=== PATIENT | male | born 1945 | race Caucasian/White ===

== ENCOUNTER → 2018-01-09 13:45 | Outpatient (CLI) | payer MEDICARE, SELFPAY ==
[2018-01-09 16:18] LABS: Anion Gap 8 (5-15); BUN 13 mg/dL (7-18); Calcium,Total 8.8 mg/dL (8.5-10.1); Chloride 102 mmol/L (98-107); Cholesterol 121 mg/dL (200); Creatinine, Serum 0.76 mg/dL (0.70-1.30); EST Glomerular Filtration Rate 107 mL/min (>60); Est Glom Filt Rate - Afr Amer 129 mL/min (>60); Glucose 98 mg/dL (74-106); High Density Lipoprotein 45 mg/dL; Potassium 3.8 mmol/L (3.5-5.1); Sodium Level 137 mmol/L (136-145); Thyroid Stim Hormone (TSH) 1.84 uIU/mL (0.358-3.74); Triglycerides 86 mg/dL; Very Low Density Lipoprotein 17 mg/dL (5-40)
== END ==
PROVIDERS: Family Provider Family Medicine; PCP Family Medicine; Visit Provider Family Medicine
DX: E11.9 Type 2 diabetes mellitus without complications (principal)
CPT/HCPCS: 36415; 80048; 80061; 84403; 84443

== ENCOUNTER 2018-06-26 09:00 | Outpatient (RCR) | payer MEDICARE, OTHER, SELFPAY ==
--- NOTE | 2018-05-22 10:28 | HP.PTEVAL_ITS ---
Patient's Visit Information EVERT GOOD is a 73 year old M referred to Physical Therapy by Sammy Ledezma with a diagnosis of L RC impingement. Date of Evaluation: 05/22/18 Physical Therapist: Keerthi Soriano - Visit Plan Frequency: 2x /Week Duration: 4-6 Weeks Plan: 2X/ week for 4-6 weeks for L shoulder PROM, AAROM, Active ROM, postural exercises, L RC and scapular strengthening with HEP and modalities PRN (US). - Subjective Subjective: He is not sure how he injured it but it has been months ago. He went to for regular check up and could hardly lift his arm (3 weeks) ago and now it is much better. He can now raise his arm up if he goes slow. He gets a sharp pain when he raises his arm up or if he lets it come down. He normally does not sleep on his L shoulder. He is R handed. He does yard work etc....not a lot of lifting - Pain L shoulder pain Pain Intensity (Out of 10): 3 - Objective Pt is R handed. Pt's AROM: L shoulder flexion to 80 degrees without substitution, L shld abd to 60 degrees without substitiution, IR to about PSIS, ER to 40 degrees. R shoulder flexion, abd, ER and IR WFL. L shoulder PROM: abd to approx 80 degrees, flexion to approx 165 degrees, ER to 45 degrees (pt is very guarded during PROM and hard to move the pt passivly with him guarding) . Pt is able to do AA flexion with some pain at end range and then when he comes back to approx 90 flexion in supine. He is also able to do AA wand scaption with some discomfort. Pt seemed to do better with AAROM with him being incontrol as opposed to PROM of the L shoulder. Due to guarding and decreased overall AROM I did not assess special tests at this time. L shoulder MMT: flexion 3-/5, abd 3-/5, ER 3+/5, IR 4-/5. R shoulder MMT: flex, abd, ER and IR 4/5. R supervisor tank house strength 102# and L supervisor tank house strength 100# - Goals Goal 1:: I HEP Goal Time Frame: 2-4 Weeks Goal 2:: Be able to raise L arm actively to 160 degrees abduction and flexion without substitution or pain Goal Time Frame: 4-6 Weeks Goal 3:: Increase L shoulder strength to 4-/5 all planes (flex, abd, ER and IR) Goal Time Frame: 4-6 Weeks Goal 4:: Be able to lift over his head without pain Goal Time Frame: 4-6 Weeks - Rehabilitation Potential Rehabilitation Potential: Good - Anticipated Interventions Patient/Client Instruction: Educate patient on: Condition, Plan of Care For the Purpose of:: To decrease pain, To decrease swelling/inflammation, To increase ROM, To improve nutrient delivery to tissue, To improve muscle performance and motor function, To improve ability to perform ADL's, To increase tolerance to activity/condition/position, To improve ability of physical actions for home/community/work/leisure, To improve health of tissue, To decrease soft tissue restriction, To increase flexibility/ROM Therapeutic Exercise to Include: Strength training, Postural training, Flexibilty training, Passive ROM, Active ROM, Scapular Strength/Stabilization For the Purpose of:: To decrease pain, To increase ROM, To improve nutrient delivery to tissue, To improve muscle performance and motor function, To increase tolerance to activity/condition/position, To improve performance and independence with ADL's, To improve ability of physical actions for home/ community/work/leisure, To improve health of tissue, To decrease soft tissue restriction, To increase flexibility/ROM Manual Therapy Techniques to Include: Passive ROM For the Purpose of:: To decrease pain, To increase ROM, To improve health of tissue, To decrease soft tissue restriction, To increase flexibility/ROM Cryotherapy (ice pack, ice massage): Yes Ultrasound (thermal/non thermal): Yes For the Purpose of:: To decrease pain, To decrease swelling/inflammation, To increase ROM, To improve nutrient delivery to tissue, To improve muscle performance and motor function, To improve ability to perform ADL's, To increase tolerance to activity/condition/position, To improve health of tissue, To decrease soft tissue restriction, To increase flexibility/ROM Thank you for the opportunity to evaluate your patient. For Medicare and Medicare HMO plans, please review the plan of care and approve it. It will need to be FAXED BACK to us at [phone] for Medicare purposes. Please let me know if there are questions or concerns regarding this plan of care. Physician Signature: Date:
--- NOTE | 2018-06-26 09:33 | HP.PTDCSUM ---
HP - PT D/C Summary It has been my pleasure to treat EVERT GOOD under orders from Sammy Ledezma, for the diagnosis of L RC impingement for a total of 10 visit(s). Discharge Date: 06/26/18 Please see the following information for a summary of their discharge status. - Subjective Subjective: Pt thinks that his shoulder is getting better. He feels it is gonna take time to heal. Pt still has pain when he is reaching for something ( no consistent when reaching). - Pain L shoulder pain Pain Intensity (Out of 10): 0 - Overall Improvement % Improvement: 50 - Objective Objective/Function: Improved flexion AROM from 80 degrees to 160 degrees on the L. Improved AROM abd L from 60 degrees to 80 degrees and still painful arc....once he gets past 120 degrees he is able to complete the motion. - Goals Goal 1:: I HEP Goal Progress: Goal Met Goal 2:: Be able to raise L arm actively to 160 degrees abduction and flexion without substitution or pain Goal Progress: Progressing Goal 3:: Increase L shoulder strength to 4-/5 all planes (flex, abd, ER and IR) Goal Progress: Progressing Goal 4:: Be able to lift over his head without pain Goal Progress: Progressing - Plan Plan: DC PT to HEP. Pt would like to wait and see if his shoulder gets better on its own and will try and remember to do HEP. - D/C Information Discharge Comments: DC PT If there are questions or concerns regarding this patient's physical therapy, please feel free to call me at [phone]. Thank you for the referral of this patient. Sincerely, Keerthi Soriano
== END 2018-06-26 14:19 | disposition home or self-care (01) ==
LOC: PT 09:00
PROVIDERS: Family Provider Family Medicine; PCP Family Medicine; Visit Provider Family Medicine
DX: M75.42 Impingement syndrome of left shoulder (principal)
CPT/HCPCS: 97035; 97110; 97140; 97161; 97530

== ENCOUNTER 2018-12-15 12:29 | Inpatient (IN) | payer MEDICARE, OTHER, SELFPAY ==
[2018-12-15] VITALS (8 sets, daily range): BP systolic 115–147; BP diastolic 57–68; PULSE 72–86; RESP 16–23; TEMP 37.3–39.4; O2SAT 91–96; BMI 28.6; BMI 28.5
[2018-12-15 13:20] LABS: Absolute Lymphocyte Count 0.46 X10^3/ul (0.83-4.51); Absolute Neutrophil Count 8.7 X10^3/uL (2.0-7.7); Basophil# 0.01 X10^3/uL; Basophil% 0.1 % (0-1); Hematocrit 36.5 % (40-54); Hemoglobin 12.4 g/dl (13.0-16.5); Lymphocyte # 0.46 X10^3/ul (4.0); Lymphocyte % 4.7 % (19-41); Mean Corpuscular Hgb 29.7 pg (27.0-32.0); Mean Corpuscular Volume 87.3 fL (80-94); Mean Platelet Vol. 9.6 fl (6.2-12.0); Monocyte# 0.54 X10^3/uL; Monocyte% 5.5 % (0-10); Neutrophil # 8.72 X10^3/uL (2.7-7.7); Neutrophil % 89.6 % (47-70); Platelet Count 139 K/mm3 (150-450); RBC Distribution Width CV 13.2 % (11.6-14.6); RBC Distribution Width SD 42.2 fl (35.1-43.9); Red Blood Count 4.18 M/mm3 (4.6-6.2); White Blood Count 9.7 K/mm3 (4.4-11.0)
[2018-12-15 13:22] LABS: POSITIVE COUNT NO; POSITIVE DIFFERENTIAL YES; POSITIVE MORPHOLOGY NO
[2018-12-15 13:23] LABS: Differential Indicated SCAN CRITERIA MET
[2018-12-15] MEDS: 0.9% Normal Saline 1,000 ML 150 ML IV (13:32)
[2018-12-15] MEDS: Ceftriaxone 1 GM/50 ML BAG IV (13:32)
[2018-12-15 13:33] LABS: Anion Gap 10 (5-15); BUN 20 mg/dL (7-18); BUN/Creat Ratio 16.4 RATIO (10-20); Calcium,Total 8.9 mg/dL (8.5-10.1); Chloride 99 mmol/L (98-107); Creatinine, Serum 1.22 mg/dL (0.70-1.30); EST Glomerular Filtration Rate 62 mL/min (>60); Est Glom Filt Rate - Afr Amer 75 mL/min (>60); Estimated Creatinine Clearance 60.96 ml/min; Glucose 185 mg/dL (74-106); Potassium 3.3 mmol/L (3.5-5.1); Sodium Level 137 mmol/L (136-145)
[2018-12-15] MEDS: Acetaminophen 500 MG Tablet 1000 MG PO (13:35)
[2018-12-15 13:53] LABS: Lactic Acid 1.8 mmol/L (0.4-2.0)
[2018-12-15 14:21] LABS: Bacteria 0 SEEN /hpf (None Seen); Mucous, Urine 0 SEEN /hpf (<or=2+); Red Blood Cells-Urine 0 SEEN /hpf (0-5); Squamous Epithelial Cells - UA 0 SEEN /hpf (0-5)
[2018-12-15 14:24] LABS: Color, Urine Yellow (Yellow); Glucose, Dipstick 100 mg/dl (Normal); Ketone-Dipstick Negative (Negative); Leukocyte Esterase-Dipstick 500 /ul (Negative); Nitrite-Dipstick Negative (Negative); Occult Blood-Urine 25 /ul (Negative); Protein-Dipstick 30 mg/dl (Negative); Specific Gravity, Urine 1.025 (1.002-1.030); Urine Bilirubin Dipstick Negative (Negative); Urine Clarity Clear (Clear); Urine Urobilinogen Normal (Normal)
[2018-12-15 14:27] LABS: White Blood Cells 10-25 SEEN /hpf (0-5)
--- NOTE | 2018-12-15 14:42 | ED.DCSUM_ITS ---
- ER Visit Summary Date of Service: 12/15/18 Chief Complaint: [Fever] History of Present Illness: The patient is a 73 M [presents to the emergency department with complaint of a fever that started yesterday. Patient was seen in Dr. Joe's office yesterday for fever and dysuria and had a urinalysis checked and was apparently started on ciprofloxacin. Patient today just has no energy and continues with high fever at home. Patient generally feels weak. He denies any vomiting. He had not taken anything for his fever at home. Patient does have a history of diabetes, hypertension, and high cholesterol. Patient denies any significant cough. He denies any abdominal pain or back pain.] Per patient also little more confused than usual today. Physical Examination: [HEENT-PERRLA, EOMI. Cranial nerves II through XII grossly intact. TMs clear. Mucous membranes moist. No adenopathy. Cardiovascular-regular rate and rhythm without murmur or ectopy Lungs-clear to auscultation, chest wall stable without crepitus or subcu emphysema Abdomen-normoactive bowel sounds, soft, nontender, no rebound or rigidity, no peritoneal signs. Skin exam-no rashes noted. Extremities-intact ?4, normal range of motion, normal pulses, atraumatic] Test Results: [CBC with differential obtained showed a white count of 9.7, hemoglobin 12.4, hematocrit 36, platelets 139. Chemistries showed a sodium of 137, potassium 3.3, chloride 99, CO2 28, glucose 185, BUN 20, creatinine 1.22. Urinalysis was positive for 500 leukocyte esterase and 10-25 WBCs. Lactate was normal at 1.8.] Emergency Department Course and Treatment: [Patient was given Tylenol 1 g p.o. Patient was started on Rocephin 1 g IV. Blood cultures and urine culture were sent. Patient was treated with potassium chloride 40 mEq p.o. for his hypokalemia] Treatment Plan: [Patient will be admitted for IV antibiotics and fluids. As he continues with chills and sweats.] Disposition: [Admit] Impression: [UTI Generalized weakness] This note was generated with [employer] dictation software. It may contain incorrect words, spelling, and punctuation that were not noted in review of the chart prior to signing ED Disposition - Plan for ED Patient: Referrals: Osbaldo Ledezma MD [Primary Care Provider] -
--- NOTE | 2018-12-15 14:46 | PCM.HP.STD ---
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 use Diabetes mellitus complication status: with unspecified complications Qualified Code(s): E11.8 - Type 2 diabetes mellitus with unspecified complications (4) Atherosclerosis of coronary artery of [place] heart without angina pectoris Status: Chronic Qualifiers: Coronary Disease-Associated Artery/Lesion type: [place] artery Qualified Code(s): I25.10 - Atherosclerotic heart disease of [place] coronary artery without angina pectoris (5) Hyperlipidemia Status: Chronic Qualifiers: Hyperlipidemia type: pure hypercholesterolemia Qualified Code(s): E78.00 - Pure hypercholesterolemia, unspecified; E78.0 - Pure hypercholesterolemia (6) Non-sustained ventricular tachycardia Status: Chronic (7) Hypertension Status: Chronic Qualifiers: Hypertension type: essential hypertension Qualified Code(s): I10 - Essential (primary) hypertension History of Present Illness Date of Admission: 12/15/18 Chief Complaint: Dysuria, Fever The patient is a 73 y/o M w/ PMHx: HTN, HLD, History of NSVT, Diabetes mellitus type II, CAD, Chronic Anemia, Fatty Liver Disease, Former Tobacco use who presents to the [facility] ED on 12/15/18 with history of recently presenting to his PCP the day prior w/ noted fever, dysuria, initiated following UA on oral cipro; however, had T up to 103, fevers, chills and mild confusion prompting ED presentation. Family and patient notes that he also got an IM shot, unclear regimen in the office. He notes having taken a total of 2 doses of the cipro regimen prior to presenting to the ED. In the ED he complaints of ongoing fever and chills, upon evaluation he is throwing off his blankets stating he is very hot. While in the ED evaluating patient his saturation wave form decent and intermittent decrease 90-92% with increased RR although denies any recent cough, congestion or URI sxs. Work-up in the ED included T 103, heart rate 83, BP 132/68, respiratory rate 23, 91% on room air, CBC with W BC 9.7, hemoglobin 12.4, platelet 139 with left shift, BMP with potassium 3.3, BUN/Cr 201.22, Glucose 185, LA 1.8, UA w/ SG 1.025, protein 30, glucose 100, occult blood 25, leukocyte esterase 500, negative nitrite, urine WBC 10-25, 0 RBC, 0 bacteria, urine culture and blood culture x2 pending per ED. In ED patient administered potassium supplementation 40 mg p.o. x1, IV Rocephin, oral Tylenol, normal saline. Requested additionally CXR and respiratory viral panel in the ED prior to transition to [place]. Past Medical History Past Medical History (Chronic Problems): Chronic Problems (Last Reviewed 05/11/18 @ 10:45 by Rosemarie Matos) Diabetes mellitus, type II (Chronic) Asymptomatic PVCs (Chronic) Atherosclerosis of coronary artery of [place] heart without angina pectoris (Chronic) History of left heart catheterization (Chronic 10/28/08) Hyperlipidemia (Chronic) Non-sustained ventricular tachycardia (Chronic) Hypertension (Chronic) Medical History: Medical History (Last Reviewed 05/11/18 @ 10:45 by Rosemarie Matos) Atherosclerosis of coronary artery of [place] heart without angina pectoris (Chronic) I25.10 Hyperlipidemia (Chronic) E78.5 Non-sustained ventricular tachycardia (Chronic) I47.2 Hypertension (Chronic) I10 Anemia D64.9 Depression F32.9 Fatty liver K76.0 Hiatal hernia K44.9 Allergies No Known Allergies Allergy (Verified 12/15/18 12:31) Home Medications: Ambulatory Orders Medication Instructions Recorded aspirin 81 mg tablet,delayed 81 mg PO QDAY 05/11/18 release metformin ER 500 mg 500 mg PO QDAY 90 Days #90 tab 05/11/18 tablet,extended release 24 hr ramipril 2.5 mg capsule 2.5 mg PO QDAY 90 Days #90 cap 05/11/18 simvastatin 40 mg tablet 40 mg PO QDAY 90 Days #90 tab 05/11/18 atenolol 50 mg tablet 50 mg PO QDAY 90 Days #90 tab 10/06/18 Surgical History: Surgical History (Last Reviewed 05/11/18 @ 10:45 by Rosemarie Matos) History of left heart catheterization (Chronic) Onset Date: 10/28/08 Z98.890 H/O right inguinal hernia repair Z98.890, Z87.19 Psychiatric History: No pertinent psych hx Lives: Spouse/ Significant Other Smoking Status: Former smoker - Quit approximately 30 years prior but smoked from 18 years old up until then up to 2 pack/day. Tobacco Use: Non-smoker Alcohol: Occasional Drugs: None - *Family History Maternal Family History: Family History (Last Reviewed 05/11/18 @ 10:45 by Rosemarie Matos) Father Myocardial infarction Brother CAD (coronary artery disease) Cancer History Items: - - Patient notes a maternal family history of stroke and diabetes. Paternal Family History: Family History (Last Reviewed 05/11/18 @ 10:45 by Rosemarie Matos) Father Myocardial infarction Brother CAD (coronary artery disease) Cancer History Items: - - Patient notes a paternal family history of heart disease, [place]. Review of Systems Constitutional: Reports: Anorexia, Chills, Fever, Malaise, Weakness, Fatigue. Denies: Weight Change HEENT: Denies: Head Aches, Sinus Congestion, Sinus Drainage Cardiovascular: Denies: Chest Pain, Palpitations Respiratory: Denies: Cough, Shortness of breath at rest, Sputum production Gastrointestinal: Denies: Abdominal Pain, Nausea, Vomiting Genitourinary: Reports: Dysuria, Frequency, Hesitancy Musculoskeletal: Denies: Joint Pain, Joint Tenderness Skin: Denies: Rash, Wounds Neurological: Denies: Numbness, Tingling, Focal weakness Psychiatric: Denies: Anxiety, Depression, Homicidal Ideations, Suicidal Ideations Hematologic/ Lymphatic: Denies: Easy Bruising, Easy Bleeding VTE Information - Inpt Only VTE Present on Admission: No VTE Mechan Device Prophylaxis: SCD's VTE Pharm Prophylaxis ordered?: Yes Patient Problems: Active and Suspected Problems (Last Reviewed 05/11/18 @ 10:45 by Rosemarie Matos) Sepsis (Acute) UTI (urinary tract infection) (Acute) Subjective: Seated upright in ED bed, flushed, mildly diaphoretic appearance, ill-appearing. Objective: Physical Examination: General: awake, alert, oriented x 3, although family notes he has been less interactive and possibly slow to answer, remains cooperative, seated upright in the ED bed, flushed, mildly diaphoretic, chills evident, ill-appearing. Skin: Flushed color, turgor, no icterus, cyanosis. HEENT: AT/NC, EOMI, PERRLA, dry MM, no carotid bruits or JVD noted. Lungs: Diminished breath sounds bilateral bases, poor effort, increased respiratory rate, no rales, ronchi or wheezing. Heart: Regular rate and rhythm; no gallop, rub audible. Abdomen: soft, NTTP and no suprapubic TTP, ND, normal BS, no HSM. Extremities: no cyanosis, clubbing, or edema. Neurological: patient awake, alert, oriented as noted; cognitive function currently improved, seems baseline intact, family noted concerns prior; pupils equally reactive to light and accomodation; cranial nerves II-XII grossly normal, moving all 4 extremities, no focal deficits, strength moderately globally decreased secondary to acute presentation. Psychiatric: affect appears fatigued, no acute evidence of depressive or anxiety feelings. - Physical Exam Vital Signs Temp Pulse Resp BP Pulse Ox 103 F H 83 23 H 132/68 H 91 12/15/18 14:07 12/15/18 14:07 12/15/18 14:07 12/15/18 14:07 12/15/18 14:07 Oxygen Delivery Method Room Air Weight: 211 lb 3.245 oz Body Mass Index (BMI) 28.6 Laboratory Tests Past 24 Hrs 12/15/18 12/15/18 12/15/18 12:50 12:50 13:00 WBC 9.7 RBC 4.18 L Hgb 12.4 L Hct 36.5 L MCV 87.3 MCH 29.7 MCHC 34.0 RDW 13.2 RDW Differential 42.2 Plt Count 139 L MPV 9.6 Immature Gran % (Auto) 0.100 Neut % (Auto) 89.6 H Lymph % (Auto) 4.7 L [place] % (Auto) 5.5 Eos % (Auto) 0.0 Baso % (Auto) 0.1 Absolute Neuts (auto) 8.7 H Absolute Lymphs (auto) 0.46 L Total Counted Not Reportable Sodium 137 Potassium 3.3 L Chloride 99 Carbon Dioxide 28.0 Anion Gap 10 BUN 20 H Creatinine 1.22 Estim Creat Clear Calc 60.96 Est GFR (MDRD) Af Amer 75 Est GFR (MDRD) Non-Af 62 BUN/Creatinine Ratio 16.4 Glucose 185 H Lactic Acid 1.8 Calcium 8.9 Urine Color Urine Clarity Urine pH Ur Specific [place] Urine Protein Urine Glucose (UA) Urine Ketones Urine Occult Blood Urine Nitrite Urine Bilirubin Urine Urobilinogen Ur Leukocyte Esterase Urine RBC Urine WBC Ur Squamous Epith Cells Urine Bacteria Urine Mucus 12/15/18 14:15 WBC RBC Hgb Hct MCV MCH MCHC RDW RDW Differential Plt Count MPV Immature Gran % (Auto) Neut % (Auto) Lymph % (Auto) [place] % (Auto) Eos % (Auto) Baso % (Auto) Absolute Neuts (auto) Absolute Lymphs (auto) Total Counted Sodium Potassium Chloride Carbon Dioxide Anion Gap BUN Creatinine Estim Creat Clear Calc Est GFR (MDRD) Af Amer Est GFR (MDRD) Non-Af BUN/Creatinine Ratio Glucose Lactic Acid Calcium Urine Color Yellow Urine Clarity Clear Urine pH 5.0 Ur Specific [place] 1.025 Urine Protein 30 H Urine Glucose (UA) 100 H Urine Ketones Negative Urine Occult Blood 25 H Urine Nitrite Negative Urine Bilirubin Negative Urine Urobilinogen Normal Ur Leukocyte Esterase 500 H Urine RBC 0 SEEN Urine WBC 10-25 SEEN Ur Squamous Epith Cells 0 SEEN Urine Bacteria 0 SEEN Urine Mucus 0 SEEN Assessment/Plan All Active Problems (Last Reviewed 05/11/18 @ 10:45 by Rosemarie Matos) Sepsis (Acute) UTI (urinary tract infection) (Acute) The patient is a 73 y/o M w/ PMHx: HTN, HLD, History of NSVT, Diabetes mellitus type II, CAD, Chronic Anemia, Fatty Liver Disease, Former Tobacco use who presents to the [facility] ED on 12/15/18 with history of recently presenting to his PCP the day prior w/ noted fever, dysuria, initiated following UA on oral cipro; however, had T up to 103, fevers, chills and mild confusion prompting ED presentation. (1) Acute Sepsis secondary to ? Acute Urinary Tract Infection: Elevated RR, Febrile, L shift, Confusion. UA at PCP office concerning, placed on cipro at that time, repeat UA upon ED evaluation not marked appearing, pending UCx, noted also increased intermittent RR and decreased oxygenation, will additionally obtain respiratory viral panel and CXR to be cautious given notable pulmonary viral illnesses which could be concurrent, admission CBC w/ WBC 9.7 with L shift however has already been on abx x 1 day as noted, continue IVFs, monitor I/Os, continue IV Rocephin w/ transition as able pending sensitivities and speciation. Bld cx x 2 obtained in the ED. Will need to request UA, UCx information from [facility] once open on 12/17/18. (2) Hypokalemia: Admission K+ 3.3, supplementation given, repeat level in AM. (3) CAD: Will continue home regimen asa, statin, BB, ACEI. (4) Diabetes mellitus type II: Hold oral home regimen, ADA diet, accu checks w/ ISS. (5) Hypertension: Continue home regimen including atenolol, ramipril with hold parameters, PRN hydralazine. (6) Hyperlipidemia: Continue home statin regimen. (7) DVT prophylaxis: SCDs, lovenox. Code Visit Inpatient E&M: [id number] Init Hosp L3
--- NOTE | 2018-12-15 14:57 | HP.PCM_ITS ---
Problem List (1) Sepsis Status: Acute Qualifiers: Sepsis type: sepsis due to unspecified organism Qualified Code(s): A41.9 - Sepsis, unspecified organism (2) UTI (urinary tract infection) Status: Acute Qualifiers: Urinary tract infection type: site unspecified (3) Diabetes mellitus, type II Status: Chronic Qualifiers: Diabetes mellitus supervisor long goods insulin use: without assisted use Diabetes mellitus complication status: with unspecified complications Qualified Code(s): E11.8 - Type 2 diabetes mellitus with unspecified complications (4) Atherosclerosis of coronary artery of [place] heart without angina pectoris Status: Chronic Qualifiers: Coronary Disease-Associated Artery/Lesion type: [place] artery Qualified Code(s): I25.10 - Atherosclerotic heart disease of [place] coronary artery without angina pectoris (5) Hyperlipidemia Status: Chronic Qualifiers: Hyperlipidemia type: pure hypercholesterolemia Qualified Code(s): E78.00 - Pure hypercholesterolemia, unspecified; E78.0 - Pure hypercholesterolemia (6) Non-sustained ventricular tachycardia Status: Chronic (7) Hypertension Status: Chronic Qualifiers: Hypertension type: essential hypertension Qualified Code(s): I10 - Essential (primary) hypertension History of Present Illness Date of Admission: 12/15/18 Chief Complaint: Dysuria, Fever The patient is a 73 y/o M w/ PMHx: HTN, HLD, History of NSVT, Diabetes mellitus type II, CAD, Chronic Anemia, Fatty Liver Disease, Former Tobacco use who presents to the [facility] ED on 12/15/18 with history of recently presenting to his PCP the day prior w/ noted fever, dysuria, initiated following UA on oral cipro; however, had T up to 103, fevers, chills and mild confusion prompting ED presentation. Family and patient notes that he also got an IM shot, unclear regimen in the office. He notes having taken a total of 2 doses of the cipro regimen prior to presenting to the ED. In the ED he complaints of ongoing fever and chills, upon evaluation he is throwing off his blankets stating he is very hot. While in the ED evaluating patient his saturation wave form decent and intermittent decrease 90-92% with increased RR although denies any recent cough, congestion or URI sxs. Work-up in the ED included T 103, heart rate 83, BP 132/68, respiratory rate 23, 91% on room air, CBC with W BC 9.7, hemoglobin 12.4, platelet 139 with left shift, BMP with potassium 3.3, BUN/Cr 201.22, Glucose 185, LA 1.8, UA w/ SG 1.025, protein 30, glucose 100, occult blood 25, leukocyte esterase 500, negative nitrite, urine WBC 10-25, 0 RBC, 0 bacteria, urine culture and blood culture x2 pending per ED. In ED patient administered potassium supplementation 40 mg p.o. x1, IV Rocephin, oral Tylenol, normal saline. Requested additionally CXR and respiratory viral panel in the ED prior to transition to ND. Past Medical History Past Medical History (Chronic Problems): Chronic Problems (Last Reviewed 05/11/18 @ 10:45 by Rosemarie Matos) Diabetes mellitus, type II (Chronic) Asymptomatic PVCs (Chronic) Atherosclerosis of coronary artery of [place] heart without angina pectoris (Chronic) History of left heart catheterization (Chronic 10/28/08) Hyperlipidemia (Chronic) Non-sustained ventricular tachycardia (Chronic) Hypertension (Chronic) Medical History: Medical History (Last Reviewed 05/11/18 @ 10:45 by Rosemarie Matos) Atherosclerosis of coronary artery of [place] heart without angina pectoris (Chronic) I25.10 Hyperlipidemia (Chronic) E78.5 Non-sustained ventricular tachycardia (Chronic) I47.2 Hypertension (Chronic) I10 Anemia D64.9 Depression F32.9 Fatty liver K76.0 Hiatal hernia K44.9 Allergies No Known Allergies Allergy (Verified 12/15/18 12:31) Home Medications: Ambulatory Orders Medication Instructions Recorded aspirin 81 mg tablet,delayed 81 mg PO QDAY 05/11/18 release metformin ER 500 mg 500 mg PO QDAY 90 Days #90 tab 05/11/18 tablet,extended release 24 hr ramipril 2.5 mg capsule 2.5 mg PO QDAY 90 Days #90 cap 05/11/18 simvastatin 40 mg tablet 40 mg PO QDAY 90 Days #90 tab 05/11/18 atenolol 50 mg tablet 50 mg PO QDAY 90 Days #90 tab 10/06/18 Surgical History: Surgical History (Last Reviewed 05/11/18 @ 10:45 by Rosemarie Matos) History of left heart catheterization (Chronic) Onset Date: 10/28/08 Z98.890 H/O right inguinal hernia repair Z98.890, Z87.19 Psychiatric History: No pertinent psych hx Lives: Spouse/ Significant Other Smoking Status: Former smoker - Quit approximately 30 years prior but smoked from 18 years old up until then up to 2 pack/day. Tobacco Use: Non-smoker Alcohol: Occasional Drugs: None - *Family History Maternal Family History: Family History (Last Reviewed 05/11/18 @ 10:45 by Rosemarie Matos) Father Myocardial infarction Brother CAD (coronary artery disease) Cancer History Items: - - Patient notes a maternal family history of stroke and diabetes. Paternal Family History: Family History (Last Reviewed 05/11/18 @ 10:45 by Rosemarie Matos) Father Myocardial infarction Brother CAD (coronary artery disease) Cancer History Items: - - Patient notes a paternal family history of heart disease, [place]. Review of Systems Constitutional: Reports: Anorexia, Chills, Fever, Malaise, Weakness, Fatigue. Denies: Weight Change HEENT: Denies: Head Aches, Sinus Congestion, Sinus Drainage Cardiovascular: Denies: Chest Pain, Palpitations Respiratory: Denies: Cough, Shortness of breath at rest, Sputum production Gastrointestinal: Denies: Abdominal Pain, Nausea, Vomiting Genitourinary: Reports: Dysuria, Frequency, Hesitancy Musculoskeletal: Denies: Joint Pain, Joint Tenderness Skin: Denies: Rash, Wounds Neurological: Denies: Numbness, Tingling, Focal weakness Psychiatric: Denies: Anxiety, Depression, Homicidal Ideations, Suicidal Ideations Hematologic/ Lymphatic: Denies: Easy Bruising, Easy Bleeding VTE Information - Inpt Only VTE Present on Admission: No VTE Mechan Device Prophylaxis: SCD's VTE Pharm Prophylaxis ordered?: Yes Patient Problems: Active and Suspected Problems (Last Reviewed 05/11/18 @ 10:45 by Rosemarie Matos) Sepsis (Acute) UTI (urinary tract infection) (Acute) Subjective: Seated upright in ED bed, flushed, mildly diaphoretic appearance, ill-appearing. Objective: Physical Examination: General: awake, alert, oriented x 3, although family notes he has been less interactive and possibly slow to answer, remains cooperative, seated upright in the ED bed, flushed, mildly diaphoretic, chills evident, ill-appearing. Skin: Flushed color, turgor, no icterus, cyanosis. HEENT: AT/NC, EOMI, PERRLA, dry MM, no carotid bruits or JVD noted. Lungs: Diminished breath sounds bilateral bases, poor effort, increased respiratory rate, no rales, ronchi or wheezing. Heart: Regular rate and rhythm; no gallop, rub audible. Abdomen: soft, NTTP and no suprapubic TTP, ND, normal BS, no HSM. Extremities: no cyanosis, clubbing, or edema. Neurological: patient awake, alert, oriented as noted; cognitive function currently improved, seems baseline intact, family noted concerns prior; pupils e qually reactive to light and accomodation; cranial nerves II-XII grossly normal, moving all 4 extremities, no focal deficits, strength moderately globally decreased secondary to acute presentation. Psychiatric: affect appears fatigued, no acute evidence of depressive or anxiety feelings. - Physical Exam Vital Signs Temp Pulse Resp BP Pulse Ox 103 F H 83 23 H 132/68 H 91 12/15/18 14:07 12/15/18 14:07 12/15/18 14:07 12/15/18 14:07 12/15/18 14:07 Oxygen Delivery Method Room Air Weight: 211 lb 3.245 oz Body Mass Index (BMI) 28.6 Laboratory Tests Past 24 Hrs 12/15/18 12/15/18 12/15/18 12:50 12:50 13:00 WBC 9.7 RBC 4.18 L Hgb 12.4 L Hct 36.5 L MCV 87.3 MCH 29.7 MCHC 34.0 RDW 13.2 RDW Differential 42.2 Plt Count 139 L MPV 9.6 Immature Gran % (Auto) 0.100 Neut % (Auto) 89.6 H Lymph % (Auto) 4.7 L [place] % (Auto) 5.5 Eos % (Auto) 0.0 Baso % (Auto) 0.1 Absolute Neuts (auto) 8.7 H Absolute Lymphs (auto) 0.46 L Total Counted Not Reportable Sodium 137 Potassium 3.3 L Chloride 99 Carbon Dioxide 28.0 Anion Gap 10 BUN 20 H Creatinine 1.22 Estim Creat Clear Calc 60.96 Est GFR (MDRD) Af Amer 75 Est GFR (MDRD) Non-Af 62 BUN/Creatinine Ratio 16.4 Glucose 185 H Lactic Acid 1.8 Calcium 8.9 Urine Color Urine Clarity Urine pH Ur Specific [place] Urine Protein Urine Glucose (UA) Urine Ketones Urine Occult Blood Urine Nitrite Urine Bilirubin Urine Urobilinogen Ur Leukocyte Esterase Urine RBC Urine WBC Ur Squamous Epith Cells Urine Bacteria Urine Mucus 12/15/18 14:15 WBC RBC Hgb Hct MCV MCH MCHC RDW RDW Differential Plt Count MPV Immature Gran % (Auto) Neut % (Auto) Lymph % (Auto) [place] % (Auto) Eos % (Auto) Baso % (Auto) Absolute Neuts (auto) Absolute Lymphs (auto) Total Counted Sodium Potassium Chloride Carbon Dioxide Anion Gap BUN Creatinine Estim Creat Clear Calc Est GFR (MDRD) Af Amer Est GFR (MDRD) Non-Af BUN/Creatinine Ratio Glucose Lactic Acid Calcium Urine Color Yellow Urine Clarity Clear Urine pH 5.0 Ur Specific [place] 1.025 Urine Protein 30 H Urine Glucose (UA) 100 H Urine Ketones Negative Urine Occult Blood 25 H Urine Nitrite Negative Urine Bilirubin Negative Urine Urobilinogen Normal Ur Leukocyte Esterase 500 H Urine RBC 0 SEEN Urine WBC 10-25 SEEN Ur Squamous Epith Cells 0 SEEN Urine Bacteria 0 SEEN Urine Mucus 0 SEEN Assessment/Plan All Active Problems (Last Reviewed 05/11/18 @ 10:45 by Rosemarie Matos) Sepsis (Acute) UTI (urinary tract infection) (Acute) The patient is a 73 y/o M w/ PMHx: HTN, HLD, History of NSVT, Diabetes mellitus type II, CAD, Chronic Anemia, Fatty Liver Disease, Former Tobacco use who presents to the [facility] ED on 12/15/18 with history of recently presenting to his PCP the day prior w/ noted fever, dysuria, initiated following UA on oral cipro; however, had T up to 103, fevers, chills and mild confusion prompting ED presentation. (1) Acute Sepsis secondary to ? Acute Urinary Tract Infection: Elevated RR, Febrile, L shift, Confusion. UA at PCP office concerning, placed on cipro at that time, repeat UA upon ED evaluation not marked appearing, pending UCx, noted also increased intermittent RR and decreased oxygenation, will additionally obtain respiratory viral panel and CXR to be cautious given notable pulmonary viral illnesses which could be concurrent, admission CBC w/ WBC 9.7 with L shift however has already been on abx x 1 day as noted, continue IVFs, monitor I/Os, continue IV Rocephin w/ transition as able pending sensitivities and speciation. Bld cx x 2 obtained in the ED. Will need to request UA, UCx information from [facility] once open on 12/17/18. (2) Hypokalemia: Admission K+ 3.3, supplementation given, repeat level in AM. (3) CAD: Will continue home regimen asa, statin, BB, ACEI. (4) Diabetes mellitus type II: Hold oral home regimen, ADA diet, accu checks w/ ISS. (5) Hypertension: Continue home regimen including atenolol, ramipril with hold parameters, PRN hydralazine. (6) Hyperlipidemia: Continue home statin regimen. (7) DVT prophylaxis: SCDs, lovenox. Code Visit Inpatient E&M: 60352 Init Hosp L3
--- NOTE | 2018-12-15 15:08 | RAD_ITS ---
STUDY: X-RAY CHEST REASON FOR EXAM: Male, 73 years old. Fever. TECHNIQUE: PA and lateral chest. COMPARISON: None. FINDINGS: The lungs are clear and expanded. There is no demonstrated pleural abnormality. Normal size heart. Normal mediastinum and juanjo. Normal visualized pulmonary arteries. Normal visualized aortic arch and descending thoracic aorta. Normal visualized thoracic spine. Normal visualized ribs, clavicles, and shoulders. There is no demonstrated abnormality of the visualized soft tissue structures of the upper abdomen. RAD/Chest PA and Lateral IMPRESSION: Normal x-ray examination of the chest. Electronically Signed: Zhanna Gatica MD at 17:00 EST Tel , Service support ,
[2018-12-15 16:19] LABS: Magnesium 1.6 mg/dL (1.6-2.6)
[2018-12-15] MEDS: Acetaminophen 325 MG Tablet 650 MG PO (22:04)
[2018-12-15] MEDS: 0.9% Normal Saline 1,000 ML 100 ML IV (22:06)
[2018-12-15 22:16] LABS: Bedside Glucose 206 mg/dL (70-110)
[2018-12-15] MEDS: Insulin Lispro 100 UNIT/ML INSULN.PEN SC (22:18)
[2018-12-15] MEDS: Atorvastatin Calcium 20 MG Tablet PO (22:19)
[2018-12-16] VITALS (9 sets, daily range): BP systolic 118–140; BP diastolic 57–79; PULSE 77–123; RESP 16–18; TEMP 36.9–39; O2SAT 92–97
[2018-12-16 00:31] LABS: Bedside Glucose 145 mg/dL (70-110)
[2018-12-16] MEDS: Acetaminophen 325 MG Tablet 650 MG PO ×2 (04:22→14:17)
[2018-12-16] MEDS: Insulin Lispro 100 UNIT/ML INSULN.PEN SC ×4 (06:44→21:02)
[2018-12-16 06:51] LABS: Bedside Glucose 199 mg/dL (70-110)
[2018-12-16 07:02] LABS: Absolute Lymphocyte Count 0.55 X10^3/ul (0.83-4.51); Absolute Neutrophil Count 6.7 X10^3/uL (2.0-7.7); Basophil# 0.01 X10^3/uL; Basophil% 0.1 % (0-1); Hematocrit 34.9 % (40-54); Hemoglobin 11.9 g/dl (13.0-16.5); Lymphocyte # 0.55 X10^3/ul (4.0); Lymphocyte % 6.8 % (19-41); Mean Corp Hgb Conc 34.1 g/gl (32-36); Mean Corpuscular Volume 87.9 fL (80-94); Monocyte# 0.85 X10^3/uL; Monocyte% 10.4 % (0-10); Neutrophil # 6.71 X10^3/uL (2.7-7.7); Neutrophil % 82.5 % (47-70); Platelet Count 114 K/mm3 (150-450); RBC Distribution Width CV 13.1 % (11.6-14.6); RBC Distribution Width SD 42.5 fl (35.1-43.9); Red Blood Count 3.97 M/mm3 (4.6-6.2); White Blood Count 8.1 K/mm3 (4.4-11.0)
[2018-12-16 07:03] LABS: Differential Indicated SCAN CRITERIA MET; POSITIVE COUNT NO; POSITIVE DIFFERENTIAL YES; POSITIVE MORPHOLOGY NO
[2018-12-16 07:15] LABS: Anion Gap 10 (5-15); BUN 13 mg/dL (7-18); Calcium,Total 8.1 mg/dL (8.5-10.1); Chloride 106 mmol/L (98-107); EST Glomerular Filtration Rate 78 mL/min (>60); Est Glom Filt Rate - Afr Amer 95 mL/min (>60); Estimated Creatinine Clearance 74.37 ml/min; Glucose 195 mg/dL (74-106); Potassium 3.4 mmol/L (3.5-5.1); Sodium Level 140 mmol/L (136-145)
--- NOTE | 2018-12-16 07:57 | PCM.PN.HOSP ---
Patient Problems: Active and Suspected Problems (Last Reviewed 05/11/18 @ 10:45 by Rosemarie Matos) Sepsis (Acute) UTI (urinary tract infection) (Acute) Subjective: The patient is a 73 y/o M w/ PMHx: HTN, HLD, History of NSVT, Diabetes mellitus type II, CAD, Chronic Anemia, Fatty Liver Disease, Former Tobacco use who presents to the [facility] ED on 12/15/18 with history of recently presenting to his PCP the day prior w/ noted fever, dysuria, initiated following UA on oral cipro; however, had T up to 103, fevers, chills and mild confusion prompting ED presentation. Elevated RR, Febrile, L shift, Confusion. UA at PCP office concerning, placed on cipro at that time, repeat UA upon ED evaluation not marked appearing, pending UCx, noted also increased intermittent RR and decreased oxygenation, pending respiratory viral panel given vague complaints, CXR unremarkable, admission CBC w/ WBC 9.7 with L shift however had already been on abx x 1 day as noted. Admitted to MD, administered IVFs, monitor I/Os, continue IV Rocephin w/ transition as able pending sensitivities and speciation. PVR elevated following UOP, place yates and initiate BID flomax given retention, Bld cx x 2 obtained in the ED. Requested UA, UCx information from [facility] once open on 12/17/18. Patient overnight with no acute events per self and per nursing report aside noted urinary retention with PVRs following voiding, greater than 300, pending Yates initiation per discussion with nursing staff and initiation of BID Flomax. Patient remains afebrile and states that he only has some mild dysuria still but otherwise chills have resolved. Patient denies any URI or respiratory complaints. Chest x-ray in the ED reviewed with patient was noted to be unremarkable. Patient denies fevers, chills, nausea, emesis, abdominal pain, chest pain or dyspnea. Objective: Physical Examination: General: awake, alert, oriented x 3, seated upright in the ED bed, improved appearance. Skin: Flushed color, turgor, no icterus, cyanosis. HEENT: AT/NC, EOMI, PERRLA, improved MMM. Lungs: Diminished breath sounds bilateral bases, improved moderate effort, increased respiratory rate, no rales, ronchi or wheezing. Heart: Regular rate and rhythm; no gallop, rub audible. Abdomen: soft, NTTP and no suprapubic TTP, ND, normal BS. Extremities: no cyanosis, clubbing, or edema. Neurological: patient awake, alert, oriented as noted; cognitive function currently improved, seems baseline intact, family noted concerns prior; pupils equally reactive to light and accomodation; cranial nerves II-XII grossly normal, moving all 4 extremities, no focal deficits, strength moderately globally decreased secondary to acute presentation. Psychiatric: affect appears improved, less fatigued, no acute evidence of depressive or anxiety feelings. Vitals/I&O's: Vital Signs Temp Pulse Resp BP Pulse Ox 98.4 F 123 H 18 129/79 H 92 12/16/18 07:00 12/16/18 07:00 12/16/18 04:18 12/16/18 04:18 12/16/18 07:16 Oxygen Delivery Method Room Air Weight: 210 lb 8 oz Body Mass Index (BMI) 28.5 Intake and Output for Last 24 Hours 12/14/18 12/15/18 12/16/18 23:59 23:59 23:59 Intake Total 517 / 517 1840 / 1840 Output Total 1600 / 1600 Balance 517 / 517 240 / 240 Laboratory Results 12/15/18 12:50: WBC 9.7, RBC 4.18 L, Hgb 12.4 L, Hct 36.5 L, MCV 87.3, MCH 29.7, MCHC 34.0, RDW 13.2, RDW Differential 42.2, Plt Count 139 L, MPV 9.6, Immature Gran % (Auto) 0.100, Neut % (Auto) 89.6 H, Lymph % (Auto) 4.7 L, [place] % (Auto) 5.5, Eos % (Auto) 0.0, Baso % (Auto) 0.1, Absolute Neuts (auto) 8.7 H, Absolute Lymphs (auto) 0.46 L, Total Counted Not Reportable 12/15/18 12:50: Sodium 137, Potassium 3.3 L, Chloride 99, Carbon Dioxide 28.0, Anion Gap 10, BUN 20 H, Creatinine 1.22, Estim Creat Clear Calc 60.96, Est GFR (MDRD) Af Amer 75, Est GFR (MDRD) Non-Af 62, BUN/Creatinine Ratio 16.4, Glucose 185 H, Calcium 8.9 12/15/18 13:00: Lactic Acid 1.8 12/15/18 14:15: Urine Color Yellow, Urine Clarity Clear, Urine pH 5.0, Ur Specific [place] 1.025, Urine Protein 30 H, Urine Glucose (UA) 100 H, Urine Ketones Negative, Urine Occult Blood 25 H, Urine Nitrite Negative, Urine Bilirubin Negative, Urine Urobilinogen Normal, Ur Leukocyte Esterase 500 H, Urine RBC 0 SEEN, Urine WBC 10-25 SEEN, Ur Squamous Epith Cells 0 SEEN, Urine Bacteria 0 SEEN, Urine Mucus 0 SEEN 12/15/18 15:50: Magnesium 1.6 12/15/18 16:15: POC Glucose 145 H 12/15/18 22:08: POC Glucose 206 H 12/16/18 06:11: WBC 8.1, RBC 3.97 L, Hgb 11.9 L, Hct 34.9 L, MCV 87.9, MCH 30.0, MCHC 34.1, RDW 13.1, RDW Differential 42.5, Plt Count 114 L, MPV 10.0, Immature Gran % (Auto) 0.200, Neut % (Auto) 82.5 H, Lymph % (Auto) 6.8 L, [place] % (Auto) 10.4 H, Eos % (Auto) 0.0, Baso % (Auto) 0.1, Absolute Neuts (auto) 6.7, Absolute Lymphs (auto) 0.55 L, Total Counted Not Reportable, Differential Comment Pending 12/16/18 06:11: Sodium 140, Potassium 3.4 L, Chloride 106, Carbon Dioxide 24.0, Anion Gap 10, BUN 13, Creatinine 1.00, Estim Creat Clear Calc 74.37, Est GFR (MDRD) Af Amer 95, Est GFR (MDRD) Non-Af 78, BUN/Creatinine Ratio 13.0, Glucose 195 H, Calcium 8.1 L 12/16/18 06:42: POC Glucose 199 H Current Medications Acetaminophen (Tylenol) 650 mg PO Q6H PRN PRN PRN Reason: Mild Pain (scale 0-3)/T>100.7 Last Admin: 12/16/18 04:22 Dose: 650 mg Al Hydroxide/Mg Hydroxide (Mylanta Ii) 30 ml PO Q6H PRN PRN PRN Reason: Gastric burning Albuterol Sulfate (Ventolin Aerosols) 2.5 mg INHALATION Q2H PRN PRN PRN Reason: dyspnea, wheezing Aspirin (Ecotrin) 81 mg PO DAILY@0800 [facility] Atenolol (Tenormin (Beta Johnnie)) 50 mg PO DAILY [facility] Atorvastatin Calcium (Lipitor) 20 mg PO QHS [facility] Last Admin: 12/15/18 22:19 Dose: 20 mg Enoxaparin Sodium (Lovenox) 40 mg SC DAILY@1000 [facility] Sodium Chloride () 1,000 mls @ 100 mls/hr IV .Q10H [facility] Last Admin: 12/15/18 22:06 Dose: 100 mls/hr Ceftriaxone Sodium (Rocephin) 1 gm in 50 mls @ 100 mls/hr IV Q24H [facility] Insulin Human Lispro (Humalog Kwikpen (Bkc)) 0 unit SC ACHS [facility]; Protocol Last Admin: 12/16/18 06:44 Dose: 2 units Magnesium Hydroxide (Milk Of Magnesia) 30 ml PO DAILY PRN PRN PRN Reason: Constipation Ondansetron HCl (Zofran) 4 mg IV Q8H PRN PRN PRN Reason: NAUSEA Ramipril (Altace) 2.5 mg PO DAILY [facility] Sodium Chloride () 5 - 15 ml IV UD PRN PRN Reason: SALINE FLUSH Tamsulosin HCl (Flomax) 0.4 mg PO BID@0830,1730 [facility] Medical Necessity - Tobacco Use Smoking Status: Former smoker Tobacco Use: Non-smoker Assessment/Plan All Active Problems (Last Reviewed 05/11/18 @ 10:45 by Rosemarie Matos) Sepsis (Acute) UTI (urinary tract infection) (Acute) The patient is a 73 y/o M w/ PMHx: HTN, HLD, History of NSVT, Diabetes mellitus type II, CAD, Chronic Anemia, Fatty Liver Disease, Former Tobacco use who presents to the [facility] ED on 12/15/18 with history of recently presenting to his PCP the day prior w/ noted fever, dysuria, initiated following UA on oral cipro; however, had T up to 103, fevers, chills and mild confusion prompting ED presentation. (1) Acute Sepsis secondary to Acute Urinary Tract Infection w/ Urinary Retention: Elevated RR, Febrile, L shift, Confusion. UA at PCP office concerning, placed on cipro at that time, repeat UA upon ED evaluation not marked appearing, pending UCx, noted also increased intermittent RR and decreased oxygenation, pending respiratory viral panel given vague complaints, CXR unremarkable, admission CBC w/ WBC 9.7 with L shift however had already been on abx x 1 day as noted. Admitted to MD, administered IVFs, monitor I/Os, continue IV Rocephin w/ transition as able pending sensitivities and speciation. PVR elevated following UOP, place yates and initiate BID flomax given retention, Bld cx x 2 obtained in the ED. Will need to request UA, UCx information from [facility] once open on 12/17/18. (2) Hypokalemia: Admission K+ 3.3, supplementation given, repeat level 3.4, will given additional supplementation. Mag 1.6, supplementation administered also. (3) CAD: Will continue home regimen asa, statin, BB, ACEI. (4) Diabetes mellitus type II: Hold oral home regimen, ADA diet, accu checks w/ ISS. (5) Hypertension: Continue home regimen including atenolol, ramipril with hold parameters, PRN hydralazine. (6) Hyperlipidemia: Continue home statin regimen. (7) DVT prophylaxis: SCDs, lovenox. Code Visit Inpatient E&M: 07665 Subs Hosp L2
--- NOTE | 2018-12-16 08:02 | PN_ITS ---
Patient Problems: Active and Suspected Problems (Last Reviewed 05/11/18 @ 10:45 by Rosemarie Matos) Sepsis (Acute) UTI (urinary tract infection) (Acute) Subjective: The patient is a 73 y/o M w/ PMHx: HTN, HLD, History of NSVT, Diabetes mellitus type II, CAD, Chronic Anemia, Fatty Liver Disease, Former Tobacco use who presents to the [facility] ED on 12/15/18 with history of recently presenting to his PCP the day prior w/ noted fever, dysuria, initiated following UA on oral cipro; however, had T up to 103, fevers, chills and mild confusion prompting ED presentation. Elevated RR, Febrile, L shift, Confusion. UA at PCP office concerning, placed on cipro at that time, repeat UA upon ED evaluation not marked appearing, pending UCx, noted also increased intermittent RR and decreased oxygenation, pending respiratory viral panel given vague complaints, CXR unremarkable, admission CBC w/ WBC 9.7 with L shift however had already been on abx x 1 day as noted. Admitted to ME, administered IVFs, monitor I/Os, continue IV Rocephin w/ transition as able pending sensitivities and speciation. PVR elevated following UOP, place yates and initiate BID flomax given retention, Bld cx x 2 obtained in the ED. Requested UA, UCx information from [facility] once open on 12/17/18. Patient overnight with no acute events per self and per nursing report aside noted urinary retention with PVRs following voiding, greater than 300, pending Yates initiation per discussion with nursing staff and initiation of BID Flomax. Patient remains afebrile and states that he only has some mild dysuria still but otherwise chills have resolved. Patient denies any URI or respiratory complaints. Chest x-ray in the ED reviewed with patient was noted to be unremarkable. Patient denies fevers, chills, nausea, emesis, abdominal pain, chest pain or dyspnea. Objective: Physical Examination: General: awake, alert, oriented x 3, seated upright in the ED bed, improved appearance. Skin: Flushed color, turgor, no icterus, cyanosis. HEENT: AT/NC, EOMI, PERRLA, improved MMM. Lungs: Diminished breath sounds bilateral bases, improved moderate effort, increased respiratory rate, no rales, ronchi or wheezing. Heart: Regular rate and rhythm; no gallop, rub audible. Abdomen: soft, NTTP and no suprapubic TTP, ND, normal BS. Extremities: no cyanosis, clubbing, or edema. Neurological: patient awake, alert, oriented as noted; cognitive function currently improved, seems baseline intact, family noted concerns prior; pupils equally reactive to light and accomodation; cranial nerves II-XII grossly normal, moving all 4 extremities, no focal deficits, strength moderately globally decreased secondary to acute presentation. Psychiatric: affect appears improved, less fatigued, no acute evidence of depressive or anxiety feelings. Vitals/I&O's: Vital Signs Temp Pulse Resp BP Pulse Ox 98.4 F 123 H 18 129/79 H 92 12/16/18 07:00 12/16/18 07:00 12/16/18 04:18 12/16/18 04:18 12/16/18 07:16 Oxygen Delivery Method Room Air Weight: 210 lb 8 oz Body Mass Index (BMI) 28.5 Intake and Output for Last 24 Hours 12/14/18 12/15/18 12/16/18 23:59 23:59 23:59 Intake Total 517 / 517 1840 / 1840 Output Total 1600 / 1600 Balance 517 / 517 240 / 240 Laboratory Results 12/15/18 12:50: WBC 9.7, RBC 4.18 L, Hgb 12.4 L, Hct 36.5 L, MCV 87.3, MCH 29.7, MCHC 34.0, RDW 13.2, RDW Differential 42.2, Plt Count 139 L, MPV 9.6, Immature Gran % (Auto) 0.100, Neut % (Auto) 89.6 H, Lymph % (Auto) 4.7 L, [place] % (Auto) 5.5, Eos % (Auto) 0.0, Baso % (Auto) 0.1, Absolute Neuts (auto) 8.7 H, Absolute Lymphs (auto) 0.46 L, Total Counted Not Reportable 12/15/18 12:50: Sodium 137, Potassium 3.3 L, Chloride 99, Carbon Dioxide 28.0, Anion Gap 10, BUN 20 H, Creatinine 1.22, Estim Creat Clear Calc 60.96, Est GFR (MDRD) Af Amer 75, Est GFR (MDRD) Non-Af 62, BUN/Creatinine Ratio 16.4, Glucose 185 H, Calcium 8.9 12/15/18 13:00: Lactic Acid 1.8 12/15/18 14:15: Urine Color Yellow, Urine Clarity Clear, Urine pH 5.0, Ur Specific [place] 1.025, Urine Protein 30 H, Urine Glucose (UA) 100 H, Urine Ketones Negative, Urine Occult Blood 25 H, Urine Nitrite Negative, Urine Bilirubin Negative, Urine Urobilinogen Normal, Ur Leukocyte Esterase 500 H, Urine RBC 0 SEEN, Urine WBC 10-25 SEEN, Ur Squamous Epith Cells 0 SEEN, Urine Bacteria 0 SEEN, Urine Mucus 0 SEEN 12/15/18 15:50: Magnesium 1.6 12/15/18 16:15: POC Glucose 145 H 12/15/18 22:08: POC Glucose 206 H 12/16/18 06:11: WBC 8.1, RBC 3.97 L, Hgb 11.9 L, Hct 34.9 L, MCV 87.9, MCH 30.0, MCHC 34.1, RDW 13.1, RDW Differential 42.5, Plt Count 114 L, MPV 10.0, Immature Gran % (Auto) 0.200, Neut % (Auto) 82.5 H, Lymph % (Auto) 6.8 L, [place] % (Auto) 10.4 H, Eos % (Auto) 0.0, Baso % (Auto) 0.1, Absolute Neuts (auto) 6.7, Absolute Lymphs (auto) 0.55 L, Total Counted Not Reportable, Differential Comment Pending 12/16/18 06:11: Sodium 140, Potassium 3.4 L, Chloride 106, Carbon Dioxide 24.0, Anion Gap 10, BUN 13, Creatinine 1.00, Estim Creat Clear Calc 74.37, Est GFR (MDRD) Af Amer 95, Est GFR (MDRD) Non-Af 78, BUN/Creatinine Ratio 13.0, Glucose 195 H, Calcium 8.1 L 12/16/18 06:42: POC Glucose 199 H Current Medications Acetaminophen (Tylenol) 650 mg PO Q6H PRN PRN PRN Reason: Mild Pain (scale 0-3)/T>100.7 Last Admin: 12/16/18 04:22 Dose: 650 mg Al Hydroxide/Mg Hydroxide (Mylanta Ii) 30 ml PO Q6H PRN PRN PRN Reason: Gastric burning Albuterol Sulfate (Ventolin Aerosols) 2.5 mg INHALATION Q2H PRN PRN PRN Reason: dyspnea, wheezing Aspirin (Ecotrin) 81 mg PO DAILY@0800 [facility] Atenolol (Tenormin (Beta Johnnie)) 50 mg PO DAILY [facility] Atorvastatin Calcium (Lipitor) 20 mg PO QHS [facility] Last Admin: 12/15/18 22:19 Dose: 20 mg Enoxaparin Sodium (Lovenox) 40 mg SC DAILY@1000 [facility] Sodium Chloride () 1,000 mls @ 100 mls/hr IV .Q10H [facility] Last Admin: 12/15/18 22:06 Dose: 100 mls/hr Ceftriaxone Sodium (Rocephin) 1 gm in 50 mls @ 100 mls/hr IV Q24H [facility] Insulin Human Lispro (Humalog Kwikpen (Bkc)) 0 unit SC ACHS [facility]; Protocol Last Admin: 12/16/18 06:44 Dose: 2 units Magnesium Hydroxide (Milk Of Magnesia) 30 ml PO DAILY PRN PRN PRN Reason: Constipation Ondansetron HCl (Zofran) 4 mg IV Q8H PRN PRN PRN Reason: NAUSEA Ramipril (Altace) 2.5 mg PO DAILY [facility] Sodium Chloride () 5 - 15 ml IV UD PRN PRN Reason: SALINE FLUSH Tamsulosin HCl (Flomax) 0.4 mg PO BID@0830,1730 [facility] Medical Necessity - Tobacco Use Smoking Status: Former smoker Tobacco Use: Non-smoker Assessment/Plan All Active Problems (Last Reviewed 05/11/18 @ 10:45 by Rosemarie Matos) Sepsis (Acute) UTI (urinary tract infection) (Acute) The patient is a 73 y/o M w/ PMHx: HTN, HLD, History of NSVT, Diabetes mellitus type II, CAD, Chronic Anemia, Fatty Liver Disease, Former Tobacco use who presents to the [facility] ED on 12/15/18 with history of recently presenting to his PCP the day prior w/ noted fever, dysuria, initiated following UA on oral cipro; however, had T up to 103, fevers, chills and mild confusion prompting ED presentation. (1) Acute Sepsis secondary to Acute Urinary Tract Infection w/ Urinary Retention: Elevated RR, Febrile, L shift, Confusion. UA at PCP office conc patricia, placed on cipro at that time, repeat UA upon ED evaluation not marked appearing, pending UCx, noted also increased intermittent RR and decreased oxygenation, pending respiratory viral panel given vague complaints, CXR unremarkable, admission CBC w/ WBC 9.7 with L shift however had already been on abx x 1 day as noted. Admitted to ME, administered IVFs, monitor I/Os, continue IV Rocephin w/ transition as able pending sensitivities and speciation. PVR elevated following UOP, place yates and initiate BID flomax given retention, Bld cx x 2 obtained in the ED. Will need to request UA, UCx information from [facility] once open on 12/17/18. (2) Hypokalemia: Admission K+ 3.3, supplementation given, repeat level 3.4, will given additional supplementation. Mag 1.6, supplementation administered also. (3) CAD: Will continue home regimen asa, statin, BB, ACEI. (4) Diabetes mellitus type II: Hold oral home regimen, ADA diet, accu checks w/ ISS. (5) Hypertension: Continue home regimen including atenolol, ramipril with hold parameters, PRN hydralazine. (6) Hyperlipidemia: Continue home statin regimen. (7) DVT prophylaxis: SCDamy montanax. Code Visit Inpatient E&M: 44319 Subs Hosp L2
[2018-12-16] MEDS: 0.9% Normal Saline 1,000 ML 100 ML IV ×2 (08:29→20:49)
[2018-12-16] MEDS: Tamsulosin HCl 0.4 MG Capsule PO ×2 (08:30→16:38)
[2018-12-16] MEDS: Aspirin E.C. 81 MG Tablet PO (08:32)
[2018-12-16] MEDS: Ramipril 2.5 MG Capsule PO (08:33)
[2018-12-16] MEDS: Atenolol 50 MG Tablet PO (08:33)
[2018-12-16] MEDS: Ceftriaxone 1 GM/50 ML BAG IV (09:14)
[2018-12-16 11:11] LABS: Bedside Glucose 166 mg/dL (70-110)
[2018-12-16 16:46] LABS: Bedside Glucose 194 mg/dL (70-110)
[2018-12-16] MEDS: Atorvastatin Calcium 20 MG Tablet PO (21:04)
[2018-12-16 23:06] LABS: Bedside Glucose 197 mg/dL (70-110)
[2018-12-17] VITALS (10 sets, daily range): BP systolic 104–137; BP diastolic 54–73; PULSE 63–113; RESP 16–18; TEMP 36.6–37.8; O2SAT 94–98
[2018-12-17] MEDS: Acetaminophen 325 MG Tablet 650 MG PO ×2 (01:09→18:59)
[2018-12-17 05:54] LABS: Absolute Lymphocyte Count 0.96 X10^3/ul (0.83-4.51); Absolute Neutrophil Count 3.5 X10^3/uL (2.0-7.7); Basophil# 0.02 X10^3/uL; Basophil% 0.4 % (0-1); Eosinophil# 0.13 X10^3/uL; Eosinophils% 2.5 % (0-5); Hematocrit 32.7 % (40-54); Hemoglobin 11.4 g/dl (13.0-16.5); Lymphocyte # 0.96 X10^3/ul (4.0); Lymphocyte % 18.2 % (19-41); Mean Corp Hgb Conc 34.9 g/gl (32-36); Mean Corpuscular Hgb 30.6 pg (27.0-32.0); Mean Corpuscular Volume 87.9 fL (80-94); Mean Platelet Vol. 10.2 fl (6.2-12.0); Monocyte# 0.65 X10^3/uL; Monocyte% 12.3 % (0-10); Neutrophil # 3.49 X10^3/uL (2.7-7.7); Neutrophil % 66.2 % (47-70); Platelet Count 119 K/mm3 (150-450); RBC Distribution Width CV 12.8 % (11.6-14.6); RBC Distribution Width SD 39.8 fl (35.1-43.9); Red Blood Count 3.72 M/mm3 (4.6-6.2); White Blood Count 5.3 K/mm3 (4.4-11.0)
[2018-12-17 06:02] LABS: POSITIVE COUNT NO; POSITIVE DIFFERENTIAL NO; POSITIVE MORPHOLOGY NO
[2018-12-17 06:06] LABS: Anion Gap 8 (5-15); BUN 11 mg/dL (7-18); BUN/Creat Ratio 12.9 RATIO (10-20); Calcium,Total 7.7 mg/dL (8.5-10.1); Chloride 110 mmol/L (98-107); Creatinine, Serum 0.85 mg/dL (0.70-1.30); EST Glomerular Filtration Rate 94 mL/min (>60); Est Glom Filt Rate - Afr Amer 114 mL/min (>60); Estimated Creatinine Clearance 87.49 ml/min; Glucose 172 mg/dL (74-106); Potassium 3.9 mmol/L (3.5-5.1); Sodium Level 142 mmol/L (136-145)
[2018-12-17] MEDS: Insulin Lispro 100 UNIT/ML INSULN.PEN SC ×4 (06:33→21:19)
[2018-12-17] MEDS: 0.9% Normal Saline 1,000 ML 100 ML IV (06:34)
[2018-12-17 07:06] LABS: Bedside Glucose 173 mg/dL (70-110)
[2018-12-17] MEDS: Aspirin E.C. 81 MG Tablet PO (08:30)
[2018-12-17] MEDS: Tamsulosin HCl 0.4 MG Capsule PO ×2 (09:31→16:54)
[2018-12-17] MEDS: Ceftriaxone 1 GM/50 ML BAG IV (09:45)
[2018-12-17] MEDS: Ramipril 2.5 MG Capsule PO (09:46)
--- NOTE | 2018-12-17 09:50 | CASEMGMT ---
RN ЕЛЕНА Face to Face with patient for initial transition planning/care coordination assessment. RN CM introduced self and role at [facility]. Patient sitting in chair, alert and oriented. Patient willing to participate in assessment and is able to answer all questions appropriately. Care providers, pharmacy, and demographics verified. Patient wishes to discharge home, denies need for home health at this time. Patient states he has no further needs or concerns at this time. CM to follow for discharge planning needs that may arise. PCP: Brisa Specialists: Kobe gear technician Preferred Pharmacy: [facility] Insurance: Krystian CELAYA SR Supp Prescription Benefit: yes Living Will/HPOA: None LNOK: , daughters Living Arrangements: Patient states he lives with in 1 story home with 2 steps to enter home. Patient is independent Transportation: Self/ DME/HHC: Patient denies use of DME at home. No prior SNF/HHC Disposition Plan: Patient to discharge home with family support and follow-up plans in place. Judith RUGGIERO, RN, CM
--- NOTE | 2018-12-17 11:39 | EKG12_ITS ---
Test Reason : RHYTHM CHECK Blood Pressure : / mmHG Vent. Rate : 099 BPM Atrial Rate : 357 BPM P-R Int : 000 ms QRS Dur : 084 ms QT Int : 330 ms P-R-T Axes : 000 -18 -13 degrees QTc Int : 423 ms Atrial fibrillation Abnormal ECG When compared with ECG of 01-MAY-2012 20:35, Atrial fibrillation has replaced Sinus rhythm Nonspecific T wave abnormality now evident in Inferior leads Confirmed by SAMPSON GOLDBERG, RENEE ([id number]), editorial manager ANABEL PIERCE ([id number]) on 12/19/2018 2:24:51 PM Referred By: ALAYNA Confirmed By:RENEE BRADEN MD
[2018-12-17 12:11] LABS: Bedside Glucose 281 mg/dL (70-110)
--- NOTE | 2018-12-17 12:40 | ECHOD_ITS ---
Reason For Study: Afib/Flutter Procedure This was a 2D Doppler, Color Flow transthoracic echocardiogram. Exam performed portable in patient room. Left Ventricle Normal LV size. Moderate concentric left ventricular hypertrophy. Left ventricular systolic function is normal. The estimated ejection fraction is 60 %. Stage 3 diastolic dysfunction. No regional wall motion abnormalities noted. Atria The left atrium is moderately enlarged. Normal right atrium. Mitral Valve Normal mitral valve. Mild-Moderate (1-2+) eccentric mitral valve insufficiency. Tricuspid Valve Normal tricuspid valve. Mild (1+) tricuspid valve insufficiency. Pulmonary artery systolic pressure is 24 mmHg. Aortic Valve Trisinus/trileaflet aortic valve. Moderate focal aortic valve calcification. Pulmonic Valve Normal pulmonic valve. Great Vessels Normal aortic root. The pulmonary artery is normal size. Normal inferior vena cava. Pericardium/Pleural No pericardial effusion. MMode/2D Measurements & Calculations LVIDd: 5.1 cm IVSd: 1.5 cm Ao root diam: 3.9 cm LVIDs: 3.8 cm LVPWd: 1.3 cm LA dimension: 4.4 cm FS: 23.8 % LAV(MOD-bp): 76.6 ml LA A4 area: 27.1 cm2 RA A4 area: 19.2 cm2 LAV(MOD-bp) Indexed: 35.2 ml/m2 LAV(MOD-sp2): 52.7 ml LAV(MOD-sp4): 91.4 ml Time Measurements MV dec time: 0.20 sec Doppler Measurements & Calculations MV E max chico: 107.4 cm/sec MV V2 max: 120.7 cm/sec Ao V2 max: 128.0 cm/sec MV A max chico: 45.1 cm/sec MV max P.8 mmHg Ao max P.6 mmHg MV E/A: 2.4 MV V2 mean: 56.9 cm/sec MV mean P.6 mmHg MV V2 VTI: 28.7 cm LV V1 max: 94.3 cm/sec MR max chico: 403.8 cm/sec PA V2 max: 102.7 cm/sec LV V1 max P.6 mmHg MR max P.2 mmHg TR max chico: 225.8 cm/sec PI dec slope: 243.5 cm/sec2 TR max P.4 mmHg Interpretation Summary Normal LV size. Moderate concentric left ventricular hypertrophy. Left ventricular systolic function is normal. The estimated ejection fraction is 60 %. Stage 3 diastolic dysfunction. Mild (1+) tricuspid valve insufficiency. Mild-Moderate (1-2+) eccentric mitral valve insufficiency. Ordering Physician: Lb Brown Referring Physician: Sammy Ledezma MD Performed By: Mick Black RCS
[2018-12-17] MEDS: Atenolol 50 MG Tablet PO (12:49)
[2018-12-17 16:46] LABS: Bedside Glucose 239 mg/dL (70-110)
--- NOTE | 2018-12-17 19:57 | PN_ITS ---
Patient Problems: Active and Suspected Problems (Last Reviewed 05/11/18 @ 10:45 by Rosemarie Matos) Sepsis (Acute) UTI (urinary tract infection) (Acute) Subjective: Patient was seen and examined today, had extensive conversations with him and his who was in the room today, he had a Morales catheter placed yesterday because he was retaining urine, patient's urine culture is negative, his outpatient urine culture was also negative (I called his PCPs office to confirm this), blood cultures at 48 hours are negative, and patient's respiratory panel was unremarkable. Patient has been afebrile today, on examination today, patient's heart rate was irregular, I placed him on telemetry and it initially appeared that he was having quite a bit of PACs with an occasional PVC, however, EKG showed him to be in atrial fibrillation. Patient has had a history of palpitations in the past but he has had no history of atrial fibrillation. He sees Dr. Bullock for his palpitations, he states that in the past he has had a heart catheterization but there was no intervention needed. I talked briefly with Dr. Bullock by telephone and he recommended placing the patient on full anticoagulation and having him follow-up in his office in about 3 weeks. Patient's heart rate appears to be under good control-he takes atenolol. - Physical Exam General: Alert, Oriented x3, Cooperative, No apparent distress, Well developed, Well nourished HEENT: Atraumatic, PERRLA, EOMI, Normocephalic Oral: Moist Mucosa Neck: Supple, No JVD, Negative Carotid Bruits, Trachea Midline, Thyroid Normal Size and Texture Lungs: Clear to auscultation, Normal air movement, No rhonchi, No wheeze, No rales Cardiovascular: No murmurs, PMI Normal, Irregular Rate, No rub noted, No Gallop Abdomen: Bowel Sounds Present, Soft, Non Tender, Non-Distended, No hernias noted Extremities: No clubbing, No cyanosis, No edema, Capillary Refill Less than 3 S econds Skin: No rashes, No breakdown Musculoskeletal: No Tenderness to Palpation of Joints or Extremities Neurological: Cranial nerves II-XII grossly intact, Neuro grossly intact, Sensory exam intact to light touch and pain, Coordination normal Psych/Mental Status: Normal Affect, Appropriate, Alert and oriented to time, place, person, mood and affect Vital Signs Temp Pulse Resp BP Pulse Ox 100.1 F H 80 18 136/69 H 94 12/17/18 18:47 12/17/18 18:47 12/17/18 18:47 12/17/18 18:47 12/17/18 18:47 Oxygen Delivery Method Room Air Weight: 95.5 kg Body Mass Index (BMI) 28.5 Intake and Output for Last 24 Hours 12/15/18 12/16/18 12/17/18 23:59 23:59 23:59 Intake Total 517 / 517 4046 / 4046 3252 / 3252 Output Total 3400 / 3400 4450 / 4450 Balance 517 / 517 646 / 646 -1198 / -1198 Microbiology Past 72 Hours 12/15/18 13:00 Blood Culture - Preliminary Blood Culture (Wb) - Left Hand No growth in 48 hours. 12/15/18 12:50 Blood Culture - Preliminary Blood Culture (Wb) - Anticubital Left No growth in 48 hours. 12/15/18 14:15 Urine Culture - Final Urine, Clean Catch Culture exhibits no growth. 12/15/18 15:22 Respiratory Panel (PCR) - Final Mucosa - Nose Laboratory Tests Past 24 Hrs 12/16/18 12/17/18 12/17/18 06:11 05:12 05:12 WBC 5.3 RBC 3.72 L Hgb 11.4 L Hct 32.7 L MCV 87.9 MCH 30.6 MCHC 34.9 RDW 12.8 RDW Differential 39.8 Plt Count 119 L MPV 10.2 Immature Gran % (Auto) 0.400 Neut % (Auto) 66.2 Lymph % (Auto) 18.2 L [place] % (Auto) 12.3 H Eos % (Auto) 2.5 Baso % (Auto) 0.4 Absolute Neuts (auto) 3.5 Absolute Lymphs (auto) 0.96 Total Counted Not Reportable Differential Comment Not Reportable Sodium 142 Potassium 3.9 Chloride 110 H Carbon Dioxide 24.0 Anion Gap 8 BUN 11 Creatinine 0.85 Estim Creat Clear Calc 87.49 Est GFR (MDRD) Af Amer 114 Est GFR (MDRD) Non-Af 94 BUN/Creatinine Ratio 12.9 Glucose 172 H Calcium 7.7 L POC Glucose 12/17/18 12/17/18 12/17/18 16:31 11:46 06:31 POC Glucose 239 H 281 H 173 H 12/16/18 21:00 POC Glucose 197 H Medical Necessity - Tobacco Use Smoking Status: Former smoker Tobacco Use: Non-smoker Assessment/Plan All Active Problems (Last Reviewed 05/11/18 @ 10:45 by Rosemarie Matos) Sepsis (Acute) UTI (urinary tract infection) (Acute) #1 acute sepsis-presumed secondary to acute cystitis-however, patient's urine cultures have remained negative. I think it is valid to have the patient finish out a total of 7 days of antibiotics, I have decided to take him off Rocephin and place him on p.o. Keflex starting tomorrow morning. #2 new onset atrial fibrillation-with a well-controlled ventricular response, patient will stay on telemetry and remain on Tenormin at this time, I have placed him on Xarelto-both Xarelto and Eliquis will be prohibitively expensive with his prescription plan-I called his pharmacy today and both Xarelto and Eliquis were approximately $450 a month. Patient and the patient's however would like to try Xarelto for a month and I have given her a coupon for 30 days of Xarelto, he will need a prescription for Xarelto if he is discharged tomorrow. He will need to follow-up with Dr. Bullock in 3 weeks, patient had an echocardiogram performed today which was unremarkable. #3 acute urinary retention-patient is currently on maximal dose of Flomax, I told the patient that it may be possible to pull his catheter tomorrow to see if he can void, if he is unable to, he may have to go home with a leg bag. #4 hypertension #5 type 2 diabetes #6 hypokalemia-resolved Code Visit Inpatient E&M: 38509 Subs Hosp L2
[2018-12-17] MEDS: Rivaroxaban 20 MG Tablet PO (21:14)
[2018-12-17] MEDS: Atorvastatin Calcium 20 MG Tablet PO (21:15)
[2018-12-17 23:16] LABS: Bedside Glucose 185 mg/dL (70-110)
[2018-12-18] VITALS (14 sets, daily range): BP systolic 108–145; BP diastolic 54–87; PULSE 62–113; RESP 16–18; TEMP 36.5–37.4; O2SAT 94–98
[2018-12-18] MEDS: NYSTATIN 500,000 UNIT/5 ML UDC 500000 UNIT PO ×4 (04:03→22:52)
[2018-12-18] MEDS: Insulin Lispro 100 UNIT/ML INSULN.PEN SC ×4 (06:50→22:51)
[2018-12-18 06:57] LABS: Bedside Glucose 162 mg/dL (70-110)
[2018-12-18] MEDS: Aspirin E.C. 81 MG Tablet PO (09:06)
[2018-12-18] MEDS: Tamsulosin HCl 0.4 MG Capsule PO ×2 (09:10→17:56)
[2018-12-18] MEDS: Atenolol 50 MG Tablet PO (09:28)
--- NOTE | 2018-12-18 09:28 | EKG12_ITS ---
Test Reason : DYSRHYTIMIA Blood Pressure : / mmHG Vent. Rate : 152 BPM Atrial Rate : 304 BPM P-R Int : 000 ms QRS Dur : 078 ms QT Int : 314 ms P-R-T Axes : 000 006 057 degrees QTc Int : 499 ms Atrial flutter Abnormal ECG Confirmed by SAMPSON GOLDBERG, RENEE ([id number]), film editor ANABEL PIERCE ([id number]) on 12/24/2018 11:13:37 AM Referred By: TL Confirmed By:RENEE BRADEN MD
[2018-12-18] MEDS: Ramipril 2.5 MG Capsule PO (09:30)
--- NOTE | 2018-12-18 09:37 | PCM.PROGNOTE ---
Patient Problems: Active and Suspected Problems (Last Reviewed 05/11/18 @ 10:45 by Rosemarie Matos) Sepsis (Acute) UTI (urinary tract infection) (Acute) Subjective: Chief complaint: Follow-up after admission for sepsis secondary to acute cystitis, found to have urinary retention as well as new onset atrial fibrillation. Patient seen and examined. No acute events overnight. This morning, he denied any significant complaints. Denied chest pain or shortness of breath. Denied palpitation, dizziness or lightheadedness. According to nursing staff, heart rate has been in the lower 40s and he is in A. fib. EKG is being done at this time. - Physical Exam General: Alert, Oriented x3, Cooperative, No apparent distress HEENT: Atraumatic, PERRLA, EOMI, Normocephalic Oral: Moist Mucosa, No Gingival or Mucosal Lesions/ Ulcerations Neck: Supple, No JVD, Negative Carotid Bruits, Trachea Midline, Thyroid Normal Size and Texture Lungs: Clear to auscultation, No rhonchi, No wheeze, No rales, Diminished Cardiovascular: Normal S1, Normal S2, No murmurs, PMI Normal, Irregular Rate, Tachycardic Abdomen: Soft, Non Tender, Non-Distended, No Hepato-splenomegaly Extremities: No clubbing, No cyanosis, No edema Skin: No rashes, No breakdown Lymphatic: No Cervical, Supraclavicular, or Inguinal Adenopathy Neurological: Cranial nerves II-XII grossly intact, Motor Exam 5/5 strength throughout Psych/Mental Status: Normal Affect, Appropriate, Alert and oriented to time, place, person, mood and affect Vital Signs Temp Pulse Resp BP Pulse Ox 97.9 F 113 H 18 136/87 H 98 12/18/18 09:34 12/18/18 09:34 12/18/18 09:34 12/18/18 09:34 12/18/18 09:34 Oxygen Delivery Method Room Air Weight: 210 lb 8.663 oz Body Mass Index (BMI) 28.5 Intake and Output for Last 24 Hours 12/16/18 12/17/18 12/18/18 23:59 23:59 23:59 Intake Total 4046 / 4046 3252 / 3252 350 / 350 Output Total 3400 / 3400 4450 / 4450 1999 Balance 646 / 646 -1198 / -1198 -1650 / -1650 Microbiology Past 72 Hours 12/15/18 13:00 Blood Culture - Preliminary Blood Culture (Wb) - Left Hand No growth in 48 hours. 12/15/18 12:50 Blood Culture - Preliminary Blood Culture (Wb) - Anticubital Left No growth in 48 hours. 12/15/18 14:15 Urine Culture - Final Urine, Clean Catch Culture exhibits no growth. 12/15/18 15:22 Respiratory Panel (PCR) - Final Mucosa - Nose POC Glucose 12/18/18 12/17/18 12/17/18 06:48 21:17 16:31 POC Glucose 162 H 185 H 239 H 12/17/18 11:46 POC Glucose 281 H Medical Necessity - Tobacco Use Smoking Status: Former smoker Tobacco Use: Non-smoker Assessment/Plan All Active Problems (Last Reviewed 05/11/18 @ 10:45 by Rosemarie Matos) Sepsis (Acute) UTI (urinary tract infection) (Acute) This is a 73 years old male patient admitted because of fever, found to have sepsis secondary to acute cystitis and also found to hypokalemia and hospital course medicated by new onset A. fib/flutter with RVR. #1 acute cystitis/sepsis: He is on IV Rocephin. His vital signs are stable, afebrile, no leukocytosis. Blood culture showed no growth in 48 hours. Urine culture showed no growth as well. Respiratory panel for viruses were negative. Plan to DC IV Rocephin, complete 7 days of treatment with oral Keflex. #2 hypokalemia: Is likely because of HCTZ, replaced and corrected. #3 new onset A. fib/flutter with RVR: Yesterday, patient was in A. fib and heart rate has been around 80s. This morning, his heart rate went up to 160s. He was a symptomatic. EKG performed and revealed atrial flutter with RVR. Patient was transferred down to PCU, he was given 1 dose of IV Cardizem bolus,, heart rate down to around 100. 2D echocardiogram revealed normal LV size and function, ejection fraction was 60%, stage III diastolic dysfunction, LVH and mild to moderate mitral valve insufficiency.. Plan to continue atenolol and Xarelto, cardiology consult. #4 type 2 diabetes mellitus: Blood sugar has been fluctuating. He is only on sliding scale. At home, he has been on metformin which has been held. #5 CAD: EKG reviewed as above, no acute ischemic changes. Troponin is negative. Plan to continue aspirin, atenolol and ramipril as well as statins. #6 hypertension: Blood pressure stable, continue atenolol and Altace. #7 hyperlipidemia: Continue statins. #8 DVT prophylaxis: Continue Xarelto. This note was generated with [employer] dictation software. It may contain incorrect words, spelling, and punctuation that were not noted in checking the note before signing. Code Visit Inpatient E&M: 74091 Subs Hosp L2
[2018-12-18] MEDS: Ceftriaxone 1 GM/50 ML BAG IV (10:51)
[2018-12-18] MEDS: 0.9% NaCl Peripheral Flush Adult/Peds IV ×2 (11:05→11:18)
[2018-12-18] MEDS: dilTIAZem 25 MG/5 ML Vial 20 MG IV BOLUS (11:14)
[2018-12-18 11:26] LABS: Bedside Glucose 189 mg/dL (70-110)
--- NOTE | 2018-12-18 16:25 | PCM.CONS.C ---
Reason for Consult Date of Consultation: 12/18/18 Reason for Consultation: Evaluation of irregular heartbeat History of Present Illness: The patient is a 73 year old M with a history of previous tobacco use, nonobstructive coronary artery disease and hypertension. He had been doing well until he presented to the hospital for what appears to be a urinary tract infection. He was being treated for the above. Yesterday he was noted to go into atrial fibrillation with a controlled ventricular response rate. He was advised that he be started on anticoagulation and monitored and seen as an outpatient. This morning he apparently had a rapid ventricular response rate and was transferred to the progressive care unit and cardiology was called formally for evaluation and management. An echocardiogram which was performed demonstrated preserved ejection fraction. He had previously undergone a stress echocardiogram in August 2017 which was negative for inducible ischemia. He has had no chest pain or shortness of breath or paroxysmal nocturnal dyspnea or pedal edema. His electrocardiogram at that time demonstrated atrial fibrillation flutter with a rate of 135 bpm. [] Past Medical History Allergies/Adverse Reactions: Allergies No Known Allergies Allergy (Verified 12/15/18 12:31) Home Medications: Ambulatory Orders Medication Instructions Recorded aspirin 81 mg tablet,delayed 81 mg PO QDAY 05/11/18 release metformin ER 500 mg 500 mg PO QDAY 90 Days #90 tab 05/11/18 tablet,extended release 24 hr ramipril 2.5 mg capsule 2.5 mg PO QDAY 90 Days #90 cap 05/11/18 simvastatin 40 mg tablet 40 mg PO QDAY 90 Days #90 tab 05/11/18 atenolol 50 mg tablet 50 mg PO QDAY 90 Days #90 tab 10/06/18 hydroCHLOROthiazide 6.25 mg PO DAILY 12/15/18 [Hydrochlorothiazide] Past Medical History (Chronic Problems): Chronic Problems (Last Reviewed 05/11/18 @ 10:45 by Rosemarie Matos) Diabetes mellitus, type II (Chronic) Asymptomatic PVCs (Chronic) Atherosclerosis of coronary artery of [place] heart without angina pectoris (Chronic) History of left heart catheterization (Chronic 10/28/08) Hyperlipidemia (Chronic) Non-sustained ventricular tachycardia (Chronic) Hypertension (Chronic) Psychiatric History: No pertinent psych hx - *Family History Maternal Family History: Family History (Last Reviewed 05/11/18 @ 10:45 by Rosemarie Matos) Father Myocardial infarction Brother CAD (coronary artery disease) Cancer History Items: - - Patient notes a maternal family history of stroke and diabetes. Paternal Family History: Family History (Last Reviewed 05/11/18 @ 10:45 by Rosemarie Matos) Father Myocardial infarction Brother CAD (coronary artery disease) Cancer History Items: - - Patient notes a paternal family history of heart disease, [place]. Lives: Spouse/ Significant Other Smoking Status: Former smoker Tobacco Use: Non-smoker Alcohol: Occasional Drugs: None Review of Systems - Review of Systems General: Denies: Fever, Night Sweats, Fatigue HEENT: Denies: Vision Change Cardiovascular: Reports: Palpitations. Denies: Chest Discomfort, Shortness of Breath, Orthopnea, PND, Peripheral Edema, Lightheadedness, Dizziness, Near Syncope, Syncope Respiratory: Denies: Cough, Sputum Production, Hemoptysis Gastrointestinal: Denies: Indigestion, Hematemesis, Hematochezia, Melena Genitourinary: Denies: Dysuria, Hematuria Muscoloskeletal: Denies: Myalgias Skin: Denies: Rash Neurological: Denies: Dizziness Psychiatric: Denies: Anxiety Endocrine: Denies: Heat Intolerance Hematologic/ Lymphatic: Reports: Anemia Subjectve: Patient seen and evaluated Objective: Vital Signs Temp Pulse Resp BP Pulse Ox 98.2 F 92 18 108/61 97 12/18/18 15:05 12/18/18 15:05 12/18/18 15:05 12/18/18 15:05 12/18/18 15:05 Oxygen Delivery Method Room Air Weight: 210 lb 8.663 oz Body Mass Index (BMI) 28.5 Intake and Output for Last 24 Hours 12/16/18 12/17/18 12/18/18 23:59 23:59 23:59 Intake Total 4046 / 4046 3252 / 3252 350 / 350 Output Total 3400 / 3400 4450 / 4450 2300 / 2300 Balance 646 / 646 -1198 / -1198 -1950 / -1950 General: Awake, Alert, Oriented x 3 HEENT: PERRL, EOMI, Sclera Non Icteric Neck: Supple, Good ROM, No Lymph Node Enlargement Lungs: Clear to auscultation Cardiovascular: Regular Rhythm, Normal S1, Normal S2, No Murmurs, No Rubs, No Gallops Vascular: No Carotid Bruits, Normal Femoral Pulses, Normal Radial Pulses, Normal Dorsalis Pedal Pulse, Normal Posterior Tibial Pulses Abdomen: Bowel Sounds Present, Soft, Non Tender, No HSM, No Organomegaly Extremities: No Cyanosis, No Clubbing, No edema Musculoskeletal: No Erythema Skin: No Rashes Lymphatic: No Lymph Node Enlargement Neurological: No Focal Motor or Sensory Deficit Psych/Mental Status: Appropriate Rhythm: EKG: Atrial flutter with a controlled ventricular response rate of 85 bpm with 4 :1 conduction. ECHO: Normal left ventricular ejection fraction Assessment/Plan 1. Atrial flutter with variable conduction Patient appears to be fairly stable at this time with a controlled ventricular response rate. I would recommend continuing anticoagulation as well as beta-chad for rate control. His echocardiogram demonstrates preserved ejection fraction and at this time no other changes will be made. 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 2. Mild CAD The above appears not to be causing any problems at this particular time We will continue to follow. 3. Hypertension Blood pressure appears to be under good control. Thank you for allowing me to participate in the care of your patient. Please don't hesitate to call if any issues arise
--- NOTE | 2018-12-18 16:29 | CON.PCM_ITS ---
Reason for Consult Date of Consultation: 12/18/18 Reason for Consultation: Evaluation of irregular heartbeat History of Present Illness: The patient is a 73 year old M with a history of previous tobacco use, nonobstructive coronary artery disease and hypertension. He had been doing well until he presented to the hospital for what appears to be a urinary tract infection. He was being treated for the above. Yesterday he was noted to go into atrial fibrillation with a controlled ventricular response rate. He was advised that he be started on anticoagulation and monitored and seen as an outpatient. This morning he apparently had a rapid ventricular response rate and was transferred to the progressive care unit and cardiology was called formally for evaluation and management. An echocardiogram which was performed demonstrated preserved ejection fraction. He had previously undergone a stress echocardiogram in August 2017 which was negative for inducible ischemia. He has had no chest pain or shortness of breath or paroxysmal nocturnal dyspnea or pedal edema. His electrocardiogram at that time demonstrated atrial fibrillation flutter with a rate of 135 bpm. [] Past Medical History Allergies/Adverse Reactions: Allergies No Known Allergies Allergy (Verified 12/15/18 12:31) Home Medications: Ambulatory Orders Medication Instructions Recorded aspirin 81 mg tablet,delayed 81 mg PO QDAY 05/11/18 release metformin ER 500 mg 500 mg PO QDAY 90 Days #90 tab 05/11/18 tablet,extended release 24 hr ramipril 2.5 mg capsule 2.5 mg PO QDAY 90 Days #90 cap 05/11/18 simvastatin 40 mg tablet 40 mg PO QDAY 90 Days #90 tab 05/11/18 atenolol 50 mg tablet 50 mg PO QDAY 90 Days #90 tab 10/06/18 hydroCHLOROthiazide 6.25 mg PO DAILY 12/15/18 [Hydrochlorothiazide] Past Medical History (Chronic Problems): Chronic Problems (Last Reviewed 05/11/18 @ 10:45 by Rosemarie Matos) Diabetes mellitus, type II (Chronic) Asymptomatic PVCs (Chronic) Atherosclerosis of coronary artery of [place] heart without angina pectoris (Chronic) History of left heart catheterization (Chronic 10/28/08) Hyperlipidemia (Chronic) Non-sustained ventricular tachycardia (Chronic) Hypertension (Chronic) Psychiatric History: No pertinent psych hx - *Family History Maternal Family History: Family History (Last Reviewed 05/11/18 @ 10:45 by Rosemarie Matos) Father Myocardial infarction Brother CAD (coronary artery disease) Cancer History Items: - - Patient notes a maternal family history of stroke and diabetes. Paternal Family History: Family History (Last Reviewed 05/11/18 @ 10:45 by Rosemarie Matos) Father Myocardial infarction Brother CAD (coronary artery disease) Cancer History Items: - - Patient notes a paternal family history of heart disease, [place]. Lives: Spouse/ Significant Other Smoking Status: Former smoker Tobacco Use: Non-smoker Alcohol: Occasional Drugs: None Review of Systems - Review of Systems General: Denies: Fever, Night Sweats, Fatigue HEENT: Denies: Vision Change Cardiovascular: Reports: Palpitations. Denies: Chest Discomfort, Shortness of Breath, Orthopnea, PND, Peripheral Edema, Lightheadedness, Dizziness, Near Syncope, Syncope Respiratory: Denies: Cough, Sputum Production, Hemoptysis Gastrointestinal: Denies: Indigestion, Hematemesis, Hematochezia, Melena Genitourinary: Denies: Dysuria, Hematuria Muscoloskeletal: Denies: Myalgias Skin: Denies: Rash Neurological: Denies: Dizziness Psychiatric: Denies: Anxiety Endocrine: Denies: Heat Intolerance Hematologic/ Lymphatic: Reports: Anemia Subjectve: Patient seen and evaluated Objective: Vital Signs Temp Pulse Resp BP Pulse Ox 98.2 F 92 18 108/61 97 12/18/18 15:05 12/18/18 15:05 12/18/18 15:05 12/18/18 15:05 12/18/18 15:05 Oxygen Delivery Method Room Air Weight: 210 lb 8.663 oz Body Mass Index (BMI) 28.5 Intake and Output for Last 24 Hours 12/16/18 12/17/18 12/18/18 23:59 23:59 23:59 Intake Total 4046 / 4046 3252 / 3252 350 / 350 Output Total 3400 / 3400 4450 / 4450 2300 / 2300 Balance 646 / 646 -1198 / -1198 -1950 / -1950 General: Awake, Alert, Oriented x 3 HEENT: PERRL, EOMI, Sclera Non Icteric Neck: Supple, Good ROM, No Lymph Node Enlargement Lungs: Clear to auscultation Cardiovascular: Regular Rhythm, Normal S1, Normal S2, No Murmurs, No Rubs, No Gallops Vascular: No Carotid Bruits, Normal Femoral Pulses, Normal Radial Pulses, Normal Dorsalis Pedal Pulse, Normal Posterior Tibial Pulses Abdomen: Bowel Sounds Present, Soft, Non Tender, No HSM, No Organomegaly Extremities: No Cyanosis, No Clubbing, No edema Musculoskeletal: No Erythema Skin: No Rashes Lymphatic: No Lymph Node Enlargement Neurological: No Focal Motor or Sensory Deficit Psych/Mental Status: Appropriate Rhythm: EKG: Atrial flutter with a controlled ventricular response rate of 85 bpm with 4 :1 conduction. ECHO: Normal left ventricular ejection fraction Assessment/Plan 1. Atrial flutter with variable conduction * Patient appears to be fairly stable at this time with a controlled ventricular response rate. * I would recommend continuing anticoagulation as well as beta-chad for rate control. * His echocardiogram demonstrates preserved ejection fraction and at this time no other changes will be made. * He can be followed up as an outpatient with his primary senior infrastructure architect. * 2. Mild CAD * The above appears not to be causing any problems at this particular time * We will continue to follow. * 3. Hypertension * Blood pressure appears to be under good control. * * Thank you for allowing me to participate in the care of your patient. Please don't hesitate to call if any issues arise
[2018-12-18 17:16] LABS: Bedside Glucose 187 mg/dL (70-110)
[2018-12-18] MEDS: Rivaroxaban 20 MG Tablet PO (17:56)
[2018-12-18] MEDS: Acetaminophen 325 MG Tablet 650 MG PO (22:52)
[2018-12-18] MEDS: Atorvastatin Calcium 20 MG Tablet PO (22:52)
[2018-12-18] MEDS: Cephalexin 500 MG Capsule PO (22:52)
[2018-12-18 23:06] LABS: Bedside Glucose 203 mg/dL (70-110)
[2018-12-19 03:00] VITALS: PULSE 60
[2018-12-19 04:29] VITALS: BP 140/82; PULSE 65; RESP 18; TEMP 36.6; O2SAT 96
[2018-12-19 06:22] LABS: Absolute Neutrophil Count 3.5 X10^3/uL (2.0-7.7); Basophil# 0.05 X10^3/uL; Basophil% 0.9 % (0-1); Eosinophil# 0.22 X10^3/uL; Eosinophils% 3.9 % (0-5); Hematocrit 33.3 % (40-54); Hemoglobin 11.2 g/dl (13.0-16.5); Mean Corp Hgb Conc 33.6 g/gl (32-36); Mean Corpuscular Hgb 29.4 pg (27.0-32.0); Mean Corpuscular Volume 87.4 fL (80-94); Mean Platelet Vol. 9.7 fl (6.2-12.0); Monocyte# 0.55 X10^3/uL; Monocyte% 9.7 % (0-10); Neutrophil # 3.52 X10^3/uL (2.7-7.7); Neutrophil % 62.1 % (47-70); Platelet Count 145 K/mm3 (150-450); RBC Distribution Width CV 12.9 % (11.6-14.6); RBC Distribution Width SD 39.8 fl (35.1-43.9); Red Blood Count 3.81 M/mm3 (4.6-6.2); White Blood Count 5.7 K/mm3 (4.4-11.0)
[2018-12-19 06:24] LABS: POSITIVE COUNT NO; POSITIVE DIFFERENTIAL NO; POSITIVE MORPHOLOGY NO
[2018-12-19 06:44] LABS: Anion Gap 8 (5-15); BUN 9 mg/dL (7-18); Calcium,Total 8.1 mg/dL (8.5-10.1); Chloride 109 mmol/L (98-107); Creatinine, Serum 0.69 mg/dL (0.70-1.30); EST Glomerular Filtration Rate 120 mL/min (>60); Est Glom Filt Rate - Afr Amer 145 mL/min (>60); Estimated Creatinine Clearance 74.37 ml/min; Glucose 130 mg/dL (74-106); Potassium 3.7 mmol/L (3.5-5.1); Sodium Level 143 mmol/L (136-145)
[2018-12-19 07:12] VITALS: O2SAT 95
[2018-12-19 07:16] LABS: Bedside Glucose 133 mg/dL (70-110)
[2018-12-19 07:30] VITALS: PULSE 67
[2018-12-19 08:00] VITALS: BP 138/77; PULSE 64; RESP 16; TEMP 36.5; O2SAT 96
[2018-12-19] MEDS: NYSTATIN 500,000 UNIT/5 ML UDC 500000 UNIT PO (08:15)
[2018-12-19] MEDS: Aspirin E.C. 81 MG Tablet PO (08:16)
[2018-12-19] MEDS: Tamsulosin HCl 0.4 MG Capsule PO (08:16)
[2018-12-19] MEDS: Atenolol 50 MG Tablet PO (08:16)
[2018-12-19] MEDS: Ramipril 2.5 MG Capsule PO (08:16)
[2018-12-19] MEDS: Cephalexin 500 MG Capsule PO (08:16)
[2018-12-19] MEDS: Acetaminophen 325 MG Tablet 650 MG PO (08:18)
--- NOTE | 2018-12-19 09:31 | DCINST_ITS ---
- Discharge Diagnoses Current Active Problems: Current Active and Chronic Problems (Last Reviewed 05/11/18 @ 10:45 by Rosemarie Matos) Diabetes mellitus, type II (Chronic) Sepsis (Acute) UTI (urinary tract infection) (Acute) You will use the following diet at home:: Cardiac Your food should be the consistency of: Regular Discharge Activity: Return to Normal Activity Weight Bearing Status: Weight bearing as tolerated Call your doctor if you observe: Fever of 101 or Higher, Shortness of breath, Dizziness, Fainting spells, Chest pain, Increased palpitations (irregular heartbeat), Uncontrolled pain Instructions: Rivaroxaban Oral tablet, What Is Atrial Flutter/Atrial Fibrillation?, Discharge Instructions for Atrial Fibrillation Allergies/Adverse Reactions: Allergies No Known Allergies Allergy (Verified 12/15/18 12:31) Medications to take at Discharge aspirin 81 mg tablet,delayed release 81 mg PO QDAY 05/11/18 metformin ER 500 mg tablet,extended release 24 hr 500 mg PO QDAY 90 Days #90 tab 05/11/18 ramipril 2.5 mg capsule 2.5 mg PO QDAY 90 Days #90 cap 05/11/18 simvastatin 40 mg tablet 40 mg PO QDAY 90 Days #90 tab 05/11/18 atenolol 50 mg tablet 50 mg PO QDAY 90 Days #90 tab 10/06/18 hydroCHLOROthiazide [Hydrochlorothiazide] 6.25 mg PO DAILY 12/15/18 Cephalexin [Keflex] 500 mg PO Q12 #8 capsule 12/19/18 Rivaroxaban [Xarelto] 20 mg PO DAILY@1700 #30 tablet 12/19/18 The following prescriptions were given: Cephalexin [Keflex] 500 mg PO Q12 #8 capsule Rivaroxaban [Xarelto] 20 mg PO DAILY@1700 #30 tablet Primary Care Physician: Osbaldo Ledezma MD [Primary Care Provider] - Please follow up with your Primary Care Physician in: 1 week. Test Results: Test results from this visit will be discussed in further detail at your follow- up appointment, if applicable. Please Follow Up With: Garfield Bullock MD When: 2-3 weeks.
--- NOTE | 2018-12-19 11:09 | CASEMGMT ---
Call to [facility] and per pharmacist, pt's initial redding is $457.00 but the pharmacist states that this is part of a deductible that the pt must meet and then the co-pay will be $47.00. Pt provided with 30 day free card and updated at this time via phone as he was already discharged, pt voices understanding. Pt voices no further questions/concerns/needs at this time. SStmelanie DAMICO CM
--- NOTE | 2018-12-19 12:45 | PCM.DC.SUM ---
Discharge Date and Diagnosis Date of Admission: 12/15/18 Date of Discharge: 12/19/18 - Primary Discharge Diagnosis #1 acute cystitis/sepsis with negative urine culture, patient started on antibiotic p.o. 1 day before admission. #2 new onset paroxysmal A. fib/flutter with RVR. #3 hypokalemia. - Secondary Discharge Diagnosis Chronic Problems (Last Reviewed 05/11/18 @ 10:45 by Rosemarie Matos) Diabetes mellitus, type II (Chronic) Asymptomatic PVCs (Chronic) Atherosclerosis of coronary artery of [place] heart without angina pectoris (Chronic) History of left heart catheterization (Chronic 10/28/08) Hyperlipidemia (Chronic) Non-sustained ventricular tachycardia (Chronic) Hypertension (Chronic) Hospital Course and Treatment Imaging Results: Clinical Impression(s) from Imaging Studies Chest X-Ray 12/15/18 15:08 IMPRESSION: Normal x-ray examination of the chest. Electronically Signed: Zhanna Gatica MD at 17:00 EST Tel , Service support , Dr. Hdz, cardiology. Operations: None Procedures: 2-D Echocardiogram, EKG Summary of Care Provided: Patient seen and examined on the day of discharge and appeared to be stable to be discharged home. He denied any more symptoms and he is feeling good. His vital signs are stable, remained in sinus rhythm and heart rate has been stable. The patient is a 73 year old M admitted because of fever and he was found to have sepsis secondary to acute cystitis and also found to have hypokalemia and his hospital course complicated by new onset paroxysmal A. fib/flutter with RVR. Patient was admitted for fever, found to have sepsis. On admission, urine analysis revealed clear urine, positive for leukocyte esterase, there was 20-25 WBCs and no bacteria seen. Of note, patient was started on oral antibiotic 1 day before admission to the hospital by his PCP. He did have a fever for 2 days in the hospital although he had no leukocytosis. His lactic acid was normal. His chest x-ray showed no acute findings. No other source of infection identified. He was treated with IV Rocephin and he remained afebrile for more than 48 hours. His urine culture showed no growth. Blood culture showed no growth in 48 hours. Respiratory panel for viruses were negative. I think the urine culture was negative because patient started on oral antibiotic 1 day before admission. While in the hospital, he developed new onset paroxysmal A. fib/flutter with RVR. He was transferred down to progressive care unit, given 1 dose of IV Cardizem bolus and his heart rate stabilized. He was continued on atenolol for rate control and started on Xarelto for anticoagulation. 2D echocardiogram revealed normal LV size, moderate LVH, ejection fraction of 60%, stage III diastolic dysfunction and mild tricuspid insufficiency. Patient discharged home in a stable medical condition, discharged on Keflex to complete 7 days of treatment, continue with on atenolol for rate control, started on Xarelto for anticoagulation, recommended follow-up with PCP in 1 week and follow-up with cardiology in 2-3 weeks. - Physical Exam General: Alert, Oriented x3, Cooperative, No apparent distress HEENT: Atraumatic, PERRLA, EOMI, Normocephalic Oral: Moist Mucosa, No Gingival or Mucosal Lesions/ Ulcerations Neck: Supple, No JVD, Negative Carotid Bruits, Trachea Midline, Thyroid Normal Size and Texture Lungs: Clear to auscultation, No rhonchi, No wheeze, No rales, Diminished Cardiovascular: Regular rate, Regular Rhythm, Normal S1, Normal S2, PMI Normal Abdomen: Bowel Sounds Present, Soft, Non Tender, Non-Distended, No Hepato-splenomegaly Extremities: No clubbing, No cyanosis, No edema Skin: No rashes, No breakdown Lymphatic: No Cervical, Supraclavicular, or Inguinal Adenopathy Neurological: Cranial nerves II-XII grossly intact, Neuro grossly intact Psych/Mental Status: Normal Affect, Appropriate Vital Signs Temp Pulse Resp BP Pulse Ox 97.7 F L 64 16 138/77 H 96 12/19/18 08:00 12/19/18 08:00 12/19/18 08:00 12/19/18 08:00 12/19/18 08:00 Oxygen Delivery Method Room Air Weight: 210 lb 8.663 oz Body Mass Index (BMI) 28.5 Intake and Output for Last 24 Hours 12/17/18 12/18/18 12/19/18 23:59 23:59 23:59 Intake Total 3252 / 3252 1400 / 1400 500 / 500 Output Total 4450 / 4450 2600 / 2600 525 / 525 Balance -1198 / -1198 -1200 / -1200 -25 / -25 Microbiology Past 72 Hours 12/15/18 13:00 Blood Culture - Preliminary Blood Culture (Wb) - Left Hand No growth in 48 hours. 12/15/18 12:50 Blood Culture - Preliminary Blood Culture (Wb) - Anticubital Left No growth in 48 hours. 12/15/18 14:15 Urine Culture - Final Urine, Clean Catch Culture exhibits no growth. 12/15/18 15:22 Respiratory Panel (PCR) - Final Mucosa - Nose Laboratory Tests Past 24 Hrs 12/19/18 12/19/18 05:50 05:50 WBC 5.7 RBC 3.81 L Hgb 11.2 L Hct 33.3 L MCV 87.4 MCH 29.4 MCHC 33.6 RDW 12.9 RDW Differential 39.8 Plt Count 145 L MPV 9.7 Immature Gran % (Auto) 0.400 Neut % (Auto) 62.1 Lymph % (Auto) 23.0 [place] % (Auto) 9.7 Eos % (Auto) 3.9 Baso % (Auto) 0.9 Absolute Neuts (auto) 3.5 Absolute Lymphs (auto) 1.30 Total Counted Not Reportable Sodium 143 Potassium 3.7 Chloride 109 H Carbon Dioxide 26.0 Anion Gap 8 BUN 9 Creatinine 0.69 L Estim Creat Clear Calc 74.37 Est GFR (MDRD) Af Amer 145 Est GFR (MDRD) Non-Af 120 BUN/Creatinine Ratio 13.0 Glucose 130 H Calcium 8.1 L POC Glucose 12/19/18 12/18/18 12/18/18 07:02 22:49 17:04 POC Glucose 133 H 203 H 187 H Discharge Activity: Return to Normal Activity Weight Bearing Status: Weight bearing as tolerated Call your doctor if you observe: Fever of 101 or Higher, Shortness of breath, Dizziness, Fainting spells, Chest pain, Increased palpitations (irregular heartbeat), Uncontrolled pain Home Medications: Medications to take at Discharge aspirin 81 mg tablet,delayed release 81 mg PO QDAY 05/11/18 metformin ER 500 mg tablet,extended release 24 hr 500 mg PO QDAY 90 Days #90 tab 05/11/18 ramipril 2.5 mg capsule 2.5 mg PO QDAY 90 Days #90 cap 05/11/18 simvastatin 40 mg tablet 40 mg PO QDAY 90 Days #90 tab 05/11/18 atenolol 50 mg tablet 50 mg PO QDAY 90 Days #90 tab 10/06/18 hydroCHLOROthiazide [Hydrochlorothiazide] 6.25 mg PO DAILY 12/15/18 Cephalexin [Keflex] 500 mg PO Q12 #8 capsule 12/19/18 Rivaroxaban [Xarelto] 20 mg PO DAILY@1700 #30 tablet 12/19/18 Following Prescrptions Were Given to Patient: Cephalexin [Keflex] 500 mg PO Q12 #8 capsule Rivaroxaban [Xarelto] 20 mg PO DAILY@1700 #30 tablet Primary Care Physician: Osbaldo Ledezma MD [Primary Care Provider] - Please follow up with your Primary Care Physician in: 1 week. Please Follow Up With: Garfield Bullock MD When: 2-3 weeks. Patient Instructions: Rivaroxaban Oral tablet, What Is Atrial Flutter/Atrial Fibrillation?, Discharge Instructions for Atrial Fibrillation Disposition: Home Minutes spent on discharge:: 32 Patient Condition:: Stable Medical Necessity - Tobacco Use Smoking Status: Former smoker Tobacco Use: Non-smoker Meaningful Use Info Meaningful Use Diagnoses (Choose all that apply): None applicable Code Visit Inpatient E&M: 33307 Disch Hosp
== END 2018-12-19 10:24 | disposition home or self-care (01) | DRG 872 ==
LOC: ED 13:12 → MS3 15:10 → PCU 12-18 10:28
PROVIDERS: Internal Medicine; Admitting Provider Family Medicine; Emergency Provider Emergency Medicine; Family Provider Family Medicine; PCP Family Medicine; Visit Provider Hospitalist
DX: A41.9 Sepsis, unspecified organism (principal); N30.00 Acute cystitis without hematuria; I48.92 Unspecified atrial flutter; E11.9 Type 2 diabetes mellitus without complications; I25.10 Atherosclerotic heart disease of native coronary artery without angina pectoris; I10 Essential (primary) hypertension; K76.0 Fatty (change of) liver, not elsewhere classified; E78.00 Pure hypercholesterolemia, unspecified; E87.6 Hypokalemia; R33.9 Retention of urine, unspecified; I48.0 Paroxysmal atrial fibrillation; Z79.01 Long term (current) use of anticoagulants; Z79.84 Long term (current) use of oral hypoglycemic drugs; Z79.82 Long term (current) use of aspirin; Z79.899 Other long term (current) drug therapy; Z87.891 Personal history of nicotine dependence
CPT/HCPCS: 36415; 71046; 80048; 81001; 82962; 83605; 83735; 85025; 87040; 87086; 87633; 93005; 93306; 99282; J7030; J7040; A4216

== ENCOUNTER 2018-12-20 17:25 | Emergency (ER) | payer MEDICARE, OTHER, SELFPAY ==
[2018-12-15 15:52] VITALS: BMI 28.5
[2018-12-20 17:26] VITALS: BP 137/99; PULSE 116; RESP 16; TEMP 36.5; O2SAT 98; BMI 28.7
--- NOTE | 2018-12-20 17:57 | ED.VISSUMM ---
- ER Visit Summary Date of Service: 12/20/18 Chief Complaint: Atrial fibrillation History of Present Illness: The patient is a 73 M sent in by PCPs office Dr. Stewart in atrial fibrillation. Discharged yesterday after to the ED stay for UTI with new onset atrial fibrillation. Started on Xarelto, last dose was at 8 PM 22 hours ago. He is on atenolol 50 mg he was given another beta-chad in the hospital, spouse states was told to hold it till this evening. He has not received beta-chad for approximately 36 hours. Denies palpitations or chest pains. No lightheaded symptoms. Urine symptoms are improving on Keflex. Physical Examination: General: Alert and oriented ?3, no acute distress HEENT: Normocephalic, atraumatic. Moist mucosa membranes Neck: supple, nontender. Cardiovascular: Irregular tachycardic rhythm, no murmurs Respiratory: Normal breath sounds, symmetric, no distress Abdomen: Soft, nontender, nondistended Extremities: Nontender, no edema, pulses intact ?4 Neuro: no focal neurological deficits. Test Results: EKG: A flutter rate of 152, no ST or T wave changes. Emergency Department Course and Treatment: Patient with a flutter on EKG A. fib flutter on monitor rate in the 150s. He is anticoagulated, discussed with patient same other for potential direct-current cardioversion however they declined this. States they would like the medicine with the drip that was started when they were admitted which he spontaneously converted. Labs and Cardizem ordered. Labs stable. Initially after initial bolus I checked on the patient was then his heart rate is 150s, order for drip, however prior to that getting started, heart rate was in the 80s. He is given his nighttime atenolol 50 mg he is given his 8 PM dose of Xarelto. Monitor heart rate stable is ambulate heart rate stayed in the 90s down the 80s with rest. He remained asymptomatic. He is a flutter on the heart monitor rate controlled. Discussed with family signs and symptoms to return otherwise follow with his customer support executive. Treatment Plan: [] Disposition: Discharge Impression: 1. Atrial fibrillation with RVR now rate controlled This note was generated with [employer] dictation software. It may contain incorrect words, spelling, and punctuation that were not noted in review of the chart prior to signing ED Disposition - Plan for ED Patient: Disposition: Home or Assisted Living Diagnosis: Atrial fibrillation and flutter Instructions: ED Afib Referrals: Osbaldo Ledezma MD [Primary Care Provider] - Garfield Bullock MD [STAFF PHYSICIAN] - 5-7 Days
[2018-12-20] MEDS: 0.9% Normal Saline 1,000 ML 100 ML IV (18:04)
[2018-12-20] MEDS: dilTIAZem 25 MG/5 ML Vial 10 MG IV BOLUS (18:04)
[2018-12-20 18:05] VITALS: BP 138/96; PULSE 114; RESP 12; O2SAT 97
[2018-12-20 18:21] LABS: Anion Gap 7 (5-15); BUN 9 mg/dL (7-18); BUN/Creat Ratio 8.8 RATIO (10-20); Calcium,Total 8.4 mg/dL (8.5-10.1); Chloride 105 mmol/L (98-107); Creatinine, Serum 1.02 mg/dL (0.70-1.30); EST Glomerular Filtration Rate 76 mL/min (>60); Est Glom Filt Rate - Afr Amer 92 mL/min (>60); Estimated Creatinine Clearance 72.91 ml/min; Glucose 219 mg/dL (74-106); Potassium 3.6 mmol/L (3.5-5.1); Sodium Level 140 mmol/L (136-145)
[2018-12-20] MEDS: Rivaroxaban 20 MG Tablet PO (18:49)
[2018-12-20 18:56] LABS: Prothrombin Time (Protime)PT. 13.4 SECONDS (11.7-14.9)
[2018-12-20 18:57] LABS: Partial Thromboplast Time 35.8 Seconds (24.1-36.2)
[2018-12-20 19:00] LABS: Absolute Lymphocyte Count 2.05 X10^3/ul (0.83-4.51); Basophil# 0.04 X10^3/uL; Basophil% 0.7 % (0-1); Eosinophil# 0.18 X10^3/uL; Hematocrit 36.9 % (40-54); Hemoglobin 12.4 g/dl (13.0-16.5); Lymphocyte # 2.05 X10^3/ul (4.0); Lymphocyte % 34.1 % (19-41); Mean Corp Hgb Conc 33.6 g/gl (32-36); Mean Corpuscular Hgb 29.2 pg (27.0-32.0); Mean Corpuscular Volume 86.8 fL (80-94); Mean Platelet Vol. 9.7 fl (6.2-12.0); Monocyte# 0.63 X10^3/uL; Monocyte% 10.5 % (0-10); Neutrophil # 3.03 X10^3/uL (2.7-7.7); Neutrophil % 50.4 % (47-70); Platelet Count 198 K/mm3 (150-450); RBC Distribution Width CV 12.9 % (11.6-14.6); RBC Distribution Width SD 41.4 fl (35.1-43.9); Red Blood Count 4.25 M/mm3 (4.6-6.2)
[2018-12-20 19:01] LABS: Differential Indicated SCAN CRITERIA MET; POSITIVE COUNT NO; POSITIVE DIFFERENTIAL NO; POSITIVE MORPHOLOGY YES
[2018-12-20 19:09] VITALS: BP 129/95; PULSE 84; RESP 18; O2SAT 98
[2018-12-20] MEDS: Atenolol 50 MG Tablet PO (19:12)
[2018-12-20 19:51] LABS: Atypical Lymphocyte 1+ %; Platelet Estimate ADEQUATE (ADEQ); Red Cell Morphology NORM C+C NORMAL (NORM C&C)
[2018-12-20 20:09] VITALS: O2SAT 96
--- NOTE | 2018-12-20 20:14 | ED.RN ---
HEART RATE STAYED BETWEEN 91 BPM AND 98 BPM. PT STATES HE FELT FINE DURING THE AMBULATION
[2018-12-20 20:34] VITALS: BP 126/83; PULSE 82; RESP 17; O2SAT 96
== END 2018-12-20 20:43 | disposition home or self-care (01) ==
PROVIDERS: Emergency Provider Emergency Medicine; Family Provider Family Medicine; PCP Family Medicine
DX: I48.91 Unspecified atrial fibrillation (principal); I10 Essential (primary) hypertension; E11.9 Type 2 diabetes mellitus without complications; Z79.01 Long term (current) use of anticoagulants; Z79.82 Long term (current) use of aspirin; Z79.84 Long term (current) use of oral hypoglycemic drugs; Z79.899 Other long term (current) drug therapy; Z87.891 Personal history of nicotine dependence
CPT/HCPCS: 80048; 85025; 85610; 85730; 96361; 96374; 99283; J7030; A4216

== ENCOUNTER → 2018-12-24 08:33 | Outpatient (CLI) | payer MEDICARE, OTHER, SELFPAY ==
[2018-12-21 14:05] VITALS: BMI 28.8
[2018-12-24 10:51] LABS: T4 Free Direct 1.02 ng/dL (0.76-1.46); Thyroid Stim Hormone (TSH) 1.35 uIU/mL (0.358-3.74)
[2018-12-24 11:00] LABS: ALB/GLOB Ratio 0.9 RATIO (0.9-2.4); AST(SGOT) 13 U/L (15-37); Alanine Aminotransfer ALT/SGPT 39 U/L (16-61); Albumin, Serum 3.4 g/dL (3.2-5.0); Alkaline Phosphatase 78 U/L (45-117); Anion Gap 8 (5-15); BUN 11 mg/dL (7-18); BUN/Creat Ratio 12.4 RATIO (10-20); Bilirubin, Direct 0.11 mg/dL (0.00-0.30); Chloride 104 mmol/L (98-107); Cholesterol 127 mg/dL (200); Creatinine, Serum 0.88 mg/dL (0.70-1.30); EST Glomerular Filtration Rate 90 mL/min (>60); Est Glom Filt Rate - Afr Amer 109 mL/min (>60); Globulin 3.8 g/dL (2.2-4.2); Glucose 127 mg/dL (74-106); High Density Lipoprotein 34 mg/dL; PSA,Total - Annual Screen 9.89 ng/mL (0.00-4.00); Potassium 4.5 mmol/L (3.5-5.1); Protein, Total 7.2 g/dL (6.4-8.2); Sodium Level 142 mmol/L (136-145); Triglycerides 112 mg/dL; Very Low Density Lipoprotein 22 mg/dL (5-40)
== END ==
PROVIDERS: Nurse Practitioner Family; Family Provider Family Medicine; PCP Family Medicine; Referring Provider Family Medicine; Visit Provider Family Medicine
DX: E11.9 Type 2 diabetes mellitus without complications (principal); E78.5 Hyperlipidemia, unspecified; N40.0 Benign prostatic hyperplasia without lower urinary tract symptoms; I25.10 Atherosclerotic heart disease of native coronary artery without angina pectoris; I48.0 Paroxysmal atrial fibrillation; Z12.5 Encounter for screening for malignant neoplasm of prostate
CPT/HCPCS: 36415; 80053; 80061; 82248; 84153; 84439; 84443; G0103

== ENCOUNTER → 2019-01-18 09:20 | Outpatient (CLI) | payer MEDICARE, OTHER, SELFPAY ==
[2018-12-21 14:05] VITALS: BMI 28.8
[2019-01-07 15:34] VITALS: BMI 29.1
--- NOTE | 2019-01-18 09:24 | STEWCON_ITS ---
Reason For Study: ATRIAL FIBRILLATION/AFLUTTER Stress Results Protocol: Kai Protocol Maximum Predicted HR: 149 bpm Target HR: 127 bpm % Maximum Predicted HR: 110 % DurationHeart Rate Stage (mm:ss) (bpm) BP Comment BASELIINE 67 120/740.2 ML DEFINITY STAGE 1 3:00 112 122/62 STAGE 2 3:00 116 152/64 STAGE 3 3:00 137 164/68 STAGE 4 0:30 164 / 0.2 ML DEFINITY RECOVERY 101 130/7 Stress Duration: 9:30 mm:ss Maximum Stress HR: 164 bpm Baseline Echocardiogram Findings The estimated ejection fraction is 65 %. Stress Echo Wall motion Data Resting WM Intermediate WM Stress WM Wall Motion Stress No regional wall motion abnormalities noted. EKG Data Normal intervals are noted. The patient exercised according to the regular Kai protocol for a total duration of 9:30. The maximum heart rate attained was 164 beats per minute. This was 110% of maximum predicted heart rate. The patient exercised into stage 4 of the Kai protocol. At peak exercise, upsloping ST changes only were noted, which did not meet the criteria for ischemia. No clinical angina was noted. Interpretation Summary The estimated ejection fraction is 65 %. Normal, adequate, treadmill echocardiogram. Negative for ischemia by EKG and echocardiographic criteria. No anginal symptoms noted. Rare PACs and PVCs noted. Appropriate blood pressure response to exercise. Average exercise capacity for age. Final LVEF is 75%. Decreased sensitivity due to poor echo windows requiring Definity enhancing agent. Test terminated due to the attainment of target heart rate. Patient tolerated procedure well. No complications. The study was technically difficult. Contrast injection was performed. Ordering Physician: Jeovany Liz Referring Physician: Jeovany Liz Performed By: Ally Liz, ALBER, RVT
== END ==
PROVIDERS: Family Provider Family Medicine; PCP Family Medicine; Referring Provider Nurse Practitioner Family; Visit Provider Nurse Practitioner Family
DX: I25.10 Atherosclerotic heart disease of native coronary artery without angina pectoris (principal); I48.0 Paroxysmal atrial fibrillation
CPT/HCPCS: 93017; 93350; Q9957; A4216; C8928

== ENCOUNTER → 2019-04-05 11:00 | Outpatient (CLI) | payer MEDICARE, OTHER, SELFPAY ==
[2019-01-07 15:34] VITALS: BMI 29.1
[2019-04-06 12:32] LABS: PSA, Free % 6.7 % (.)
== END ==
PROVIDERS: Family Provider Family Medicine; PCP Family Medicine; Referring Provider Family Medicine; Visit Provider Family Medicine
DX: R97.20 Elevated prostate specific antigen [PSA] (principal)
CPT/HCPCS: 36415; 84153; 84154

== ENCOUNTER → 2019-07-04 09:55 | Outpatient (CLI) | payer MEDICARE, OTHER, SELFPAY ==
[2019-01-07 15:34] VITALS: BMI 29.1
--- NOTE | 2019-07-04 10:00 | RAD_ITS ---
STUDY: X-RAY - CERVICAL SPINE REASON FOR EXAM: Male, 74 years old. Neck pain TECHNIQUE: 6 view(s) of the cervical spine were obtained. COMPARISON: None. FINDINGS: Slight reversal of expected cervical lordosis. Osteopenia. Normal vertebral body height and alignment. Moderate multilevel facet arthropathy, more prominent at C2-C3 on the left at C3-C4 right. This finding the oblique views there is evidence of bony foraminal narrowing secondary to uncovertebral joint hypertrophy or facet hypertrophy at multiple levels. Odontoid, lateral masses intact and aligned. C5-C6 moderate disc narrowing, anterior osteophyte, mild hypertrophy. C6-C7 moderate disc narrowing, moderately prominent anterior osteophyte, endplate degenerative changes and uncovertebral joint hypertrophy. C7-T1 mild disc narrowing, mild endplate degenerative changes. Prevertebral soft tissues and airways normal. Apical lungs clear, apical thoracic cage intact. RAD/Cerv Spine 4 or 5 Views IMPRESSION: Multilevel cervical spondylosis with multilevel facet arthropathy/hypertrophy, and degenerative disc disease notable at C5-C6, C6-C7 and C7-T1, most severe at C6-C7. Electronically Signed: Saravanan Pennington MD at 12:18 EDT Tel , Service support ,
== END ==
PROVIDERS: Family Provider Family Medicine; PCP Family Medicine; Referring Provider Family Medicine; Visit Provider Family Medicine
DX: S46.819A Strain of other muscles, fascia and tendons at shoulder and upper arm level, unspecified arm, initial encounter (principal); X58.XXXA Exposure to other specified factors, initial encounter; M47.812 Spondylosis without myelopathy or radiculopathy, cervical region; M50.322 Other cervical disc degeneration at C5-C6 level
CPT/HCPCS: 72050

== ENCOUNTER → 2019-07-05 17:14 | Outpatient (CLI) | payer MEDICARE, OTHER, SELFPAY | PROVIDERS: Family Provider Family Medicine; PCP Family Medicine; Referring Provider Family Medicine; Visit Provider Family Medicine | DX: R31.9 Hematuria, unspecified (principal) | CPT/HCPCS: 87086 ==

== ENCOUNTER 2019-07-09 08:11 | Emergency (ER) | payer MEDICARE, OTHER, SELFPAY ==
[2019-01-07 15:34] VITALS: BMI 29.1
[2019-07-09 08:12] VITALS: BP 152/69; PULSE 65; RESP 16; TEMP 36.2; O2SAT 95; BMI 29.8
--- NOTE | 2019-07-09 08:23 | CT_ITS ---
STUDY: CT ABDOMEN AND PELVIS WITH CONTRAST REASON FOR EXAM: Male, 74 years old. Left flank pain and left lower quadrant pain. RADIATION DOSAGE (If Supplied By Facility): CTDIvol = ( 14.70 ) mGy, DLP = ( 1254.32 ) mGycm TECHNIQUE: Transaxial images were obtained from the dome of the diaphragm to the symphysis pubis without oral contrast. 100 IV Isovue 300 was administered. Sagittal and coronal images were reconstructed. Individualized dose optimization techniques were used for this CT. COMPARISON: None. FINDINGS: Increased linear markings at the lung bases with areas of confluence suggestive of atelectasis and/or scarring. Coronary artery calcification. There is decreased attenuation of the liver consistent with steatosis. Normal gallbladder and extrahepatic biliary system. Normal spleen. Normal pancreas. Normal bilateral adrenal glands. Normal right kidney. Left perinephric stranding. Mild degree of left hydronephrosis and proximal left hydroureter due to a 4.1 mm calculus in the midportion of the left ureter. There is a small hiatal hernia. Normal small intestine. There are multiple colonic diverticula consistent with diverticulosis. The appendix is visualized and appears normal. There is diffuse atherosclerotic calcification of the abdominal aorta and its major visceral branches, without a demonstrated aneurysm. Normal inferior vena cava. There is borderline retroperitoneal lymphadenopathy with enlarged nodes no greater than 10mm in the short axis diameter. Normal urinary bladder. There are prostatic calcifications. Small bilateral inguinal hernias containing fat. There are diffuse degenerative changes of the visualized lumbar spine. CT/Abdomen/Pelvis W IV Cont ONLY IMPRESSION: Increased markings at the lung bases suggestive of atelectasis and/or scarring. 4.1 mm calculus in the midportion of the left ureter causing mild degree of left hydronephrosis and proximal left hydroureter with left perinephric stranding. Diffuse fatty infiltration of the liver. Electronically Signed: Zana Jorge, at 10:11 EDT , Service support ,
--- NOTE | 2019-07-09 08:25 | ED.VISSUMM ---
- ER Visit Summary Date of Service: 07/09/19 Chief Complaint: Abdominal pain History of Present Illness: The patient is a 74 M of known diabetes, A. fib on Xarelto, hypertension high cholesterol. Only prior abdominal surgery was for a hernia. Since last night he had gradual onset of periumbilical abdominal pain that is now more left lower quadrant and flank. Recently seen and treated for a possible UTI but the culture turned out negative and may stop antibiotics. He had blood in his urine which she states is since resolved. Denies any fever or chills. No abdominal trauma. He states that had pain like this before. He has never had obstruction. He is able to urinate. And has had bowel movements in the last 24 hours. Physical Examination: Older male complains of discomfort. Vital signs stable afebrile. HEENT exam unremarkable. Neck nontender no lymphadenopathy. Lungs clear to auscultation. Heart regular rhythm. Abdomen is soft. Mildly distended. No peritoneal signs. Periumbilical and left lower quadrant tenderness. No organomegaly or masses appreciated. No right upper right lower quadrant tenderness. No pulsatile mass. No signs of trauma. Patient is moving all 4 extremities. Back is nontender. Skin is unremarkable except for he is very tanned. No rashes. Neurologically he is awake and alert. Test Results: CBC White count 7. Hemoglobin 13. Chemistries unremarkable gap is 7 creatinine is elevated at 1.5. I discussed this with the patient and and they know to have a recheck. Liver enzymes normal. Lipase normal. UA 5-10 red cells otherwise unremarkable no signs of infection. CT flank study with IV contrast showed a 4 mm left ureteral calculi with hydronephrosis consistent with a kidney stone. Emergency Department Course and Treatment: Older male with abdominal pain. Labs and a CAT scan of the obtained. Treated with IV fluids, morphine and Zofran. Repeat exam patient is doing well at 10:52 AM. Discussed all test results of both he and his . He understands diagnosis is a left mid ureter ureteral calculi of 4 mm. This should pass. We also discussed his creatinine 1.5 mg at recheck. Currently is pain-free. Treatment Plan: [place] for pain. 20 no refill. Strain his urine. Plenty of fluids. Full softener. Follow-up if not improving with local urologist and follow-up to have his creatinine rechecked. Disposition: Discharge Impression: Acute abdominal pain left 4 mm ureteral calculi Mild renal insufficiency with a creatinine of 1.5 This note was generated with [employer] dictation software. It may contain incorrect words, spelling, and punctuation that were not noted in review of the chart prior to signing ED Disposition - Plan for ED Patient: Referrals: Osbaldo Ledezma MD [Primary Care Provider] -
[2019-07-09] MEDS: Morphine 4 MG/ML Syringe IV (08:50)
[2019-07-09] MEDS: Ondansetron 4 MG/2 ML Vial IV (08:50)
[2019-07-09] MEDS: 0.9% Normal Saline 1,000 ML 1000 ML IV (08:50)
[2019-07-09 08:56] LABS: Absolute Lymphocyte Count 1.16 X10^3/uL (0.83-4.51); Absolute Neutrophil Count 5.9 X10^3/uL (2.0-7.7); Basophil# 0.03 X10^3/uL; Basophil% 0.4 % (0-1); Eosinophil# 0.07 X10^3/uL; Eosinophils% 0.9 % (0-5); Hematocrit 38.6 % (40-54); Hemoglobin 13.1 g/dL (13.0-16.5); Lymphocyte # 1.16 X10^3/ul (4.0); Lymphocyte % 14.7 % (19-41); Mean Corp Hgb Conc 33.9 g/dL (32-36); Mean Corpuscular Hgb 30.4 pg (27.0-32.0); Mean Corpuscular Volume 89.6 fL (80-94); Mean Platelet Vol. 9.4 fl (6.2-12.0); Monocyte# 0.67 X10^3/uL; Monocyte% 8.5 % (0-10); NRBC Flagged by Analyzer 0 % (0-5); Neutrophil # 5.93 X10^3/uL (2.7-7.7); Neutrophil % 75.4 % (47-70); Platelet Count 177 K/mm3 (150-450); RBC Distribution Width SD 42.6 fl (35.1-43.9); Red Blood Count 4.31 M/mm3 (4.6-6.2); White Blood Count 7.9 K/mm3 (4.4-11.0)
[2019-07-09 09:12] LABS: AST(SGOT) 27 U/L (15-37); Alanine Aminotransfer ALT/SGPT 54 U/L (16-61); Albumin, Serum 3.8 g/dL (3.2-5.0); Alkaline Phosphatase 70 U/L (45-117); Anion Gap 7 (5-15); BUN 25 mg/dL (7-18); BUN/Creat Ratio 16.2 RATIO (10-20); Bilirubin, Direct 0.09 mg/dL (0.00-0.30); Calcium,Total 9.3 mg/dL (8.5-10.1); Chloride 105 mmol/L (98-107); Creatinine, Serum 1.54 mg/dL (0.70-1.30); EST Glomerular Filtration Rate 47 mL/min (>60); Est Glom Filt Rate - Afr Amer 57 mL/min (>60); Estimated Creatinine Clearance 47.59 ml/min; Globulin 3.5 g/dL (2.2-4.2); Glucose 206 mg/dL (74-106); Lipase 82 U/L (73-393); Potassium 3.9 mmol/L (3.5-5.1); Protein, Total 7.3 g/dL (6.4-8.2); Sodium Level 142 mmol/L (136-145)
[2019-07-09 10:14] VITALS: BP 138/74; PULSE 71; RESP 16; O2SAT 98
[2019-07-09 10:15] LABS: Bacteria 0 SEEN /hpf (None Seen); Mucous, Urine 0 SEEN /hpf (<or=2+); Squamous Epithelial Cells - UA 0 SEEN /hpf (0-5)
[2019-07-09 10:19] LABS: Color, Urine Yellow (Yellow); Glucose, Dipstick Normal (Normal); Ketone-Dipstick Negative (Negative); Leukocyte Esterase-Dipstick 25 /ul (Negative); Nitrite-Dipstick Negative (Negative); Occult Blood-Urine 250 /ul (Negative); Protein-Dipstick 15 mg/dl (Negative); Urine Bilirubin Dipstick Negative (Negative); Urine Clarity Clear (Clear); Urine Urobilinogen Normal (Normal); Urine pH 6.5 (5.0 - 8.0)
[2019-07-09 10:24] LABS: Red Blood Cells-Urine 5-10 SEEN /hpf (0-5); White Blood Cells 0-5 SEEN /hpf (0-5)
--- NOTE | 2019-07-09 10:56 | DCINST.ED_ITS ---
ED Disposition - Plan for ED Patient: Disposition: Home or Assisted Living Instructions: KIDNEY STONE w/ Colic Prescriptions: Hydrocodone Bitart/Apap 5-325 [[place] 5MG-325MG] 1 - 2 tab PO Q4H PRN PRN 5 Days #20 tab PRN Reason: Pain Prescription Printed Ondansetron [Zofran Odt] 4 mg PO Q8H PRN PRN #10 tab PRN Reason: Nausea Prescription Printed Referrals: Osbaldo Ledezma MD [Primary Care Provider] - As Needed Hamzah Gutierres MD [STAFF PHYSICIAN] - 3-5 Days if not improving Additional Instructions: Fluids and rest. Full softener, fruits, vegetables and fiber to prevent constipation. [place] which is generic Vicodin for pain. Follow-up if not improving with a local urologist Dr. Valeriy Gutierres Follow-up with primary care physician next several weeks to have your kidney function rechecked. Your creatinine was slightly elevated today at 1.5.
[2019-07-09 11:04] VITALS: BP 124/71; PULSE 68; RESP 17; O2SAT 98
== END 2019-07-09 11:06 | disposition home or self-care (01) ==
PROVIDERS: Emergency Provider Emergency Medicine; Family Provider Family Medicine; PCP Family Medicine
DX: N13.2 Hydronephrosis with renal and ureteral calculous obstruction (principal); N28.9 Disorder of kidney and ureter, unspecified; E11.9 Type 2 diabetes mellitus without complications; E78.00 Pure hypercholesterolemia, unspecified; I48.91 Unspecified atrial fibrillation; I10 Essential (primary) hypertension; Z79.01 Long term (current) use of anticoagulants; Z79.84 Long term (current) use of oral hypoglycemic drugs; Z79.899 Other long term (current) drug therapy
CPT/HCPCS: 74177; 80048; 80076; 81001; 83690; 85025; 96361; 96374; 96375; 99283; J7030; Q9967; J2405

== ENCOUNTER → 2019-08-15 15:18 | Outpatient (CLI) | payer MEDICARE, OTHER, SELFPAY ==
[2019-08-15 14:47] VITALS: BMI 29.4
[2019-08-15 16:32] LABS: Anion Gap 3 (5-15); BUN 16 mg/dL (7-18); BUN/Creat Ratio 14.8 RATIO (10-20); Calcium,Total 8.7 mg/dL (8.5-10.1); Chloride 107 mmol/L (98-107); Creatinine, Serum 1.08 mg/dL (0.70-1.30); EST Glomerular Filtration Rate 71 mL/min (>60); Est Glom Filt Rate - Afr Amer 86 mL/min (>60); Glucose 113 mg/dL (74-106); Potassium 3.9 mmol/L (3.5-5.1); Sodium Level 138 mmol/L (136-145)
== END ==
PROVIDERS: Family Provider Family Medicine; PCP Family Medicine; Referring Provider Internal Medicine Cardiovascular Disease; Visit Provider Internal Medicine Cardiovascular Disease
DX: I47.2 Ventricular tachycardia (principal); I48.92 Unspecified atrial flutter; I49.3 Ventricular premature depolarization; I10 Essential (primary) hypertension
CPT/HCPCS: 36415; 80048

== ENCOUNTER → 2020-03-05 11:51 | Outpatient (CLI) | payer MEDICARE, OTHER, SELFPAY ==
[2020-03-04 09:44] VITALS: BMI 29.1
[2020-03-05 12:56] LABS: AST(SGOT) 32 U/L (15-37); Alanine Aminotransfer ALT/SGPT 61 U/L (16-61); Albumin, Serum 3.9 g/dL (3.2-5.0); Alkaline Phosphatase 74 U/L (45-117); Bilirubin, Direct 0.15 mg/dL (0.00-0.30); Cholesterol 143 mg/dL (200); Globulin 3.3 g/dL (2.2-4.2); High Density Lipoprotein 43 mg/dL; Protein, Total 7.2 g/dL (6.4-8.2); Thyroid Stim Hormone (TSH) 1.43 uIU/mL (0.358-3.74); Triglycerides 153 mg/dL; Very Low Density Lipoprotein 31 mg/dL (5-40)
== END ==
PROVIDERS: PCP Family Medicine; Referring Provider Internal Medicine Cardiovascular Disease; Visit Provider Internal Medicine Cardiovascular Disease
DX: E78.5 Hyperlipidemia, unspecified (principal); I25.10 Atherosclerotic heart disease of native coronary artery without angina pectoris; I47.2 Ventricular tachycardia; I48.92 Unspecified atrial flutter; I49.3 Ventricular premature depolarization
CPT/HCPCS: 36415; 80061; 80076; 84443

== ENCOUNTER → 2020-06-02 12:45 | Outpatient (CLI) | payer MEDICARE, OTHER, SELFPAY ==
[2020-03-04 09:44] VITALS: BMI 29.1
--- NOTE | 2020-06-02 12:48 | CT_ITS ---
STUDY: CT ABDOMEN AND PELVIS WITHOUT CONTRAST REASON FOR EXAM: Male, 75 years old. HEMATURIA STARTING LAST NIGHT, NO PAIN, HX [place] RADIATION DOSAGE (If Supplied By Facility): CTDIvol = ( 12.47 ) mGy, DLP = ( 732.06 ) mGycm TECHNIQUE: Transaxial images were obtained from the dome of the diaphragm to the symphysis pubis without oral contrast, and without intravenous contrast. Sagittal and coronal images were reconstructed. Individualized dose optimization techniques were used for this CT. COMPARISON: 07/09/2019 FINDINGS: There are chronic interstitial fibrotic changes of the lung bases. The visualized portions of the heart are within normal limits. There is decreased attenuation of the liver consistent with steatosis. Normal gallbladder and extrahepatic biliary system. Normal spleen. Normal pancreas. Normal bilateral adrenal glands. Normal right kidney. Normal left kidney. There is a small hiatal hernia. Normal small intestine. Retained stool noted throughout the colon, scattered colonic diverticulosis without CT evidence of acute diverticulitis. The appendix is visualized and appears normal. Appendix best seen on coronal recon image 57 Normal abdominal aorta. Normal inferior vena cava. Normal retroperitoneum. Normal urinary bladder. There are prostatic calcifications. Normal abdominal wall. There are diffuse degenerative changes of the visualized lumbar spine, and pelvis. CT/Abdomen/Pelvis without Cont IMPRESSION: No obstructive uropathy, suspicious solid renal lesion. Unremarkable bladder Diffuse fatty infiltration of the liver, no discrete lesion Retained stool throughout the colon with scattered colonic diverticulosis, no CT evidence of acute diverticulitis. Normal appendix visualized Degenerative bony changes Electronically Signed: Philip Kwan MD at 13:30 EDT , Service support ,
== END ==
PROVIDERS: PCP Family Medicine; Referring Provider Family Medicine; Visit Provider Family Medicine
DX: R31.9 Hematuria, unspecified (principal)
CPT/HCPCS: 74176

== ENCOUNTER → 2020-06-08 09:47 | Outpatient (CLI) | payer MEDICARE, OTHER, SELFPAY ==
[2020-03-04 09:44] VITALS: BMI 29.1
[2020-06-08 10:39] LABS: PSA,Total - Annual Screen 0.81 ng/mL (0.00-4.00)
== END ==
PROVIDERS: PCP Family Medicine; Referring Provider Nurse Practitioner Adult Health; Visit Provider Nurse Practitioner Adult Health
DX: Z12.5 Encounter for screening for malignant neoplasm of prostate (principal); R97.20 Elevated prostate specific antigen [PSA]
CPT/HCPCS: 36415; 84153; G0103

== ENCOUNTER 2020-06-11 20:53 | Emergency (ER) | payer MEDICARE, OTHER, SELFPAY ==
[2020-03-04 09:44] VITALS: BMI 29.1
[2020-06-11 20:54] VITALS: BP 155/76; PULSE 65; RESP 18; TEMP 36.7; O2SAT 97; BMI 29.5
--- NOTE | 2020-06-11 21:36 | ED.VISSUMM ---
- ER Visit Summary Date of Service: 06/11/20 Chief Complaint: Difficulty urinating History of Present Illness: The patient is a 75 M presenting with difficulty urinating. He states this started yesterday. He states he started having dribbling of his urine and feeling like he was not completely emptying his bladder. This has been intermittent throughout the day today as well. He was recently seen by his primary care physician and had a CT scan which was negative for kidney stones. He followed up with urologist's office and was scheduled for a cystoscopy due to microscopic blood in his urine. He is on Xarelto. Denies other complaints. Physical Examination: Vitals are stable. Patient is afebrile. Alert no acute distress. HEENT exam is unremarkable. Neck is supple. Lungs are clear and equal bilaterally. Heart is regular rate and rhythm. Abdomen is soft nontender nondistended. No guarding or rebound Extremities are unremarkable. Skin is warm and dry. No focal neurologic deficit. Remainder of exam is unremarkable. Emergency Department Course and Treatment: Patient was able to urinate in the emergency department without difficulty and feels improved. Urinalysis shows 0-5 white blood cells, 25-50 red blood cells. Urine culture was sent. Patient remains asymptomatic in the ED. Advised to follow-up with Dr. Gutierres. Advised return to ED for worsening complaints. Disposition: Discharge home Impression: Urinary retention, resolved; hematuria This note was generated with [employer] dictation software. It may contain incorrect words, spelling, and punctuation that were not noted in review of the chart prior to signing ED Disposition - Plan for ED Patient: Instructions: ED Urinary Retention Male Referrals: Osbaldo Ledezma MD [Primary Care Provider] - Hamzah Gutierres MD [STAFF PHYSICIAN] -
[2020-06-11 21:57] LABS: Bacteria 0 SEEN /hpf (None Seen); Mucous, Urine 0 SEEN /hpf (<or=2+)
[2020-06-11 21:59] LABS: Color, Urine Yellow (Yellow); Glucose, Dipstick 250 mg/dl (Normal); Ketone-Dipstick 5 mg/dl (Negative); Leukocyte Esterase-Dipstick 25 /ul (Negative); Nitrite-Dipstick Negative (Negative); Occult Blood-Urine 250 /ul (Negative); Protein-Dipstick 30 mg/dl (Negative); Urine Bilirubin Dipstick Negative (Negative); Urine Clarity Sl. Cloudy (Clear); Urine Urobilinogen Normal (Normal)
[2020-06-11 22:06] LABS: Red Blood Cells-Urine 25-50 SEEN /hpf (0-5); Squamous Epithelial Cells - UA 0-5 SEEN /hpf (0-5); White Blood Cells 0-5 SEEN /hpf (0-5)
[2020-06-11 22:07] LABS: Amorphous Sediment 1+ URATE; Hyaline Cast 0-5 SEEN /lpf (0-5)
--- NOTE | 2020-06-11 22:14 | ED.DEP ---
ED Disposition - Plan for ED Patient: Instructions: ED Urinary Retention Male Referrals: Osbaldo Ledezma MD [Primary Care Provider] - Hamzah Gutierres MD [STAFF PHYSICIAN] -
== END 2020-06-11 22:38 | disposition home or self-care (01) ==
LOC: ED 21:47
PROVIDERS: Emergency Provider Emergency Medicine; PCP Family Medicine
DX: R31.9 Hematuria, unspecified (principal); Z79.01 Long term (current) use of anticoagulants
CPT/HCPCS: 81001; 87086; 99282

== ENCOUNTER → 2020-06-30 11:56 | Outpatient (CLI) | payer MEDICARE, OTHER, SELFPAY ==
[2020-06-11 20:54] VITALS: BMI 29.5
--- NOTE | 2020-06-30 12:10 | RAD_ITS ---
STUDY: X-RAY - ABDOMEN/PELVIS REASON FOR EXAM: Male, 75 years old. CHECKING FOR CALCULUS OF THE KIDNEY. KIDNEY WAS SEEN ON CT SCAN X 3 WEEKS AGO. TECHNIQUE: AP supine and upright views of the abdomen and pelvis. COMPARISON: None. FINDINGS: Normal visualized lung bases. There is an unremarkable bowel gas pattern. There is no demonstrated free abdominal air. The visualized liver, spleen and kidneys are grossly normal in size and morphology. There are calcified phleboliths in the pelvis. There are diffuse degenerative changes of the visualized lumbar spine. RAD/Abdomen Single View IMPRESSION: No acute abdominal or pelvic process, no demonstrated stone over either kidney or along the expected course of either ureter. However, one could be obscured by the overlying bowel gas and stool Electronically Signed: Philip Kwan MD at 13:07 EDT , Service support ,
== END ==
PROVIDERS: PCP Family Medicine; Referring Provider Urology; Visit Provider Urology
DX: N20.0 Calculus of kidney (principal)
CPT/HCPCS: 74018

== ENCOUNTER → 2020-07-02 15:08 | Outpatient (CLI) | payer MEDICARE, OTHER, SELFPAY ==
[2020-06-11 20:54] VITALS: BMI 29.5
--- NOTE | 2020-07-02 11:00 | LES_PTH ---
PATIENT: SAIDA GOOD LOC: [facility] U#:[id number] AGE/SX: 80/M ROOM: RE07/02/[address]: Dr. Sammy Ledezma MD : 1945 BED: DIS: SPEC #: [id number] RECD: 07/02/20 15:03 STATUS: DONNA KELSEY #: [id number] ZAINAB: 07/02/20 11:[address]: Sammy Ledezma DEPT: SURGICAL PATHOLOGY RECD BY: Tylor Escobedo Tissues: Skin of forehead Procedures: Surgery Specimen Level IV HEADER OPERATION: Right forehead skin lesion shave biopsy PRE-OP DIAGNOSIS: Right forehead skin lesion, rule out BCC TISSUE SUBMITTED: Right forehead skin lesion MICROSCOPIC DIAGNOSIS Right forehead skin lesion, shave biopsy: Basal cell carcinoma with focal ulceration and associated inflammation. Solar elastosis. SJ:mary 07/06/20 MICROSCOPIC DESCRIPTION Slides are reviewed. GROSS DESCRIPTION Received in fixative is one container labeled with the patient's name and designated right forehead. The specimen consists of a piece of dumont-white skin measuring 0.6 x 0.5 x 0.1 cm. There is a dumont-brown lesion on the surface measuring 0.3 x 0.3 cm. The specimen is inked and submitted entirely in one cassette. It will be sectioned at the time of embedding. / SJ:rg 07/03/20 TC:0 CPT: 81952
== END ==
PROVIDERS: PCP Family Medicine; Referring Provider Family Medicine; Visit Provider Family Medicine
DX: L98.9 Disorder of the skin and subcutaneous tissue, unspecified (principal)
CPT/HCPCS: 88305

== ENCOUNTER → 2020-10-01 15:45 | Outpatient (CLI) | payer MEDICARE, OTHER, SELFPAY ==
[2020-09-07 14:14] VITALS: BMI 30.1
== END ==
PROVIDERS: PCP Family Medicine; Visit Provider Family Medicine
DX: Z20.828 Contact with and (suspected) exposure to other viral communicable diseases (principal)
CPT/HCPCS: 87635; U0003

== ENCOUNTER → 2021-01-21 11:09 | Outpatient (CLI) | payer MEDICARE, SELFPAY ==
[2020-09-07 14:14] VITALS: BMI 30.1
[2021-01-21 16:05] LABS: ALB/GLOB Ratio 1.3 RATIO (0.9-2.4); AST(SGOT) 28 U/L (15-37); Alanine Aminotransfer ALT/SGPT 51 U/L (16-61); Albumin, Serum 3.8 g/dL (3.2-5.0); Alkaline Phosphatase 67 U/L (45-117); Anion Gap 8 (5-15); BUN 13 mg/dL (7-18); Calcium,Total 8.9 mg/dL (8.5-10.1); Chloride 105 mmol/L (98-107); Cholesterol 126 mg/dL (200); EST Glomerular Filtration Rate 78 mL/min (>60); Est Glom Filt Rate - Afr Amer 94 mL/min (>60); Glucose 124 mg/dL (74-106); High Density Lipoprotein 46 mg/dL; Potassium 4.1 mmol/L (3.5-5.1); Protein, Total 6.8 g/dL (6.4-8.2); Sodium Level 140 mmol/L (136-145); Thyroid Stim Hormone (TSH) 0.96 uIU/mL (0.358-3.74); Triglycerides 89 mg/dL; Very Low Density Lipoprotein 18 mg/dL (5-40)
== END ==
PROVIDERS: PCP Family Medicine; Referring Provider Family Medicine; Visit Provider Family Medicine
DX: E11.9 Type 2 diabetes mellitus without complications (principal)
CPT/HCPCS: 80053; 80061; 84443

== ENCOUNTER 2021-03-23 07:23 | Day surgery (SDC) | payer MEDICARE, SELFPAY ==
[2021-03-03 08:19] VITALS: BMI 28.7
--- NOTE | 2021-03-23 07:00 | HP_ITS ---
Intake Vital Signs 03/03/21 Height 6 ft 03/03/21 Weight: 212 lb 03/03/21 BMI 28.7 03/03/21 BP 102/65 03/03/21 Blood Pressure Location Rt brachial 03/03/21 Position Sitting 03/03/21 Respiration 18 Intake Visit Reasons: CSCOPE, DIARRHEA Chief Complaint: diarrhea Telephoner Required: No Is patient in pain?: No Allergies No Known Allergies Allergy (Verified 03/03/21 08:20) Medications Simvastatin 40 mg PO DAILY 12/20/18 [History Confirmed 03/03/21] hydroCHLOROthiazide [Hydrochlorothiazide] 12.5 mg PO DAILY 12/20/18 [History Confirmed 03/03/21] tamsulosin 0.4 mg capsule 0.4 mg PO QHS 03/04/20 [History Confirmed 03/03/21] diltiazem HCl 120 mg capsule,extended release 24 hr 120 mg PO DAILY #90 cap 07/17/20 [Rx Confirmed 03/03/21] glimepiride 2 mg tablet ea PO 09/07/20 [History Confirmed 03/03/21] metformin 500 mg tablet,extended release 24 hr 500 mg PO DAILY 90 Days #90 tab 09/07/20 [History Confirmed 03/03/21] ramipril 2.5 mg capsule 2.5 mg PO DAILY cap 09/07/20 [History Confirmed 03/03/21] atenolol 50 mg tablet See Rx Instructions .ROUTE .COMPLEX #90 tab 11/16/20 [Rx Confirmed 03/03/21] rivaroxaban 20 mg tablet See Rx Instructions .ROUTE .COMPLEX #90 tab 12/21/20 [Rx Confirmed 03/03/21] potassium chloride 20 mEq tablet,extended release 20 meq PO DAILY #90 tab 01/13/21 [Rx Confirmed 03/03/21] omeprazole 40 mg capsule,delayed release 40 mg PO DAILY #60 cap 03/03/21 [Rx Confirmed 03/03/21] [facility] Medical History Atherosclerosis of coronary artery of [place] heart without angina pectoris (Chronic) Hyperlipidemia (Chronic) Non-sustained ventricular tachycardia (Chronic) Hypertension (Chronic) Anemia (Chronic) Depression (Chronic) Fatty liver (Chronic) Hiatal hernia (Chronic) Surgical History History of left heart catheterization (Chronic 10/28/08) H/O right inguinal hernia repair (Chronic) Family History Father Myocardial infarction age 63 Brother CAD (coronary artery disease) Cancer testicular Social History (Updated 03/03/21 @ 08:[address] Damon Lowe MD) Smoking Status: Former smoker how long ago did patient quit smokin years ago alcohol intake: current alcohol intake frequency: a few times a month substance use type: does not use caffeine: Yes Type: coffee Number of servings: 4 HPI HPI HPI: SAIDA GOOD, is a 75 M who presents to the office today for HPI HPI Surgical H&P: Yes HPI: SAIDA GOOD, is a 75 M who presents to the office today for diarrhea and GERD. The patient reports that he has been having diarrhea for a year. His diarrhea happens 3-4 times a week. It is intermittent with constipation. The patient does not have any abdominal pain. He does have chronic acid reflux and he is not on any medications. The patient does report bloating as well. ROS General General: No weight change or fatigue Cardio Cardiovascular: Yes heart disease, atrial fibrillation and high blood pressure; no murmur, pacemaker, heart attack, heart stent, palpitations, shortness of breat with exertion or chest pain Psych Psychiatric: No depression or anxiety Resp Respiratory: No shortness of breath, No sleep apnea, No cough, No COPD, No asthma, No emphysema, No wheezing Gastro Gastrointestinal: No abdominal pain, Yes nausea or vomiting, Yes diarrhea, Yes constipation, No blood in stool, Yes acid reflux, No hemorrhoids, No ulcers, No gallbladder problem, No black,tarry stools Osiel Hematologic: Yes blood thinners Exam Const General: cooperative Orientation: alert, oriented x3 Resp Effort & Inspection: normal respiratory effort Auscultation: clear to auscultation bilaterally Cardio Rate: regular rate Rhythm: regular rhythm Heart Sounds: no murmurs GI Inspection: non-distended Palpation: soft, nontender Assessment & Plan Problems 1. Diarrhea, unspecified type R19.7 2. Gastroesophageal reflux disease, unspecified whether esophagitis present K21.9 Plan The patient has chronic diarrhea as well as acid reflux. I am unsure if that he diarrhea and bloating are due to gastritis so I would like to perform an EGD and start him on a PPI. I will also perform a colonoscopy with random biopsies to see if this elucidates is the cause of diarrhea. His last colonoscopy was 3 years ago and there was a poor prep. I explained endoscopy in detail to the patient. I explained the risks including but not limited to stroke or heart attack with anesthesia, perforation of the GI tract, bleeding, infection. I explained that any of these could necessitate further emergency surgery. The patient understands and all questions were answered sufficiently. The patient wishes to proceed with procedure. Damon Lowe MD Pager: [facility] [address] [place] [address], [address] [place] [address] Office: Orders Orders: Colonoscopy Today R19.7 EGD Today K21.9 Medications New: omeprazole 40 mg PO DAILY 60 caps 0RF Coding Level of Care Code Off vis,new,level 3 Diagnoses Diarrhea, unspecified type R19.7 ??Diarrhea type: unspecified type Gastroesophageal reflux disease, unspecified whether esophagitis present K21.9 ??Esophagitis presence: esophagitis presence not specified
[2021-03-23 07:54] VITALS: BP 132/67; PULSE 57; RESP 18; TEMP 36.3; O2SAT 98; BMI 29.5
[2021-03-23] MEDS: Lactated Ringers 1,000 ML 100 ML IV (08:05)
--- NOTE | 2021-03-23 08:25 | HP.PCM_ITS ---
History and Physical Date of Admission: 03/23/21 Intake Vital Signs 03/03/21 Height 6 ft 03/03/21 Weight: 212 lb 03/03/21 BMI 28.7 03/03/21 BP 102/65 03/03/21 Blood Pressure Location Rt brachial 03/03/21 Position Sitting 03/03/21 Respiration 18 Intake Visit Reasons: CSCOPE, DIARRHEA Chief Complaint: diarrhea Loan Consultant Required: No Is patient in pain?: No Allergies No Known Allergies Allergy (Verified 03/03/21 08:20) Medications Simvastatin 40 mg PO DAILY 12/20/18 [History Confirmed 03/03/21] hydroCHLOROthiazide [Hydrochlorothiazide] 12.5 mg PO DAILY 12/20/18 [History Confirmed 03/03/21] tamsulosin 0.4 mg capsule 0.4 mg PO QHS 03/04/20 [History Confirmed 03/03/21] diltiazem HCl 120 mg capsule,extended release 24 hr 120 mg PO DAILY #90 cap 07/17/20 [Rx Confirmed 03/03/21] glimepiride 2 mg tablet ea PO 09/07/20 [History Confirmed 03/03/21] metformin 500 mg tablet,extended release 24 hr 500 mg PO DAILY 90 Days #90 tab 09/07/20 [History Confirmed 03/03/21] ramipril 2.5 mg capsule 2.5 mg PO DAILY cap 09/07/20 [History Confirmed 03/03/21] atenolol 50 mg tablet See Rx Instructions .ROUTE .COMPLEX #90 tab 11/16/20 [Rx Confirmed 03/03/21] rivaroxaban 20 mg tablet See Rx Instructions .ROUTE .COMPLEX #90 tab 12/21/20 [Rx Confirmed 03/03/21] potassium chloride 20 mEq tablet,extended release 20 meq PO DAILY #90 tab 01/13/21 [Rx Confirmed 03/03/21] omeprazole 40 mg capsule,delayed release 40 mg PO DAILY #60 cap 03/03/21 [Rx Confirmed 03/03/21] [facility] Medical History Atherosclerosis of coronary artery of [place] heart without angina pectoris (Chronic) Hyperlipidemia (Chronic) Non-sustained ventricular tachycardia (Chronic) Hypertension (Chronic) Anemia (Chronic) Depression (Chronic) Fatty liver (Chronic) Hiatal hernia (Chronic) Surgical History History of left heart catheterization (Chronic 10/28/08) H/O right inguinal hernia repair (Chronic) Family History Father Myocardial infarction age 63 Brother CAD (coronary artery disease) Cancer testicular Social History (Updated 03/03/21 @ 08:[address] Damon Lowe MD) Smoking Status: Former smoker how long ago did patient quit smokin years ago alcohol intake: current alcohol intake frequency: a few times a month substance use type: does not use caffeine: Yes Type: coffee Number of servings: 4 HPI HPI Surgical H&P: Yes HPI: SAIDA GOOD, is a 75 M who presents to the office today for diarrhea and GERD. The patient reports that he has been having diarrhea for a year. His diarrhea happens 3-4 times a week. It is intermittent with constipation. The patient does not have any abdominal pain. He does have chronic acid reflux and he is not on any medications. The patient does report bloating as well. ROS General General: No weight change or fatigue Cardio Cardiovascular: Yes heart disease, atrial fibrillation and high blood pressure; no murmur, pacemaker, heart attack, heart stent, palpitations, shortness of breat with exertion or chest pain Psych Psychiatric: No depression or anxiety Resp Respiratory: No shortness of breath, No sleep apnea, No cough, No COPD, No asthma, No emphysema, No wheezing Gastro Gastrointestinal: No abdominal pain, Yes nausea or vomiting, Yes diarrhea, Yes constipation, No blood in stool, Yes acid reflux, No hemorrhoids, No ulcers, No gallbladder problem, No black,tarry stools Osiel Hematologic: Yes blood thinners Exam Const General: cooperative Orientation: alert, oriented x3 Resp Effort & Inspection: normal respiratory effort Auscultation: clear to auscultation bilaterally Cardio Rate: regular rate Rhythm: regular rhythm Heart Sounds: no murmurs GI Inspection: non-distended Palpation: soft, nontender Assessment & Plan Problems 1. Diarrhea, unspecified type R19.7 2. Gastroesophageal reflux disease, unspecified whether esophagitis present K21.9 Plan The patient has chronic diarrhea as well as acid reflux. I am unsure if that he diarrhea and bloating are due to gastritis so I would like to perform an EGD and start him on a PPI. I will also perform a colonoscopy with random biopsies to see if this elucidates is the cause of diarrhea. His last colonoscopy was 3 years ago and there was a poor prep. I explained endoscopy in detail to the patient. I explained the risks including but not limited to stroke or heart attack with anesthesia, perforation of the GI tract, bleeding, infection. I explained that any of these could necessitate further emergency surgery. The patient understands and all questions were answered sufficiently. The patient wishes to proceed with procedure. Damon Lowe MD Pager: [facility] [address] [place] [address], [address] [place] [address] Office: I have re-examined the patient. There are no clinical changes since date of exam.
--- NOTE | 2021-03-23 08:30 | EGD_PTH ---
PATIENT: SAIDA OGOD LOC: EN U#:[id number] AGE/SX: 75/M ROOM: RE03/23/[address]: Dr. Damon Lowe MD : 1945 BED: DIS: 03/23/2021 SPEC #: [id number] RECD: 03/23/21 11:15 STATUS: DONNA COLE #: [id number] ZAINAB: 03/23/21 08:[address]: Damon Lowe DEPT: SURGICAL PATHOLOGY RECD BY: Carey Newton ENTERED: 03/23/21 12:35 SP TYPE: EGD BIOPSY OT DR: Dr. Sammy Ledezma MD Tissues: A - Gastric mucous membrane B - COLON BIOPSY Procedures: Surgery Specimen Level IV HEADER OPERATION: Colonoscopy, EGD ([facility] [place]) PRE-OP DIAGNOSIS: Diarrhea, GERD TISSUE SUBMITTED: A ? Antrum biopsy for H. pylori and path, B ? Random colonic biopsies MICROSCOPIC DIAGNOSIS A. Antrum biopsy: Mild gastritis. See microscopic description and comment. B. Colon, random biopsy: Fragments of colonic mucosa, no pathologic diagnosis. SIVA:mary 03/24/2021 COMMENT A. The results of immunohistochemistry for Helicobacter pylori will be reported separately ([id number]). MICROSCOPIC DESCRIPTION Slides are reviewed. A. The specimen shows fragments of gastric mucosa with chronic inflammatory cell infiltrates in the lamina propria consisting of lymphocytes and plasma cells, consistent with mild chronic gastritis. GROSS DESCRIPTION A - Received in fixative is one container labeled with the patient's name and designated antrum biopsy. The specimen consists of two irregular fragments of light dumont soft tissue that in aggregate measure 0.6 x 0.3 x 0.1 cm. The specimen is totally submitted in one cassette. B - Received in fixative is one container labeled with the patient's name and designated random colonic biopsy. The specimen consists of multiple irregular fragments of light dumont soft tissue that in aggregate measure 1.5 x 0.5 x 0.1 cm. The specimen is totally submitted in one cassette. / SJ:mary 03/23/21 TC:3 CPT: 05302 x2
--- NOTE | 2021-03-23 08:30 | IMM_PTH ---
PATIENT: SAIDA GOOD LOC: EN U#:[id number] AGE/SX: 75/M ROOM: RE03/23/[address]: Dr. Damon Lowe MD : 1945 BED: DIS: 03/23/2021 SPEC #: [id number] RECD: 03/23/21 12:43 STATUS: DONNA REQ #: [id number] ZAINAB: 03/23/21 08:[address]: Damon Lowe DEPT: IMMUNOHISTOCHEMISTRY RECD BY: Berta Montez ENTERED: 03/23/21 12:44 SP TYPE: IMMUNO OTHR DR: Dr. Sammy Ledezma MD Tissues: A - Stomach, NOS Procedures: H Pylori (initial) PHYSICIAN & INSTITUTION [address] [address] SPECIMEN INFORMATION: Tissue Source: A ? Antrum biopsy Clinical Info: Diarrhea, GERD Specimen Number: [id number] CPT code: 80466 METHODOLOGY: Deparaffinized sections of prefer/formalin-fixed tissue or PAP/DQ stained slides are incubated with monoclonal/polyclonal antibodies/oligonucleotide probes. Localization is made via biotin free immunoperoxidase method. Appropriate controls are performed and reacted as expected. Results on target cell population are indicated in the following table: RESULTS: ANTIBODY / CLONE RESULT Block A H Pylori (polyclonal) negative These tests were developed and their performance characteristics determined by [facility]. They may not have been cleared or approved by the U.S. Food and Drug Administration. The FDA has determined that such clearance or approval is not necessary. INTERPRETATION: A. Antrum biopsy: Negative for Helicobacter pylori organisms. SJ:mary 03/24/2021
[2021-03-23 09:05] VITALS: BP 116/73; BP 132/67; PULSE 62; RESP 18; TEMP 36.6; O2SAT 97
--- NOTE | 2021-03-23 09:07 | OP.EGD_ITS ---
Patient Name: Diego Mccarty Procedure Date: 03/23/2021 8:32 AM Date of : 1945 Age: 75 Procedure: Upper GI endoscopy Indications: Gastro-esophageal reflux disease Providers: Damon Lowe MD Referring MD: Osbaldo Ledezma Medicines: Monitored Anesthesia Care Patient Profile: This is a 75 year old male. Refer to note in patient chart for documentation of history and physical. Complications: No immediate complications. Estimated blood loss: Minimal. Procedure: Pre-Anesthesia Assessment: - Prior to the procedure, a History and Physical was performed, and patient medications and allergies were reviewed. The patient's tolerance of previous anesthesia was also reviewed. The risks and benefits of the procedure and the sedation options and risks were discussed with the patient. All questions were answered, and informed consent was obtained. Prior Anticoagulants: The patient has taken no previous anticoagulant or antiplatelet agents. After reviewing the risks and benefits, the patient was deemed in satisfactory condition to undergo the procedure. After obtaining informed consent, the endoscope was passed under direct vision. Throughout the procedure, the patient's blood pressure, pulse, and oxygen saturations were monitored continuously. The gastroscope was introduced through the mouth, and advanced to the second part of duodenum. The upper GI endoscopy was accomplished without difficulty. The patient tolerated the procedure well. Scope In: 8:39:15 AM Scope Out: 8:41:28 AM Total Procedure Duration Time 0 hours 2 minutes 13 seconds Findings: The esophagus was normal. The stomach was normal. The examined duodenum was normal. Biopsies were taken with a cold forceps in the gastric antrum for Helicobacter pylori testing. Impression: - Normal esophagus. - Normal stomach. - Normal examined duodenum. - Biopsies were taken with a cold forceps for Helicobacter pylori testing. Recommendation: - Discharge patient to home. - Resume previous diet. - Continue present medications. - Return to my office in 1 month. Procedure Code(s): --- Professional --- 20950, Esophagogastroduodenoscopy, flexible, transoral; with biopsy, single or multiple Diagnosis Code(s): --- Professional --- K21.9, Gastro-esophageal reflux disease without esophagitis CPT copyright 2017 [employer]. All rights reserved. The codes documented in this report are preliminary and upon animal caregiver review may be revised to meet current compliance requirements. Damon Lowe MD 03/23/2021 9:07:17 AM This report has been signed electronically. Number of Addenda: 0 Note Initiated On: 03/23/2021 8:32 AM
--- NOTE | 2021-03-23 09:07 | OP.CCLET_ITS ---
03/23/2021 Osbaldo Ledezma [address] [place] [address] Re : Upper GI endoscopy procedure for Diego Mccarty Dear Dr. Ledezma This procedure was performed on Tuesday, March 23, 2021. My impressions and recommendations are as follows: Impressions : - Normal esophagus. - Normal stomach. - Normal examined duodenum. - Biopsies were taken with a cold forceps for Helicobacter pylori testing. Recommendations : - Discharge patient to home. - Resume previous diet. - Continue present medications. - Return to my office in 1 month. My findings are described in the full procedure note, which is enclosed. If I can be of further assistance, please feel free to contact me at Doctor phone number(s): , Work: . Sincerely, Damon Lowe MD 03/23/2021 9:07:17 AM This report has been signed electronically.
--- NOTE | 2021-03-23 09:09 | OP.COLON_ITS ---
Patient Name: Diego Mccarty Procedure Date: 03/23/2021 8:42 AM Date of : 1945 Age: 75 Procedure: Colonoscopy Indications: Chronic diarrhea Providers: Damon Lowe MD Referring MD: Osbaldo Ledezma Medicines: Monitored Anesthesia Care Patient Profile: This is a 75 year old male. Refer to note in patient chart for documentation of history and physical. Last Colonoscopy: 3 years ago. Complications: No immediate complications. Estimated blood loss: Minimal. Procedure: Pre-Anesthesia Assessment: - Prior to the procedure, a History and Physical was performed, and patient medications and allergies were reviewed. The patient's tolerance of previous anesthesia was also reviewed. The risks and benefits of the procedure and the sedation options and risks were discussed with the patient. All questions were answered, and informed consent was obtained. Prior Anticoagulants: The patient has taken no previous anticoagulant or antiplatelet agents. After reviewing the risks and benefits, the patient was deemed in satisfactory condition to undergo the procedure. After I obtained informed consent, the scope was passed under direct vision. Throughout the procedure, the patient's blood pressure, pulse, and oxygen saturations were monitored continuously. The pediatric colonoscope was introduced through the anus and advanced to the cecum, identified by appendiceal orifice and ileocecal valve. The colonoscopy was performed without difficulty. The patient tolerated the procedure well. The quality of the bowel preparation was good. Scope In: 8:43:58 AM Scope Withdrawal Time 0 hours 6 minutes 3 seconds Scope Out: 9:01:10 AM Total Procedure Duration Time 0 hours 17 minutes 12 seconds Findings: The entire examined colon appeared normal on direct and retroflexion views. Biopsies for histology were taken with a cold forceps from the entire colon for evaluation of microscopic colitis. Impression: - The entire examined colon is normal on direct and retroflexion views. - Biopsies were taken with a cold forceps from the entire colon for evaluation of microscopic colitis. Recommendation: - Discharge patient to home. - Resume previous diet. - Continue present medications. - Repeat colonoscopy in 10 years for screening purposes. Procedure Code(s): --- Professional --- 26984, Colonoscopy, flexible; with biopsy, single or multiple Diagnosis Code(s): --- Professional --- K52.9, Noninfective gastroenteritis and colitis, unspecified CPT copyright 2017 [employer]. All rights reserved. The codes documented in this report are preliminary and upon sash repairer review may be revised to meet current compliance requirements. Damon Lowe MD 03/23/2021 9:08:45 AM This report has been signed electronically. Number of Addenda: 0 Note Initiated On: 03/23/2021 8:42 AM
--- NOTE | 2021-03-23 09:09 | OP.CCLET_ITS ---
03/23/2021 Osbaldo Ledezma [address] [place] [address] Re : Colonoscopy procedure for Diego Mccarty Dear Dr. Ledezma This procedure was performed on Tuesday, March 23, 2021. My impressions and recommendations are as follows: Impressions : - The entire examined colon is normal on direct and retroflexion views. - Biopsies were taken with a cold forceps from the entire colon for evaluation of microscopic colitis. Recommendations : - Discharge patient to home. - Resume previous diet. - Continue present medications. - Repeat colonoscopy in 10 years for screening purposes. My findings are described in the full procedure note, which is enclosed. If I can be of further assistance, please feel free to contact me at Doctor phone number(s): , Work: . Sincerely, Damon Lowe MD 03/23/2021 9:08:45 AM This report has been signed electronically.
[2021-03-23 09:12] VITALS: BP 117/74; BP 132/67; PULSE 60; RESP 18; O2SAT 98
[2021-03-23 09:15] VITALS: BP 123/77; BP 132/67; PULSE 62; RESP 18; O2SAT 98
[2021-03-23 09:20] VITALS: BP 132/67; BP 132/81; PULSE 57; RESP 18; TEMP 36.5; O2SAT 97
[2021-03-23 09:46] VITALS: BP 132/67
[2021-03-23 09:51] LABS: Bedside Glucose 134 mg/dL (70-110)
== END 2021-03-23 09:48 ==
LOC: EN 07:23 → AC 07:23
PROVIDERS: PCP Family Medicine; Referring Provider Family Medicine; Visit Provider Surgery
PROC: 0DJD8ZZ Inspection of Lower Intestinal Tract, Via Natural or Artificial Opening Endoscopic (ICD-10-PCS; CPT 45378; principal; 2021-03-23 08:25)
DX: K29.70 Gastritis, unspecified, without bleeding (principal); K21.00 Gastro-esophageal reflux disease with esophagitis, without bleeding; I25.10 Atherosclerotic heart disease of native coronary artery without angina pectoris; I10 Essential (primary) hypertension; E11.9 Type 2 diabetes mellitus without complications; E78.5 Hyperlipidemia, unspecified; I48.92 Unspecified atrial flutter; I48.91 Unspecified atrial fibrillation; K76.0 Fatty (change of) liver, not elsewhere classified; Z79.01 Long term (current) use of anticoagulants; Z87.891 Personal history of nicotine dependence; Z79.84 Long term (current) use of oral hypoglycemic drugs; Z79.02 Long term (current) use of antithrombotics/antiplatelets; Z79.899 Other long term (current) drug therapy; Z87.19 Personal history of other diseases of the digestive system
CPT/HCPCS: 43239; 45380; 82962; 87426; 88305; 88342; C9803; J7120; J2405

== ENCOUNTER → 2021-08-18 08:51 | Outpatient (CLI) | payer MEDICARE, SELFPAY ==
--- NOTE | 2021-08-18 08:53 | ECHOD_ITS ---
Reason For Study: MR Procedure This was a 2D Doppler, Color Flow transthoracic echocardiogram. Exam performed in department. Left Ventricle Normal LV size. The estimated ejection fraction is 60 %. No evidence for diastolic dysfunction. No regional wall motion abnormalities noted. Right Ventricle Normal RV size. Normal systolic function. Atria Normal left atrium. Normal right atrium. No doppler evidence for ASD. Mitral Valve There is no mitral valve stenosis. Trivial mitral valve insufficiency. Tricuspid Valve There is no tricuspid stenosis. Trivial tricuspid valve insufficiency. Pulmonary artery systolic pressure is 30 mmHg. Aortic Valve Trisinus/trileaflet aortic valve. Aortic sclerosis, no stenosis. There is no aortic stenosis. No aortic valve insufficiency. Pulmonic Valve There is no pulmonic valvular stenosis. Trivial pulmonic valve insufficiency. Great Vessels Normal aortic root. Pericardium/Pleural No pericardial effusion. MMode/2D Measurements & Calculations LVIDd: 5.3 cm IVSd: 1.4 cm LVOT diam: 2.1 cm LVIDs: 3.4 cm LVPWd: 1.1 cm LVOT area: 3.5 cm2 FS: 36.7 % Ao root diam: 4.1 cm LAV(MOD-sp4): 66.2 ml LA A4 area: 22.2 cm2 LA dimension: 4.1 cm RA A4 area: 22.0 cm2 Time Measurements MV dec time: 0.24 sec Doppler Measurements & Calculations MV E max yunier: 84.6 cm/sec Lat Peak E' Yunier: 7.6 cm/sec Med Peak E' Yuiner: 6.2 cm/sec MV A max yunier: 58.1 cm/sec E/E' lat: 11.2 E/E' med: 13.6 MV E/A: 1.5 MV V2 max: 78.9 cm/sec MV P1/2t max yunier: 79.4 cm/sec Ao V2 max: 160.8 cm/sec MV max P.5 mmHg MV P1/2t: 101.2 msec Ao max P.3 mmHg MV V2 mean: 41.4 cm/sec Ao V2 mean: 104.4 cm/sec MV mean P.81 mmHg MV dec slope: 229.7 cm/sec2 Ao mean P.2 mmHg MV V2 VTI: 30.4 cm MVA(P1/2t): 2.2 cm2 Ao V2 VTI: 34.8 cm MVA(VTI): 2.7 cm2 AMERICO(I,D): 2.3 cm2 AMERICO(V,D): 1.8 cm2 LV V1 max: 84.9 cm/sec MR max yunier: 423.5 cm/sec SV(LVOT): 81.6 ml LV V1 max P.9 mmHg MR max P.7 mmHg LV V1 mean P.8 mmHg LV V1 mean: 64.0 cm/sec LV V1 VTI: 23.3 cm PA V2 max: 116.5 cm/sec PI dec slope: 121.8 cm/sec2 TR max yunier: 245.2 cm/sec TR max P.1 mmHg ECHO/Echo Complete Interpretation Summary The estimated ejection fraction is 60 %. No evidence for diastolic dysfunction. Trivial mitral valve insufficiency. Ordering Physician: Marylin Tristan Referring Physician: Sammy Ledezma Performed By: Mick Black RCS
== END ==
PROVIDERS: PCP Family Medicine; Visit Provider Specialist
DX: I34.0 Nonrheumatic mitral (valve) insufficiency (principal)
CPT/HCPCS: 93306

== ENCOUNTER → 2021-09-01 14:08 | Outpatient (CLI) | payer MEDICARE, SELFPAY ==
[2021-09-01 14:12] LABS: Bacteria 0 SEEN /hpf (None Seen); Mucous, Urine 0 SEEN /hpf (<or=2+); Red Blood Cells-Urine 0 SEEN /hpf (0-5); Squamous Epithelial Cells - UA 0 SEEN /hpf (0-5); White Blood Cells 0 SEEN /hpf (0-5)
[2021-09-01 15:18] LABS: Glucose, Dipstick Normal (Normal); Ketone-Dipstick Negative (Negative); Leukocyte Esterase-Dipstick 25 /ul (Negative); Nitrite-Dipstick Negative (Negative); Occult Blood-Urine Negative /ul (Negative); Protein-Dipstick Negative (Negative); Urine Bilirubin Dipstick Negative (Negative); Urine Urobilinogen Normal (Normal)
[2021-09-01 15:26] LABS: Color, Urine Yellow (Yellow); Urine Clarity Clear (Clear)
== END ==
PROVIDERS: PCP Family Medicine; Referring Provider Family Medicine; Visit Provider Family Medicine
DX: N40.0 Benign prostatic hyperplasia without lower urinary tract symptoms (principal)
CPT/HCPCS: 81001; 87086

== ENCOUNTER → 2021-09-29 10:55 | Outpatient (CLI) | payer MEDICARE, SELFPAY ==
[2021-09-29 13:20] LABS: AST(SGOT) 24 U/L (15-37); Alanine Aminotransfer ALT/SGPT 41 U/L (16-61); Albumin, Serum 3.7 g/dL (3.2-5.0); Alkaline Phosphatase 71 U/L (45-117); Anion Gap 6 (5-15); BUN 19 mg/dL (7-18); BUN/Creat Ratio 16.8 RATIO (10-20); Calcium,Total 9.1 mg/dL (8.5-10.1); Chloride 105 mmol/L (98-107); Cholesterol 132 mg/dL (200); Creatinine, Serum 1.13 mg/dL (0.70-1.30); EST Glomerular Filtration Rate 67 mL/min (>60); Est Glom Filt Rate - Afr Amer 82 mL/min (>60); Globulin 3.7 g/dL (2.2-4.2); Glucose 155 mg/dL (74-106); High Density Lipoprotein 42 mg/dL; PSA,Total - Annual Screen 0.94 ng/mL (0.00-4.00); Potassium 3.9 mmol/L (3.5-5.1); Protein, Total 7.4 g/dL (6.4-8.2); Sodium Level 137 mmol/L (136-145); Triglycerides 77 mg/dL; Very Low Density Lipoprotein 15 mg/dL (5-40)
== END ==
PROVIDERS: PCP Family Medicine; Referring Provider Family Medicine; Visit Provider Family Medicine
DX: E11.9 Type 2 diabetes mellitus without complications (principal); N40.0 Benign prostatic hyperplasia without lower urinary tract symptoms; Z12.5 Encounter for screening for malignant neoplasm of prostate
CPT/HCPCS: 36415; 80053; 80061; 84153; 86769; G0103

== ENCOUNTER 2021-12-03 05:59 | Emergency (ER) | payer MEDICARE, SELFPAY ==
[2021-12-03 06:00] VITALS: BP 108/66; PULSE 64; RESP 14; TEMP 36; O2SAT 97; BMI 28.8
--- NOTE | 2021-12-03 06:06 | RAD_ITS ---
STUDY: X-RAY CHEST REASON FOR EXAM: Male, 76 years old patient with syncope. TECHNIQUE: Single AP portable view of the chest. COMPARISON: 12/15/2018. FINDINGS: Cardiac monitoring leads are present. The lungs are underexpanded with crowding of the bronchovascular markings and obscuration of lung bases. There is no demonstrated pleural abnormality. There is borderline cardiomegaly. Normal mediastinum and juanjo. Normal visualized pulmonary arteries. Normal visualized aortic arch and descending thoracic aorta. Normal visualized thoracic spine. Normal visualized ribs, clavicles, and shoulders. There is no demonstrated abnormality of the visualized soft tissue structures of the upper abdomen. RAD/Chest 1 View (Portable) IMPRESSION: Borderline cardiomegaly and mild pulmonary vascular congestion. Electronically Signed: Sara Bellamy MD at 7:41 EST , Service support ,
--- NOTE | 2021-12-03 06:06 | EKG12_ITS ---
Test Reason : SYNCOPE Blood Pressure : / mmHG Vent. Rate : 063 BPM Atrial Rate : 066 BPM P-R Int : 000 ms QRS Dur : 088 ms QT Int : 438 ms P-R-T Axes : 000 -20 -17 degrees QTc Int : 448 ms Atrial fibrillation Abnormal ECG Confirmed by SAMPSON GOLDBERG, RENEE ([id number]), supervising editor news reel ALLI NAIK ([id number]) on 12/03/2021 1:27:41 PM Referred By: BÁRBARA Confirmed By:RENEE BRADEN MD
--- NOTE | 2021-12-03 06:11 | EX.ED.DYSGE1 ---
HPI History of Present Illness Chief Complaint: Syncope Informant: patient, spouse/S.O. and EMS Narrative Narrative: 76-year-old male presenting to the emergency department with syncope. Patient states that he woke this morning and went to the bathroom to urinate. He had a syncopal event prior to urination. States he did not hurt himself in the fall. EMS notes that every time they went to sit him up his blood pressure would drop and he would become diaphoretic. Patient notes that he has a history of atrial fibrillation and is on diltiazem as well as Xarelto. No missed doses. He reports that whenever he goes into atrial fibrillation it is not uncommon for his blood pressure to be lower. He notes that he has never had to be cardioverted and that typically he is only in A. fib for a few hours at most. Patient notes that he recently started a new diet that is mostly protein and vegetable based. He denies any black or bloody stools [facility] Medical History Alcohol use Anemia Arthritis Atherosclerosis of coronary artery of [place] heart without angina pectoris Atrial fibrillation Bruises easily Cancer Depression Diabetes Fatty liver Former smoker Hiatal hernia Hyperlipidemia Hypertension Non-sustained ventricular tachycardia Sleep apnea Wears glasses Wears hearing aid in both ears Home Medications hydrochlorothiazide 12.5 mg PO QHS 12/20/18 [History Last Taken 12/19/18] simvastatin 40 mg PO QHS 12/20/18 [History Last Taken 12/19/18] tamsulosin 0.4 mg capsule 0.4 mg PO QHS 03/04/20 [History Last Taken Unknown] glimepiride 2 mg tablet 2 mg PO DAILY 09/07/20 [History Last Taken Unknown] metformin 500 mg tablet,extended release 24 hr 500 mg PO DAILY 90 Days #90 tab 09/07/20 [History Last Taken Unknown] ramipril 2.5 mg capsule 2.5 mg PO BID cap 09/07/20 [History Last Taken Unknown] potassium chloride 20 meq PO QHS 03/18/21 [History Last Taken Unknown] diltiazem HCl 120 mg capsule,extended release 24 hr 120 mg PO QHS #90 cap 07/20/21 [Rx Last Taken Unknown] rivaroxaban 20 mg tablet See Rx Instructions .ROUTE .COMPLEX #90 tab 11/08/21 [Rx Last Taken Unknown] atenolol 50 mg PO DAILY 12/03/21 [History Last Taken Unknown] Allergy/AdvReac Type Severity Reaction Status Date / Time No Known Allergies Allergy Verified 08/31/21 13:41 Family History Father Myocardial infarction age 63 Brother CAD (coronary artery disease) Cancer testicular Surgical History H/O right inguinal hernia repair History of cardiac catheterization History of colonoscopy History of left heart catheterization (10/28/08) Social History Smoking Status: Former smoker how long ago did patient quit smokin years ago alcohol intake: current alcohol intake frequency: a few times a month substance use type: does not use caffeine: Yes Type: coffee Number of servings: 4 ROS ROS ED Constitutional Constitutional ED: Denies chills or weight loss Eyes Eyes: Denies change in vision or diplopia ENT ENT ED: Denies ear pain, rhinorrhea or sore throat Cardiovascular Cardiovascular: Reports other Details: Syncope ; Denies chest pain, orthopnea, palpitations or racing heartbeat Respiratory/Chest Respiratory/Chest: Denies cough, dyspnea or orthopnea Gastrointestinal Gastrointestinal: Denies abdominal pain, diarrhea, nausea or vomiting Genitourinary Genitourinary ED: Denies dysuria, hematuria or urinary frequency Musculoskeletal Musculoskeletal: Denies arthralgias or myalgias Integumentary Denies abscess or rash Neurologic Neurologic: Denies headache(s) or weakness Psychiatric Psychiatric: Denies anxiety, depression, suicidal ideation or suicidal thoughts Endocrine Endocrinology: Denies polydipsia, polyphagia or polyuria Allergic/Immunologic Allergic/Immunologic ED: Denies mouth swelling, tongue swelling or urticaria EXAM Physical Exam Const Vital Signs: 12/03/21 06:00 12/03/21 07:06 Temperature 96.8 F L Temperature Source Temporal Pulse Rate 64 Pulse Rate [Sitting] 60 Pulse Rate [Standing] 63 Respiratory Rate 14 Blood Pressure 108/66 Blood Pressure [Sitting] 109/64 Blood Pressure [Standing] 105/52 L Blood Pressure Mean 80 Blood Pressure Mean [Sitting] 79 Blood Pressure Mean [Standing] 69 Pulse Ox 97 Oxygen Delivery Method Room Air Positive well nourished and well developed General Appearance ED: well developed HEENT Reports normocephalic, head/scalp atraumatic, TM's clear and moist mucous membranes Negative for trauma Tympanic Membrane ED: Yes TM's clear Eyes PERRL and EOMs intact bilaterally Neck no lymphadenopathy, supple and no JVD Resp normal respiratory effort and clear to auscultation bilaterally Cardio no murmurs Rhythm: abnormal rhythm irregularly irregular GI normal to inspection, nondistended, normoactive bowel sounds and non-tender Palpation: soft Back/Spine no CVA tenderness and normal ROM Extremity normal to inspection General Extremety ED: Negative for edema General Extremity: Negative for edema Neuro oriented x3 and CN's II-XII intact bilaterally Sensorium / Orientation: alert Motor Exam: strength 5/5 throughout Psych mental status grossly normal Mood & Affect: Negative for depressed or tearful Skin no rashes or lesions noted and no wounds MDM MDM MDM Narrative Medical decision making narrative: Basic blood work obtained and was negative glucose 191. Patient received a liter of IV fluids. Interpretation of the chest x-ray is no acute process. Patient has remained in a rate controlled atrial fibrillation. I think that the patient's syncope was multifactorial. He is lost his atrial kick due to being in A. 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 I do not see concerning for underlying ACS. He is covered from an anticoagulation standpoint. Patient has not identified any injuries from his syncopal event. This point the patient is not orthostatic clinically is feeling well and will be discharged Lab Data Attestation: I reviewed the patient's lab results. Labs: Laboratory Results - last 24 hr 12/03/21 12/03/21 06:06 06:06 WBC 4.4 RBC 4.73 Hgb 13.9 Hct 41.6 MCV 87.9 MCH 29.4 MCHC 33.4 RDW Std Deviation 39.0 RDW Coeff of Main 12.2 Plt Count 212 MPV 9.6 Immature Gran % (Auto) 0.200 Neut % (Auto) 43.7 L Lymph % (Auto) 41.5 H [place] % (Auto) 11.5 H Eos % (Auto) 2.0 Baso % (Auto) 1.1 H Absolute Neuts (auto) 1.9 L Absolute Lymphs (auto) 1.84 Nucleated RBC % 0 Sodium 138 Potassium 3.9 Chloride 103 Carbon Dioxide 27.0 Anion Gap 8 BUN 24 H Creatinine 1.14 Estim Creat Clear Calc 62.40 Est GFR (MDRD) Af Amer 81 Est GFR (MDRD) Non-Af 67 BUN/Creatinine Ratio 21.1 H Glucose 191 H Calcium 8.9 Total Bilirubin 0.40 AST 34 ALT 61 Alkaline Phosphatase 66 Troponin I High Sens 10 Total Protein 7.1 Albumin 3.6 Globulin 3.5 Albumin/Globulin Ratio 1.0 EKG Initial EKG: Attestation: I personally reviewed and interpreted this EKG as follows: Interpretation: Atrial Fibrillation Comments: Atrial fibrillation with a ventricular rate of 63 Discharge Plan Triage Chief Complaint: Syncope ED Provider: Garfield Montaño Dx/Rx/DC Orders Clinical Impression: Syncope and collapse, Atrial fibrillation Instructions: Causes of Syncope, ED AFIB Prescriptions: No Action metformin 500 mg tablet extended release 24 hr 500 mg PO DAILY 90 Days Qty: 90 RF: 0 tamsulosin 0.4 mg capsule 0.4 mg PO QHS RF: 0 glimepiride 2 mg tablet 2 mg PO DAILY RF: 0 simvastatin 40 MG tablet 40 mg PO QHS RF: 0 hydrochlorothiazide 12.5 MG capsule 12.5 mg PO QHS RF: 0 ramipril 2.5 mg capsule 2.5 mg PO BID RF: 0 potassium chloride 20 mEq tablet extended release 20 meq PO QHS RF: 0 atenolol 25 mg tablet 50 mg PO DAILY RF: 0 diltiazem HCl 120 mg capsule,extended release 24hr 120 mg PO QHS Qty: 90 RF: 3 Xarelto 20 mg tablet See Rx Instructions .ROUTE .COMPLEX Qty: 90 RF: 3 Primary Care Provider: Osbaldo Ledezma Referrals: Osbaldo Ledezma MD [Primary Care Provider] - As Needed Disposition Disposition: Home, Self Care
[2021-12-03] MEDS: 0.9% Normal Saline 1,000 ML 1000 ML IV (06:13)
[2021-12-03 06:19] LABS: Absolute Lymphocyte Count 1.84 X10^3/uL (0.83-4.51); Absolute Neutrophil Count 1.9 X10^3/uL (2.0-7.7); Basophil# 0.05 X10^3/uL; Basophil% 1.1 % (0-1); Eosinophil# 0.09 X10^3/uL; Hematocrit 41.6 % (40-54); Hemoglobin 13.9 g/dL (13.0-16.5); Lymphocyte # 1.84 X10^3/ul (0.83-4.51); Lymphocyte % 41.5 % (19-41); Mean Corp Hgb Conc 33.4 g/dL (32-36); Mean Corpuscular Hgb 29.4 pg (27.0-32.0); Mean Corpuscular Volume 87.9 fL (80-94); Mean Platelet Vol. 9.6 fl (6.2-12.0); Monocyte# 0.51 X10^3/uL; Monocyte% 11.5 % (0-10); NRBC Flagged by Analyzer 0 % (0-5); Neutrophil # 1.93 X10^3/uL (2.7-7.7); Neutrophil % 43.7 % (47-70); Platelet Count 212 K/mm3 (150-450); RBC Distribution Width CV 12.2 % (11.6-14.6); Red Blood Count 4.73 M/mm3 (4.6-6.2); White Blood Count 4.4 K/mm3 (4.4-11.0)
[2021-12-03 06:38] LABS: AST(SGOT) 34 U/L (15-37); Alanine Aminotransfer ALT/SGPT 61 U/L (16-61); Albumin, Serum 3.6 g/dL (3.2-5.0); Alkaline Phosphatase 66 U/L (45-117); Anion Gap 8 (5-15); BUN 24 mg/dL (7-18); BUN/Creat Ratio 21.1 RATIO (10-20); Calcium,Total 8.9 mg/dL (8.5-10.1); Chloride 103 mmol/L (98-107); Creatinine, Serum 1.14 mg/dL (0.70-1.30); EST Glomerular Filtration Rate 67 mL/min (>60); Est Glom Filt Rate - Afr Amer 81 mL/min (>60); Globulin 3.5 g/dL (2.2-4.2); Glucose 191 mg/dL (74-106); Potassium 3.9 mmol/L (3.5-5.1); Protein, Total 7.1 g/dL (6.4-8.2); Sodium Level 138 mmol/L (136-145); Troponin-I HS 10 pg/mL (3.0-78.0)
[2021-12-03 07:06] VITALS: BP 105/52; BP 109/64; PULSE 60; PULSE 63
== END 2021-12-03 07:33 | disposition home or self-care (01) ==
PROVIDERS: Emergency Provider Emergency Medicine; PCP Family Medicine; Visit Provider Emergency Medicine
DX: R55 Syncope and collapse (principal); I48.91 Unspecified atrial fibrillation; E11.9 Type 2 diabetes mellitus without complications; I10 Essential (primary) hypertension; I25.10 Atherosclerotic heart disease of native coronary artery without angina pectoris; E78.5 Hyperlipidemia, unspecified; G47.30 Sleep apnea, unspecified; Z87.891 Personal history of nicotine dependence; Z79.899 Other long term (current) drug therapy
CPT/HCPCS: 71045; 80053; 84484; 85025; 93005; 96360; 99285; J7030; A4216

== ENCOUNTER 2021-12-31 09:06 | Outpatient (CLI) | payer MEDICARE, SELFPAY | END 2021-12-31 23:59 | disposition home or self-care (01) | LOC: PSN 09:06 | PROVIDERS: PCP Family Medicine; Referring Provider Nurse Practitioner Family; Visit Provider Nurse Practitioner Family | DX: R00.1 Bradycardia, unspecified (principal); I48.3 Typical atrial flutter; I49.3 Ventricular premature depolarization | CPT/HCPCS: 93225; 93226 ==

== ENCOUNTER → 2022-04-29 | Outpatient (CLI) | payer MEDICARE, SELFPAY ==
--- NOTE | 2022-04-29 10:05 | RAD_ITS ---
STUDY: X-RAY - LEFT KNEE REASON FOR EXAM: Male, 77 years old. KNEE PAIN TECHNIQUE: 4 view(s) of the knee. COMPARISON: None. FINDINGS: Normal visualized distal femur. Normal visualized proximal tibia and fibula. Normal proximal tibiofibular articulation. Normal medial femorotibial compartment. Normal lateral femorotibial compartment. Normal patellofemoral articulation. There are atherosclerotic calcifications. RAD/Knee 4 or More Views IMPRESSION: Normal x-ray examination of the knee. Electronically Signed: Zana Jorge MD at 14:45 EDT ,
== END | disposition home or self-care (01) ==
LOC: MTRAD 10:03
PROVIDERS: PCP Family Medicine; Referring Provider Family Medicine; Visit Provider Family Medicine
DX: M25.562 Pain in left knee (principal)
CPT/HCPCS: 73564

== ENCOUNTER → 2022-06-16 | Outpatient (CLI) | payer MEDICARE, SELFPAY ==
[2022-06-16 12:19] LABS: Hematocrit 38.3 % (40-54); Hemoglobin 12.7 g/dL (13.0-16.5); Mean Corp Hgb Conc 33.2 g/dL (32-36); Mean Corpuscular Volume 90.5 fL (80-94); Platelet Count 207 K/mm3 (150-450); RBC Distribution Width CV 13.1 % (11.6-14.6); RBC Distribution Width SD 43.4 fl (35.1-43.9); Red Blood Count 4.23 M/mm3 (4.6-6.2)
[2022-06-16 13:09] LABS: Anion Gap 6 (5-15); BUN 26 mg/dL (7-18); BUN/Creat Ratio 30.1 RATIO (10-20); Calcium,Total 9.3 mg/dL (8.5-10.1); Chloride 104 mmol/L (98-107); Creatinine, Serum 0.86 mg/dL (0.70-1.30); EST Glomerular Filtration Rate 92 mL/min (>60); Est Glom Filt Rate - Afr Amer 111 mL/min (>60); Glucose 136 mg/dL (74-106); Potassium 4.1 mmol/L (3.5-5.1); Sodium Level 138 mmol/L (136-145); T4 Total, Thyroxin 7.7 ug/dL (4.5-12.1); Thyroid Stim Hormone (TSH) 1.43 uIU/mL (0.358-3.74)
== END | disposition home or self-care (01) ==
LOC: LAB 10:58
PROVIDERS: PCP Family Medicine; Visit Provider Nurse Practitioner Family
DX: I48.3 Typical atrial flutter (principal); I25.10 Atherosclerotic heart disease of native coronary artery without angina pectoris; R00.0 Tachycardia, unspecified
CPT/HCPCS: 36415; 80048; 83735; 84436; 84443; 85027

== ENCOUNTER → 2022-06-27 | Outpatient (CLI) | payer MEDICARE, SELFPAY | END | disposition home or self-care (01) | LOC: PSN 12:06 | PROVIDERS: PCP Family Medicine; Referring Provider Nurse Practitioner Family; Visit Provider Nurse Practitioner Family | DX: I48.3 Typical atrial flutter (principal); I47.2 Ventricular tachycardia; I25.10 Atherosclerotic heart disease of native coronary artery without angina pectoris | CPT/HCPCS: 93225; 93226 ==

== ENCOUNTER 2022-07-23 08:16 | Emergency (ER) | payer MEDICARE, SELFPAY ==
[2022-07-23 08:17] VITALS: BP 124/73; PULSE 82; RESP 18; TEMP 36.6; O2SAT 97; BMI 25.7
--- NOTE | 2022-07-23 08:33 | CT_ITS ---
STUDY: CT ABDOMEN AND PELVIS WITHOUT CONTRAST REASON FOR EXAM: Male, 77 years old. Diffuse abdominal pain RADIATION DOSAGE (If Supplied By Facility): CTDIvol = ( 7.16 ) mGy, DLP = ( 405.90 ) mGycm TECHNIQUE: Transaxial images were obtained from the dome of the diaphragm to the symphysis pubis without oral contrast, and without intravenous contrast. Sagittal and coronal images were reconstructed. Individualized dose optimization techniques were used for this CT. COMPARISON: 06/02/2020 FINDINGS: There are chronic interstitial fibrotic changes of the lung bases. Calcified coronary vessels noted Normal liver. Normal gallbladder and extrahepatic biliary system. Normal spleen. Normal pancreas. Normal bilateral adrenal glands. Normal right kidney. Normal left kidney. Normal visualized stomach. Normal small intestine. Retained stool noted throughout the majority of the colon. Scattered colonic diverticula noted. There is abnormal thickening in the distal descending colon best seen on axial images 108 through 145 with pericolonic inflammatory stranding. This is consistent with acute diverticulitis. There is no perforation or abscess, an underlying lesion could also cause a similar appearance and once the acute inflammation has resolved further evaluation of this area with colonoscopy or barium enema would be recommended. The appendix is visualized and appears normal. Appendix seen on coronal reconstructed image 57 There is diffuse atherosclerotic calcification of the abdominal aorta, without a demonstrated aneurysm. Normal inferior vena cava. Scattered subcentimeter mesenteric and retroperitoneal lymph nodes. Normal urinary bladder. There are prostatic calcifications. Normal abdominal wall. Mild degenerative changes noted in the lumbar spine and pelvis CT/Abdomen/Pelvis without Cont IMPRESSION: Acute inflammatory process involving the distal descending colon with thickening, and pericolonic inflammation. Findings suggest acute diverticulitis without perforation or abscess. However, an underlying lesion could cause a similar appearance. No free intraperitoneal fluid, air, or suspicious adenopathy No suspicious solid organ abnormality Mild degenerative bony changes Electronically Signed: Philip Kwan MD at 9:21 EDT ,
--- NOTE | 2022-07-23 08:34 | EDS_ITS ---
HPI HPI - GI History of Present Illness Chief Complaint: Abd Pain Detail of Chief Complaint: Abdominal pain for 2 days Informant: patient Abdominal Pain/Flank Pain Current Severity: 02/20 Narrative Narrative: Patient presents to the emergency department complaint of abdominal pain that he said for 2 days. Patient denies nausea or vomiting. He denies diarrhea. De nies blood in the stool or black tarry stool. Patient had low-grade temperature today to 99.9 at home. Pain is intermittent. He does have history of kidney stones. Patient states that urinating seems to help alleviate some of the discomfort. No history of diverticulitis. Prior similar symptoms: No PFSH PFSH Medical History Alcohol use Anemia Arthritis Atherosclerosis of coronary artery of [place] heart without angina pectoris Atrial fibrillation Bruises easily Cancer Depression Diabetes Essential hypertension Fatty liver Former smoker Hiatal hernia Hyperlipidemia Non-sustained ventricular tachycardia Sleep apnea Wears glasses Wears hearing aid in both ears Home Medications tamsulosin 0.4 mg capsule 0.4 mg PO QHS urine flow 03/04/20 [History Last Taken Unknown] metformin 500 mg tablet,extended release 24 hr 500 mg PO DAILY BLOOD SUGAR 90 days #90 tabs 09/07/20 [History Last Taken Unknown] potassium chloride 20 mEq tablet,extended release 20 meq PO QHS supplement #90 tabs 02/14/22 [Rx Last Taken Unknown] vit A 1,000 unit-C 60 mg-E 30 unit-zinc oxid-selenium AA-copper tablet 1 tab PO DAILY 03/14/22 [History Last Taken Unknown] diltiazem HCl 120 mg capsule,extended release 24 hr 120 mg PO DAILY #30 caps 07/07/22 [Rx Last Taken Unknown] simvastatin 40 mg tablet 40 mg PO DAILY #90 tabs 07/07/22 [Rx Last Taken Unknown] atenolol 50 mg tablet 50 mg PO BID #90 tabs 07/14/22 [Rx Last Taken Unknown] cholecalciferol (vitamin D3) 50 mcg (2,000 unit) capsule 50 mcg PO DAILY PRN supplement 07/14/22 [History Last Taken Unknown] rivaroxaban 20 mg tablet (Xarelto) 20 mg PO DAILY 07/14/22 [History Last Taken Unknown] ciprofloxacin HCl 500 mg tablet 500 mg PO BID #20 TABLETS 07/23/22 [Rx Last Taken Unknown] metronidazole 500 mg tablet 500 mg PO Q8H #30 tabs 07/23/22 [Rx Last Taken Un known] Allergy/AdvReac Type Severity Reaction Status Date / Time STEROIDS AdvReac Other Uncoded 07/23/22 08:21 Family History Father Myocardial infarction age 63 Brother CAD (coronary artery disease) Cancer testicular Surgical History H/O right inguinal hernia repair History of cardiac catheterization History of colonoscopy History of left heart catheterization (10/28/08) Social History Smoking Status: Former smoker how long ago did patient quit smokin years ago alcohol intake: current alcohol intake frequency: a few times a month substance use type: does not use caffeine: Yes Type: coffee Number of servings: 4 ROS ROS ED Review of Systems ROS Unobtainable: other Constitutional Constitutional ED: Reports lethargy; Denies chills, fever(s), sweats or weight loss Eyes Eyes: Denies blurry vision, change in vision or diplopia ENT ENT ED: Denies rhinorrhea or sore throat Cardiovascular Cardiovascular: Denies chest pain, orthopnea or racing heartbeat Respiratory/Chest Respiratory/Chest: Denies cough, dyspnea, dyspnea on exertion, orthopnea or sputum Gastrointestinal Gastrointestinal: Reports abdominal pain; Denies diarrhea, nausea or vomiting Genitourinary Genitourinary ED: Denies dysuria, hematuria or urinary frequency Musculoskeletal Musculoskeletal: Denies arthralgias, back pain, myalgias or neck pain Integumentary Denies abscess, Abrasions or rash Neurologic Neurologic: Denies headache(s) or weakness Psychiatric Psychiatric: Denies anxiety, depression or suicidal thoughts Endocrine Endocrinology: Denies polydipsia, polyphagia or polyuria Hematologic/Lymphatic Hematologic/Lymphatic: Denies easy bleeding, easy bruising or lymphadenopathy Allergic/Immunologic Allergic/Immunologic ED: Denies mouth swelling, tongue swelling or urticaria EXAM Physical Exam Const Vital Signs: 07/23/22 08:17 Temperature 98 F Temperature Source Temporal Pulse Rate 82 Respiratory Rate 18 Blood Pressure 124/73 H Blood Pressure Mean 90 Pulse Ox 97 Oxygen Delivery Method Room Air Positive well nourished and well developed General Appearance ED: well developed and NAD HEENT Reports TM's clear and moist mucous membranes normocephalic and atraumatic; Negative for trauma or tenderness Tympanic Membrane ED: Yes TM's clear Eyes PERRL and EOMs intact bilaterally General Eye ED: Negative for pale conjunctiva or scleral icterus Neck no lymphadenopathy, supple and no JVD General: Negative for tenderness Chest Wall inspection of chest normal and palpation of chest normal Chest: Negative for tenderness Resp normal respiratory effort and clear to auscultation bilaterally Effort and Inspection: Negative for respiratory distress or pain with movement Auscultation: Negative for rhonchi, wheezes or diminished lung sounds Cardio regular rate, regular rhythm, S1 normal heart sound, S2 normal heart sound and no murmurs Peripheral Pulses: pulses 2+ throughout GI normal to inspection, nondistended, normoactive bowel sounds, soft to palpation, non-distended and no masses GI Narrative: Tenderness to palpation over left lower quadrant with guarding. There is no rebound, rigidity, or frail signs. Back/Spine no CVA tenderness and no thoracic nor lumbar tenderness Extremity normal to inspection General Extremety ED: Negative for edema General Extremity: Negative for edema Neuro oriented x3, CN's II-XII intact bilaterally, no sensory deficits noted and gait normal Sensorium / Orientation: awake, alert, oriented to person, oriented to place and oriented to time Motor Exam: strength 5/5 throughout and strength abnormal Psych mental status grossly normal Skin no rashes or lesions noted and no wounds MDM MDM MDM Narrative Medical decision making narrative: IV line established on arrival. Patient was given normal saline as he did not want thing for pain. Lab work-up was unremarkable with a normal lactate and normal white blood cell count. CT scan of the abdomen pelvis showed inflammatory changes in the left side of the colon consistent with diverticulitis. Patient tells me he had a colonoscopy within the last year. Patient was started on Cipro and Flagyl p.o. Patient will be referred to Dr. Lowe who did his colonoscopy within the last year. Patient advised to return if worsening pain, fever, vomiting, or condition should worsen anyway. Lab Data Attestation: I reviewed the patient's lab results. Labs: Laboratory Results - last 24 hr 07/23/22 07/23/22 07/23/22 08:40 08:40 08:40 WBC 6.1 RBC 4.44 L Hgb 13.3 Hct 39.6 L MCV 89.2 MCH 30.0 MCHC 33.6 RDW Std Deviation 40.6 RDW Coeff of Main 12.3 Plt Count 158 MPV 9.5 Immature Gran % (Auto) 0.300 Neut % (Auto) 75.8 H Lymph % (Auto) 14.5 L [place] % (Auto) 8.9 Eos % (Auto) 0.2 Baso % (Auto) 0.3 Absolute Neuts (auto) 4.6 Absolute Lymphs (auto) 0.88 Nucleated RBC % 0 Sodium 140 Potassium 3.7 Chloride 106 Carbon Dioxide 26.0 Anion Gap 8 BUN 17 Creatinine 0.93 Estim Creat Clear Calc 75.33 Est GFR (MDRD) Af Amer 102 Est GFR (MDRD) Non-Af 84 BUN/Creatinine Ratio 18.3 Glucose 104 Lactic Acid 0.9 Calcium 8.7 Radiography Diagnostic Testing: Clinical Impression(s) from Imaging Studies Abdomen/Pelvis CT 07/23/22 08:33 IMPRESSION: Acute inflammatory process involving the distal descending colon with thickening, and pericolonic inflammation. Findings suggest acute diverticulitis without perforation or abscess. However, an underlying lesion could cause a similar appearance. No free intraperitoneal fluid, air, or suspicious adenopathy No suspicious solid organ abnormality Mild degenerative bony changes Electronically Signed: Philip Kwan MD at 9:21 EDT , Discharge Plan Triage Chief Complaint: Abd Pain ED Provider: Kae Chavira Dx/Rx/DC Orders Clinical Impression: Diverticulitis, Abdominal pain Instructions: Abdominal Pain, ED Diverticulitis Prescriptions: New ciprofloxacin HCl [ciprofloxacin HCl] 500 mg tablet 500 mg PO BID Qty: 20 0RF metronidazole 500 mg tablet 500 mg PO Q8H Qty: 30 0RF No Action metformin 500 mg tablet extended release 24 hr 500 mg PO DAILY 90 Days Qty: 90 Label Comments: TAKE 2 TABLETS BY MOUTH ONCE DAILY tamsulosin 0.4 mg capsule 0.4 mg PO QHS A-C-E-zinc ox-selen AA-copper 1,000 unit-60 mg-30 unit tablet 1 tab PO DAILY Xarelto 20 mg tablet 20 mg PO DAILY Rx Instructions: must administer with evening meal atenolol 50 mg tablet 50 mg PO BID Qty: 90 3RF potassium chloride 20 mEq tablet extended release 20 meq PO QHS Qty: 90 3RF diltiazem HCl 120 mg capsule,extended release 24hr 120 mg PO DAILY Qty: 30 6RF Hold Instructions: Order Changed simvastatin 40 mg tablet 40 mg PO DAILY Qty: 90 0RF cholecalciferol (vitamin D3) 50 mcg (2,000 unit) capsule 50 mcg PO DAILY PRN (Reason: supplement) Primary Care Provider: Osbaldo Ledezma Referrals: Damon Lowe MD [Med Staff - Active Staff] - 3-5 Days Osbaldo Ledezma MD [Primary Care Provider] - Disposition Disposition: Home, Self Care
[2022-07-23] MEDS: 0.9% Normal Saline 1,000 ML 125 ML IV (08:40)
[2022-07-23 08:53] LABS: Absolute Lymphocyte Count 0.88 X10^3/uL (0.83-4.51); Absolute Neutrophil Count 4.6 X10^3/uL (2.0-7.7); Basophil# 0.02 X10^3/uL; Basophil% 0.3 % (0-1); Eosinophil# 0.01 X10^3/uL; Eosinophils% 0.2 % (0-5); Hematocrit 39.6 % (40-54); Hemoglobin 13.3 g/dL (13.0-16.5); Lymphocyte # 0.88 X10^3/ul (0.83-4.51); Lymphocyte % 14.5 % (19-41); Mean Corp Hgb Conc 33.6 g/dL (32-36); Mean Corpuscular Volume 89.2 fL (80-94); Mean Platelet Vol. 9.5 fl (6.2-12.0); Monocyte# 0.54 X10^3/uL; Monocyte% 8.9 % (0-10); NRBC Flagged by Analyzer 0 % (0-5); Neutrophil # 4.59 X10^3/uL (2.7-7.7); Neutrophil % 75.8 % (47-70); Platelet Count 158 K/mm3 (150-450); RBC Distribution Width CV 12.3 % (11.6-14.6); RBC Distribution Width SD 40.6 fl (35.1-43.9); Red Blood Count 4.44 M/mm3 (4.6-6.2); White Blood Count 6.1 K/mm3 (4.4-11.0)
[2022-07-23 09:06] LABS: Anion Gap 8 (5-15); BUN 17 mg/dL (7-18); BUN/Creat Ratio 18.3 RATIO (10-20); Calcium,Total 8.7 mg/dL (8.5-10.1); Chloride 106 mmol/L (98-107); Creatinine, Serum 0.93 mg/dL (0.70-1.30); EST Glomerular Filtration Rate 84 mL/min (>60); Est Glom Filt Rate - Afr Amer 102 mL/min (>60); Estimated Creatinine Clearance 75.33 ml/min; Glucose 104 mg/dL (74-106); Potassium 3.7 mmol/L (3.5-5.1); Sodium Level 140 mmol/L (136-145)
[2022-07-23 09:22] LABS: Lactic Acid 0.9 mmol/L (0.4-1.9)
[2022-07-23 09:37] LABS: Bacteria 0 SEEN /hpf (None Seen); Mucous, Urine 0 SEEN /hpf (<or=2+); Red Blood Cells-Urine 0 SEEN /hpf (0-5); Squamous Epithelial Cells - UA 0 SEEN /hpf (0-5); White Blood Cells 0 SEEN /hpf (0-5)
[2022-07-23 09:48] LABS: Color, Urine Yellow (Yellow); Glucose, Dipstick Normal (Normal); Ketone-Dipstick 50 mg/dl (Negative); Leukocyte Esterase-Dipstick Negative /ul (Negative); Nitrite-Dipstick Negative (Negative); Occult Blood-Urine 10 /ul (Negative); Protein-Dipstick 15 mg/dl (Negative); Specific Gravity, Urine 1.015 (1.002-1.030); Urine Bilirubin Dipstick Negative (Negative); Urine Clarity Clear (Clear); Urine Urobilinogen Normal (Normal); Urine pH 6.5 (5.0 - 8.0)
[2022-07-23] MEDS: Ciprofloxacin 500 MG Tablet PO (10:09)
[2022-07-23] MEDS: metroNIDAZOLE 500 MG Tablet PO (10:09)
== END 2022-07-23 10:33 | disposition home or self-care (01) ==
PROVIDERS: Emergency Provider Emergency Medicine; PCP Family Medicine; Visit Provider Emergency Medicine
DX: K57.92 Diverticulitis of intestine, part unspecified, without perforation or abscess without bleeding (principal); I48.91 Unspecified atrial fibrillation; E11.9 Type 2 diabetes mellitus without complications; R10.9 Unspecified abdominal pain; I10 Essential (primary) hypertension; I25.10 Atherosclerotic heart disease of native coronary artery without angina pectoris; E78.5 Hyperlipidemia, unspecified; G47.30 Sleep apnea, unspecified; Z87.891 Personal history of nicotine dependence; Z79.899 Other long term (current) drug therapy; Z79.84 Long term (current) use of oral hypoglycemic drugs
CPT/HCPCS: 74176; 80048; 81001; 83605; 85025; 99284; J7030; A4216

== ENCOUNTER 2022-07-26 10:28 | Day surgery (SDC) | payer MEDICARE, SELFPAY ==
[2022-07-25 07:03] VITALS: BMI 26.3
--- NOTE | 2022-07-25 17:21 | PCM.HP.BLA ---
History and Physical Date of Admission: 07/26/22 [facility] [address] [place], [place] [address] OFFICE VISIT Date of Service:? 07/14/22 MR#: [id number] Acct: [id number] Name:SAIDA LAZO Rep #: [id number] : 1945 ?Provider: Dr. Jalen Echeverria MD Age/Sex:? 77/M Location: [facility] [place] Status: Signed HPI HPI History of Present Illness Surgical H&P: Yes Details: This is a 77-year-old white male who was previously been followed by my former colleague Dr. Garfield Bullock for concerns of a history of paroxysmal atrial fibrillation/flutter, hyperlipidemia, hypertension, and a history of nonobstructive CAD (based upon diagnostic cardiac catheterization in 2007), who has been undergoing evaluation and care for a previous syncopal event by wearing an outpatient ambulatory event monitor with concerns of atrial flutter and a nonsustained wide-complex rhythm.? The patient states that he has had a history of atrial dysrhythmias as noted.? He notes his atrial dysrhythmias have come and gone and have never persisted. He states he has been feeling fine overall with no concerning symptoms suspicious for angina pectoris or underlying CHF or pulmonary edema.? There is been no orthopnea or PND or peripheral pitting edema.? He has remained active. He did have an episode of syncope earlier this year.? There was concern based upon his description as to whether or not this may have been an orthostatic/vagal mediated type event.? He states he got up from bed to go to the bathroom to urinate and subsequently did not make it back to the bed as he lost consciousness and fell. As part of his evaluation he has been undergoing evaluation with an ambulatory event monitor.? He has been found to have underlying atrial flutter.? He had an episode of a wide-complex rhythm reported by the monitoring company as nonsustained ventricular tachycardia.? Based upon review of the cardiac rhythm strips there is a question as to whether or not the wide-complex rhythm is related to atrial flutter with aberrancy versus nonsustained ventricular tachycardia. He has been on medical therapy.? This is included beta-chad therapy.? He had added diltiazem to his regimen to assist with rate control.? However he states he is not sure he is tolerating this well as he feels as if he has had headaches since he has been on this medication.? He has been on anticoagulant therapy without interruption for potentially greater than a year. Intake Vital Signs ? 03/14/2209:53 07/14/2213:57 07/14/2214:00 Height 6 ft 6 ft 6 ft Weight: ? ? 194 lb 2 oz BMI ? ? 26.3 BP ? ? 116/62 Blood Pressure Location ? ? Lt brachial Position ? ? Sitting Respiration ? ? 16 Pulse ? ? 80 Pulse Source ? ? Auscultation Intake Visit Reasons:?pt needed sooner appt per R Records Management Assistant Required: No Accompanied by: Allergies No Known Allergies Allergy (Verified 07/14/22 14:00) Medications tamsulosin 0.4 mg capsule 0.4 mg PO QHS urine flow 03/04/20 [History Confirmed 07/14/22] metformin 500 mg tablet,extended release 24 hr 500 mg PO DAILY BLOOD SUGAR 90 days #90 tabs 09/07/20 [History Confirmed 07/14/22] potassium chloride 20 mEq tablet,extended release 20 meq PO QHS supplement #90 tabs 02/14/22 [Rx Confirmed 07/14/22] vit A 1,000 unit-C 60 mg-E 30 unit-zinc oxid-selenium AA-copper tablet 1 tab PO DAILY 03/14/22 [History Confirmed 07/14/22] diltiazem HCl 120 mg capsule,extended release 24 hr 120 mg PO DAILY #30 caps 07/07/22 [Rx Confirmed 07/14/22] simvastatin 40 mg tablet 40 mg PO DAILY #90 tabs 07/07/22 [Rx Confirmed 07/14/22] atenolol 50 mg tablet 50 mg PO BID #90 tabs 07/14/22 [Rx Confirmed 07/14/22] cholecalciferol (vitamin D3) 50 mcg (2,000 unit) capsule 50 mcg PO DAILY PRN 07/14/22 [History Confirmed 07/14/22] rivaroxaban 20 mg tablet (Xarelto) 20 mg PO DAILY 07/14/22 [History Confirmed 07/14/22] PFSH Medical History? Alcohol use Anemia Arthritis Atherosclerosis of coronary artery of [place] heart without angina pectoris Atrial fibrillation Bruises easily Cancer Depression Diabetes Essential hypertension Fatty liver Former smoker Hiatal hernia Hyperlipidemia Non-sustained ventricular tachycardia Sleep apnea Wears glasses Wears hearing aid in both ears Surgical History? H/O right inguinal hernia repair History of cardiac catheterization History of colonoscopy History of left heart catheterization (10/28/08) Family History? Father Myocardial infarction ?? ? age 63Brother CAD (coronary artery disease) Cancer ?? ? testicular Social History? Smoking Status:? Former smoker how long ago did patient quit smoking:? 32 years ago alcohol intake:? current alcohol intake frequency: a few times a month substance use type:? does not use caffeine:? Yes Type: coffee Number of servings: 4 ROS Const Const: Negative for fatigue, weakness, body ache, fever(s), headache(s), chills, frequent falls, night sweats, daytime sleepiness, difficulty sleeping, excessive sweating, weight gain, weight loss, increased appetite, poor appetite, anorexia or other Eyes Eyes: Negative for blurry vision or double vision ENT ENT: Negative for headache(s), dizziness or balance problems Cardio Chest Pain: No Palpitations: Yes (occasional) feels like its: fast, skipping and other (flutter) Edema: None Muscle aches with walking: None Resp Respiratory: Negative for SOB with activity, SOB at rest, SOB orthopnea\SOB lying down, Cough, Coughing up blood/hemoptysis, chest congestion, pain on inspiration, snoring, stridor, wheezing, crackles, paroxysmal nocturnal dyspnea or other Musc Musc: Negative for muscle aches/ myalgia, muscle weakness, joint pain or balance problems Neuro Neuro: Positive for syncope (x1 episode earlier in the summer, at night up to bathroom); Negative for dizziness, lightheadedness, near syncope, orthostatic symptoms, frequent falls, headache(s), weakness, confusion, memory loss, restless legs, blurry vision, double vision, vertigo, seizures, lack of coordination or other Endo Endo: Negative for fatigue or excessive sweating Cardiology Exam Const Appearance: cooperative, healthy appearing, comfortable, no acute distress, well developed and well groomed Nutritional Appearance: well nourished and overweight Orientation: alert, awake and oriented x3 Head Head: normal to inspection, normocephalic and atraumatic Ears: hearing grossly normal bilaterally Nose: external nose normal Face and Sinus: face symmetric Eyes Eyelids: eyelids normal Conjunctivae: conjunctivae normal Pupils: PERRL EOM: EOM intact bilaterally Neck Neck: normal visual inspection, full ROM and no JVD Carotids: normal carotid upstroke Chest Chest inspection: normal inspection of the chest, symmetric chest movement and normal respiratory effort; Negative cough Auscultation: Bilateral: Clear to Auscultation Cardio Palpation: normal PMI Rhythm: irregular rhythm Heart sounds: S1 normal and S2 normal GI GI: normal to inspection, soft and bowel sounds present Neuro General: patient alert, patient awake, patient oriented x3 and moves all extremities Skin Skin: no rashes or lesions noted Extremities Pulses: Normal: Right Posterior Tibial Pulse, Left Posterior Tibial Pulse, Right Radial Pulse and Left Radial Pulse Lower Extremity Edema: None: Bilateral Psych Psychological: normal affect Supplemental Info Supplemental Information Echocardiogram 08/18/2021: Interpretation Summary The estimated ejection fraction is 60 %. No evidence for diastolic dysfunction. Trivial mitral valve insufficiency. Stress echocardiogram from 01/18/2019: EKG Data Normal intervals are noted. The patient exercised according to the regular Kai protocol for a total duration of 9:30. The maximum heart rate attained was 164 beats per minute. This was 110% of maximum predicted heart rate. The patient exercised into stage 4 of the Kai protocol. At peak exercise, upsloping ST changes only were noted, which did not meet the criteria for ischemia. No clinical angina was noted. Interpretation Summary The estimated ejection fraction is 65 %. Normal, adequate, treadmill echocardiogram. Negative for ischemia by EKG and echocardiographic criteria. No anginal symptoms noted. Rare PACs and PVCs noted. Appropriate blood pressure response to exercise. Average exercise capacity for age. Final LVEF is 75%. Decreased sensitivity due to poor echo windows requiring Definity enhancing agent. Test terminated due to the attainment of target heart rate. Patient tolerated procedure well. No complications. The study was technically difficult. Contrast injection was performed. Labs: ?? ? LDL Cholesterol 75 mg/dL (0-130) ?? ? HDL Cholesterol 42 mg/dL (40-) ?? ? Triglycerides 77 mg/dL (-199) ?? ? VLDL Cholesterol 15 mg/dL (5-40) Diagnostics: ?? ? Electrocardiogram ? Echocardiogram ? Stress Echocardiogram ? Chest X-Ray ? Pulmonary: ?? ? No Data to Display Assessment and Plan Assessment and Plan (1) Atrial flutter: ?Status:?Chronic ?Qualifiers: ?Atrial flutter type:?typical? Qualified Code(s):?I48.3 - Typical atrial flutter ?Plan: He does have a history of atrial fibrillation/flutter. Based upon his recent ambulatory event monitor it appears he is remaining in atrial flutter at this time. He will readjust his rate control therapy based upon his concerns.? This will include changing his atenolol therapy to 50 mg p.o. twice daily.? He will continue his anticoagulant therapy. As he has had no interruption of his anticoagulant therapy he will be established for future outpatient synchronized biphasic DC cardioversion in an attempt to regain sinus rhythm. However, long-term, it may be reasonable for the patient to be evaluated by electrophysiology for consideration for an EPS/RFA procedure prior to initiation of antiarrhythmic type medications. (2) Non-sustained ventricular tachycardia: ?Status:?Chronic ?Plan: He did have an episode of a nonsustained wide-complex tachycardia.? The differential includes aberrancy versus nonsustained VT. His previous noninvasive studies were reviewed. At the moment he will continue medical therapy as adjusted. He will undergo an attempt at regaining sinus rhythm as noted. Hopefully in sinus rhythm he can be reassessed for any changes in his left ventricular wall motion or systolic function with a transthoracic echocardiogram and any change in his coronary physiology with an exercise tolerance test/imaging study.? These procedures will be considered following his future attempt at regaining sinus rhythm with a DC cardioversion procedure. (3) Atherosclerosis of coronary artery of sob[place] heart without angina pectoris: ?Status:?Chronic ?Qualifiers: ?Coronary Disease-Associated Artery/Lesion type:?sob[place] artery? Qualified Code(s):?I25.10 - Atherosclerotic heart disease of sob[place] coronary artery without angina pectoris ?Plan: He appears without any symptoms of acute underlying CAD. He will continue his current medical management. He will be considered for future noninvasive evaluation as noted. (4) Hyperlipidemia: ?Status:?Chronic ?Qualifiers: ?Hyperlipidemia type:?pure hypercholesterolemia? Qualified Code(s):?E78.00 - Pure hypercholesterolemia, unspecified; E78.0 - Pure hypercholesterolemia ?Plan: He should continue risk factor modification medical therapy. (5) Essential hypertension: ?Status:?Acute ?Plan: He should continue to monitor his blood pressure for any significant changes that warrant further adjustment of his medications. ? ? ? Orders: Orders Cardioversion Today I48.3 - Typical atrial flutter ? Basic Metabolic Profile (BMP) Today I48.3 - Typical atrial flutter ? Medications: Changed From atenolol 50 mg? PO DAILY 90 tabs 3RF this is a dose increase ? ? To atenolol 50 mg? PO BID 90 tabs 3RF ? ? On Hold diltiazem HCl ?? Hold Comment:? Order Changed 120 mg? PO DAILY 30 caps 6RF ? ? Plan Details Additional Comments: The above was discussed with the patient with his spouse present.? They were agreeable to this approach Thank you for allowing me to participate in the care of your patient.? Please don't hesitate to call if any issues arise. This note was generated using a voice recognition system and there may be incorrect words, spelling or punctuation that were not noted when reviewing the office note prior to saving. Follow Up: ? ? 6 Weeks (PFM ) COVID (Procedure Consent) Procedure Criteria Procedure Criteria: Yes Elective The surgeon/proceduralist and patient have discussed in detail the risk of exposure to and/or potential harm posed by the COVID-19 virus with having a surgery/procedure at this time versus the risk of? delaying the surgery/procedure. It is not possible to know either the risk of delaying the surgery or procedure or chance of getting an infection with perfect accuracy, but a joint decision was made between the patient and the surgeon/proceduralist ?to proceed at this time with the scheduled surgery/procedure as indicated on the consent form. Coding Level of Care Code Off vis,est,level 5 Diagnoses Atrial flutter? I48.3 ? ? ? Atrial flutter type: typical Non-sustained ventricular tachycardia? I47.2 Atherosclerosis of coronary artery of sob[place] heart without angina pectoris? I25.10 ? ? ? Coronary Disease-Associated Artery/Lesion type: sob[place] artery Hyperlipidemia? E78.00; E78.0 ? ? ? Hyperlipidemia type: pure hypercholesterolemia Essential hypertension? I10 Coding Level of Care Code Off vis,est,level 5 Diagnoses Atrial flutter? I48.3 ? ? ? Atrial flutter type: typical Non-sustained ventricular tachycardia? I47.2 Atherosclerosis of coronary artery of [place] heart without angina pectoris? I25.10 ? ? ? Coronary Disease-Associated Artery/Lesion type: sob[place] artery Hyperlipidemia? E78.00; E78.0 ? ? ? Hyperlipidemia type: pure hypercholesterolemia Essential hypertension? I10 07/14/22 1730 <Electronically signed by Jalen Echeverria MD> Date Jalen Echeverria MD Cosigner Signature: Date (if applicable) CC:? Dr. Osbaldo Ledezma MD ~ Assessment & Plan Addt'l Comments I have examined the patient the following changes are noted: The patient was evaluated at the [facility] emergency department on 07-23-2022 for abdominal discomfort. He underwent noninvasive valuation. He was diagnosed with diverticular disease/diverticulitis. He was released home on medical therapy including antibiotic therapy for consideration for future outpatient general surgery consultation. There was no report of any acute cardiovascular issues or concerns. There was no report of any interruption of his cardiovascular medical therapy. The procedure and risks with respect to synchronized biphasic DC cardioversion was discussed with the patient. He agreed to proceed as previously discussed. This note was generated using a voice recognition system and there may be incorrect words, spelling or punctuation that were not noted when reviewing the office note prior to saving.
--- NOTE | 2022-07-26 12:38 | CARDIOVERS ---
Cardioversion Cardioversion: Date: 07-26-2022 Procedure: Synchronized Biphasic DC Cardioversion Indications: Atrial fibrillation Consent: Per the Patient Anesthesia: per Dr. Marmolejo of pulmonology and critical care medicine with propofol 80 mg IV push total Procedure: Synchronized Biphasic DC Cardioversion: 200 J x 1: Result: Sinus rhythm/PACs Complications: no apparent complications This note was generated with [employer] software. It may contain incorrect words, spelling, and punctuation that were not noted in checking the note before signing.
--- NOTE | 2022-07-26 12:50 | PRO.PCM_ITS ---
Procedure Report Date of Procedure: 07/26/22 CONSCIOUS SEDATION REPORT BRIEF HISTORY OF PRESENT ILLNESS: The patient is a 77-year-old male who presented to [facility] for an elective outpatient cardioversion due to underlying atrial fibrillation. The patient reports no PO intake since midnight, but is currently therapeutic on anticoagulation. The patient does not have a history of obstructive sleep apnea. The patient reports no history of smoking and COPD. The patient denies any recent constitutional symptoms such as fevers, chills, nausea or vomiting. The patient denies previous applicable anesthetic complications. Patient's last known ejection fraction was 60%. Patient did take Xarelto on the day of the procedure. PHYSICAL EXAMINATION: VITAL SIGNS: Reviewed and were acceptable. GENERAL: The patient is a male, in no apparent distress, speaking in full sentences. HEENT: Normocephalic, atraumatic. Mucous membranes are moist and pink. Good mouth opening noted. Trachea is midline. Good neck mobility. MP II CHEST: S1, S2 irregularly irregular. No murmurs, rubs or gallops were noted. LUNGS: Clear to auscultation bilaterally without appreciable wheezes, rales or rhonchi. ABDOMEN: Soft, nontender, nondistended. Positive bowel sounds. EXTREMITIES: There is no clubbing, cyanosis or edema. ASA Class: II DESCRIPTION OF PROCEDURE: After confirmation of informed consent, the patient's anesthesia plan was reviewed in detail. Propofol was chosen. Risks and benefits were reviewed and the patient agreed to proceed. At 12:08 PM, the patient was given 40 mg of propofol. The patient required a total of 80 mg of propofol throughout the procedure to achieve appropriate sedation. The patient achieved an appropriate level of sedation and received 1 attempt synchronized cardioversion, at [address] Echeverria at the bedside. This was successful in achieving normal sinus rhythm. The patient was monitored until 12:22 PM, at which time the patient reached their baseline mental status and function. The patient tolerated the procedure well. COMPLICATIONS: None ESTIMATED BLOOD LOSS: None RECOMMENDATIONS: Okay to recover in usual fashion. Procedures Pulmonary 9xxxx: [id number] Con Sedation
== END 2022-07-26 13:25 | disposition home or self-care (01) ==
PROVIDERS: PCP Family Medicine; Referring Provider Internal Medicine Cardiovascular Disease; Visit Provider Internal Medicine Cardiovascular Disease
DX: I48.0 Paroxysmal atrial fibrillation (principal); I48.92 Unspecified atrial flutter; E11.9 Type 2 diabetes mellitus without complications; I10 Essential (primary) hypertension; E78.5 Hyperlipidemia, unspecified; G47.30 Sleep apnea, unspecified; I25.10 Atherosclerotic heart disease of native coronary artery without angina pectoris; Z79.01 Long term (current) use of anticoagulants; Z79.899 Other long term (current) drug therapy; Z79.84 Long term (current) use of oral hypoglycemic drugs; Z87.891 Personal history of nicotine dependence
CPT/HCPCS: 92960; 93005; J7040

== ENCOUNTER → 2022-08-09 | Outpatient (CLI) | payer MEDICARE, SELFPAY ==
--- NOTE | 2022-08-09 07:21 | ECHOD_ITS ---
Reason For Study: Afib/Flutter Procedure This was a 2D Doppler, Color Flow transthoracic echocardiogram. The exam was of adequate technical quality. Exam performed in department. Left Ventricle Normal LV size. Mild global left ventricular systolic dysfunction. The estimated ejection fraction is 45 %. Unable to assess diastolic dysfunction. Right Ventricle Normal RV size. The right ventricle is normal in size, function, and thickness. Atria The left atrium is mildly enlarged. The right atrium is mildly enlarged. No doppler evidence for ASD. Mitral Valve There is no mitral annular calcification. Mild diffuse mitral valve thickening. Moderate (2+) mitral valve insufficiency. Tricuspid Valve Normal tricuspid valve. Moderate (2+) eccentric tricuspid valve insufficiency. Right ventricular systolic pressure estimated to be 33 mmHg. Aortic Valve Trisinus/trileaflet aortic valve. Moderate diffuse aortic valve thickening. Moderate diffuse aortic valve calcification. Mild aortic stenosis. Pulmonic Valve The pulmonic valve is not well visualized. Mild (1+) pulmonic valve insufficiency. Great Vessels The aortic root is not well visualized. Pericardium/Pleural No pericardial effusion. MMode/2D Measurements & Calculations LVIDd: 5.2 cm IVSd: 1.2 cm LVOT diam: 2.2 cm LVIDs: 4.0 cm LVPWd: 1.0 cm LVOT area: 3.9 cm2 RVDd: 4.6 cm FS: 23.8 % LA dimension: 4.5 cm LAV(MOD-bp): 94.8 ml Aortic Valve Planimetry: 2.1 cm2 LAV(MOD-bp) Indexed: 45.8 ml/m2 LAV(MOD-sp2): 74.4 ml LAV(MOD-sp4): 97.8 ml LA A4 area: 28.7 cm2 RA A4 area: 24.5 cm2 Doppler Measurements & Calculations MV E max chico: 91.8 cm/sec Ao V2 max: 143.5 cm/sec AI max chico: 433.9 cm/sec Ao max P.3 mmHg AI max P.3 mmHg AMERICO(V,D): 1.9 cm2 AI dec slope: 187.9 cm/sec2 AI P1/2t: 676.4 msec LV V1 max: 68.7 cm/sec PA V2 max: 77.1 cm/sec PI end-d chico: 139.7 cm/sec LV V1 max P.9 mmHg TR max chico: 271.8 cm/sec TR max P.6 mmHg ECHO/Echo Complete Interpretation Summary Mild global left ventricular systolic dysfunction. The estimated ejection fraction is 45 %. The left atrium is mildly enlarged. The right atrium is mildly enlarged. Mild diffuse mitral valve thickening. Moderate (2+) mitral valve insufficiency. Moderate (2+) eccentric tricuspid valve insufficiency. Mild aortic stenosis. Mild (1+) pulmonic valve insufficiency. Right ventricular systolic pressure estimated to be 33 mmHg. Unable to assess diastolic dysfunction. Ordering Physician: Jalen Echeverria Referring Physician: Sammy Ledezma Performed By: Mcik Black RCS
--- NOTE | 2022-08-09 08:59 | STRESSREP ---
Stress Test Report Date: 08-09-2022 Procedure: Pharmacologic stress nuclear imaging study Indications: Atrial fibrillation/flutter; nonsustained ventricular tachycardia; CAD Consent: Per the patient Procedure: The patient underwent pharmacologic (Regadenoson 0.4mg ) evaluation with a peak heart rate of 86 beats per minute (59%predicted maximal heart rate) and a peak blood pressure of 126/74 mmHg. The baseline ECG demonstrated atrial fibrillation/flutter with nonspecific ST/T wave abnormality. The peak pharmacologic ECG demonstrated no obvious ECG changes. There were no cardiac dysrhythmias pretest, during pharmacologic infusion, or recovery. There was no complaint of chest discomfort during pharmacologic infusion or recovery. The examination was discontinued secondary to completion of protocol. Impression: 1. Pharmacologic (Regadenoson) evaluation 2. Peak pharmacologic ECG with continued atrial fibrillation/flutter with nonspecific ST/T wave abnormality with no obvious ECG changes. 3. There were no cardiac dysrhythmias pretest, during pharmacologic infusion, or recovery. 4. Nuclear images pending Myocardial perfusion imaging study: Technique: The patient was injected with 11.5 millicuries of technetium 99m Cardiolite and subsequently rest SPECT Cardiolite nuclear imaging was obtained in the horizontal long, vertical long, and short axis views. The patient underwent pharmacologic (Regadenoson) evaluation with a peak heart rate of 86 beats per minute (59% percent predicted maximal heart rate) and a peak blood pressure of 126/74 mmHg. The patient was injected with 33.6 millicuries of technetium 99m Cardiolite and subsequently stress SPECT Cardiolite nuclear imaging was obtained in the horizontal long, vertical long, and short axis views. A gated Cardiolite study at peak stress was obtained. Interpretation: Rest and stress SPECT Cardiolite nuclear imaging status post realignment, normalization, and attenuation correction demonstrate relative uniform tracer uptake and myocardial perfusion appearing within normal limits. There is end systolic thickening and brightening. The gated Cardiolite study demonstrates myocardial thickening and inward wall motion. The reported LVEF is 47%. Impression: 1. Rest and stress SPECT Cardiolite nuclear imaging demonstrate relative uniform tracer uptake and myocardial perfusion appearing within normal limits. 2. The gated Cardiolite study reports an LVEF of 47%. This note was generated with [employer] software. It may contain incorrect words, spelling, and punctuation that were not noted in checking the note before signing.
== END | disposition home or self-care (01) ==
PROVIDERS: PCP Family Medicine; Referring Provider Internal Medicine Cardiovascular Disease; Visit Provider Internal Medicine Cardiovascular Disease
DX: I47.2 Ventricular tachycardia (principal); I48.3 Typical atrial flutter; I25.10 Atherosclerotic heart disease of native coronary artery without angina pectoris
CPT/HCPCS: 78452; 93017; 93306; A9500; A4216; J2785

== ENCOUNTER → 2022-08-17 | Outpatient (CLI) | payer MEDICARE, SELFPAY ==
[2022-08-17 17:52] LABS: Mucous, Urine 0 SEEN /hpf (<or=2+)
[2022-08-17 18:06] LABS: Color, Urine Yellow (Yellow); Glucose, Dipstick Normal (Normal); Ketone-Dipstick Negative (Negative); Leukocyte Esterase-Dipstick 25 /ul (Negative); Nitrite-Dipstick Negative (Negative); Occult Blood-Urine 25 /ul (Negative); Protein-Dipstick Negative (Negative); Urine Bilirubin Dipstick Negative (Negative); Urine Clarity Clear (Clear); Urine Urobilinogen Normal (Normal)
[2022-08-17 18:28] LABS: Red Blood Cells-Urine 5-10 SEEN /hpf (0-5); Squamous Epithelial Cells - UA 0-5 SEEN /hpf (0-5); White Blood Cells 0-5 SEEN /hpf (0-5)
[2022-08-17 18:29] LABS: Bacteria RARE /hpf (None Seen)
== END | disposition home or self-care (01) ==
PROVIDERS: PCP Family Medicine; Visit Provider Family Medicine
DX: E11.9 Type 2 diabetes mellitus without complications (principal)
CPT/HCPCS: 81001

== ENCOUNTER → 2022-08-23 | Outpatient (CLI) | payer MEDICARE, SELFPAY | END | disposition home or self-care (01) | LOC: LABSPEC 13:54 | PROVIDERS: PCP Family Medicine; Referring Provider Family Medicine; Visit Provider Family Medicine | DX: R31.9 Hematuria, unspecified (principal) | CPT/HCPCS: 87086 ==

== ENCOUNTER → 2022-09-05 | Outpatient (CLI) | payer MEDICARE, SELFPAY ==
[2022-09-05 12:23] LABS: Mucous, Urine 0 SEEN /hpf (<or=2+); Red Blood Cells-Urine 0 SEEN /hpf (0-5); White Blood Cells 0 SEEN /hpf (0-5)
[2022-09-05 15:30] LABS: Color, Urine Yellow (Yellow); Glucose, Dipstick 50 mg/dl (Normal); Ketone-Dipstick Negative (Negative); Leukocyte Esterase-Dipstick 25 /ul (Negative); Nitrite-Dipstick Negative (Negative); Occult Blood-Urine Negative /ul (Negative); Protein-Dipstick Negative (Negative); Urine Bilirubin Dipstick Negative (Negative); Urine Clarity Clear (Clear); Urine Urobilinogen Normal (Normal)
[2022-09-05 15:40] LABS: Bacteria RARE /hpf (None Seen); Calcium Oxalate Crystals Ur 1+ /hpf (<or=2+); Squamous Epithelial Cells - UA 0-5 SEEN /hpf (0-5)
== END | disposition home or self-care (01) ==
LOC: LABSPEC 12:22
PROVIDERS: PCP Family Medicine; Visit Provider Family Medicine
DX: R31.29 Other microscopic hematuria (principal)
CPT/HCPCS: 81001

== ENCOUNTER 2022-10-12 12:33 | Emergency (ER) | payer MEDICARE, SELFPAY ==
[2022-10-12 12:34] VITALS: BP 91/72; PULSE 93; RESP 18; TEMP 37.1; O2SAT 98; BMI 26.7
[2022-10-12 13:33] LABS: Absolute Lymphocyte Count 0.16 X10^3/uL (0.83-4.51); Absolute Neutrophil Count 5.1 X10^3/uL (2.0-7.7); Basophil# 0.02 X10^3/uL; Basophil% 0.3 % (0-1); Eosinophil# 0.02 X10^3/uL; Eosinophils% 0.3 % (0-5); Hemoglobin 14.9 g/dL (13.0-16.5); Lymphocyte # 0.16 X10^3/ul (0.83-4.51); Lymphocyte % 2.8 % (19-41); Mean Corp Hgb Conc 32.4 g/dL (32-36); Mean Corpuscular Volume 89.7 fL (80-94); Mean Platelet Vol. 9.6 fl (6.2-12.0); Monocyte# 0.43 X10^3/uL; Monocyte% 7.5 % (0-10); NRBC Flagged by Analyzer 0 % (0-5); Neutrophil # 5.12 X10^3/uL (2.7-7.7); Neutrophil % 88.8 % (47-70); POSITIVE DIFFERENTIAL YES; Platelet Count 170 K/mm3 (150-450); RBC Distribution Width SD 46.1 fl (35.1-43.9); Red Blood Count 5.13 M/mm3 (4.6-6.2); White Blood Count 5.8 K/mm3 (4.4-11.0)
[2022-10-12 13:34] LABS: Differential Indicated SCAN CRITERIA MET
[2022-10-12 13:48] LABS: Anion Gap 5 (5-15); BUN 22 mg/dL (7-18); BUN/Creat Ratio 19.3 RATIO (10-20); Calcium,Total 9.2 mg/dL (8.5-10.1); Chloride 106 mmol/L (98-107); Creatinine, Serum 1.14 mg/dL (0.70-1.30); EST Glomerular Filtration Rate 67 mL/min (>60); Est Glom Filt Rate - Afr Amer 80 mL/min (>60); Estimated Creatinine Clearance 61.45 ml/min; Glucose 211 mg/dL (74-106); Potassium 5.2 mmol/L (3.5-5.1); Sodium Level 138 mmol/L (136-145)
[2022-10-12 14:12] LABS: Platelet Estimate ADEQUATE (ADEQ)
[2022-10-12 14:13] LABS: Red Cell Morphology NORM C+C NORMAL (NORM C&C)
[2022-10-12 14:26] VITALS: BP 125/75; PULSE 116; RESP 18; O2SAT 95
[2022-10-12 14:49] LABS: Bacteria 0 SEEN /hpf (None Seen); Mucous, Urine 0 SEEN /hpf (<or=2+); Red Blood Cells-Urine 0 SEEN /hpf (0-5); Squamous Epithelial Cells - UA 0 SEEN /hpf (0-5)
[2022-10-12 14:53] LABS: Color, Urine Yellow (Yellow); Glucose, Dipstick Normal (Normal); Ketone-Dipstick 5 mg/dl (Negative); Leukocyte Esterase-Dipstick 25 /ul (Negative); Nitrite-Dipstick Negative (Negative); Occult Blood-Urine Negative /ul (Negative); Protein-Dipstick 15 mg/dl (Negative); Urine Bilirubin Dipstick Negative (Negative); Urine Clarity Clear (Clear); Urine Urobilinogen Normal (Normal)
[2022-10-12 14:58] LABS: White Blood Cells 0-5 SEEN /hpf (0-5)
--- NOTE | 2022-10-12 15:29 | EDS_ITS ---
HPI History of Present Illness Chief Complaint: Nausea/Vomiting/Diarrhea Informant: patient Onset/Context/Timing Onset: Today Context: Sudden Onset Timing: Continuous Quality: Fatigue Location: Generalized Worsened by: Nothing Relieved by: Nothing Narrative Narrative: Patient presents with nausea, vomiting, and diarrhea that began today. Patient states it has been constant throughout the day. Patient states it began when he woke up today. Patient mitts to some generalized fatigue. Patient states nothing makes his symptoms any better nothing makes them worse. Patient denies any body aches or muscle aches. Patient does admit to some rhinorrhea. Patient admits to some subjective chills. Patient is concerned that he has the flu. [facility] Medical History Alcohol use Anemia Arthritis Atherosclerosis of coronary artery of [place] heart without angina pectoris Atrial fibrillation Bruises easily Cancer Depression Diabetes Essential hypertension Fatty liver Former smoker Hiatal hernia History of cardioversion (~07/26/22) Hyperlipidemia Non-sustained ventricular tachycardia Sleep apnea Ventricular ectopy Wears glasses Wears hearing aid in both ears Home Medications tamsulosin 0.4 mg capsule 0.4 mg PO QHS urine flow 03/04/20 [History Last Taken Unknown] metformin 500 mg tablet,extended release 24 hr 500 mg PO DAILY BLOOD SUGAR 90 days #90 tabs 09/07/20 [History Last Taken Unknown] vit A 1,000 unit-C 60 mg-E 30 unit-zinc oxid-selenium AA-copper tablet 1 tab PO DAILY 03/14/22 [History Last Taken Unknown] diltiazem HCl 120 mg capsule,extended release 24 hr 120 mg PO DAILY #30 caps 07/07/22 [Rx Last Taken Unknown] simvastatin 40 mg tablet 40 mg PO DAILY #90 tabs 07/07/22 [Rx Last Taken Unknown] cholecalciferol (vitamin D3) 50 mcg (2,000 unit) capsule 50 mcg PO DAILY PRN supplement 07/14/22 [History Last Taken Unknown] metronidazole 500 mg tablet 500 mg PO Q8H #30 tabs 07/23/22 [Rx Last Taken Unknown] potassium chloride 20 mEq tablet,extended release 20 meq PO QHS supplement #90 tabs 08/10/22 [Rx Last Taken Unknown] rivaroxaban 20 mg tablet (Xarelto) 20 mg PO DAILY #90 tabs 08/10/22 [Rx Last Taken Unknown] atenolol 50 mg tablet 50 mg PO BID #180 tabs 09/08/22 [Rx Last Taken Unknown] ondansetron 4 mg disintegrating tablet 4 mg PO Q8H PRN PRN Nausea #10 tabs 10/12/22 [Rx Last Taken Unknown] Allergy/AdvReac Type Severity Reaction Status Date / Time STEROIDS AdvReac Other Uncoded 10/12/22 12:34 Family History Father Myocardial infarction age 63 Brother CAD (coronary artery disease) Cancer testicular Surgical History H/O right inguinal hernia repair History of cardiac catheterization History of colonoscopy History of left heart catheterization (10/28/08) Social History Smoking Status: Former smoker how long ago did patient quit smokin years ago alcohol intake: current alcohol intake frequency: a few times a month substance use type: does not use caffeine: Yes Type: coffee Number of servings: 4 ROS ROS ED Constitutional Constitutional ED: Reports chills and subjective; Denies fever(s) Eyes Eyes: Denies blurry vision or change in vision ENT ENT ED: Reports rhinorrhea; Denies sore throat Cardiovascular Cardiovascular: Denies chest pain or palpitations Respiratory/Chest Respiratory/Chest: Denies cough or dyspnea Gastrointestinal Gastrointestinal: Reports diarrhea, nausea and vomiting Genitourinary Genitourinary ED: Denies dysuria or hematuria Musculoskeletal Musculoskeletal: Denies back pain or neck pain Integumentary Denies abscess or rash Neurologic Neurologic: Denies headache(s) or weakness Allergic/Immunologic Allergic/Immunologic ED: Denies mouth swelling or urticaria EXAM Physical Exam Const Vital Signs: 10/12/22 12:34 10/12/22 14:26 10/12/22 15:48 Temperature 98.8 F Temperature Source Temporal Pulse Rate 93 116 H 94 Respiratory Rate 18 18 20 H Blood Pressure 91/72 125/75 H 121/72 H Blood Pressure Mean 78 91 88 Pulse Ox 98 95 94 Oxygen Delivery Method Room Air Room Air Room Air Positive well nourished and well developed General Appearance ED: well developed and NAD HEENT Reports moist mucous membranes Neck supple and no JVD Resp normal respiratory effort and clear to auscultation bilaterally Cardio regular rate, regular rhythm and no murmurs GI normal to inspection, nondistended, normoactive bowel sounds Palpation: soft and tender epigastric, LLQ, RLQ, LUQ, RUQ, periumbilical and suprapubic; Negative for guarding or rebound tenderness present Extremity normal to inspection General Extremety ED: Negative for edema or tenderness General Extremity: Negative for edema Neuro oriented x3, CN's II-XII intact bilaterally and no sensory deficits noted Sensorium / Orientation: alert Motor Exam: strength 5/5 throughout Psych mental status grossly normal Skin no rashes or lesions noted MDM MDM MDM Narrative Medical decision making narrative: Patient was given IV fluids. CBC was within normal limits. Basic metabolic profile showed a mild hyperkalemia 5.2. Urinalysis does not show any evidence of urinary tract infection or hematuria. COVID-19 rapid antigen was obtained and was negative. Influenza A and influenza B antigens were obtained and were negative. Patient was instructed to follow-up with his primary care physician in 5 to 7 days. Patient was given a dose of Zofran here. Patient is given a prescription for Zofran. Patient was instructed return if worse in any way. Patient understood and was agreeable with the plan. All questions were answered. Lab Data Attestation: I reviewed the patient's lab results. Labs: Laboratory Results - last 24 hr 10/12/22 10/12/22 10/12/22 13:22 13:22 14:45 WBC 5.8 RBC 5.13 Hgb 14.9 Hct 46.0 MCV 89.7 MCH 29.0 MCHC 32.4 RDW Std Deviation 46.1 H RDW Coeff of Main 14.0 Plt Count 170 MPV 9.6 Immature Gran % (Auto) 0.300 Neut % (Auto) 88.8 H Lymph % (Auto) 2.8 L [place] % (Auto) 7.5 Eos % (Auto) 0.3 Baso % (Auto) 0.3 Absolute Neuts (auto) 5.1 Absolute Lymphs (auto) 0.16 L Nucleated RBC % 0 Platelet Estimate ADEQUATE RBC Morphology NORM C+C Sodium 138 Potassium 5.2 H Chloride 106 Carbon Dioxide 27.0 Anion Gap 5 BUN 22 H Creatinine 1.14 Estim Creat Clear Calc 61.45 Est GFR (MDRD) Af Amer 80 Est GFR (MDRD) Non-Af 67 BUN/Creatinine Ratio 19.3 Glucose 211 H Calcium 9.2 Urine Color Yellow Urine Clarity Clear Urine pH 6.0 Ur Specific [place] 1.020 Urine Protein 15 H Urine Glucose (UA) Normal Urine Ketones 5 H Urine Occult Blood Negative Urine Nitrite Negative Urine Bilirubin Negative Urine Urobilinogen Normal Ur Leukocyte Esterase 25 H Urine RBC 0 SEEN Urine WBC 0-5 SEEN Ur Squamous Epith Cells 0 SEEN Urine Bacteria 0 SEEN Urine Mucus 0 SEEN Discharge Plan Triage Chief Complaint: Nausea/Vomiting/Diarrhea ED Provider: Adis Goodwin Dx/Rx/DC Orders Clinical Impression: Nausea vomiting and diarrhea, Diabetes mellitus, type II Instructions: ED Vomiting and Diarrhea ... Prescriptions: New ondansetron [ondansetron] 4 mg tablet,disintegrating 4 mg PO Q8H PRN PRN (Reason: Nausea) Qty: 10 0RF No Action metformin 500 mg tablet extended release 24 hr 500 mg PO DAILY 90 Days Qty: 90 Label Comments: TAKE 2 TABLETS BY MOUTH ONCE DAILY tamsulosin 0.4 mg capsule 0.4 mg PO QHS A-C-E-zinc ox-selen AA-copper 1,000 unit-60 mg-30 unit tablet 1 tab PO DAILY metronidazole 500 mg tablet 500 mg PO Q8H Qty: 30 0RF diltiazem HCl 120 mg capsule,extended release 24hr 120 mg PO DAILY Qty: 30 6RF Hold Instructions: Order Changed simvastatin 40 mg tablet 40 mg PO DAILY Qty: 90 0RF cholecalciferol (vitamin D3) 50 mcg (2,000 unit) capsule 50 mcg PO DAILY PRN (Reason: supplement) potassium chloride 20 mEq tablet extended release 20 meq PO QHS Qty: 90 3RF Xarelto 20 mg tablet 20 mg PO DAILY Qty: 90 3RF Rx Instructions: must administer with evening meal atenolol 50 mg tablet 50 mg PO BID Qty: 180 3RF Primary Care Provider: Osbaldo Ledezma Referrals: Osbaldo Ledezma MD [Primary Care Provider] - 5-7 Days Disposition Disposition: Home, Self Care
[2022-10-12] MEDS: Ondansetron 4 MG/2 ML Vial IV (15:47)
[2022-10-12] MEDS: 0.9% Normal Saline 1,000 ML 1000 ML IV (15:47)
[2022-10-12 15:48] VITALS: BP 121/72; PULSE 94; RESP 20; O2SAT 94
[2022-10-12 16:59] VITALS: BP 120/80; PULSE 110; RESP 16; O2SAT 94
== END 2022-10-12 17:00 | disposition home or self-care (01) ==
PROVIDERS: Emergency Provider Emergency Medicine; PCP Family Medicine; Visit Provider Emergency Medicine
DX: R11.2 Nausea with vomiting, unspecified (principal); E11.9 Type 2 diabetes mellitus without complications; R19.7 Diarrhea, unspecified; I10 Essential (primary) hypertension; E78.5 Hyperlipidemia, unspecified; I25.10 Atherosclerotic heart disease of native coronary artery without angina pectoris; Z87.891 Personal history of nicotine dependence
CPT/HCPCS: 80048; 81001; 85025; 87428; 96361; 96374; 99283; J2405

== ENCOUNTER → 2023-02-20 | Outpatient (CLI) | payer MEDICARE, SELFPAY | END | disposition home or self-care (01) | LOC: SL 20:53 | PROVIDERS: PCP Family Medicine; Referring Provider Internal Medicine Critical Care Medicine; Visit Provider Internal Medicine Critical Care Medicine | DX: G47.33 Obstructive sleep apnea (adult) (pediatric) (principal) | CPT/HCPCS: 95810 ==

== ENCOUNTER → 2023-04-19 | Outpatient (CLI) | payer MEDICARE, SELFPAY ==
--- NOTE | 2023-04-19 13:18 | ECHOL_ITS ---
Reason For Study: CHF Procedure This was a limited 2D transthoracic echocardiogram. Exam performed in department. Left Ventricle Normal LV size. The estimated ejection fraction is 45 %. There is mild global hypokinesis of the left ventricle. Right Ventricle Normal RV size. Normal systolic function. Atria The left atrium is moderately enlarged. The right atrium is moderately enlarged. Aortic Valve Trisinus/trileaflet aortic valve. Mild focal aortic valve calcification. Pulmonic Valve Normal pulmonic valve. Great Vessels Normal aortic root. The pulmonary artery is normal size. Normal inferior vena cava. Pericardium/Pleural No pericardial effusion. MMode/2D Measurements & Calculations LVIDd: 5.5 cm IVSd: 1.1 cm Ao root diam: 3.8 cm LVIDs: 4.8 cm LVPWd: 1.1 cm FS: 13.1 % LAV(MOD-bp): 95.7 ml LVAd ap4: 32.5 cm2 LVAd ap2: 33.5 cm2 LAV(MOD-bp) Indexed: 44.3 ml/m2 LVLd ap4: 8.0 cm LVLd ap2: 8.5 cm LAV(MOD-sp2): 98.3 ml EDV(MOD-sp4): 110.2 ml EDV(MOD-sp2): 112.2 ml LAV(MOD-sp4): 93.1 ml EDV(sp4-el): 112.6 ml EDV(sp2-el): 112.3 ml LVAs ap4: 21.9 cm2 LVAs ap2: 22.1 cm2 LVLs ap4: 7.0 cm LVLs ap2: 7.0 cm ESV(MOD-sp4): 58.5 ml ESV(MOD-sp2): 58.9 ml ESV(sp4-el): 58.5 ml ESV(sp2-el): 59.7 ml EF(MOD-sp4): 46.9 % EF(MOD-sp2): 47.5 % EF(sp4-el): 48.0 % SV(MOD-sp4): 51.7 ml SV(MOD-sp2): 53.3 ml SV(sp4-el): 54.1 ml LA A4 area: 27.0 cm2 LA dimension(2D): 5.3 cm RA A4 area: 28.1 cm2 ECHO/Echo, Limited Study Interpretation Summary Normal LV size. The estimated ejection fraction is 45 %. The left atrium is moderately enlarged. The right atrium is moderately enlarged. There is mild global hypokinesis of the left ventricle. Compared to previous study, the left ventricular systolic function is the same. . Ordering Physician: Jeovany Liz Referring Physician: Jeovany Liz Performed By: Monica Gregg RCS
== END | disposition home or self-care (01) ==
PROVIDERS: PCP Family Medicine; Referring Provider Nurse Practitioner Family; Visit Provider Nurse Practitioner Family
DX: I25.10 Atherosclerotic heart disease of native coronary artery without angina pectoris (principal); I42.8 Other cardiomyopathies
CPT/HCPCS: 93308

== ENCOUNTER → 2023-11-27 | Outpatient (CLI) | payer MEDICARE, SELFPAY ==
--- OUTSIDE RECORDS SUMMARY | 2023-11-27 11:45 | XMS RPT_ITS | CCD ---
Author Name Unknown Address [address] [place] [address] Organization [facility] Care Team Providers Care Director Biomedical Engineering Name Role Phone SOLO GREGORIO Unavailable Unavailable SOLO GREGORIO Unavailable Unavailable SOLO GREGORIO Unavailable Unavailable Jalen Mcdonald Unavailable Radha Mcelroy MD Primary Care Provider [phone] Jalen Mcdonald Unavailable Radha Mcelroy MD Primary Care Provider Urban Ledezma MD Primary Care Provider Suzan Acuña MD Unavailable Jalen Mcdonald Unavailable Urban Ledezma MD Primary Care Provider Suzan Acuña MD Unavailable Jeovany Liz Unavailable Andreina GOLDBERG, Latrell S Unavailable SUZAN ACUÑA Admitting Unavailable SUZAN ACUÑA Attending Unavailable SUZAN ACUÑA Referring Unavailable URBAN LEDEZMA Primary Care UnavailURBAN Dow Primary Care Unavailabl URBAN Adamson Primary Care UnavailURBAN Dow Primary Care UnavailSUZAN Smyth Attending Unavailable JALEN MCDONALD Referring Unavailable URBAN LEDEZMA Primary Care UnavailURBAN Dow Primary Care Unavailabl CORDELIA Sosa Attending Unavailable URBAN LEDEZMA Primary Care URBAN [facility] URBAN [facility] URBAN [facility] heather Allergies Allergy Classification Reported Allergen(s) Allergy Type Date of Onset Reaction(s) Facility (1 source) DEXAMETHASONE PHOS-LIDOCAINE; Translations: [DEXAMETHASONE PHOS-LIDOCAINE] Propensity to adverse reactions to drug (disorder) [facility] Other [place] [facility] Medications Completed/Discontinued Medications Medication Drug Class(es) Dates Sig (Normalized) Sig (Original) aspirin 81 mg oral tablet (1 source) Platelet Aggregation Inhibitor, Nonsteroidal Anti-inflammatory Drug End: 08-24-2022 take 1 tablet by mouth once daily Aspirin 81 mg tab Take 81 mg by mouth once daily. 0 08/24/2022 Discontinued (Other) Problems Active Problems Problem Classification Problem Date Documented Date Episodic/Chronic Cardiac dysrhythmias (20 sources) Persistent atrial fibrillation; Translations: [Other persistent atrial fibrillation] Onset: 08-24-2022 Chronic Conduction disorders (1 source) Conduction disorder, unspecified; Translations: [Heart block] Onset: 09-18-2023 Chronic Coronary atherosclerosis and other heart disease (16 sources) Coronary atherosclerosis; Translations: [Atherosclerotic heart disease of [place] coronary artery without angina pectoris] Onset: 12-14-2021 08-24-2022 Chronic Diabetes mellitus without complication (15 sources) Type 2 diabetes mellitus; Translations: [Type 2 diabetes mellitus without complications] Onset: 10-03-2021 08-24-2022 Chronic Disorders of lipid metabolism (16 sources) Hyperlipidemia; Translations: [Hyperlipidemia, unspecified] Onset: 07-15-2022 08-24-2022 Chronic Diverticulosis and diverticulitis (15 sources) Diverticulosis of colon; Translations: [Diverticulosis of large intestine without perforation or abscess without bleeding] Onset: 09-11-2008 09-11-2008 Chronic Esophageal disorders (15 sources) Gastroesophageal reflux disease; Translations: [Gastro-esophageal reflux disease without esophagitis] Onset: 08-24-2022 08-24-2022 Chronic Joint disorders and dislocations; trauma-related (2 sources) Unspecified tear of unspecified meniscus, current injury, left knee, sequela; Translations: [Unspecified tear of unspecified meniscus, current injury, left knee, sequela] Onset: 01-19-2023 Episodic Other and unspecified benign neoplasm (1 source) Personal history of colonic polyps; Translations: [Personal history of colonic polyps] Onset: 10-29-2018 Episodic Other connective tissue disease (2 sources) Synovial cyst of popliteal space [Arnold], unspecified knee; Translations: [Synovial cyst of popliteal space (Arnold), unspecified knee] Onset: 01-19-2023 Episodic Other lower respiratory disease (1 source) Dyspnea; Translations: [Dyspnea, unspecified] 08-31-2023 Episodic Isabell-; endo-; and myocarditis; cardiomyopathy (except that caused by tuberculosis or sexually transmitted disease) (19 sources) Dilated cardiomyopathy; Translations: [Dilated cardiomyopathy] Onset: 08-24-2022 Chronic Residual codes; unclassified (9 sources) Obstructive sleep apnea syndrome; Translations: [Obstructive sleep apnea (adult) (pediatric)] Onset: 02-24-2023 08-28-2023 Chronic Residual codes; unclassified (9 sources) H/O cardiac surgery; Translations: [Other specified postprocedural states] Onset: 08-28-2023 08-29-2023 Episodic Unclassified (1 source) Other persistent atrial fibrillation; Translations: [Persistent atrial fibrillation (HCC)] Onset: 08-29-2023 Past or Other Problems Problem Classification Problem Date Documented Da te Episodic/Chronic Cardiac dysrhythmias (18 sources) Tachycardia; Translations: [Tachycardia, unspecified] Onset: 08-24-2022 Episodic Deficiency and other anemia (15 sources) Anemia; Translations: [Anemia, unspecified] Onset: 09-11-2008 09-11-2008 Episodic Hemorrhoids (15 sources) Internal hemorrhoids; Translations: [Other hemorrhoids] Onset: 09-11-2008 09-11-2008 Episodic Other aftercare (18 sources) Long-term current use of anticoagulant; Translations: [emt intermediate (current) use of anticoagulants] Onset: 08-24-2022 Episodic Other aftercare (1 source) [facility] (current) use of anticoagulants; Translations: [Anticoagulant long-term use] Onset: 08-24-2022 Episodic Other and unspecified benign neoplasm (15 sources) Benign neoplasm of colon; Translations: [Benign neoplasm of colon, unspecified] Onset: 09-11-2008 09-11-2008 Episodic Residual codes; unclassified (18 sources) Other specified personal risk factors, not elsewhere classified; Translations: [Other specified personal history presenting hazards to health] Onset: 08-24-2022 Episodic Syncope (17 sources) Syncope and collapse; Translations: [Syncope and collapse] Onset: 03-11-2022 08-24-2022 Episodic Results Test Name Value Interpretation Reference Range Facil ity Vital Signs Date Time Vital Sign Value Performing Clinician Faci lity 12-26-2022 11:27-0500 Body weight 92.53 kg Suzan Acuña MD Work Phone: [facility] 12-26-2022 11:27-0500 Diastolic blood pressure 72 mm[Hg] Suzan Acuña MD Work Phone: [facility] 12-26-2022 11:27-0500 Heart rate 57 /min Suzan Acuña MD Work Phone: [facility] 12-26-2022 11:27-0500 SaO2% (BldA) [Mass fraction] 97 % Suzan Acuña MD Work Phone: [facility] 12-26-2022 11:27-0500 Systolic blood pressure 133 mm[Hg] Suzan Acuña MD Work Phone: [facility] 08-24-2022 11:12-0400 Body height 180.3 cm Suzan Acuña MD Work Phone: [facility] 08-24-2022 11:12-0400 Body weight 85.28 kg Suzan Acuña MD Work Phone: [facility] 08-24-2022 11:12-0400 Diastolic blood pressure 65 mm[Hg] Suzan Acuña MD Work Phone: [facility] 08-24-2022 11:12-0400 Heart rate 75 /min Suzan Acuña MD Work Phone: [facility] 08-24-2022 11:12-0400 Respiratory rate 18 /min Suzan Acuña MD Work Phone: [facility] 08-24-2022 11:12-0400 SaO2% (BldA) [Mass fraction] 97 % Suzan Acuña MD Work Phone: [facility] 08-24-2022 11:12-0400 Systolic blood pressure 115 mm[Hg] Suzan Acuña MD Work Phone: [facility] 08-27-2018 14:00-0400 Body weight Measured SOLO GOLDEN Refugio Stephon parkinson Refugio Encounters Encounter Date Encounter Type Care Provider Facility Start: 11-21-2023 End: 11-21-2023 [facility] Facility:[facility] Start: 10-12-2023 End: 10-13-2023 [facility] Facility:[facility] Start: 10-04-2023 Arrhythmia TTM Suzan mcfadden MD Work Phone: [facility] Start: 10-04-2023 Recurring Plan Suzan mcfadden MD Work Phone: [facility] Start: 10-04-2023 End: 10-05-2023 ambulatory [facility] Facility:[facility] Start: 10-04-2023 End: 10-04-2023 Patient encounter procedure Ttm Phone Check [facility] DEVICE [facility] Procedures Date Procedure Procedure Detail Performing Clinician Start: 10-04-2023 ARRHYTHMIA TRANS TEL E MEASURE Suzan Acuña MD Work Phone: Start: 09-27-2023 ARRHYTHMIA TRANS TEL E MEASURE Suzan Acuña MD Work Phone: Start: 09-20-2023 ARRHYTHMIA TRANS TEL E MEASURE Suzan Acuña MD Work Phone: Start: 09-18-2023 ARRHYTHMIA TRANS TEL E MEASURE Suzan Acuña MD Work Phone: Start: 08-28-2023 Antibody screen SUZAN ACUÑA Plan of Treatment Date Care Activity Detail Author Start: 11-28-2023 End: 09-29-2024 Ct angiography chest w/contrast/noncontrast CTA CHEST (NONGATED) W IVCON Radiology Routine Persistent atrial fibrillation (HCC) Dyspnea, unspecified type Expected: 11/28/2023, Expires: 09/29/2024 [facility] Work Phone: Payers Date Payer Category Payer Medicare [id number] 2021 Unknown RADHA BENZ S [employer] HMO [id number] 2021-Present [phone] [address] [place] [address] HMO [id number] 1945 Unknown [id number] Social History Date Type Detail Facility Start: 10-29-2018 End: 12-26-2022 Tobacco smoking status NHIS Ex-smoker [facility] End: 10-29-1988 History of tobacco use Current smoker [facility] End: 10-29-1988 History of tobacco use Cigarette Smoker [facility] Start: 10-29-2018 End: 12-08-2022 Cigarettes smoked current (pack per day) - Reported 2 [facility] Start: 10-29-2018 End: 12-26-2022 Tobacco use and exposure Smokeless tobacco non-user [facility] Start: 08-24-2022 End: 08-28-2023 Alcohol intake Current drinker of alcohol (finding) [facility] Start: 10-29-2018 Alcohol Comment [facility] Start: 1945 Sex Assigned At Not on file [facility] Start: 08-14-2022 End: 08-24-2022 Exposure to SARS-CoV-2 (event) Not sure [facility] Start: 12-08-2022 End: 04-20-2023 Tobacco use panel [facility] National Score (1-10 0), lower number is lower risk 34 [facility] Clinical Notes 08-24-2022 to 11-21-2023 Telephone Encounter - Kerline Perry - 08/31/2023 8:01 AM EDTTelephone Encounter - Salena Milian RN - 08/03/2023 4:20 PM EDTTelephone Encounter - Kerline Perry - 08/03/2023 2:44 PM EDT Note Date & Type Note Facility 11-21-2023 Note HNO ID: [id number] Author: CORDELIA BLACKWOOD MD Service: ? Author Type: Physician Type: Progress Notes Filed: 11/21/2023 17:02 Note Text: [facility] Cardiology Radha ([facility] (POB)) [address] [facility] [id number] OUTPATIENT VISIT DATE 11/20/2023 PRIMARY CARE PHYSICIAN: Urban Ledezma ([facility]) [address] [place] [address] REFERRING PHYSICIAN: SELF CHIEF COMPLAINT: Establish new cardiology follow-up HISTORY OF PRESENT ILLNESS: Mr. Good is a 78 year old gentleman with a history of mild nonobstructive coronary artery disease on remote catheterization 2007, dilated nonischemic cardiomyopathy, hypertension, dyslipidemia, atrial fibrillation with recent ablation August 2023 who presents to the office to establish new cardiology follow-up. Patient is somewhat disappointed about the results of his ablation. However, he has no palpitations, lightheadedness, dizziness, or syncope symptoms. He does well from a functional standpoint. He has not noticed any significant limitations. He has not had symptoms concerning for congestive heart failure including PND, orthopnea, or lower extremity edema. PAST MEDICAL HISTORY Diagnosis Date Alcohol use Anemia, unspecified Anemia, unspecified Anticoagulant long-term use indication: stroke prevention from atrial fibrillation/flutter Arthritis At risk for stroke [id number] = 6 (CHF, HTN, age2, DM, CAD) Atherosclerosis Atrial flutter (HCC) Benign neoplasm of colon CAD (coronary artery disease) nonobstructive CAD by [facility] 2007 Depressive disorder, not elsewhere classified Diabetes (HCC) Dilated cardiomyopathy (HCC) 08/24/2022 Diverticulosis of colon (without mention of hemorrhage) Essential hypertension, malignant Fatty liver Hiatal hernia History of cancer HLD (hyperlipidemia) Holter monitor, abnormal 06/27/2022 [place] HTN (hypertension) Impaired fasting glucose Internal hemorrhoids without mention of complication Other chest pain Persistent atrial fibrillation (HCC) asymptomatic; ??? contributing to cardiomyopathy Sleep apnea Snoring Status post catheter ablation of atrial fibrillation atrial fibrillation catheter ablation/PVAI (RF, Stereotaxis, Carto) 08/28/2023 Syncopal episode Typical atrial flutter (HCC) Ventricular premature depolarization VT (ventricular tachycardia) (HCC) Wide-complex tachycardia Nonsustained PAST SURGICAL HISTORY Procedure Laterality Date AFIB ABLATION/PULM VEIN ISOLATION 08/28/2023 atrial fibrillation catheter ablation/PVAI (RF, Stereotaxis, Carto); CCAG Dr. Acuña CARDIOVERSION, ELECTIVE, ELECTRICAL 07/26/2022 [facility] COLONOSCOPY FLX DX W/COLLJ SPEC WHEN PFRMD 10/25/2013 Colonoscopy COLONOSCOPY FLX DX W/COLLJ SPEC WHEN PFRMD 10/29/2018 repeat 3 years COLONOSCOPY W/BIOPSY SINGLE/MULTIPLE 09/11/2008 ECHOCARDIOGRAM 10/10/2022 LVEF 45% ECHOCARDIOGRAM 08/09/2022 LVEF 45% ECHOCARDIOGRAM 08/18/2021 LVEF 60% ECHOCARDIOGRAM 04/19/2023 [facility]; see scanned documents; LVEF 45% INGUINAL HERNIA REPAIR HX Right 1985 LEFT HEART CATH,PERCUTANEOUS 2007 PAST SURGICAL HISTORY OF pilonidal cyst RPR 1ST INGUN HRNA AGE 7 YRS/> REDUCIBLE Hernia repair, inguinal VASECTOMY 1984 SOCIAL HISTORY Social History Tobacco Use Smoking status: Former Packs/day: 2.00 Years: 20.00 Additional pack years: 0.00 Total pack years: 40.00 Types: Cigarettes Quit date: 10/29/1988 Years since quittin.0 Smokeless tobacco: Never Substance Use Topics Alcohol use: Yes Comment: occasionally Drug use: No FAMILY HISTORY Problem Relation Age of Onset Stroke Mother Hypertension Mother Hypoglycemia Mother Heart disease Father Heart Attack Father Sudden Cardiac Father autopsy showed heart disease, heart attack Hypertension Father Hypertension Brother Colon Cancer Brother Arrhythmia Brother atrial fibrillation Hypertension Brother ALLERGIES: ALLERGIES Allergen Reactions Steroids [Dexametha* Other: See Comments Adverse reaction MEDICATIONS: mirtazapine (REMERON) 15 mg tablet Take 15 mg by mouth daily at bedtime. tamsulosin (FLOMAX) 0.4 mg Take 0.4 mg by mouth daily at bedtime. rivaroxaban (XARELTO) 20 mg tablet Take 20 mg by mouth daily with dinner. simvastatin (ZOCOR) 40 mg tablet Take 40 mg by mouth daily at bedtime. atenolol (TENORMIN) 50 mg tablet Take 50 mg by mouth twice daily. metFORMIN (GLUCOPHAGE) 500 mg tablet Take 500 mg by mouth daily with dinner. potassium chloride 20 mEq TbER Take 1 tablet by mouth daily at bedtime. REVIEW OF SYSTEMS: Review of Systems Constitutional: Negative for chills, fever, malaise/fatigue and weight loss. HENT: Negative for hearing loss and sore throat. Eyes: Negative for blurred vision and double (more content not included)... [facility] 08-31-2023 Miscellaneous Notes Post PVAI orders pended for signature documented in this encounter [facility] 08-29-2023 Note HNO ID: [id number] Author: Isma Albrecht LSW Service: Care Management Author Type: Preparation Center Coordinator Type: Care Mgt Initial Assessment Filed: 08/29/2023 9:37 AM Note Text: CARE MANAGEMENT: ASSESSMENT AND DISCHARGE PLAN SERVICE DATE: August 29, 2023 SERVICE TIME: 9:34 AM PCP: Urban Ledezma MD Primary Contact: Extended Emergency Contact Information Primary Emergency Contact: Luz Marina Good Mobile Relation: Spouse Admission Status: Ambulatory Surgery Insurance Provider: RADHA BUCIO [facility] Discharge Planning requested by: Per Department Practice Potential Transition Plans Home Advance Directives Current Advance Directive: None Wireless Store Manager Attempted to Assist with AD Completion: Yes Action: Education Provided Current Living Arrangements and Support Lives with: Spouse/significant other Type of Residence: Private Residence (House) Support: Spouse/significant other How do you manage to accomplish the following: Independent: Ambulation;Bathe/Shower;Dress;G oing to the bathroom;Meals/Meal Prep;Medication Management;Transportation to appointments/community Current Services/Equipment Current Post-Acute Service(s): None Discharge Planning Patient Goal(s): General wellness, Be able to go home [place] Explained: [place] Given: No Reason Not Given: No placements necessary Are you interested in bedside delivery of your medications? No Caregiver Assessment: Caregiver is ready, willing and able to meet the patient's needs as recommended by the inter-professional team: No Caregiver needed Transport at Discharge: Transportation Arrangements: Car Needs Prior to Discharge: Needs Prior to Discharge: Ready for Discharge Post-Acute Discharge Plan: Chart reviewed. The patient is admitted due to atrial fibrillation, for catheter ablation. Spoke with staff who reports no needs identified. The patient will discharge home when medically ready with self care. The patient has PCP, RX coverage and has established follow up care. The patient appears independent and can do all their ADL's. Family will get the patient at discharge. Functional:Patient lives with his spouse and appears independent with ADL's. Support: Luz Marina Good (Spouse) [phone] Pharmacy: [facility]/pharmacy #[id number] [place] [address] PCP: Urban Ledezma MD This patient has been screened for Care Management Transitional Planning Services. At this time, it does not appear this patient will require transition planning services. Should this change, and the patient require transition/discharge planning services during this admission, please call [phone]. MARIO Garrett August 29, 2023 9:37 AM SIGNATURE: MARIO Garrett PATIENT NAME: Evert Good DATE: August 29, 2023 TIME: 9:34 AM CONTACT #: [phone] [facility] 08-28-2023 Note HNO ID: [id number] Author: Kaitlynn Saldaña APRN.ART HISTORY INSTRUCTOR Service: ? Author Type: Nurse Feeder Tender Type: Anesthesia Procedure Notes Filed: 08/28/2023 10:30 AM Note Text: ANESTHESIOLOGY PROCEDURE NOTE Airway General Information Procedure Start Time/Medication Administration: 08/28/2023 10:14 AM Patient location during procedure: OR Patient identity confirmed: arm band, care service team leader and patient Staffing Anesthesiologist: Jena Cason MD ART HISTORY INSTRUCTOR: Kaitlynn Saldaña APRN.ART HISTORY INSTRUCTOR Performed by: ART HISTORY INSTRUCTOR Indications and Patient Condition Indications for airway management: anesthesia and airway protection Preoxygenated: yes anesthesia circuit Patient position: sniffing Method: asleep Difficult Mask: No Final Airway Details Final airway type: endotracheal airway Final Endotracheal Airway: ETT Cuffed: yes Successful intubation technique: direct laryngoscopy Endotracheal tube insertion site: oral Blade: Shavonne Blade size: #4 ETT size (mm): 8.0 Measured from: teeth Measurement (cm): 23 Placement verified by: chest auscultation and capnometry Cormack-Lehane Classification: grade IIa - partial view of glottis Number of attempts at approach: 1 Failed airway: no Unrecognized esophageal intubation: no Airway not difficult SIGNATURE: Kaitlynn Saldaña APRN.CRNA PATIENT NAME: Evert Good DATE: August 28, 2023 TIME: 10:30 AM CSN: [id number] [facility] 08-03-2023 Miscellaneous Notes Pt's name has been added to a[place] procedure board. Salena Milian RN Patient is scheduled for a PVI Ablation on 08/[address] Acuña. The hospital will call the day before between 2-5pm with your arrival time. You should not eat or drink after midnight the day before the procedure. You will need a bus driver/monitor when released from the hospital and you will stay overnight for observation. You should continue to take medications as prescribed the morning of the procedure with just a sip of water unless otherwise instructed. H&P update on 08/23 at 11am with Asha Beck [address] [facility] [address] [place] [address] Spoke with Evert Davies Lul on August 03, 2023. Informed of instructions as stated above. Patient verbalized understanding. Kerline Perry documented in this encounter [facility] 03-14-2023 Miscellaneous Notes Pt called reg his Ablation w/ Dr. Acuña on 04/07/23 he stated he is unable to do this artis date for surgery will need to reschedule. I already spoke to EP Picker / Packer Kerline reg his rs. Office will reach out to the pt with his new artis date and time. Pt verbalized understanding. Onelia Etienne March 14, 2023 2:19 PM documented in this encounter [facility] 01-16-2023 Miscellaneous Notes Procedure request submitted for atrial fibrillation/flutter catheter ablation. Suzan Acuña MD January 16, 2023 12:[address] Mcdonald's staff calls to report Dr Mcdonald reviewed Dr Acuña's note with the patient. Pt wishes to proceed with ablation. Hollie Boudreaux RN documented in this encounter [facility] 12-26-2022 Note HNO ID: [id number] Author: Suzan Acuña MD Service: ? Author Type: Physician Type: Progress Notes Filed: 12/26/2022 7:42 PM Note Text: PRIMARY CARE PHYSICIAN: Radha Mcelroy ([facility]) [address] [address] Patient Care Team: Urban Ledezma MD as PCP - General (Family Medicine) Jalen Mcdonald as Specialty Director Learning (Cardiology) CHIEF COMPLAINT: Follow up for arrhythmia HISTORY OF PRESENT ILLNESS: Mr. Good is a 77 year old male who presents today for a cardiovascular medicine follow-up visit. History copied from previous notes, edited as needed: Dr. Acuña's previous notes 08/24/2022: Mr. Good is a 77 year old male who presents today with his for evaluation of arrhythmia, atrial fibrillation and possibly atrial flutter, referral from his head charrer Dr Mcdonald. Mr. Good states that he was first diagnosed with atrial fibrillation a few years ago, he had been hospitalized at [facility] with a bladder infection and fever. He states at some point during that hospitalization he went into atrial fibrillation, and then after that he would be in and out of this arrhythmia. He states he was treated with diltiazem. He states over the next couple of years he would intermittently have the atrial fibrillation, he states by cardiac monitoring for example he would have the arrhythmia about 14% of the time. He states more recently the arrhythmia has been constant. He only knows that he has the arrhythmia by either monitoring or his personal monitoring such as Twilio. He has no awareness of the arrhythmia, no symptoms at all. He states he underwent electrical cardioversion to restore sinus rhythm 07/26/2022, but the atrial fibrillation recurred within about 28 hours. Again, he did not feel differently in sinus rhythm, was not aware that the arrhythmia recurred except by the Apple Watch notifying him. He states that he had a 30 day gambling monitor in 07/2022, and that this showed a new issue with different arrhythmia (reportedly wide-complex tachycardia although this particular monitoring report is not yet available to me). Cardiac monitoring was also performed in June 2022 --- 24 hour ambulatory Holter. This revealed atrial fibrillation with average ventricular response rate 114 bpm. At that time the atenolol dose was increased, and Mr. Good's states since then his heart rates have been better. An echocardiogram at the end of July this year revealed a new finding of mild cardiomyopathy, LVEF 45%. Cardiac stress testing 08/09/2022 showed no ischemia or scar, but also showed mild cardiomyopathy with LVEF 47%. He does not have heart failure symptoms. He denies chest pain, shortness of breath, orthopnea, palpitations, PND, lightheadedness or syncope. IMPRESSION (08/24/2022): Mr. Good has a couple of arrhythmia issues. He does have persistent atrial fibrillation/flutter, recurrent despite recent electrical cardioversion. He is completely asymptomatic, one could consider treating him with a rate control treatment strategy per current Practice Guidelines. The benefit of advanced treatment strategies for rhythm control would be indicated for control of excessively bothersome symptoms. I did tell Mr. Good and his that an exception would be if the arrhythmia is contributing to cardiomyopathy. It is concerning that he has now a new issue with mild cardiomyopathy. However, the echocardiogram and cardiac stress test that both revealed the mild cardiomyopathy were performed in July 2022, not long after the cardiac monitoring in June had revealed suboptimal ventricular rate control (average ventricular response rates 114 bpm). Evidently heart rates have been better with titration of the atenolol dosing, it would be good to repeat an echocardiogram after a couple months of better ventricular rate control and see if the cardiomyopathy has improved. If there is documented adequate ventricular rate control and still progression of the cardiomyopathy, it might be reasonable to restore/maintain sinus rhythm by some means, such as antiarrhythmic drug therapy or with catheter ablation. I would like to see the report of the recent 30-day cardiac monitoring, this was not sent with his records from Dr. Mcdonald. Evidently there was wide-complex tachycardia, this might have represented aberrant conduction during more rapid ventricular response rates such as with atrial flutter --- ventricular response rates seem to be more manageable when he is in atrial fibrillation, which is typically the case with such arrhythmias. Even if he had nonsustained VT there would not be an indication for EP study or antiarrhythmic drug therapy or an ICD at this point. Typically in such instances we recommend optimal beta-chad therapy. I had a detailed discussion with (more content not included)... [facility] 12-26-2022 Nurse Note No cardiac complaints today. Julia Azul MA documented in this encounter [facility] 12-26-2022 History of Presen t illness Narrative PRIMARY CARE PHYSICIAN: Radha Mcelroy ([facility]) [address] [id number] Patient Care Team: Urban Ledezma MD as PCP - General (Family Medicine) Jalen Mcdonald as Specialty Director Learning (Cardiology) CHIEF COMPLAINT: Follow up for arrhythmia HISTORY OF PRESENT ILLNESS: Mr. Good is a 77 year old male who presents today for a cardiovascular medicine follow-up visit. History copied from previous notes, edited as needed: Dr. Acuña's previous notes 08/24/2022: Mr. Good is a 77 year old male who presents today with his for evaluation of arrhythmia, atrial fibrillation and possibly atrial flutter, referral from his head charrer Dr Mcdonald. Mr. Good states that he was first diagnosed with atrial fibrillation a few years ago, he had been hospitalized at [facility] with a bladder infection and fever. He states at some point during that hospitalization he went into atrial fibrillation, and then after that he would be in and out of this arrhythmia. He states he was treated with diltiazem. He states over the next couple of years he would intermittently have the atrial fibrillation, he states by cardiac monitoring for example he would have the arrhythmia about 14% of the time. He states more recently the arrhythmia has been constant. He only knows that he has the arrhythmia by either monitoring or his personal monitoring such as Apple Watch. He has no awareness of the arrhythmia, no symptoms at all. He states he underwent electrical cardioversion to restore sinus rhythm 07/26/2022, but the atrial fibrillation recurred within about 28 hours. Again, he did not feel differently in sinus rhythm, was not aware that the arrhythmia recurred except by the Apple Watch notifying him. He states that he had a 30 day gambling monitor in 07/2022, and that this showed a new issue with different arrhythmia (reportedly wide-complex tachycardia although this particular monitoring report is not yet available to me). Cardiac monitoring was also performed in June 2022 --- 24 hour ambulatory Holter. This revealed atrial fibrillation with average ventricular response rate 114 bpm. At that time the atenolol dose was increased, and Mr. Good's states since then his heart rates have been better. An echocardiogram at the end of July this year revealed a new finding of mild cardiomyopathy, LVEF 45%. Cardiac stress testing 08/09/2022 showed no ischemia or scar, but also showed mild cardiomyopathy with LVEF 47%. He does not have heart failure symptoms. He denies chest pain, shortness of breath, orthopnea, palpitations, PND, lightheadedness or syncope. IMPRESSION (08/24/2022): Mr. Good has a couple of arrhythmia issues. He does have persistent atrial fibrillation/flutter, recurrent despite recent electrical cardioversion. He is completely asymptomatic, one could consider treating him with a rate control treatment strategy per current Practice Guidelines. The benefit of advanced treatment strategies for rhythm control would be indicated for control of excessively bothersome symptoms. I did tell Mr. Good and his that an exception would be if the arrhythmia is contributing to cardiomyopathy. It is concerning that he has now a new issue with mild cardiomyopathy. However, the echocardiogram and cardiac stress test that both revealed the mild cardiomyopathy were performed in July 2022, not long after the cardiac monitoring in June had revealed suboptimal ventricular rate control (average ventricular response rates 114 bpm). Evidently heart rates have been better with titration of the atenolol dosing, it would be good to repeat an echocardiogram after a couple months of better ventricular rate control and see if the cardiomyopathy has improved. If there is documented adequate ventricular rate control and still progression of the cardiomyopathy, it might be reasonable to restore/maintain sinus rhythm by some means, such as antiarrhythmic drug therapy or with catheter ablation. I would like to see the report of the recent 30-day cardiac monitoring, this was not sent with his records from Dr. Mcdonald. Evidently there was wide-complex tachycardia, this might have represented aberrant conduction during more rapid ventricular response rates such as with atrial flutter --- ventricular response rates seem to be more manageable when he is in atrial fibrillation, which is typically the case with such arrhythmias. Even if he had nonsustained VT there would not be an indication for EP study or antiarrhythmic drug therapy or an ICD at this point. Typically in such instances we recommend optimal beta-chad therapy. I had a detailed discussion with Mr. Good and his regarding my evaluation and recommendations. After our discussion, Mr. Good and his expressed understanding and I answered all questions to their apparent satisfaction. I told them I would obtain the report of the recently performed 30-day cardiac monitoring, and also communicate with Dr. Mcdonald regarding 1) documentation of better ventricular rate control and 2) after such rate control has been achieved, repeat assessment of LV systolic function. PLAN AND RECOMMENDATIONS (08/24/2022): See above for my recommendations. I will have my office contact Dr. Mcdonald's office to obtain the 30-day cardiac monitoring report (with all the tracings). I would not advocate rhythm control treatment strategy for the atrial fibrillation/flutter unless there is evidence for adverse impact on LV systolic function despite good ventricular response rate control. Interim History Dr. Acuña 12/26/2022: Mr. Good presents for follow-up evaluation for atrial fibrillation. I had evaluated him in August 2022 for this problem. He has persistent atrial fibrillation that is asymptomatic. However, there might be contribution from the atrial fibrillation to the mild dilated cardiomyopathy. I had recommended that the ventricular systolic function be reevaluated after a period of time of good ventricular rate control. Mr. Good presents for follow up evaluation, had echocardiogram 10/10/2022 that showed the cardiomyopathy is about the same, LVEF 45%. He is not aware of the atrial fibrillation, no symptoms attributable to it. I have confirmed and edited as necessary, the PFSH and ROS obtained by others. PAST MEDICAL HISTORY Diagnosis Date Alcohol use Anemia, unspecified Anemia, unspecified Anticoagulant long-term use indication: stroke prevention from atrial fibrillation/flutter Arthritis At risk for stroke [id number] = 6 (CHF, HTN, age2, DM, CAD) Atherosclerosis Atrial flutter (HCC) Benign neoplasm of colon CAD (coronary artery disease) nonobstructive CAD by [facility] 2007 Depressive disorder, not elsewhere classified Diabetes (HCC) Dilated cardiomyopathy (HCC) 08/24/2022 Diverticulosis of colon (without mention of hemorrhage) Essential hypertension, malignant Fatty liver Hiatal hernia History of cancer HLD (hyperlipidemia) Holter monitor, abnormal 06/27/2022 [place]HA HTN (hypertension) Impaired fasting glucose Internal hemorrhoids without mention of complication Other chest pain Persistent atrial fibrillation (HCC) asymptomatic; ??? contributing to cardiomyopathy Sleep apnea Snoring Syncopal episode Typical atrial flutter (HCC) Ventricular premature depolarization VT (ventricular tachycardia) Wide-complex tachycardia Nonsustained PAST SURGICAL HISTORY Procedure Laterality Date CARDIOVERSION, ELECTIVE, ELECTRICAL 07/26/2022 [facility] COLONOSCOPY FLX DX W/COLLJ SPEC WHEN PFRMD 10/25/2013 Colonoscopy COLONOSCOPY FLX DX W/COLLJ SPEC WHEN PFRMD 10/29/2018 repeat 3 years COLONOSCOPY W/BIOPSY SINGLE/MULTIPLE 09/11/2008 ECHOCARDIOGRAM 10/10/2022 LVEF 45% ECHOCARDIOGRAM 08/09/2022 LVEF 45% INGUINAL HERNIA REPAIR HX Right 1985 LEFT HEART CATH,PERCUTANEOUS 2007 PAST SURGICAL HISTORY OF pilonidal cyst RPR 1ST INGUN HRNA AGE 7 YRS/> REDUCIBLE Hernia repair, inguinal VASECTOMY 1985 SOCIAL HISTORY Social History Tobacco Use Smoking status: Former Packs/day: 2.00 Years: 20.00 Pack years: 40.00 Types: Cigarettes Quit date: 10/29/1988 Years since quittin.1 Smokeless tobacco: Never Substance Use Topics Alcohol use: Yes Comment: occasionally Drug use: No FAMILY HISTORY Problem Relation Age of Onset Heart Father Heart Attack Father Ischemic Heart Disease Brother other (cancer) Brother ALLERGIES: ALLERGIES No Known Allergies MEDICATIONS: potassium chloride 20 mEq TbER Take 1 tablet by mouth daily at bedtime. tamsulosin (FLOMAX) 0.4 mg Take 0.4 mg by mouth once daily. rivaroxaban (XARELTO) 20 mg tablet Take 20 mg by mouth daily with dinner. simvastatin (ZOCOR) 40 mg tablet Take 40 mg by mouth daily at bedtime. atenolol (TENORMIN) 50 mg tablet Take 50 mg by mouth twice daily. metFORMIN (GLUCOPHAGE) 500 mg tablet Take 500 mg by mouth daily with dinner. Review of Systems Constitutional: Positive for malaise/fatigue. Negative for chills, fever and weight loss. Respiratory: Negative for cough, hemoptysis, sputum production and shortness of breath. Cardiovascular: Negative for chest pain, palpitations, orthopnea and PND. Gastrointestinal: Negative for abdominal pain, blood in stool, melena, nausea and vomiting. Genitourinary: Negative for hematuria. Skin: Negative for rash. Neurological: Positive for dizziness (occasionally, such as when getting up out of bed at night to go to the bathroom). Negative for loss of consciousness. PHYSICAL EXAMINATION: BP 133/72 Pulse 57 Wt 204 lb (92.5kg) SpO2 97% Physical Exam Vitals reviewed. Constitutional: General: He is not in acute distress. Appearance: Normal appearance. HENT: Head: Normocephalic and atraumatic. Cardiovascular: Rate and Rhythm: Normal rate. Rhythm irregularly irregular. Heart sounds: Normal heart sounds, S1 normal and S2 normal. No murmur heard. No friction rub. Pulmonary: Effort: Pulmonary effort is normal. No respiratory distress. Breath sounds: Normal breath sounds. No wheezing, rhonchi or rales. Musculoskeletal: Cervical back: Neck supple. Skin: General: Skin is warm and dry. Neurological: General: No focal deficit present. Mental Status: He is alert and oriented to person, place, and time. Psychiatric: Mood and Affect: Mood normal. Behavior: Behavior normal. Thought Content: Thought content normal. CARDIOVASCULAR MEDICINE TESTING: Electrocardiogram: Atrial fibrillation with controlled ventricular spots, average 75 bpm; QRS duration 80 ms; QTc 435 ms; nonspecific ST and T wave abnormality I have personally reviewed the Electrocardiogram. I spent a total of 25 minutes on the date of the service which included preparing to see the patient, [id number] patient care, completing clinical documentation, obtaining and/or reviewing separately obtained history, performing a medically appropriate examination, counseling and educating the patient/family/caregiver, ordering medications, tests, or procedures, communicating with other HCPs (not separately reported), independently interpreting results (not separately reported), communicating results to the patient/family/caregiver, and care coordination (not separately reported). ASSESSMENT/PLAN: 1. Persistent atrial fibrillation (HCC) - ICD9: 427.31, ICD10: I48.19 (primary diagnosis) 2. Atrial flutter, unspecified type (HCC) - ICD9: 427.32, ICD10: I48.92 atrial fibrillation/flutter, asymptomatic but question of whether the arrhythmia is contributing to mild cardiomyopathy 3. Wide-complex tachycardia - ICD9: 785.0, ICD10: R00.0 VT vs SVT with aberrancy 4. Dilated cardiomyopathy (HCC) - ICD9: 425.4, ICD10: I42.0 Stable; LVEF 45%; last TTE 09/2022; there is question whether the atrial fibrillation is contributing to the LV systolic dysfunction 5. Syncope and collapse - ICD9: 780.2, ICD10: R55 Stable; no recent syncope 6. At risk for stroke - ICD9: V15.89, ICD10: Z91.89 CHADS2-Vasc Score Breakdown 5 Total Score 2 Age >= 75 years old 1 History of hypertension 1 History of diabetes mellitus 1 History of vascular disease 7. Anticoagulant long-term use - ICD9: V58.61, ICD10: Z79.01 Seems to have favorable risk:benefit IMPRESSION: Mr. Good has persistent atrial fibrillation, and although this is asymptomatic there is concern about whether it is contributing to cardiomyopathy. The cardiomyopathy has been mild and has been stable over the past couple of echocardiogram studies 07/2022 and 09/2022 (LVEF 45%). I had a detailed discussion with Mr. Good and his regarding this situation. He is completely asymptomatic, practice guidelines would recommend avoiding advanced treatment strategies for the atrial fibrillation, such as antiarrhythmic drug therapy or catheter ablation. On the other hand, there seems to be potentially an impact on left ventricular systolic function although this cannot be proven to be related to the atrial fibrillation. There is a chance it is unrelated and might not change event with aggressive therapies to restore and maintain sinus rhythm. Also, the cardiomyopathy is mild, the LVEF is just below the lower limit of normal 50%. So this is a dilemma, as there is risk associated with the advanced treatment strategies. We could consider continuing with the current treatment plan and implementing more advanced treatment strategies if the LVEF drops below 40%. But this requires time and the longer he is left in the atrial fibrillation the less likely we will be to maintain sinus rhythm if we determine that is best strategy. I discussed this issue with Mr. Good and his in detail, I tried to get an idea of how aggressive Mr. Good wants to be. He indicated he would be in favor of whatever Dr. Mcdonald and I determine is best. I told them I would review in more detail and discuss with Dr. Mcdonald directly. I had a detailed discussion with Mr. Good regarding my evaluation and recommendations. After our discussion, Mr. Good expressed his understanding and I answered all his questions to his apparent satisfaction. He agrees to proceed with the plan we determine after additional review. PLAN AND RECOMMENDATIONS: Continue with current plan of care from EP standpoint for now. I will complete additional review of his case and discuss with Dr. Mcdonald regarding the treatment options. Suzan Acuña MD 12/26/2022 Medical Decision Making: Problems: Moderate: New problem with uncertain prognosis Data: Unique source(s) for external note(s) reviewed: 3+ Unique test result(s) reviewed: 3+ Unique test(s) ordered: 1 Risk: Moderate: Moderate risk from testing/treatment, Drug management and Decision on minor surgery w/ risk factors Medical Decision Making Level: 4 - Moderate documented in this encounter [facility] 11-23-2022 Miscellaneous Notes The monitoring shows atrial fibrillation and atrial flutter, sometimes with rapid heart rates, and he also had some brief episodes of ventricular tachycardia. My recommendations are the same as outlined in my office note. The ventricular tachycardia does not require any specific treatment or additional testing. The atrial fibrillation and atrial flutter should be treated with rate control, keeping the heart rates from being too rapid. In the absence of excessively bothersome symptoms the current practice guidelines would not recommend advanced treatments such as catheter ablation. I hope this is helpful. Let me know if he has other questions or concerns. Suzan Acuña MD November 23, 2022 4:46 PM Pt wants you to interpret his heart monitor results. They are in the scanned documents dated 09/19/22. Thanks, Sofia Lopez LPN documented in this encounter [facility] 08-24-2022 History of Presen t illness Narrative PRIMARY CARE PHYSICIAN: Radha Mcelroy ([facility]) [address] [facility] [address] [place] [address] REFERRING PHYSICIAN: Jalen Mcdonald MD ([facility]) [address] [facility] [address] [facility] [id number] Patient Care Team: Radha Mcelroy MD as PCP - General (Internal Medicine) Jalen Mcdonald as Specialty Director Learning (Cardiology) CHIEF COMPLAINT: Evaluation of arrhythmia HISTORY OF PRESENT ILLNESS: Mr. Good is a 77 year old male who presents today with his for evaluation of arrhythmia, atrial fibrillation and possibly atrial flutter, referral from his head charrer Dr Mcdonald. Mr. Good states that he was first diagnosed with atrial fibrillation a few years ago, he had been hospitalized at [facility] with a bladder infection and fever. He states at some point during that hospitalization he went into atrial fibrillation, and then after that he would be in and out of this arrhythmia. He states he was treated with diltiazem. He states over the next couple of years he would intermittently have the atrial fibrillation, he states by cardiac monitoring for example he would have the arrhythmia about 14% of the time. He states more recently the arrhythmia has been constant. He only knows that he has the arrhythmia by either monitoring or his personal monitoring such as [employer] Watch. He has no awareness of the arrhythmia, no symptoms at all. He states he underwent electrical cardioversion to restore sinus rhythm 07/26/2022, but the atrial fibrillation recurred within about 28 hours. Again, he did not feel differently in sinus rhythm, was not aware that the arrhythmia recurred except by the Apple Watch notifying him. He states that he had a 30 day gambling monitor in 07/2022, and that this showed a new issue with different arrhythmia (reportedly wide-complex tachycardia although this particular monitoring report is not yet available to me). Cardiac monitoring was also performed in June 2022 --- 24 hour ambulatory Holter. This revealed atrial fibrillation with average ventricular response rate 114 bpm. At that time the atenolol dose was increased, and Mr. Good's states since then his heart rates have been better. An echocardiogram at the end of July this year revealed a new finding of mild cardiomyopathy, LVEF 45%. Cardiac stress testing 08/09/2022 showed no ischemia or scar, but also showed mild cardiomyopathy with LVEF 47%. He does not have heart failure symptoms. He denies chest pain, shortness of breath, orthopnea, palpitations, PND, lightheadedness or syncope. I have confirmed and edited as necessary, the PFSH and ROS obtained by others. PAST MEDICAL HISTORY Diagnosis Date Alcohol use Anemia, unspecified Anemia, unspecified Anticoagulant long-term use Arthritis At risk for stroke Atherosclerosis Atrial flutter (HCC) Benign neoplasm of colon CAD (coronary artery disease) Depressive disorder, not elsewhere classified Diabetes (HCC) Dilated cardiomyopathy (HCC) 08/24/2022 Diverticulosis of colon (without mention of hemorrhage) Essential hypertension, malignant Fatty liver Hiatal hernia History of cancer HLD (hyperlipidemia) Holter monitor, abnormal 06/27/2022 [facility] HTN (hypertension) Impaired fasting glucose Internal hemorrhoids without mention of complication Other chest pain Persistent atrial fibrillation (HCC) Sleep apnea Snoring Syncopal episode Typical atrial flutter (HCC) Ventricular premature depolarization VT (ventricular tachycardia) Wide-complex tachycardia Nonsustained Wide-complex tachycardia PAST SURGICAL HISTORY Procedure Laterality Date CARDIOVERSION, ELECTIVE, ELECTRICAL 07/26/2022 [facility] COLONOSCOPY FLX DX W/COLLJ SPEC WHEN PFRMD 10/25/2013 Colonoscopy COLONOSCOPY FLX DX W/COLLJ SPEC WHEN PFRMD 10/29/2018 repeat 3 years COLONOSCOPY W/BIOPSY SINGLE/MULTIPLE 09/11/2008 INGUINAL HERNIA REPAIR HX Right 1985 LEFT HEART CATH,PERCUTANEOUS 2007 PAST SURGICAL HISTORY OF pilonidal cyst RPR 1ST INGUN HRNA AGE 7 YRS/> REDUCIBLE Hernia repair, inguinal VASECTOMY 1985 SOCIAL HISTORY Social History Tobacco Use Smoking status: Former Packs/day: 2.00 Years: 20.00 Pack years: 40.00 Types: Cigarettes Quit date: 10/29/1988 Years since quittin.8 Smokeless tobacco: Never Substance Use Topics Alcohol use: Yes Comment: occasionally Drug use: No FAMILY HISTORY Problem Relation Age of Onset Heart Father Heart Attack Father Ischemic Heart Disease Brother other (cancer) Brother ALLERGIES: ALLERGIES No Known Allergies MEDICATIONS: potassium chloride 20 mEq TbER Take 1 tablet by mouth daily at bedtime. tamsulosin (FLOMAX) 0.4 mg Take 0.4 mg by mouth once daily. rivaroxaban (XARELTO) 20 mg tablet Take 20 mg by mouth daily with dinner. simvastatin (ZOCOR) 40 mg tablet Take 40 mg by mouth daily at bedtime. atenolol (TENORMIN) 50 mg tablet Take 50 mg by mouth twice daily. metFORMIN (GLUCOPHAGE) 500 mg tablet Take 500 mg by mouth daily with dinner. REVIEW OF SYSTEMS: Review of Systems Constitutional: Negative for chills, fever, malaise/fatigue and weight loss. Respiratory: Negative for cough, hemoptysis, sputum production and shortness of breath. Cardiovascular: Negative for chest pain, palpitations, orthopnea, leg swelling and PND. Gastrointestinal: Negative for abdominal pain, blood in stool, melena, nausea and vomiting. Genitourinary: Negative for hematuria. Skin: Negative for rash. Neurological: Negative for dizziness and loss of consciousness. PHYSICAL EXAMINATION: BP 115/65 Pulse 75 Resp 18 Ht 5' 11 (1.80m) Wt 188 lb (85.3kg) SpO2 97[room air]% BMI 26.23 kg/(m^2). Physical Exam Vitals reviewed. Constitutional: General: He is not in acute distress. Appearance: Normal appearance. HENT: Head: Normocephalic and atraumatic. Cardiovascular: Rate and Rhythm: Normal rate. Rhythm irregularly irregular. Heart sounds: Normal heart sounds, S1 normal and S2 normal. No murmur heard. No friction rub. Pulmonary: Effort: Pulmonary effort is normal. No respiratory distress. Breath sounds: Normal breath sounds. No wheezing, rhonchi or rales. Abdominal: General: Bowel sounds are normal. Palpations: Abdomen is soft. Tenderness: There is no abdominal tenderness. Musculoskeletal: Cervical back: Neck supple. Right lower leg: No edema. Left lower leg: No edema. Skin: General: Skin is warm and dry. Neurological: General: No focal deficit present. Mental Status: He is alert and oriented to person, place, and time. Psychiatric: Mood and Affect: Mood normal. Behavior: Behavior normal. Thought Content: Thought content normal. CARDIOVASCULAR MEDICINE TESTING: Electrocardiogram: Atrial fibrillation with controlled ventricular response, average 69 bpm; QRS duration 84 ms; QTC 428 ms I have personally reviewed the Electrocardiogram. ASSESSMENT/PLAN: 1. Persistent atrial fibrillation (HCC) - ICD9: 427.31, ICD10: I48.19 (primary diagnosis) 2. Atrial flutter, unspecified type (HCC) - ICD9: 427.32, ICD10: I48.92 3. At risk for stroke - ICD9: V15.89, ICD10: Z91.89 4. Anticoagulant long-term use - ICD9: V58.61, ICD10: Z79.01 5. Wide-complex tachycardia - ICD9: 785.0, ICD10: R00.0 6. Dilated cardiomyopathy (HCC) - ICD9: 425.4, ICD10: I42.0 IMPRESSION: Mr. Good has a couple of arrhythmia issues. He does have persistent atrial fibrillation/flutter, recurrent despite recent electrical cardioversion. He is completely asymptomatic, one could consider treating him with a rate control treatment strategy per current Practice Guidelines. The benefit of advanced treatment strategies for rhythm control would be indicated for control of excessively bothersome symptoms. I did tell Mr. Good and his that an exception would be if the arrhythmia is contributing to cardiomyopathy. It is concerning that he has now a new issue with mild cardiomyopathy. However, the echocardiogram and cardiac stress test that both revealed the mild cardiomyopathy were performed in July 2022, not long after the cardiac monitoring in June had revealed suboptimal ventricular rate control (average ventricular response rates 114 bpm). Evidently heart rates have been better with titration of the atenolol dosing, it would be good to repeat an echocardiogram after a couple months of better ventricular rate control and see if the cardiomyopathy has improved. If there is documented adequate ventricular rate control and still progression of the cardiomyopathy, it might be reasonable to restore/maintain sinus rhythm by some means, such as antiarrhythmic drug therapy or with catheter ablation. I would like to see the report of the recent 30-day cardiac monitoring, this was not sent with his records from Dr. Mcodnald. Evidently there was wide-complex tachycardia, this might have represented aberrant conduction during more rapid ventricular response rates such as with atrial flutter --- ventricular response rates seem to be more manageable when he is in atrial fibrillation, which is typically the case with such arrhythmias. Even if he had nonsustained VT there would not be an indication for EP study or antiarrhythmic drug therapy or an ICD at this point. Typically in such instances we recommend optimal beta-chad therapy. I had a detailed discussion with Mr. Good and his regarding my evaluation and recommendations. After our discussion, Mr. Good and his expressed understanding and I answered all questions to their apparent satisfaction. I told them I would obtain the report of the recently performed 30-day cardiac monitoring, and also communicate with Dr. Mcdonald regarding 1) documentation of better ventricular rate control and 2) after such rate control has been achieved, repeat assessment of LV systolic function. PLAN AND RECOMMENDATIONS: See above for my recommendations. I will have my office contact Dr. Mcdonald's office to obtain the 30-day cardiac monitoring report (with all the tracings). I would not advocate rhythm control treatment strategy for the atrial fibrillation/flutter unless there is evidence for adverse impact on LV systolic function despite good ventricular response rate control. Return follow up will depend upon plan of care determined. Suzan Acuña MD 08/24/2022 Medical Decision Making: Problems: Moderate: New problem with uncertain prognosis Data: Unique source(s) for external note(s) reviewed: 3+ Unique test result(s) reviewed: 3+ Unique test(s) ordered: 1 Risk: Moderate: Moderate risk from testing/treatment, Drug management and Decision on minor surgery w/ risk factors Medical Decision Making Level: 4 - Moderate documented in this encounter [facility] 08-24-2022 Nurse Note Patient denies any cardiac issues or symptoms. documented in this encounter [facility] Diagnosis Persistent atrial fibrillation (HCC)- Primary Atrial fibrillation Atrial flutter, unspecified type (HCC) Wide-complex tachycardia Paroxysmal ventricular tachycardia Dilated cardiomyopathy (HCC) Other primary cardiomyopathies Syncope and collapse At risk for stroke Other specified personal history presenting hazards to health Anticoagulant long-term use Long-term (current) use of anticoagulants documented in this encounter [facility] note* Diagnosis Persistent atrial fibrillation (HCC)- Primary Atrial fibrillation Atrial flutter, unspecified type (HCC) Dilated cardiomyopathy (HCC) Other primary cardiomyopathies Anticoagulant long-term use Long-term (current) use of anticoagulants documented in this encounter [facility] note* Diagnosis Persistent atrial fibrillation (HCC)- Primary Atrial fibrillation Dyspnea, unspecified type documented in this encounter [facility] note* Diagnosis Atrial fibrillation, unspecified type (HCC)- Primary documented in this encounter [facility] note* Diagnosis Atrial fibrillation, unspecified type (HCC)- Primary documented in this encounter [facility] note* Diagnosis Atrial fibrillation, unspecified type (HCC)- Primary documented in this encounter [facility] note* Diagnosis PAF (paroxysmal atrial fibrillation) (HCC)- Primary Atrial fibrillation documented in this encounter [facility] Summary Purpose Family History No Family History Records FoundNo Family History Records FoundNo Family History Records Found Advance Directives No Advanced Directives Records FoundNo Advanced Directives Records FoundNo Advanced Directives Records Found Reason for Referral Specialty Diagnoses / Procedures Referred By Carol drummond Referred To Contact CT IMAGING Diagnoses Persistent atrial fibrillation (HCC) Dyspnea, unspecified type Procedures CTA CHEST (NONGATED) W IVCON CT ANGIOGRAPHY CHEST W/CONTRAST/NONCONTRAST Suzan Acuña MD [address] [place] [address] [place] [address] Referral ID Status Reason Start Date Expiration Date Visits Requested Visits Authorized [id number] Authorized Auto-Generat ed Referral 11/28/2023 09/29/2024 1 1 Specialty Diagnoses / Procedures Referred By Carol drummond [facility] Diagnoses Persistent atrial fibrillation (HCC) Dyspnea, unspecified type [facility]-MODE COMPL SPEC&COLR D Suzan Acuña MD [address] [place] [address] [facility] [address] [place] [address] Referral ID Status Reason Start Date Expiration Date Visits Requested Visits Authorized [id number] Authorized Auto-Generat ed Referral 11/28/2023 08/30/2024 1 1 Additional Source Comments (unrecognized sect ion and content) No Status Records FoundNo Status Records FoundNo Status Records Found INFORMATION SOURCE (unrecogn ized section and content) DATE CREATED AUTHOR AUTHOR'S ORGANIZ ATION 01/21/2023 [facility] DATE CREATED AUTHOR AUTHOR'S ORGANIZ ATION 11/22/2023 [facility] Source Comments (unrecognize d section and content) In the event this informatio n is protected by the Federal Confidentiality of Alcohol and Drug Abuse Patient Records regulations: The Federal rules restrict any use of the information to criminally investigate or prosecute any alcohol or drug abuse patient.[facility] the event this information is protected by the Federal Confidentiality of Alcohol and Drug Abuse Patient Records regulations: The Federal rules restrict any use of the information to criminally investigate or prosecute any alcohol or drug abuse patient.[facility] the event this information is protected by the Federal Confidentiality of Alcohol and Drug Abuse Patient Records regulations: The Federal rules restrict any use of the information to criminally investigate or prosecute any alcohol or drug abuse patient.[facility] the event this information is protected by the Federal Confidentiality of Alcohol and Drug Abuse Patient Records regulations: The Federal rules restrict any use of the information to criminally investigate or prosecute any alcohol or drug abuse patient.[facility] the event this information is protected by the Federal Confidentiality of Alcohol and Drug Abuse Patient Records regulations: The Federal rules restrict any use of the information to criminally investigate or prosecute any alcohol or drug abuse patient.[facility] the event this information is protected by the Federal Confidentiality of Alcohol and Drug Abuse Patient Records regulations: The Federal rules restrict any use of the information to criminally investigate or prosecute any alcohol or drug abuse patient.[facility] the event this information is protected by the Federal Confidentiality of Alcohol and Drug Abuse Patient Records regulations: The Federal rules restrict any use of the information to criminally investigate or prosecute any alcohol or drug abuse patient.[facility] the event this information is protected by the Federal Confidentiality of Alcohol and Drug Abuse Patient Records regulations: The Federal rules restrict any use of the information to criminally investigate or prosecute any alcohol or drug abuse patient.[facility] the event this information is protected by the Federal Confidentiality of Alcohol and Drug Abuse Patient Records regulations: The Federal rules restrict any use of the information to criminally investigate or prosecute any alcohol or drug abuse patient.[facility] the event this information is protected by the Federal Confidentiality of Alcohol and Drug Abuse Patient Records regulations: The Federal rules restrict any use of the information to criminally investigate or prosecute any alcohol or drug abuse patient.[facility] the event this information is protected by the Federal Confidentiality of Alcohol and Drug Abuse Patient Records regulations: The Federal rules restrict any use of the information to criminally investigate or prosecute any alcohol or drug abuse patient.[facility] Hospital[facility] the event this information is protected by the Federal Confidentiality of Alcohol and Drug Abuse Patient Records regulations: The Federal rules restrict any use of the information to criminally investigate or prosecute any alcohol or drug abuse patient.[facility] Hospital[facility] the event this information is protected by the Federal Confidentiality of Alcohol and Drug Abuse Patient Records regulations: The Federal rules restrict any use of the information to criminally investigate or prosecute any alcohol or drug abuse patient.[facility] the event this information is protected by the Federal Confidentiality of Alcohol and Drug Abuse Patient Records regulations: The Federal rules restrict any use of the information to criminally investigate or prosecute any alcohol or drug abuse patient.[facility] Hospital[facility] the event this information is protected by the Federal Confidentiality of Alcohol and Drug Abuse Patient Records regulations: The Federal rules restrict any use of the information to criminally investigate or prosecute any alcohol or drug abuse patient.[facility] Reason for Visit (unrecogniz ed section and content) Reason Comments Patient Question Treatment Planning Reason Comments Cardiology Follow Up Follow up per Dr. Viday finch persistent a-fib Reason Comments Treatment Planning Reason Comments Patient Update Ablation reschedule. Reason Comments Preparations For Procedures Reason Comments Orders Reason Comments Remote Pacemaker Follow Up Reason Comments Arrhythmia Care Teams (unrecognized sec tion and content) Director Biomedical Engineering Relationship Specialty Start Date End Date Radha Mcelroy MD [address] [facility] [address] [place] [phone] PCP - General Internal Medicine 08/23/22 Jalen Mcdonald [address] [place] [address] Specialty Director Learning Cardiology 08/23/22 Director Biomedical Engineering Relationship Specialty Start Date End Date Urban Ledezma MD [address] [place], [place] [id number] PCP - General Family Medicine 12/26/22 Jalen Mcdonald [address] [facility] [address] [place] [address] Specialty Director Learning Cardiology 08/23/22 Director Biomedical Engineering Relationship Specialty Start Date End Date Urban Ledezma MD [address] [place], [place] [id number] PCP - General Family Medicine 12/26/22 Jalen Mcdonald [address] [place] [address] Specialty Director Learning Cardiology 08/23/22 Director Biomedical Engineering Relationship Specialty Start Date End Date Urban Ledezma MD [address] [facility]ENTER[facility] [address] [place], [place] [address] PCP - General Family Medicine 12/26/22 Jalen Mcdonald [address] [place] [address] Specialty Director Learning Cardiology 08/23/22 Suzan Acuña MD [address] [place] [address] Specialty Director Learning Cardiology 03/14/23 Director Biomedical Engineering Relationship Specialty Start Date End Date Urban Ledezma MD [address] [place] [address] PCP - General Family Medicine 12/26/22 Jalen Mcdonald [address] [place] [address] Specialty Director Learning Cardiology 08/23/22 Suzan Acuña MD [address] [place] [address] Specialty Director Learning Cardiology 03/14/23 Director Biomedical Engineering Relationship Specialty Start Date End Date Urban Ledezma MD [address] [place] [address] PCP - General Family Medicine 12/26/22 Suzan Acuña MD [address] [place] [address] Specialty Director Learning Cardiology 03/14/23 Jeovany Liz [address] [place] [address] Nurse Practitioner Cardiology 08/28/23 Latrell Hdz MD [address] [place] [address] Specialty Director Learning Cardiology 08/28/23 Director Biomedical Engineering Relationship Specialty Start Date End Date Urban Ledezma MD [address] [place] [address] [place] [address] PCP - General Family Medicine 12/26/22 Suzan Acuña MD [address] [place] [phone] Specialty Director Learning Cardiology 03/14/23 Jeovany Liz [address] [address] Nurse Practitioner Cardiology 08/28/23 Latrell Hdz MD [address] [address] Specialty Director Learning Cardiology 08/28/23 Director Biomedical Engineering Relationship Specialty Start Date End Date Urban Ledezma MD [address] [place] [address] PCP - General Family Medicine 12/26/22 Suzan Acuña MD [address] [place] [phone] Specialty Director Learning Cardiology 03/14/23 Jeovany Liz [address] [address] Nurse Practitioner Cardiology 08/28/23 Latrell Hdz MD [address] [place] [address] Specialty Director Learning Cardiology 08/28/23 Director Biomedical Engineering Relationship Specialty Start Date End Date Urban Ledezma MD [address] [facility] [place] [address] PCP - General Family Medicine 12/26/22 Suzan Acuña MD [address] [place] [phone] (Fax) Specialty Director Learning Cardiology 03/14/23 Jeovany Liz [address] [place] [address] Nurse Practitioner Cardiology 08/28/23 Laterll Hdz MD [address] [place] [address] Specialty Director Learning Cardiology 08/28/23 Director Biomedical Engineering Relationship Specialty Start Date End Date Urban Ledezma MD [address] [place] [address] PCP - General Family Medicine 12/26/22 Suzan Acuña MD [address] [place] [phone] Specialty Director Learning Cardiology 03/14/23 Jeovany Liz [address] [place] [address] Nurse Practitioner Cardiology 08/28/23 Latrell Hdz MD [address] [place] [address] Specialty Director Learning Cardiology 08/28/23 FOR RECORDS PERTAINING TO PATIENTS WHO ARE OR HAVE BEEN ENROLLED IN A CHEMICAL DEPENDENCY/SUBSTANCEABUSE PROGRAM, SOME INFORMATION MAY BE OMITTED. This clinical summary was aggregated from multiple sources. Caution should be exercised in using it in the provision of clinical care. This summary normalizes information from multiple sources, and as a consequence, information in this document may materially change the coding, format and clinical context of patient data. In addition, data may be omitted in some cases. CLINICAL DECISIONS SHOULD BE BASED ON THE PRIMARY CLINICAL RECORDS. [facility] provides no warranty or guarantee of the accuracy or completeness of information in this document.
[2023-11-27 16:06] LABS: ALB/GLOB Ratio 1.1 RATIO (0.9-2.4); AST(SGOT) 11 U/L (15-37); Alanine Aminotransfer ALT/SGPT 19 U/L (16-61); Albumin, Serum 3.5 g/dL (3.2-5.0); Alkaline Phosphatase 69 U/L (45-117); Anion Gap 6 (5-15); BUN 14 mg/dL (7-18); BUN/Creat Ratio 14.6 RATIO (10-20); Calcium,Total 8.3 mg/dL (8.5-10.1); Chloride 108 mmol/L (98-107); Cholesterol 120 mg/dL (200); Creatinine, Serum 0.96 mg/dL (0.70-1.30); EST Glomerular Filtration Rate 81 mL/min (>60); Est Glom Filt Rate - Afr Amer 98 mL/min (>60); Globulin 3.2 g/dL (2.2-4.2); Glucose 133 mg/dL (74-106); High Density Lipoprotein 41 mg/dL; Potassium 3.7 mmol/L (3.5-5.1); Protein, Total 6.7 g/dL (6.4-8.2); Sodium Level 141 mmol/L (136-145); Thyroid Stim Hormone (TSH) 1.75 uIU/mL (0.358-3.74); Triglycerides 74 mg/dL; Very Low Density Lipoprotein 15 mg/dL (5-40)
== END | disposition home or self-care (01) ==
PROVIDERS: PCP Family Medicine; Referring Provider Family Medicine; Visit Provider Family Medicine
DX: I48.91 Unspecified atrial fibrillation (principal); E11.22 Type 2 diabetes mellitus with diabetic chronic kidney disease; N18.9 Chronic kidney disease, unspecified
CPT/HCPCS: 36415; 80053; 80061; 84443

== ENCOUNTER → 2024-08-22 | Outpatient (CLI) | payer MEDICARE, SELFPAY ==
[2024-08-22 12:17] LABS: Hematocrit 39.5 % (40-54); Hemoglobin 13.2 g/dL (13.0-16.5); Mean Corp Hgb Conc 33.4 g/dL (32-36); Mean Corpuscular Hgb 29.9 pg (27.0-32.0); Mean Corpuscular Volume 89.6 fL (80-94); Mean Platelet Vol. 10.1 fl (6.2-12.0); Platelet Count 180 K/mm3 (150-450); RBC Distribution Width CV 12.7 % (11.6-14.6); RBC Distribution Width SD 41.9 fl (35.1-43.9); Red Blood Count 4.41 M/mm3 (4.6-6.2); White Blood Count 4.5 K/mm3 (4.4-11.0)
[2024-08-22 13:16] LABS: AST(SGOT) 17 U/L (15-37); Alanine Aminotransfer ALT/SGPT 19 U/L (16-61); Albumin, Serum 3.5 g/dL (3.2-5.0); Alkaline Phosphatase 67 U/L (45-117); Anion Gap 5 (5-15); BUN 14 mg/dL (7-18); BUN/Creat Ratio 14.6 RATIO (10-20); Chloride 108 mmol/L (98-107); Cholesterol 110 mg/dL (200); Creatinine, Serum 0.96 mg/dL (0.70-1.30); EST Glomerular Filtration Rate 81 mL/min (>60); Est Glom Filt Rate - Afr Amer 98 mL/min (>60); Globulin 3.4 g/dL (2.2-4.2); Glucose 137 mg/dL (74-106); High Density Lipoprotein 40 mg/dL; Potassium 4.1 mmol/L (3.5-5.1); Protein, Total 6.9 g/dL (6.4-8.2); Sodium Level 137 mmol/L (136-145); Triglycerides 64 mg/dL; Very Low Density Lipoprotein 13 mg/dL (5-40)
== END | disposition home or self-care (01) ==
LOC: MFPLAB 10:56
PROVIDERS: PCP Family Medicine; Visit Provider Family Medicine
DX: E11.22 Type 2 diabetes mellitus with diabetic chronic kidney disease (principal); I48.91 Unspecified atrial fibrillation
CPT/HCPCS: 36415; 80053; 80061; 84443; 85027

== ENCOUNTER 2025-05-29 19:22 | Emergency (ER) | payer MEDICARE, SELFPAY ==
[2025-05-29 19:23] VITALS: BP 175/100; PULSE 93; RESP 16; TEMP 36.7; O2SAT 98; BMI 29.2
[2025-05-29 20:00] VITALS: BP 177/113
--- NOTE | 2025-05-29 20:30 | CT_ITS ---
PROCEDURE: BRAIN/HEAD WITHOUT CONTRAST 05/29/2025 REASON FOR EXAM: HEADACHE TECHNIQUE: BRAIN/HEAD WITHOUT CONTRAST Coronal and Sagittal reconstruction series were provided. One or more dose reduction techniques were used (e.g., Automated exposure control, adjustment of the mA and/or kV according to patient size, use of iterative reconstruction technique. RADIATION DOSE SUMMARY: CTDlvol: 45 mGy DLP: 830 mGycm COMPARISON: None FINDINGS: Brain: No acute intracranial hemorrhage, mass effect, or midline shift. Low density in the periventricular white matter suggests mild chronic small vessel ischemic changes. CSF Spaces: Mild generalized cerebral atrophy Sinuses/Mastoids: Mucosal thickening at the floor of the maxillary sinuses. Bones: Unremarkable Status post bilateral cataract extraction. CT/Brain/Head without Contrast IMPRESSION: 1. No acute intracranial abnormality. 2. Mild chronic microvascular ischemic changes. Consider MRI if there is conc andrea for acute ischemia. Reading Location: [id number]
--- NOTE | 2025-05-29 20:32 | EDS_ITS ---
HPI History of Present Illness Chief Complaint: Hypertension Narrative Narrative: Chief complaint and HPI: HTN. 80-year-old male with past medical history of HTN, HLD, DM2, atrial fibrillation on Xarelto presents for evaluation of hypertension. Patient states yesterday he developed a headache. States he took his blood pressure SBP was in the 170s. States the headache has continued today and rechecked his blood pressure with the same resolved. Called his primary care's office who told him to come to the emergency department. Patient states that on multiple appointments, he has noticed that his blood pressure has been increasing. He is currently on 100 mg of metoprolol daily and 50 mg of losartan daily. Home medications in the chart say 25 mg that patient states that is incorrect. He denies any fever, chills, vision changes, presyncope, syncope, chest pain, shortness of breath abdominal pain, nausea, vomiting. Review of systems: See HPI Medications: As listed on the chart Allergies: As listed on the chart PFSH: Per chart Vital signs: As listed on the chart. Reviewed. Physical exam: Gen: A&O x3, NAD Head: Normocephalic, atraumatic, PERRL, EOMI Eyes: No sclera icterus, conjunctiva clear ENT: Moist mucous membranes Neck: Trachea midline, No JVD CV: Regular rate, irregular rhythm, no murmurs, no peripheral edema Resp: Lungs CTA BL, no w/r/c GI: Abd soft, non-distended, non-tender, no r/r/g Musc: Full ROM, no deformity Skin: Warm, dry Neuro: Alert, oriented, grossly intact, sensation intact Psych: Cooperative, appropriate mood and affect [facility] Medical History Typical atrial flutter Ventricular ectopy History of cardioversion (~07/26/22) Essential hypertension Wears glasses Wears hearing aid in both ears Bruises easily Alcohol use Cancer Diabetes Arthritis Former smoker Sleep apnea Atrial fibrillation Atherosclerosis of coronary artery of [place] heart without angina pectoris Fatty liver Hiatal hernia Anemia Depression Hyperlipidemia Non-sustained ventricular tachycardia Home Medications ?Medication ?Instructions ?Recorded ?Last Taken ?Type tamsulosin 0.4 mg capsule 0.4 mg PO QHS urine flow Unknown History metformin 500 mg tablet,extended 500 mg PO DAILY BLOOD SUGAR 90 09/07/20 Unknown History release 24 hr days #90 tabs vit A 1,000 unit-C 60 mg-E 30 1 tab PO DAILY 03/14/22 Unknown History unit-zinc oxid-selenium AA-copper tablet simvastatin 40 mg tablet 40 mg PO DAILY #90 tabs /04/03 Unknown Rx multivitamin 1 tab PO DAILY 04/26/23 Unkn own History potassium chloride 20 mEq 20 meq PO QHS supplement #90 tabs 07/09/24 Unknown Rx tablet,extended release Xarelto 20 mg tablet (rivaroxaban) See Rx Instructions .Route 10/04/24 Unknown Rx .COMPLEX #90 tabs aspirin 81 mg tablet 81 mg PO QDAY 05/05/25 Unkno wn History glimepiride 2 mg tablet 2 mg PO QDAY 05/05/25 Unknow n History losartan 25 mg tablet 25 mg PO QDAY 05/05/25 Unkno wn History metoprolol succinate 100 mg 100 mg PO QDAY 05/05/25 Un known History tablet,extended release 24 hr potassium chloride 20 mEq 20 meq PO QDAY 05/05/25 Unkn own History tablet,extended release(part/cryst) (Klor-Con M) Allergy/AdvReac Type Severity Reaction Status Date / Time No Known Allergies Allergy Verified 05/29/25 19:26 Family History Father Myocardial infarction age 63 Brother CAD (coronary artery disease) Cancer testicular Surgical History History of colonoscopy History of cardiac catheterization History of left heart catheterization (10/28/08) H/O right inguinal hernia repair Social History Smoking Status: Former smoker how long ago did patient quit smokin years ago alcohol intake: current alcohol intake frequency: a few times a month substance use type: does not use caffeine: Yes Type: coffee Number of servings: 4 EXAM Physical Exam Const Vital Signs: 05/29/25 19:23 05/29/25 20:00 05/29/25 20:02 Temperature 98.0 F Temperature Source Temporal Pulse Rate 93 Respiratory Rate 16 Respiratory Effort Normal Respiratory Pattern Normal Blood Pressure 175/100 H 177/113 H Blood Pressure Mean 125 134 Pulse Ox 98 Oxygen Delivery Method Room Air 05/29/25 20:34 05/29/25 20:54 05/29/25 21:52 Temperature 97.9 F Temperature Source Pulse Rate 77 Respiratory Rate 20 H Respiratory Effort Respiratory Pattern Blood Pressure 174/137 H 168/121 H 165/100 H Blood Pressure Mean 149 136 121 Pulse Ox 98 Oxygen Delivery Method MDM MDM MDM Narrative Medical decision making narrative: 80-year-old male with past medical history of HTN, HLD, DM2, atrial fibrillation on Xarelto presents for evaluation of hypertension. Associated symptom is headache. See HPI. On presentation, patient no acute distress. He is hypertensive otherwise vitals are unremarkable. Differential diagnosis includes but is not limited to hypertension urgency, hypertension emergency, intracranial bleed, tension headache, dehydration. IV hydralazine ordered with cardiac workup and CT head. CBC without leukocytosis or anemia. Platelets unremarkable. BMP unremarkable. Troponin unremarkable. BNP unremarkable. CT of the brain shows no acute intracranial abnormality. Patient has mild chronic microvascular ischemic changes. On reevaluation, patient's blood pressure has improved. Suspect patient's symptoms are secondary to worsening essential hypertension. At home, patient takes 100 mg of metoprolol and 50 mg of losartan. Will increase him to 50 mg losartan twice daily. Will give him his evening dose now. Continue to monitor blood pressure at home. Follow-up with primary care physician. He was educated that he needs to call his primary care physician tomorrow letting them know I increased his blood pressure medication. He confirmed understand the plan. Return precautions explained. EKG: Interpreted by me/EM physician: EKG shows atrial fibrillation. Nonspecific T wave abnormalities. Heart rate 94. Diagnostic: Interpreted by me/EM physician: Chest x-ray without pneumonia, effusion, c ardiomegaly, pneumothorax. Radiology in agreement. Impression: 1. HTN with history of HTN 2. Headache Lab Data Labs: Laboratory Results - last 24 hr 05/29/25 19:33 WBC 5.6 RBC 4.35 L Hgb 13.4 Hct 38.7 L MCV 89.0 MCH 30.8 MCHC 34.6 RDW Std Deviation 43.7 RDW Coeff of Main 13.4 Plt Count 196 MPV 9.6 Immature Gran % (Auto) 0.500 Neut % (Auto) 61.0 Lymph % (Auto) 27.0 Starke % (Auto) 8.5 Eos % (Auto) 2.1 Baso % (Auto) 0.9 Absolute Neuts (auto) 3.4 Absolute Lymphs (auto) 1.52 Nucleated RBC % 0 Sodium 139 Potassium 4.2 Chloride 102 Carbon Dioxide 25.1 Anion Gap 13 BUN 15 Creatinine 0.87 Estim Creat Clear Calc 84.87 Est GFR (MDRD) Non-Af 88 BUN/Creatinine Ratio 16.7 Glucose 103 H Calcium 9.8 Troponin T High Sens 11 NT pro BNP II 1627 Radiography Diagnostic Testing: Clinical Impression(s) from Imaging Studies Brain CT 05/29/25 20:30 IMPRESSION: 1. No acute intracranial abnormality. 2. Mild chronic microvascular ischemic changes. Consider MRI if there is concern for acute ischemia. Reading Location: [facility] Chest X-Ray 05/29/25 20:34 IMPRESSION: No acute cardiopulmonary abnormality. Reading Location: [facility] Discharge Plan Triage Chief Complaint: Hypertension ED Provider: Mick Grissom Dx/Rx/DC Orders Prescriptions: No Action metformin 500 mg tablet extended release 24 hr 500 mg PO DAILY 90 Days Qty: 90 tamsulosin 0.4 mg capsule 0.4 mg PO QHS A-C-E-zinc ox-selen AA-copper 1,000 unit-60 mg-30 unit tablet 1 tab PO DAILY multivitamin Tablet 1 tab PO DAILY metoprolol succinate 100 mg tablet extended release 24 hr 100 mg PO QDAY glimepiride 2 mg tablet 2 mg PO QDAY potassium chloride [Klor-Con M20] 20 mEq tablet,ER particles/crystals 20 meq PO QDAY losartan 25 mg tablet 25 mg PO QDAY aspirin 81 mg tablet 81 mg PO QDAY simvastatin 40 mg tablet 40 mg PO DAILY Qty: 90 0RF potassium chloride 20 mEq tablet extended release 20 meq PO QHS Qty: 90 3RF Xarelto 20 mg tablet See Rx Instructions .ROUTE .COMPLEX Qty: 90 3RF Dose Instruction: TAKE 1 TABLET BY MOUTH EVERY DAY Rx Instructions: TAKE 1 TABLET BY MOUTH EVERY DAY Primary Care Provider: Sammy Ledezma Referrals: Sammy Ledezma MD [Primary Care Provider] - Print Language: Spanish
[2025-05-29 20:34] VITALS: BP 174/137
--- NOTE | 2025-05-29 20:34 | RAD_ITS ---
PROCEDURE: CHEST PA AND LATERAL 05/29/2025 REASON FOR EXAM: HTN TECHNIQUE: CHEST PA AND LATERAL COMPARISON: Chest radiograph dated 12/03/2021 FINDINGS: Hardware: None Heart: The heart size is normal. Mediastinum: The mediastinal contour is stable. Lungs: No focal consolidation or pleural effusion. Bones: Degenerative changes are identified within the thoracic spine. RAD/Chest PA and Lateral IMPRESSION: No acute cardiopulmonary abnormality. Reading Location: [id number]
[2025-05-29 20:39] LABS: Hematocrit 38.7 % (40-54); Hemoglobin 13.4 g/dL (13.0-16.5); Immature Granulocytes Count 0.030 X10^3/uL (0.0-0.0); Mean Corp Hgb Conc 34.6 g/dL (32-36); Mean Corpuscular Volume 89.0 fL (80-94); Mean Platelet Vol. 9.6 fl (6.2-12.0); NRBC Flagged by Analyzer 0 % (0-5); Platelet Count 196 K/mm3 (150-450); RBC Distribution Width CV 13.4 % (11.6-14.6); RBC Distribution Width SD 43.7 fl (35.1-43.9); Red Blood Count 4.35 M/mm3 (4.6-6.2); White Blood Count 5.6 K/mm3 (4.4-11.0)
[2025-05-29 20:54] VITALS: BP 168/121
--- OUTSIDE RECORDS SUMMARY | 2025-05-29 21:03 | XMS RPT_ITS | CCD ---
Author Organization [facility] Care Team Providers Care Screen Print Operator Name Role Phone Dr. Osbaldo Ledezma Primary Care Provider Dr. Osbaldo Ledezma Referring Provider [facility] REHAB MANAGER, REHAB MANAGER-Stephon Rea Attending Provider Dr. Osbaldo Ledezma Primary Care Provider [phone] Dr. Jalen Echeverria Attending Provider Dr. Osbaldo Ledezma Referring Provider Dr. Jalen Echeverria Referring Provider Dr. Jalen Echeverria Other Provider Dr. Kai Marmolejo Attending Provider Jalen Echeverria F Unavailable Radha Mcelroy MD Primary Care Provider Dr. Osbaldo Ledezma Primary Care Provider [phone] Dr. Jalen Echeverria Attending Provider Dr. Osbaldo Ledezma Referring Provider Dr. Jalen Echeverria Referring Provider Dr. Jalen Echeverria Other Provider Dr. Kai Marmolejo Attending Provider Jalen Echeverria F Unavailable Radha Mcelroy MD Primary Care Provider [phone] Urban Ledezma MD Primary Care Provider Dr. Osbaldo Ledezma Primary Care Provider Dr. Osbaldo Ledezma Referring Provider Dr. Jalen Echeverria Attending Provider Dr. Stephen Topete Attending Provider [facility] REHAB MANAGER, REHAB MANAGER-C Jeovany Rea Attending Provider Domenico GOLDBERG, Suzan Hoang Unavailable Jalen Echeverria Unavailable Urban Ledezma MD Primary Care Provider Domenico GOLDBERG, Suzan Hoang Unavailable Jeovany Liz Unavailable Andreina GOLDBERG, [place] S Unavailable Urban Ledezma MD Primary Care Provider [facility] STREAM CONTROL OFFICER.MARQUISE, Jeovany Rea Unavailable Cordelia Blackwood MD Unavailable Kai Marmolejo MD Unavailable TETE MARQUEZ Admitting Unavailable TETE MARQUEZ Attending Unavailable URBAN LEDEZMA Primary Care Unavailabl SUZAN Mcdonough Attending Unavailable URBAN LEDEZMA Primary Care Unavailabl URBAN Adamson Referring UnavailSUZAN Smyth Attending Unavailable CORDELIA BLACKWOOD Referring Unavailable URBAN LEDEZMA Primary Care Unavailabl TORO He Attending Unavailable SELF Referring Unavailable URBAN LEDEZMA Primary Care Unavailabl CORDELIA Sosa Attending Unavailable URBAN LEDEZMA Primary Care UnavailCORDELIA Monsivais Attending Unavailable CORDELIA BLACKWOOD Referring Unavailable URBAN LEDEZMA Primary Care Unavailperla Ledezma MD, Dr. Christianson Primary Care Provider Dr. Urban Ledezma MD Referring Provider Mariya DENT-CDanuta Attending Provider Urban Ledezma Referring Unavailable Danuta Meraz NP Attending Unavailable Urban Ledezma Primary Care Unavailable Urban Ledezma Primary Care Unavailable Urban Ledezma Attending Unavailable Allergies Allergy Classification Reported Allergen(s) Allergy Type Date of Onset Reaction(s) Facility (20 sources) Dexamethasone Phos-Lidocaine; Translations: [DEXAMETHASONE PHOS-LIDOCAINE] Propensity to adverse reactions to drug 3 Other: See Comments [facility] Medications Current Medications Medication Drug Class(es) Dates Sig (Normalized) Sig (Original) A-C-E-Zinc Ox-Selen Aa-Copper (13 sources) Start: 03-14-2022 take 1 tablet by mouth once daily A-C-E-Zinc Ox-Selen Aa-Copper Active 1 TABLET PO DAILY March 13, 2022 11:00pm Start: 03-14-2022 take 1 tablet by rafael th once daily A-C-E-Zinc Ox-Selen Aa-[place] Active 1 TABLET PO DAILY March 14, 2022 12:00am A-C-E-Zinc Ox-Selen Aa-Copper 1,000 unit-60 mg-30 unit tablet (1 source) Start: 03-14-2022 A-C-E-Zinc Ox-Selen Aa-Copper 1,000 unit-60 mg-30 unit tablet Active 1 {tbl} PO DAILY March 14, 2022 12:00am aspirin 81 mg oral tablet (20 sources) Platelet Aggregation Inhibitor, Nonsteroidal Anti-inflammatory Drug Start: 05-05-2025 take 1 tablet by mouth once daily Aspirin 81 mg tablet Active 81 mg PO daily May 05, 2025 12:00am Start: 11-30-2023 take 1 tablet by rafael th once daily aspirin, enteric coated (ADULT LOW DOSE ASPIRIN) 81 mg EC tablet Indications: Thrombus of left atrial appendage Take 1 tablet by mouth once daily. 11/30/2023 Active Start: 05-11-2018 End: 08-15-2019 Aspirin (Adult Low Dose Aspi rin) 81 mg tablet,delayed release (DR/EC) Discontinued 81 mg PO DAILY May 11, 2018 12:00am August 15, 2019 2:55pm End: 08-24-2022 take 1 tablet by mouth once daily Aspirin 81 mg tab Take 81 mg by mouth once daily. 0 08/24/2022 Discontinued (Other) Comment on above: Take 81 mg by mouth once daily. cholecalciferol 0.05 mg oral tablet (20 sources) Vitamin D Start: 03-17-20 take 1 tablet by mouth once daily cholecalciferol (VITAMIN D-3) 50 mcg (2,000 unit) tablet Take 1 tablet by mouth once daily. 03/17/2025 Active Start: 12-03-2021 End: 11-09-2022 take 1 capsule by mouth once daily as needed Cholecalciferol (Vitamin D3) 50 mcg (2,000 unit) capsule Discontinued 50 ug PO DAILY as needed for supplement July 14, 2022 2:01pm November 09, 2022 3:17pm ciprofloxacin 500 mg oral tablet (6 sources) Quinolone Antimicrobial Start: 07-23-2022 take 500 mg by mouth twice daily Ciprofloxacin Hcl Active 500 MG PO TWICE A DAY July 23, 2022 12:00am FLAXSEED OIL ORAL (10 sources) take 1 capsule by mouth once daily FLAXSEED OIL ORAL Take 1 capsule by mouth once daily. Active take 1 capsule by mouth once jacquie ly FLAXSEED OIL ORAL Take 1 capsule by mouth once daily. 0 Active glimepiride 2 mg oral tablet (20 sources) Sulfonylurea Start: 05-05-2025 take 1 tablet by mouth once daily Glimepiride 2 mg tablet Active 2 mg PO daily May 05, 2025 12:00am Start: 12-28-2023 take 1 tablet by rafael th once daily in the morning glimepiride (AMARYL) 2 mg tablet Take 2 mg by mouth every morning. 12/28/2023 Active Start: 09-07-2020 End: 03-14-2022 take 1 tablet by mouth once daily Glimepiride 2 mg tablet Discontinued 2 mg PO DAILY September 07, 2020 12:00am March 14, 2022 10:07am linseed oil 1000 mg oral capsule (1 source) Start: 03-17-2025 Flaxseed Oil 1,000 mg cap Take by mouth. 03/17/2025 Active losartan potassium 25 mg oral tablet (20 sources) Angiotensin 2 Receptor Chad Start: 05-05-2025 take 1 tablet by mouth once daily Losartan 25 mg tablet Active 25 mg PO daily May 05, 2025 12:00am Start: 01-20-2025 End: 03-02-2025 take 1 tablet by mouth once daily losartan (COZAAR) 25 mg tablet Indications: Primary hypertension Take 1 tablet by mouth once daily. 90 tablet 3 03/03/2025 Active Start: 12-04-2023 End: 01-20-2025 take 0.5 tablet by mouth once daily losartan (COZAAR) 25 mg tablet Take 0.5 tablets by mouth once daily. 45 tablet 3 11/28/2024 01/20/2025 Discontinued magnesium glycinate 100 mg magnesium capsule (1 source) Start: 03-17-2025 take 2 capsules by mouth once daily magnesium glycinate 100 mg magnesium capsule Take 2 capsules by mouth once daily. 03/17/2025 Active 24 hr metFORMIN hydrochloride 500 mg extended release oral tablet (20 sources) Biguanide Start: 09-07-2020 take 1 tablet by mouth once daily at dinner metFORMIN ER (GLUCOPHAGE XR) 500 mg 24 hr tablet Take 500 mg by mouth daily with dinner. 08/26/2024 Active Start: 05-11-2018 End: 09-07-2020 Metformin 500 mg tablet exte nded release 24 hr Discontinued 1000 mg PO DAILY 90 90 May 11, 2018 12:00am September 07, 2020 2:19pm Start: 05-11-2018 End: 09-07-2020 take 1000 mg by mouth once daily Metformin Discontinued 1000 MG PO DAILY 90 90 May 10, 2018 11:00pm September 07, 2020 1:19pm take 1 tablet by rafael th once daily at dinner metFORMIN (GLUCOPHAGE) 500 mg tablet Take 500 mg by mouth daily with dinner. Active Comment on above: Take 500 mg by mouth daily with dinner. 24 hr metoprolol succinate 100 mg extended release oral tablet (20 sources) beta-Adrenergic Chad Start: 05-05-2025 take 1 tablet by mouth once daily Metoprolol Succinate 100 mg tablet extended release 24 hr Active 100 mg PO daily May 05, 2025 12:00am Start: 11-30-2023 End: 11-26-2024 take 1 tablet by mouth once daily metoprolol succinate ER (TOPROL XL) 100 mg Indications: Persistent atrial fibrillation (HCC) , Atrial flutter, unspecified type (HCC) , Dilated cardiomyopathy (HCC) Take 1 tablet by mouth once daily. 90 tablet 3 11/27/2024 Active multivit with minerals/lutei n (MULTIVITAMIN 50 PLUS ORAL) (20 sources) take 1 tablet by mouth once daily multivit with minerals/lutein (MULTIVITAMIN 50 PLUS ORAL) Take 1 tablet by mouth once daily. Active take 1 tablet by mouth once asim y multivit with minerals/lutein (MULTIVITAMIN 50 PLUS ORAL) Take 1 tablet by mouth once daily. 0 Active Multivitamin preparation (1 source) Start: 04-26-2023 take 1 tablet by mouth once daily Multivitamin Active 1 TABLET PO DAILY April 25, 2023 11:00pm Multivitamin tablet (1 source) Start: 04-26-2023 Multivitamin t ablet Active 1 {tbl} PO DAILY April 26, 2023 12:00am microencapsulated potassium chloride 20 meq extended release oral tablet (20 sources) Start: 05-05-2025 Potassium Chlo ride (Klor-Con M20) 20 mEq tablet,ER particles/crystals Active 20 meq PO daily May 05, 2025 12:00am Start: 12-21-2018 End: 11-28-2024 take 1 tablet by mouth at bedtime Potassium Chloride 20 mEq tablet extended release Discontinued 20 meq PO AT BEDTIME June 27, 2024 4:26pm July 09, 2024 11:31am End: 08-24-2022 potassium chloride (KLOR-CON ) 20 mEq packet Take by mouth twice daily. 0 08/24/2022 Discontinued (Changing Therapy/Dosage Form) Comment on above: Take 1 tablet by rafael th daily at bedtime. Take by mouth twice daily. tamsulosin hydrochloride 0.4 mg oral capsule (20 sources) alpha-Adrenergic Chad Start: 0 take 1 capsule by mouth at bedtime Tamsulosin 0.4 mg capsule Active 0.4 mg PO AT BEDTIME March 04, 2020 12:00am Comment on above: Take 0.4 mg by mouth once daily. Take 0.4 mg by mouth daily at bedtime. taurine 1000 mg oral capsule (1 source) Start: 5 Taurine 1,000 mg cap Take 3 capsules by mouth. 03/17/2025 Active zinc acetate 50 mg oral capsule (1 source) Start: 5 Zinc Acetate, Oral, 50 mg (zinc) cap Take 50 capsules by mouth once daily. 03/17/2025 Active Completed/Discontinued Medications Medication Drug Class(es) Dates Sig (Normalized) Sig (Original) acetaminophen 325 mg / HYDROcodone bitartrate 5 mg oral tablet (14 sources) Opioid Agonist Start: 07-09-2019 End: 07-15-2019 Hydrocodone-Acetami nophen 1 TABLET tablet Discontinued 1 - 2 {tbl} PO EVERY 4 HOURS NEEDED as needed for Pain 01 04July 09, 2019 July 13, 2019 12:00am July 15, 2019 12:08am Start: 07-09-2019 End: 07-15-2019 take 1 tablet by mouth every four hours as needed Hydrocodone-Acetaminophen Discontinued 1 - 2 TABLET PO EVERY 4 HOURS NEEDED 01 04July 09, 2019 July 14, 2019 11:08pm Acidophilus-Pectin, [place] (13 sources) Start: 12-20-2018 End: 08-15-2019 take 1 capsule by mouth once daily Acidophilus-Pectin, [place] Discontinued 1 CAP PO DAILY December 20, 2018 12:00am August 15, 2019 1:55pm Start: 12-20-2018 End: 08-15-2019 take 1 capsule by mouth once daily Acidophilus-Pectin, [place] Discontinued 1 CAP PO DAILY December 20, 2018 1:00am August 15, 2019 2:55pm Acidophilus-Pectin, [place] 1 EACH capsule (1 source) Start: 12-20-2018 End: 08-15-2019 take 1 capsule by mouth once daily Acidophilus-Pectin, [place] 1 EACH capsule Discontinued 1 NMA PO DAILY December 20, 2018 1:00am August 15, 2019 2:55pm amiodarone hydrochloride 200 mg oral tablet (14 sources) Antiarrhythmic Start: 12-21-2018 End: 12-24-2018 take 1 tablet by mouth twice daily Amiodarone 200 mg tablet Discontinued 200 mg PO TWICE A DAY December 21, 2018 1:00am December 24, 2018 10:20am On Hold: Will begin if not tolerate Cardizem atenolol 50 mg oral tablet (20 sources) beta-Adrenergic Chad Start: 07-14-2022 End: 08-02-2023 take 1 tablet by mouth twice daily Atenolol 50 mg tablet Discontinued 50 mg PO TWICE A DAY September 08, 2022 3:41pm August 02, 2023 2:21pm Start: 06-15-2022 End: 07-14-2022 take 1 tablet by mouth once daily Atenolol 50 mg tablet Discontinued 50 mg PO DAILY June 15, 2022 12:00am July 14, 2022 2:51pm Start: 12-03-2021 End: 12-03-2021 take 2 tablets by mouth once daily Atenolol 25 mg tablet Discontinued 50 mg PO DAILY December 03, 2021 7:05am December 03, 2021 1:31pm Start: 12-03-2021 End: 12-03-2021 take 50 mg by mouth once daily Atenolol Discontinued 5 0 MG PO DAILY December 03, 2021 6:05am December 03, 2021 12:31pm Start: 10-04-2021 End: 06-15-2022 take 1 tablet by mouth once daily Atenolol 25 mg tablet Discontinued 25 mg PO DAILY December 03, 2021 1:31pm June 15, 2022 3:50pm Start: 09-24-2021 End: 10-04-2021 Atenolol 25 mg tablet Discon tinued 12.5 mg PO DAILY September 24, 2021 1:34pm October 04, 2021 1:35pm Start: 09-24-2021 End: 10-04-2021 take 12.5 mg by mouth once daily Atenolol Discontinued 12.5 MG PO DAILY September 24, 2021 12:34pm October 04, 2021 12:35pm Start: 09-15-2021 End: 09-24-2021 take 1 tablet by mouth once daily Atenolol 25 mg tablet Discontinued 25 mg PO DAILY September 15, 2021 12:00am September 24, 2021 1:35pm Start: 05-11-2018 End: 09-15-2021 take 1 tablet by mouth once daily Atenolol 50 mg tablet Discontinued 0 .ROUTE .COMPLEX November 16, 2020 12:19pm March 18, 2021 11:57am TAKE 1 TABLET BY MOUTH EVERY DAY Comment on above: Take 50 mg by mouth twice daily. augmented betamethasone 0.5 mg/ml topical cream (1 source) Corticosteroid Start: 02-21-20 End: 03-13-20 betamethasone dipropionate, augmented (DIPROLENE) 0.05 % cream Apply to lower legs 1 to 2 times daily as needed 0 02/21/2024 03/13/2024 Discontinued (Other) cephalexin 500 mg oral capsule (14 sources) Cephalosporin Antibacterial Start: 12-19-19 End: 12-20-19 take 1 capsule by mouth every twelve hours Cephalexin 500 MG capsule Discontinued 500 mg PO EVERY 12 HOURS December 19, 2018 1:00am December 20, 2018 8:59pm Copper, zinc, selenium (13 sources) Start: 12-03-19 End: 03-14-20 Copper, zinc, selenium Discontinued PO December 03, 2021 12:00am March 14, 2022 8:55am Start: 12-03-2021 End: 03-14-2022 Copper, zinc, selenium Disco ntinued PO December 03, 2021 1:00am March 14, 2022 9:55am Copper, zinc, selenium 1 TABLET (1 source) Start: 12-03-2021 End: 03-14-2022 Copper, zinc, selenium 1 TABLET Discontinued PO December 03, 2021 1:00am March 14, 2022 9:55am 24 hr dilTIAZem hydrochloride 120 mg extended release oral capsule (20 sources) Calcium Channel Chad Start: 07-07-2022 End: 11-09-2022 take 1 capsule by mouth once daily Diltiazem Hcl 120 mg capsule,extended release 24hr Discontinued 120 mg PO DAILY July 07, 2022 12:00am November 09, 2022 3:17pm On Hold: Order Changed Start: 03-18-2021 End: 12-29-2021 take 1 capsule by mouth every twenty-four hours at bedtime Diltiazem Hcl 120 mg capsule,extended release 24hr Discontinued 120 mg PO AT BEDTIME July 20, 2021 11:44am December 29, 2021 3:07pm On Hold: Syncopal episode Start: 12-21-2018 End: 12-29-2021 take 1 capsule by mouth once daily Diltiazem Hcl 120 mg capsule,extended release 24hr Discontinued 120 mg PO DAILY July 17, 2020 4:47pm March 18, 2021 11:57am End: 08-24-2022 take 1 tablet by mouth four times daily dilTIAZem (CARDIZEM) 120 mg tablet Take 120 mg by mouth four times daily. 0 08/24/2022 Discontinued (Changing Therapy/Dosage Form) Comment on above: Take 120 mg by mouth four times daily. Take 120 mg by mouth once daily. hydroCHLOROthiazide 12.5 mg oral capsule (14 sources) Thiazide Diuretic Start : 12-20 End: 12-14 take 1 capsule by mouth at bedtime Hydrochlorothiazide 12.5 MG capsule Discontinued 12.5 mg PO AT BEDTIME December 20, 2018 1:00am December 14, 2021 10:06am magnesium oxide 250 mg oral tablet (14 sources) Start : 12-20 End: 08-15 take 1 tablet by mouth once daily Magnesium Oxide 250 MG tablet Discontinued 250 mg PO DAILY December 20, 2018 1:00am August 15, 2019 2:56pm metroNIDAZOLE 500 mg oral tablet (11 sources) Nitroimidazole Antimicrobial Start : 07-23 End: 11-09 take 1 tablet by mouth every eight hours Metronidazole 500 mg tablet Discontinued 500 mg PO Q8H July 23, 2022 12:00am November 09, 2022 3:16pm mirtazapine 15 mg oral tablet (5 sources) Start : 02-07 End: 05-05 take 1 tablet by mouth at bedtime Mirtazapine 15 mg tablet Discontinued 15 mg PO AT BEDTIME February 07, 2023 12:00am May 05, 2025 9:53am omeprazole 20 mg delayed release oral tablet (20 sources) Proton Pump Inhibitor Start : 12-03 End: 03-14 take 1 tablet by mouth once daily Omeprazole 20 mg tablet,delayed release (DR/EC) Discontinued 20 mg PO DAILY December 03, 2021 1:00am March 14, 2022 9:59am Start: 03-03-2021 End: 08-31-2021 take 1 capsule by mouth at bedtime Omeprazole 40 mg capsule,delayed release(DR/EC) Discontinued 40 mg PO AT BEDTIME April 29, 2021 11:27am August 31, 2021 1:42pm ondansetron 4 mg disintegrating oral tablet (19 sources) Serotonin-3 Receptor Antagonist Start: 10-12-2022 End: 11-09-2022 take 1 tablet by mouth every eight hours as needed for nausea Ondansetron 4 mg tablet,disintegrating Discontinued 4 mg PO EVERY 8 HOURS NEEDED as needed for Nausea October 12, 2022 1:00am November 09, 2022 3:16pm Start: 07-09-2019 End: 08-15-2019 take 1 tablet by mouth every eight hours as needed for nausea Ondansetron 4 MG tablet Discontinued 4 mg PO EVERY 8 HOURS NEEDED as needed for Nausea July 09, 2019 12:00am August 15, 2019 2:57pm ramipril 2.5 mg oral capsule (20 sources) Angiotensin Converting Enzyme Inhibitor Start: 09-07-2020 End: 07-06-2022 take 1 capsule by mouth twice daily Ramipril 2.5 mg capsule Discontinued 2.5 mg PO TWICE A DAY September 07, 2020 2:18pm July 06, 2022 2:10pm Start: 12-20-2018 End: 09-07-2020 take 2 capsules by mouth once daily Ramipril 2.5 MG capsule Discontinued 5 mg PO DAILY December 20, 2018 1:00am September 07, 2020 2:19pm Start: 12-20-2018 End: 09-07-2020 take 5 mg by mouth once daily Ramipril Discontinued 5 MG PO DAILY December 20, 2018 12:00am September 07, 2020 1:19pm End: 08-24-2022 take 1 capsule by mouth once daily at dinner ramipril 2.5 mg capsule Take 2.5 mg by mouth daily with dinner. 0 08/24/2022 Discontinued (Other) Comment on above: Take 2.5 mg by mouth daily with dinner. rivaroxaban 20 mg oral tablet (20 sources) Factor Xa Inhibitor Start: 9 End: 4 take 1 tablet by mouth once daily Rivaroxaban (Xarelto) 20 mg tablet Discontinued 0 .ROUTE .COMPLEX September 27, 2023 1:49pm October 04, 2024 9:38am TAKE 1 TABLET BY MOUTH EVERY DAY Comment on above: Take 20 mg by mouth daily with dinner. semaglutide 7 mg oral tablet (1 source) Start: 4 End: 4 take 1 tablet by mouth once RYBELSUS 7 mg tablet Take 1 tablet by mouth every afternoon. 0 11/21/2023 03/13/2024 Discontinued (Other) simvastatin 40 mg oral tablet (20 sources) HMG-CoA Reductase Inhibitor Start: 9 End: 2 take 40 mg by mouth once daily Simvastatin Discontinued 40 mg PO DAILY July 07, 2022 12:00am July 07, 2022 3:28pm Comment on above: Take 40 mg by mouth daily at bedtime. Problems Active Problems Problem Classification Problem Date Documented Da te Episodic/Chronic Abdominal pain (11 sources) Abdominal pain; Translations: [Unspecified abdominal pain] 07-31-2022 Episodic Cardiac dysrhythmias (20 sources) Ventricular premature beats; Translations: [Ventricular premature depolarization] Onset: 2 Resolved: 5 Chronic Cardiac dysrhythmias (20 sources) Sinus bradycardia; Translations: [Bradycardia, unspecified] Onset: 2 Resolved: 5 Episodic Congestive heart failure; nonhypertensive (14 sources) Chronic systolic heart failure; Translations: [Chronic systolic (congestive) heart failure] Onset: 5 01-07-2025 Chronic Coronary atherosclerosis and other heart disease (20 sources) Coronary atherosclerosis; Translations: [Atherosclerotic heart disease of [place] coronary artery without angina pectoris] Onset: 2 Chronic Diabetes mellitus with complications (11 sources) Chronic kidney disease due to type 2 diabetes mellitus; Translations: [Type 2 diabetes mellitus with diabetic chronic kidney disease] Onset: 4 01-08-2025 Chronic Diabetes mellitus without complication (20 sources) Type 2 diabetes mellitus; Translations: [Type 2 diabetes mellitus without complications] Onset: 1 08-24-2022 Chronic Disorders of lipid metabolism (20 sources) Hyperlipidemia; Translations: [Hyperlipidemia, unspecified] Onset: 2 Chronic Diverticulosis and diverticulitis (20 sources) Diverticulitis; Translations: [Diverticulitis of intestine, part unspecified, without perforation or abscess without bleeding] Onset: 8 09-11-2008 Chronic Esophageal disorders (20 sources) Gastroesophageal reflux disease; Translations: [Gastro-esophageal reflux disease without esophagitis] Onset: 2 08-24-2022 Chronic Essential hypertension (20 sources) Essential hypertension; Translations: [Essential (primary) hypertension] Chronic Joint disorders and dislocations; trauma-related (2 sources) Unspecified tear of unspecified meniscus, current injury, left knee, sequela; Translations: [Unspecified tear of unspecified meniscus, current injury, left knee, sequela] Onset: 3 Episodic Nausea and vomiting (5 sources) Nausea, vomiting and diarrhea; Translations: [Nausea with vomiting, unspecified] 10-20-2022 Episodic Other and ill-defined heart disease (1 source) Intracardiac thrombosis, not elsewhere classified; Translations: [Thrombus of left atrial appendage] Onset: 4 Chronic Other connective tissue disease (2 sources) Synovial cyst of popliteal space [Arnold], unspecified knee; Translations: [Synovial cyst of popliteal space (Arnold), unspecified knee] Onset: 3 Episodic Other gastrointestinal disorders (14 sources) Diarrhea; Translations: [Diarrhea, unspecified] 03-03-2021 Episodic Isabell-; endo-; and myocarditis; cardiomyopathy (except that caused by tuberculosis or sexually transmitted disease) (20 sources) Dilated cardiomyopathy; Translations: [Dilated cardiomyopathy] Onset: 2 Chronic Residual codes; unclassified (20 sources) Obstructive sleep apnea syndrome; Translations: [Obstructive sleep apnea (adult) (pediatric)] Onset: 3 08-28-2023 Chronic Residual codes; unclassified (2 sources) Hypoxia; Translations: [Idiopathic sleep related nonobstructive alveolar hypoventilation] 03-24-2023 Chronic Residual codes; unclassified (1 source) Obstructive sleep apnea (adult) (pediatric); Translations: [Obstructive sleep apnea] Onset: 3 Chronic Septicemia (except in labor) (14 sources) Sepsis; Translations: [Sepsis, unspecified organism] 12-15-2018 Episodic Syncope (20 sources) Syncope and collapse; Translations: [Syncope and collapse] Onset: 2 08-24-2022 Episodic Unclassified (2 sources) Permanent atrial fibrillation; Translations: [Permanent atrial fibrillation (HCC)] Onset: 5 Unclassified (2 sources) Other persistent atrial fibrillation; Translations: [Persistent atrial fibrillation (HCC)] Onset: 4 Urinary tract infections (14 sources) Urinary tract infectious disease; Translations: [Urinary tract infection, site not specified] 12-15-2018 Episodic Past or Other Problems Problem Classification Problem Date Documented Date Episodic/Chronic Deficiency and other anemia (20 sources) Anemia; Translations: [Anemia, unspecified] Onset: 09-11-2008 09-11-2008 Episodic Hemorrhoids (20 sources) Internal hemorrhoids; Translations: [Other hemorrhoids] Onset: 09-11-2008 09-11-2008 Episodic Other aftercare (20 sources) Long-term current use of anticoagulant; Translations: [tank terminal gauger (current) use of anticoagulants] Onset: 08-24-2022 Episodic Other aftercare (1 source) halfway (current) use of anticoagulants; Translations: [Anticoagulant long-term use] Onset: 04-05-2024 Episodic Other and ill-defined heart disease (20 sources) Thrombus of left atrium; Translations: [Intracardiac thrombosis, not elsewhere classified] Onset: 03-13-2024 Resolved: 01-07-2025 03-13-2024 Chronic Other and unspecified benign neoplasm (20 sources) Benign neoplasm of colon; Translations: [Benign neoplasm of colon, unspecified] Onset: 09-11-2008 09-11-2008 Episodic Other lower respiratory disease (20 sources) Dyspnea; Translations: [Dyspnea, unspecified] Onset: 11-28-2023 08-31-2023 Episodic Residual codes; unclassified (14 sources) History of cardiac catheterization; Translations: [Other specified postprocedural states] Onset: 10-28-2008 12-18-2018 Episodic Residual codes; unclassified (9 sources) History of cardioversion; Translations: [Other specified postprocedural states] Onset: 07-14-2022 07-26-2022 Episodic Comment on above: 07/26/22 Residual codes; unclassified (20 sources) Other specified personal risk factors, not elsewhere classified; Translations: [Other specified personal history presenting hazards to health] Onset: 08-24-2022 Episodic Residual codes; unclassified (20 sources) H/O cardiac surgery; Translations: [Other specified postprocedural states] Onset: 08-28-2023 08-29-2023 Episodic Residual codes; unclassified (1 source) Other specified postprocedural states; Translations: [Status post catheter ablation of atrial fibrillation] Onset: 08-29-2023 Episodic Results Test Name Value Interpretation Reference Range Facility Pulmonary Visit Reporton Pulmonary Visit Report [facility] [address] [place] [address] OFFICE VISIT Date of Service: 05/05/25 MR#: [id number] Acct: [id number] Name: DIEGO MCCARTY Rep #: [id number] : 1945 Provider: SAMIRA Meraz Age/Sex: 80/M Location: [facility] [place] Status: Signed Assessment and Plan Assessment and Plan (1) Nocturnal hypoxia: Status: Chronic Plan: He is using and benefiting from supplemental oxygen. However, he readily admits that he has not been as consistent with wearing the supplemental oxygen. We plan to repeat a nocturnal oximetry on room air to determine if he even requires the use of the supplemental oxygen. I did explain to him that if hypoxia is occurring with sleep it can be stressful to the heart, especially in the setting of the A-fib. This will be discussed further at his follow-up visit when we go over details of the test results. (2) Atrial flutter: Status: Chronic Qualifiers: Atrial flutter type: typical Qualified Code(s): I48.3 - Typical atrial flutter Plan: Complicates exam, plan, care and prognosis. I explained to the patient that given his irregular heart rhythm, it is imperative that we try to optimize him as best possible. This means that he should be compliant with supplemental oxygen when indicated. We are going to reevaluate for the need for supplemental oxygen with sleep. Test results we discussed the follow-up visit. He was in an irregular rhythm on exam today. (3) Insomnia: Status: Suspected Qualifiers: Insomnia type: unspecified Qualified Code(s): G47.00 - Insomnia, unspecified Plan: The patient's reports that he has always had trouble falling asleep. The patient reports that he only sleeps about 4 hours each night. He has a difficult time falling asleep when he goes to bed. He states that it is easier if I am watching TV in the chair. He also finds it difficult to fall back asleep once he has been awakened. I explained to them that we do not treat insomnia. I offered to refer them to a sleep specialist. They would prefer to go over the nocturnal oximetry results first and determine later if they would like a referral placed. Orders: Orders OutPt Pulse Ox/Cont Overnight Today G47.34 - Idiopathic sleep related nonobstructive alveolar hypoventilation Plan Details Additional Comments: This note was generated with [employer] dictation software. It may contain incorrect words, spelling, and punctuation that were not noted in checking the note before signing. Follow Up: 1 Month HPI 1 Y FU Chief Complaint: Nocturnal hypoxia HPI Comments Details: This patient presents to the office today for follow-up of his nocturnal hypoxia. He is ambulatory and currently on room air. He is accompanied today by his . He has not recently been seen in the ED or urgent care for any respiratory illness. He has not required any antibiotics or prednisone for any breathing problems. He denies any shortness of breath. He denies any cough, sputum production or hemoptysis. He denies any wheezing, chest tightness, chest pain or palpitations. He denies any fever, chills or body aches. He is compliant with supplemental oxygen. He is using 2 L/min with sleep. He admits that most nights he falls asleep in the chair until about 2 AM. Sometimes, he then goes to bed and puts his supplemental oxygen on. However, he is awake again after a few hours to use the restroom. He does not put the supplemental oxygen back on when he returns to bed. He is wondering if the oxygen is necessary. Intake Vital Signs 05/06/24 07:31 05/05/25 07:54 Height 6 ft 6 ft Weight: 212 lb 215 lb BMI 28.7 29.1 BP 129/86 H 130/93 H Blood Pressure Location Lt brachial Lt brachial Position Sitting Sitting Respiration 16 16 Pulse 94 93 Pulse Source Monitor Monitor Temp 97.4 F L 97.4 F L Temperature Source Temporal Artery Temporal Artery Pulse Oximetry (%) 96 96 Oxygen Delivery Method room air room air Comment Forgot Bp meds last night, took right before appt. Intake Visit Reasons: 1 Y FU Chief Complaint: diarrhea Supply Manager Required: No DME Vendor: [employer] Accompanied by: Is patient in pain?: No Allergies No Known Allergies Allergy (Unverified 05/05/25 09:50) Medications ???Medication ???Instructions ???Recorded ???Confirmed ???Type tamsulosin 0.4 mg capsule 0.4 mg PO QHS urine flow 03/04/20 05/05/25 History metformin 500 mg tablet,extended 500 mg PO DAILY BLOOD SUGAR 90 05/05/25 History release 24 hr days #90 tabs vit A 1,000 unit-C 60 mg-E 30 1 tab PO DAILY 03/14/22 05/05/25 H istory unit-zinc oxid-selenium AA-copper tablet simvastatin 40 mg tablet 40 mg PO DAILY #90 tabs 07/07/22 0 05/05/25 Rx cholecalciferol (vitamin D3) 50 50 mcg (more content not included)... Normal [facility] CNOVon 03-17-2025 [facility] Office Visit (CARLYN ) DIEGO MCCARTY ([id number]) 1945 M Date Time Provider Department 03/17/25 4:20 PM CORDELIA BLACKWOOD During your visit today, we recorded the following information about you: Pulse Respiration Blood pressure Weight 73/minute 14/minute 134/70 99.6 kg Height 1.829 m Cordelia Blackwood MD 03/17/2025 5:10 PM Signed [facility] Cardiology ([facility]) [address] [facility] [id number] OUTPATIENT VISIT DATE 03/17/2025 PRIMARY CARE PHYSICIAN: Urban Ledezma ([facility]) [address] [place] [address] CHIEF COMPLAINT: HISTORY OF PRESENT ILLNESS: Mr. Mccarty is a 79 year old gentleman with a history of mild nonobstructive coronary artery disease on remote catheterization 2007, dilated nonischemic cardiomyopathy, hypertension, dyslipidemia, atrial fibrillation with ablation August 2023 who presents to the office for routine follow-up. Patient has been in persistent atrial fibrillation. He denies symptoms of heart racing or palpitations. He is being considered for tooth extraction of all his upper teeth. He has no symptoms concerning for angina at the rest or with exertion. He is completing greater than 4 METS of activity on a daily basis. PAST MEDICAL HISTORY Diagnosis Date Alcohol use Anemia, unspecified Anemia, unspecified Anticoagulant long-term use indication: stroke prevention from atrial fibrillation/flutter Arthritis At risk for stroke [id number] = 6 (CHF, HTN, age2, DM, CAD) Atherosclerosis Atrial flutter (HCC) Benign neoplasm of colon CAD (coronary artery disease) nonobstructive CAD by [facility] 2007 Chronic systolic congestive heart failure (HCC) 01/07/2025 Depressive disorder, not elsewhere classified Diabetes (HCC) Dilated cardiomyopathy (HCC) 08/24/2022 Diverticulosis of colon (without mention of hemorrhage) Essential hypertension, malignant Fatty liver Hiatal hernia History of cancer HLD (hyperlipidemia) Holter monitor, abnormal 06/27/2022 [place] HTN (hypertension) Impaired fasting glucose Internal hemorrhoids without mention of complication Other chest pain Permanent atrial fibrillation (HCC) 01/08/2025 Persistent atrial fibrillation (HCC) asymptomatic; ??? contributing to cardiomyopathy Sleep apnea Snoring Status post catheter ablation of atrial fibrillation atrial fibrillation catheter ablation/PVAI (RF, Stereotaxis, Carto) 08/28/2023 Syncopal episode Thrombus of left atrial appendage 03/13/2024 Typical atrial flutter (HCC) Ventricular premature depolarization VT (ventricular tachycardia) (HCC) Wide-complex tachycardia Nonsustained PAST SURGICAL HISTORY Procedure Laterality Date AFIB ABLATION/PULM VEIN ISOLATION 08/28/2023 atrial fibrillation catheter ablation/PVAI (RF, Stereotaxis, Carto); [facility] Dr. Mike CARDIOVERSION 04/2024 CARDIOVERSION, ELECTIVE, ELECTRICAL 07/26/2022 [facility] COLONOSCOPY FLX DX W/COLLJ SPEC WHEN PFRMD 10/25/2013 Colonoscopy COLONOSCOPY FLX DX W/COLLJ SPEC WHEN PFRMD 10/29/2018 repeat 3 years COLONOSCOPY W/BIOPSY SINGLE/MULTIPLE 09/11/2008 ECHOCARDIOGRAM 10/10/2022 LVEF 45% ECHOCARDIOGRAM 08/09/2022 LVEF 45% ECHOCARDIOGRAM 08/18/2021 LVEF 60% ECHOCARDIOGRAM 04/19/2023 [facility]; see scanned documents; LVEF 45% INGUINAL HERNIA REPAIR HX Right 1985 LEFT HEART CATH,PERCUTANEOUS 2007 PAST SURGICAL HISTORY OF pilonidal cyst RPR 1ST INGUN HRNA AGE 7 YRS/> REDUCIBLE Hernia repair, inguinal VASECTOMY 1985 SOCIAL HISTORY Social History Tobacco Use Smoking status: Former Current packs/day: 0.00 Average packs/day: 2.0 packs/day for 20.0 years (40.0 ttl pk-yrs) Types: Cigarettes Start date: 10/29/1968 Quit date: 10/29/1988 Years since quittin.4 Smokeless tobacco: Never Substance Use Topics Alcohol [...] [Dexametha* Other: See Comments Adverse reaction MEDICATIONS: Taurine 1,000 mg cap Take 3 capsules by mouth. magnesium glycinate 100 mg magnesium capsule Take 2 capsules by mouth once daily. cholecalciferol (VITAMIN D-3) 50 mcg (2,000 unit) tablet Take 1 tablet by mouth once daily. Zinc Acetate, Oral, 50 mg (zinc) cap Take 50 capsules by mouth once daily. Flaxseed Oil 1,000 mg cap Take by mouth. losartan (COZAAR) 25 mg tablet (more content not included)... Normal [facility] 01-28-2025 [facility] Telephone (AGCARDPOB ) DIEGO MCCARTY ([id number]) 1945 M Date Time Provider Department 01/28/25 SUZAN MIKE AGCBETHANIE During your visit today, we recorded the following information about you: Bambi Escobedo LPN 01/28/2025 4:28 PM Signed Clearance form received from [facility] for request to hold Xarelto. Form placed in Dr. Mike's door box for review; form also scanned into chart. KAYLA Romero Linda S, RN 02/18/2025 9:47 AM Signed called in to ask about cardiac clearance for general anesthesia for extraction of 12 teeth. She states dentist received Xarelto hold clearance form from Dr. Mike, but not cardiac clearance for anesthesia. Forwarded form to Dr. Blackwood. MOOKIE Kim Linda S, RN 02/19/2025 12:08 PM Signed [facility] called in to request additional form authorization for general anesthesia clearance from Dr. Blackwood. Form forwarded to Dr. Blackwood's box. MOOKIE Kim Kevin 02/26/2025 3:21 PM Signed Cardiac Clearance form completed, faxed and confirmation scanned in. George Garcia Allergies As of Date: 01/28/2025 Noted Allergy Reaction STEROIDS (DEXAMETHASONE PHOS-LIDO*10/24/2023 14 - Other: See Comments Comments: Adverse reaction Date Reviewed: 01/08/2025 Reviewed by: Ellen Bejarano MA - Fully Assessed Reason for Visit: Application Support Engineer - Other [3602] Cardiac Clearance [9065] Prescriptions as of 02/26/2025 - losartan (COZAAR) 25 mg tablet Take 1 tablet by mouth once daily. - potassium chloride 20 mEq TbER Take 1 tablet by mouth daily at bedtime. - metoprolol succinate ER (TOPROL XL) 100 mg Take 1 tablet by mouth once daily. - rivaroxaban (XARELTO) 20 mg tablet Take 1 tablet by mouth daily with dinner. - metFORMIN ER (GLUCOPHAGE XR) 500 mg 24 hr tablet Take 500 mg by mouth daily with dinner. - multivit with minerals/lutein (MULTIVITAMIN 50 PLUS ORAL) Take 1 tablet by mouth once daily. - glimepiride (AMARYL) 2 mg tablet Take 2 mg by mouth every morning. - aspirin, enteric coated (ADULT LOW DOSE ASPIRIN) 81 mg EC tablet Take 1 tablet by mouth once daily. - tamsulosin (FLOMAX) 0.4 mg Take 0.4 mg by mouth daily at bedtime. - simvastatin (ZOCOR) 40 mg tablet Take 40 mg by mouth daily at bedtime. Problem List As Of Date 01/28/2025 Noted Resolved ANEMIA NOS [D64.9] 09/11/2008 BENIGN NEOPLASM LG BOWEL [D12.6] 09/11/2008 DIVERTICULOSIS OF COLON W/O BLEED [K57.30] 09/11/2008 INT HEMORRHOID W/O COMPL [K64.8] 09/11/2008 Persistent atrial fibrillation (HCC) [I48.19] 08/24/2022 01/08/2025 At risk for stroke [Z91.89] 08/24/2022 Anticoagulant long-term use [Z79.01] 08/24/2022 Atrial flutter (HCC) [I48.92] 08/24/2022 Wide-complex tachycardia [R00.0] 08/24/2022 01/08/2025 Atherosclerosis of coronary artery [I25.10] 12/14/2021 Type 2 diabetes mellitus (HCC) [E11.9] 10/03/2021 Syncope and collapse [R55] 03/11/2022 Hyperlipidemia [E78.5] 07/15/2022 Gastroesophageal reflux disease [K21.9] 08/24/2022 Dilated cardiomyopathy (HCC) [I42.0] 08/24/2022 Obstructive sleep apnea [G47.33] 02/24/2023 Diagnosed: 08/28/2023 Status post catheter ablation of atrial fibrill*08/28/2023 Dyspnea [R06.00] 11/28/2023 Thrombus of left atrial appendage [I51.3] 03/13/2024 01/07/2025 Encounter for cardioversion procedure DCCV Sing*04/22/2024 09/23/2024 Chronic systolic congestive heart failure (HCC)*01/07/2025 Type 2 diabetes mellitus with diabetic chronic *09/12/2024 Permanent atrial fibrillation (HCC) [I48.21] 01/08/2025 Encounter Status:Closed by BAMBI ESCOBEDO on 01/28/25 [facility] Kailyn 01-08-2025 CNOV Office Visit (AGCARDPOB) DIEGO MCCARTY ([id number]) 1945 M Date Time Provider Department 01/08/25 9:20 AM SUZAN MIKE AGCARDPOB During your visit today, we recorded the following information about you: Pulse Blood pressure Weight Height 64/minute 119/79 99.3 kg 1.829 m Suzan Mike MD 01/08/2025 1:04 PM Signed PRIMARY CARE PHYSICIAN: Urban Ledezma ([facility]) [address] [place] [address] Patient Care Team: Urban Ledezma MD as PCP - General (Family Medicine) Suzan Mike MD as Specialty Solar Electric Installer (Cardiology) Cordelia Blackwood MD as Specialty Solar Electric Installer (Cardiology) Kai Marmolejo MD as Specialty Solar Electric Installer (Pulmonary Disease) CHIEF COMPLAINT: Follow up for arrhythmia HISTORY OF PRESENT ILLNESS: Mr. Mccarty is a 79 year old male who presents today for a cardiovascular medicine follow-up visit. History copied from previous notes, edited as needed: Summary of previous notes: Mr. 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 Echeverria to Dr. Mike, established care in August/2022. He had apparently been diagnosed a few years prior when he was hospitalized at [facility] with a bladder infection and fever. Following that hospitalization, he reported going in and out of the arrhythmia. He was treated with diltiazem. Cardiac monitoring around that time showed arrhythmia burden of about 14%. Over time, the arrhythmia became more persistent, confirmed either by monitoring or his personal monitoring with his Apple Watch. He reported no symptoms associated with the arrhythmia, he underwent electrical cardioversion 07/26/2022, but the atrial fibrillation recurred about a day later. He did not feel differently in sinus rhythm, was not aware that the arrhythmia recurred except by the Apple Watch notifying him. An echocardiogram at the end of July/2022 showed mild cardiomyopathy, LVEF 45%, stress test 08/09/2022 showed no ischemia or scar, but showed mild cardiomyopathy with LVEF 47%. Rate control versus rhythm control strategy was discussed with Dr. Mike during the appointment August/2022, even though he did not have excessively bothersome symptoms, cardiac monitoring in June/2022 showed suboptimal ventricular rate control with an average ventricular response rate of 114 bpm, likely contributing to the mild cardiomyopathy. He was then treated with atenolol. Repeat echocardiogram September/2022 showed the cardiomyopathy was about the same, LVEF 45%, he remained asymptomatic to the atrial arrhythmia that remained persistent. After further discussion between Dr. Mike and Dr. Echeverria, it was decided patient should move forward with catheter ablation for the atrial fibrillation/flutter. He underwent radiofrequency catheter ablation of persistent atrial fibrillation with Dr. Mike 08/28/2023. He was discharged on atenolol 50 mg twice daily and Xarelto 20 mg daily. He performed weekly transtelephonic monitoring, and the transmission sent 09/18/[address] of the chest revealed small thrombus in the left atrial appendage, 2.7 cm. No pulmonary vein stenosis. Moderate coronary calcifications and noncardiac findings including 3 mm lung nodule and adenopathy. The atrial fibrillation returned about 18 days after the ablation procedure, he was asymptomatic, has some fatigue which is not new. Aspirin 81 mg daily was added to his regimen for the left atrial appendage thrombus. He will follow-up with his PCP regarding the noncardiac findings on the CT. At March 2024 office visit follow up, Mr. Mccarty was evaluated for the atrial fibrillation. The atrial fibrillation has been asymptomatic but was thought to be contributing to his cardiomyopathy and heart failure. He underwent atrial fibrillation catheter ablation 08/28/2023. He had recurrence of the atrial fibrillation about 2 weeks after the ablation procedure. No symptoms, he did not feel any differently in the sinus rhythm. He had routine post ablation CT scan completed 11/28/2023, this showed small thrombus in the BENSON. Aspirin 81 mg daily was added. He underwent JUVENAL in April 2024, this did not reveal any left atrial appendage thrombus. He underwent electrical cardioversion at that time to restore sinus rhythm. He believes he maintained sinus rhythm post cardioversion for roughly 18 days before going back out of rhythm. He reports he is asymptomatic with his atrial fibrillation. Echo from April 2024 revealed mild cardiomyopathy, LVEF of 40-45%. The plan at that time was to abandon any further attempts of sinus rhythm denominational in favor of patient remaining on anticoagulation/rate control strategy. Interim History Dr. Mike 01/08/2025: (more content not included)... Normal [facility] ECG B/O W INTERP (MED OFFICE )on 01-08-2025 Interpretation and review of laboratory results Abnormal [facility] Atrial fibrillation with controlled ventricular response, average 67 bpm; normal QRS duration 88 ms; QTc 393 ms; nonspecific T wave abnormality [facility] 09-02-2024 CNPN Telephone (AGCARDPOB ) DIEGO MCCARTY ([id number]) 1945 M Date Time Provider Department 09/02/24 TORO ROTHPOSamson During your visit today, we recorded the following information about you: Toro Roth APRN.DIRECTOR BIOLOGICS 09/02/2024 1:04 PM Signed Please let patient know I have reviewed recent 14-day extended EKG results. These revealed 100% AF burden with a controlled average heart rate of 89 bpm. Occasional fast rates. 2 runs of NSVT with the longest lasting 14 beats. No changes to treatment regimen. Patient needs to continue his Xarelto and Toprol XL. Thanks, Toro Roth APRN.[facility] September 02, 2024 1:03 PM Lynette Doran LPN 09/02/2024 1:07 PM Signed I spoke to Diego Mccarty and informed them of Toro's response to monitor results and recommendations. Patient voiced understanding. Lynette Doran LPN Allergies As of Date: 09/02/2024 Noted Allergy Reaction STEROIDS (DEXAMETHASONE PHOS-LIDO*10/24/2023 14 - Other: See Comments Comments: Adverse reaction Date Reviewed: 07/22/2024 Reviewed by: Cordelia Blackwood MD - Fully Assessed Reason for Visit: Results [95] Prescriptions as of 09/02/2024 - losartan (COZAAR) 25 mg tablet Take 0.5 tablets by mouth once daily. - metoprolol succinate ER (TOPROL XL) 100 mg Take 1 tablet by mouth once daily. - multivit with minerals/lutein (MULTIVITAMIN 50 PLUS ORAL) Take 1 tablet by mouth once daily. - FLAXSEED OIL ORAL Take 1 capsule by mouth once daily. - glimepiride (AMARYL) 2 mg tablet Take 2 mg by mouth every morning. - aspirin, enteric coated (ADULT LOW DOSE ASPIRIN) 81 mg EC tablet Take 1 tablet by mouth once daily. - potassium chloride 20 mEq TbER Take 1 tablet by mouth daily at bedtime. - tamsulosin (FLOMAX) 0.4 mg Take 0.4 mg by mouth daily at bedtime. - rivaroxaban (XARELTO) 20 mg tablet Take 20 mg by mouth daily with dinner. - simvastatin (ZOCOR) 40 mg tablet Take 40 mg by mouth daily at bedtime. - metFORMIN (GLUCOPHAGE) 500 mg tablet Take 500 mg by mouth daily with dinner. Problem List As Of Date 09/02/2024 Noted Resolved ANEMIA NOS [D64.9] 09/11/2008 BENIGN NEOPLASM LG BOWEL [D12.6] 09/11/2008 DIVERTICULOSIS OF COLON W/O BLEED [K57.30] 09/11/2008 INT HEMORRHOID W/O COMPL [K64.8] 09/11/2008 Persistent atrial fibrillation (HCC) [I48.19] 08/24/2022 At risk for stroke [Z91.89] 08/24/2022 Anticoagulant long-term use [Z79.01] 08/24/2022 Atrial flutter (HCC) [I48.92] 08/24/2022 Wide-complex tachycardia [R00.0] 08/24/2022 Atherosclerosis of coronary artery [I25.10] 12/14/2021 Type 2 diabetes mellitus (HCC) [E11.9] 10/03/2021 Syncope and collapse [R55] 03/11/2022 Hyperlipidemia [E78.5] 07/15/2022 Gastroesophageal reflux disease [K21.9] 08/24/2022 Dilated cardiomyopathy (HCC) [I42.0] 08/24/2022 Obstructive sleep apnea [G47.33] 02/24/2023 Diagnosed: 08/28/2023 Status post catheter ablation of atrial fibrill*08/28/2023 Dyspnea [R06.00] 11/28/2023 Thrombus of left atrial appendage [I51.3] 03/13/2024 Encounter for cardioversion procedure DCCV Sing*04/22/2024 Encounter Status:Closed by TORO ROTH on 09/02/24 Normal [facility] CBC-Complete Blood Cnt No Di ffon 08-22-2024 Erythrocyte distribution width (RBC) [Ratio] 12.7 % Normal 11.6-14.6 [facility] Comment on above: Order Comment: Order Date: 03/07/24 Order Info: [id number] - CBC Performed By: #### L 500.4100, L501.9520, L500.4050, L100.0500 #### [facility] [address] [place], [address] Hematocrit (Bld) [Volume fraction] 39.5 % Low 40-54 [facility] Comment on above: Order Comment: Order Date: 03/07/24 Order Info: [id number] - CBC Performed By: #### L 500.4100, L501.9520, L500.4050, L100.0500 #### [facility] [address] [place], [address] Hemoglobin (Bld) [Mass/Vol] 13.2 g/dL Normal 13.0-16.5 [facility] Comment on above: Order Comment: Order Date: 03/07/24 Order Info: [id number] - CBC Performed By: #### L 500.4100, L501.9520, L500.4050, L100.0500 #### [facility] [address] [place], [address] MCH (RBC) [Entitic mass] 29.9 pg Normal 27.0-32.0 [facility] Comment on above: Order Comment: Order Date: 03/07/24 Order Info: [id number] - CBC Performed By: #### L 500.4100, L501.9520, L500.4050, L100.0500 #### [facility] [address] [place], [address] MCHC (RBC) [Mass/Vol] 33.4 g/dL Normal 32-36 [facility] Comment on above: Order Comment: Order Date: 03/07/24 Order Info: [id number] - CBC Performed By: #### L 500.4100, L501.9520, L500.4050, L100.0500 #### [facility] [address] [place], [address] MCV (RBC) [Entitic vol] 89.6 fL Normal 80-94 [facility] Comment on above: Order Comment: Order Date: 03/07/24 Order Info: [id number] - CBC Performed By: #### L 500.4100, L501.9520, L500.4050, L100.0500 #### [facility] [address] [place], [address] Platelet mean volume (Bld) [Entitic vol] 10.1 fL Normal 6.2-12.0 [facility] Comment on above: Order Comment: Order Date: 03/07/24 Order Info: [id number] - CBC Performed By: #### L 500.4100, L501.9520, L500.4050, L100.0500 #### [facility] [address] [place], [address] Platelets (Bld) [#/Vol] 180 10*3/uL Normal 150-450 [facility] Comment on above: Order Comment: Order Date: 03/07/24 Order Info: [id number] - CBC Performed By: #### L 500.4100, L501.9520, L500.4050, L100.0500 #### [facility] [address] [place], [address] RBC (Bld) [#/Vol] 4.41 10*6/uL Low 4.6-6.2 [facility] Comment on above: Order Comment: Order Date: 03/07/24 Order Info: [id number] - CBC Performed By: #### L 500.4100, L501.9520, L500.4050, L100.0500 #### [facility] [address] [place], [address] RDW SD 41.9 fl Normal 35.1-43.9 [facility] [facility] Comment on above: Order Comment: Order Date: 03/07/24 Order Info: [id number] - CBC Performed By: #### L 500.4100, L501.9520, L500.4050, L100.0500 #### [facility] [address] [place], [address] WBC (Bld) [#/Vol] 4.5 10*3/uL Normal 4.4-11.0 [facility] Comment on above: Order Comment: Order Date: 03/07/24 Order Info: [id number] - CBC Performed By: #### L 500.4100, L501.9520, L500.4050, L100.0500 #### [facility] [address] [place], [address] Comprehensive Metabolic Prof ilon 08-22-2024 Albumin [Mass/Vol] 3.5 g/dL Normal 3.2-5.0 [facility] Comment on above: Order Comment: Order Date: 03/07/24 Order Info: [id number] - CMP Order Info: [id number] - LIPID Order Info: [id number] - TSH Performed By: #### L 500.4100, L501.9520, L500.4050, L100.0500 #### [facility] [address] [place], [address] Albumin/Globulin [Mass ratio] 1.0 {ratio} Normal 0.9-2.4 [facility] Comment on above: Order Comment: Order Date: 03/07/24 Order Info: [id number] - CMP Order Info: [id number] - LIPID Order Info: [id number] - TSH Performed By: #### L 500.4100, L501.9520, L500.4050, L100.0500 #### [facility] [address] [place], [address] ALK P 67 U/L Normal 45-117 [facility] Comment on above: Order Comment: Order Date: 03/07/24 Order Info: 07- - CMP Order Info: [id number] - LIPID Order Info: [id number] - TSH Performed By: #### L 500.4100, L501.9520, L500.4050, L100.0500 #### [facility] [address] [place], [address] ALT [Catalytic activity/Vol] 19 U/L Normal 16-61 [facility] Comment on above: Order Comment: Order Date: 03/07/24 Order Info: 07- - CMP Order Info: [id number] - LIPID Order Info: [id number] - TSH Performed By: #### L 500.4100, L501.9520, L500.4050, L100.0500 #### [facility] [address] [place], [address] AST [Catalytic activity/Vol] 17 U/L Normal 15-37 [facility] Comment on above: Order Comment: Order Date: 03/07/24 Order Info: 0786 - CMP Order Info: [id number] - LIPID Order Info: [id number] - TSH Performed By: #### L 500.4100, L501.9520, L500.4050, L100.0500 #### [facility] [address] [place], [address] Bilirubin [Mass/Vol] 0.40 mg/dL Normal 0.20-1.00 [facility] Comment on above: Order Comment: Order Date: 03/07/24 Order Info: 0786- - CMP Order Info: [id number] - LIPID Order Info: 3 - TSH Result Comment: For patients on eltrombopag therapy, use of Dimension [place] TBIL is not recommended. Performed By: #### L 500.4100, L501.9520, L500.4050, L100.0500 #### [facility] [address] [place], [address] BUN/CRE 14.6 RATIO Normal 10-20 [facility] Comment on above: Order Comment: Order Date: 03/07/24 Order Info: [id number] - CMP Order Info: [id number] - LIPID Order Info: [id number] - TSH Performed By: #### L 500.4100, L501.9520, L500.4050, L100.0500 #### [facility] [address] [place], [address] CA,Total 9.0 mg/dL Normal 8.5-10.1 [facility] Comment on above: Order Comment: Order Date: 03/07/24 Order Info: [id number] - CMP Order Info: [id number] - LIPID Order Info: [id number] - TSH Performed By: #### L 500.4100, L501.9520, L500.4050, L100.0500 #### [facility] [address] [place], [address] Chloride [Moles/Vol] 108 mmol/L High 98-107 [facility] Comment on above: Order Comment: Order Date: 03/07/24 Order Info: [id number] - CMP Order Info: [id number] - LIPID Order Info: [id number] - TSH Performed By: #### L 500.4100, L501.9520, L500.4050, L100.0500 #### [facility] [address] [place], [address] CO2 [Moles/Vol] 25.0 mmol/L Normal 21.0-32.0 [facility] Comment on above: Order Comment: Order Date: 03/07/24 Order Info: [id number] - CMP Order Info: [id number] - LIPID Order Info: [id number] - TSH Performed By: #### L 500.4100, L501.9520, L500.4050, L100.0500 #### [facility] [address] [place], [address] Creatinine [Mass/Vol] 0.96 mg/dL Normal 0.70-1.30 [facility] Comment on above: Order Comment: Order Date: 03/07/24 Order Info: [id number] - CMP Order Info: - LIPID Order Info: [id number] - TSH Result Comment: The validity of the calculated GFR GFRAA in patients over 70 years has not been determined. Clinical correlation is essential. Performed By: #### L 500.4100, L501.9520, L500.4050, L100.0500 #### [facility] [address] [place], [address] EST GFR - AA 98 mL/min Normal >60 [facility] Comment on above: Order Comment: Order Date: 03/07/24 Order Info: 0786 - CMP Order Info: - LIPID Order Info: [id number] - TSH Result Comment: Afri can Jordanian GFR Calc Performed By: #### L 500.4100, L501.9520, L500.4050, L100.0500 #### [facility] [address] [place], [address] GAP 5 Normal 5-15 [facility] Comment on above: Order Comment: Order Date: 03/07/24 Order Info: [id number] - CMP Order Info: [id number] - LIPID Order Info: [id number] - TSH Performed By: #### L 500.4100, L501.9520, L500.4050, L100.0500 #### [facility] [address] [place], [address] GFR/1.73 sq M.predicted among non-blacks MDRD (S/P/Bld) [Vol rate/Area] 81 mL/min/{1.73_m2} Normal >60 [facility] Comment on above: Order Comment: Order Date: 03/07/24 Order Info: 07 - CMP Order Info: - LIPID Order Info: [id number] - TSH Result Comment: Non- GFR Calc Performed By: #### L 500.4100, L501.9520, L500.4050, L100.0500 #### [facility] [address] [place], [address] Globulin (S) [Mass/Vol] 3.4 g/dL Normal 2.2-4.2 [facility] Comment on above: Order Comment: Order Date: 03/07/24 Order Info: [id number] - CMP Order Info: - LIPID Order Info: [id number] - TSH Performed By: #### L 500.4100, L501.9520, L500.4050, L100.0500 #### [facility] [address] [place], [address] Glucose [Mass/Vol] 137 mg/dL High 74-106 [facility] Comment on above: Order Comment: Order Date: 03/07/24 Order Info: 07 - CMP Order Info: - LIPID Order Info: [id number] - TSH Result Comment: Fast ing Glucose result greater than or equal to 126 mg/dL suggests DIABETES MELLITUS per A.D.A. criteria. Performed By: #### L 500.4100, L501.9520, L500.4050, L100.0500 #### [facility] [address] [place], [address] Potassium [Moles/Vol] 4.1 mmol/L Normal 3.5-5.1 [facility] Comment on above: Order Comment: Order Date: 03/07/24 Order Info: 0786- - CMP Order Info: [id number] - LIPID Order Info: [id number] - TSH Performed By: #### L 500.4100, L501.9520, L500.4050, L100.0500 #### [facility] [address] [place], [address] Sodium [Moles/Vol] 137 mmol/L Normal 136-145 [facility] Comment on above: Order Comment: Order Date: 03/07/24 Order Info: 0786- - CMP Order Info: [id number] - LIPID Order Info: [id number] - TSH Performed By: #### L 500.4100, L501.9520, L500.4050, L100.0500 #### [facility] [address] [place], [address] T PROT 6.9 g/dL Normal 6.4-8.2 [facility] Comment on above: Order Comment: Order Date: 03/07/24 Order Info: 07 - CMP Order Info: - LIPID Order Info: [id number] - TSH Performed By: #### L 500.4100, L501.9520, L500.4050, L100.0500 #### [facility] [address] [place], [address] Urea nitrogen [Mass/Vol] 14 mg/dL Normal 7-18 [facility] Comment on above: Order Comment: Order Date: 03/07/24 Order Info: 0786 - CMP Order Info: - LIPID Order Info: [id number] - TSH Performed By: #### L 500.4100, L501.9520, L500.4050, L100.0500 #### [facility] [address] [place], [address] Lipid Profileon 08-22-2024 Cholesterol [Mass/Vol] 110 mg/dL Normal 200 [facility] Comment on above: Order Comment: Order Date: 03/07/24 Order Info: [id number] - CMP Order Info: - LIPID Order Info: [id number] - TSH Result Comment: <200 mg/dL Desirable 200-240 mg/dL Borderline >240 mg/dL High Risk Performed By: #### L 500.4100, L501.9520, L500.4050, L100.0500 #### [facility] [address] [place], [address] Cholesterol in HDL [Mass/Vol] 40 mg/dL Normal [facility] Comment on above: Order Comment: Order Date: 03/07/24 Order Info: [id number] - CMP Order Info: [id number] - LIPID Order Info: 6-3 - TSH Result Comment: The drugs N-Acetylcysteine and Metamizole may falsely depress this assay. Reference Range HDL <40 mg/dL Low HDL Cholesterol HDL >or= 60 mg/dL High HDL Cholesterol Performed By: #### L 500.4100, L501.9520, L500.4050, L100.0500 #### [facility] [address] [place], [address] Cholesterol in LDL [Mass/Vol] 57 mg/dL Normal 0-130 [facility] Comment on above: Order Comment: Order Date: 03/07/24 Order Info: 0786- - CMP Order Info: [id number] - LIPID Order Info: [id number] - TSH Performed By: #### L 500.4100, L501.9520, L500.4050, L100.0500 #### [facility] [address] [place], [address] Cholesterol in VLDL [Mass/Vol] 13 mg/dL Normal 5-40 [facility] Comment on above: Order Comment: Order Date: 03/07/24 Order Info: [id number] - CMP Order Info: [id number] - LIPID Order Info: [id number] - TSH Performed By: #### L 500.4100, L501.9520, L500.4050, L100.0500 #### [facility] [address] [place], [address] Triglyceride [Mass/Vol] 64 mg/dL Normal [facility] Comment on above: Order Comment: Order Date: 03/07/24 Order Info: [id number] - CMP Order Info: [id number] - LIPID Order Info: [id number] - TSH Result Comment: The drugs N-Acetylcysteine and Metamizole may falsely depress this assay. Serum Triglycerides Reference Interval Normal <150 mg/dL Borderline high 150 - 199 mg/dL High 200 - 499 mg/dL Very High > or = 500 mg/dL Performed By: #### L 500.4100, L501.9520, L500.4050, L100.0500 #### [facility] [address] [place], [place], [address] Thyroid Stim Hormone (TSH)on 08-22-2024 TSH 1.820 uIU/mL Normal 0.358-3.740 [facility] Comment on above: Order Comment: Order Date: 03/07/24 Order Info: [id number] - CMP Order Info: [id number] - LIPID Order Info: [id number] - TSH Performed By: #### L 500.4100, L501.9520, L500.4050, L100.0500 #### [facility] [address] [place], [place], [address] [facility] [place] [facility] Telephone ([employer] ) DIEGO MCCARTY ([id number]) 1945 M Date Time Provider Department 08/09/24 CORDELIA BLACKWOOD [employer] During your visit today, we recorded the following information about you: Layla Hopkins LPN 08/09/2024 9:45 AM Signed [facility] is calling in on abnormal ECG results from [facility]. They are reporting 171 beats per minute, rapid a-fib lasting 1 min on jul 23 at 10:15 pm. This can be located on page 10 strip 3. [facility] will fax a report over as well at this time as it being posted. 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 - metoprolol succinate ER (TOPROL XL) 100 mg Take 1 tablet by mouth once daily. - multivit with minerals/lutein (MULTIVITAMIN 50 PLUS ORAL) Take 1 tablet by mouth once daily. - FLAXSEED OIL ORAL Take 1 capsule by mouth once daily. - glimepiride (AMARYL) 2 mg tablet Take 2 mg by mouth every morning. - aspirin, enteric coated (ADULT LOW DOSE ASPIRIN) 81 mg EC tablet Take 1 tablet by mouth once daily. - potassium chloride 20 mEq TbER Take 1 tablet by mouth daily at bedtime. - tamsulosin (FLOMAX) 0.4 mg Take 0.4 mg by mouth daily at bedtime. - rivaroxaban (XARELTO) 20 mg tablet Take 20 mg by mouth daily with dinner. - simvastatin (ZOCOR) 40 mg tablet Take 40 mg by mouth daily at bedtime. - metFORMIN (GLUCOPHAGE) 500 mg tablet Take 500 mg by mouth daily with dinner. Problem List As Of Date 08/09/2024 Noted Resolved ANEMIA NOS [D64.9] 09/11/2008 BENIGN NEOPLASM LG BOWEL [D12.6] 09/11/2008 DIVERTICULOSIS OF COLON W/O BLEED [K57.30] 09/11/2008 INT HEMORRHOID W/O COMPL [K64.8] 09/11/2008 Persistent atrial fibrillation (HCC) [I48.19] 08/24/2022 At risk for stroke [Z91.89] 08/24/2022 Anticoagulant long-term use [Z79.01] 08/24/2022 Atrial flutter (HCC) [I48.92] 08/24/2022 Wide-complex tachycardia [R00.0] 08/24/2022 Atherosclerosis of coronary artery [I25.10] 12/14/2021 Type 2 diabetes mellitus (HCC) [E11.9] 10/03/2021 Syncope and collapse [R55] 03/11/2022 Hyperlipidemia [E78.5] 07/15/2022 Gastroesophageal reflux disease [K21.9] 08/24/2022 Dilated cardiomyopathy (HCC) [I42.0] 08/24/2022 Obstructive sleep apnea [G47.33] 02/24/2023 Diagnosed: 08/28/2023 Status post catheter ablation of atrial fibrill*08/28/2023 Dyspnea [R06.00] 11/28/2023 Thrombus of left atrial appendage [I51.3] 03/13/2024 Encounter for cardioversion procedure DCCV Sing*04/22/2024 Encounter Status:Closed by LAYLA HOPKINS on 09/10/24 [facility] CNOVon 07-22-2024 CNOV Office Visit (CAWSTR ) DIEGO MCCARTY ([id number]) 1945 M Date Time Provider Department 07/22/24 1:20 PM CORDELIA BLACKWOODCHADWICK During your visit today, we recorded the following information about you: Pulse Blood pressure Weight 91/minute 145/77 97.5 kg Cordelia Blackwood MD 07/22/2024 2:04 PM Signed [facility] Cardiology (Nik Negretetowalyssa Liu) [address] [facility] [id number] OUTPATIENT VISIT DATE 07/22/2024 PRIMARY CARE PHYSICIAN: Urban Ledezma (Stephon) [address] [place] [address] CHIEF COMPLAINT: HISTORY OF PRESENT ILLNESS: Mr. Mccarty is a 79 year old gentleman with a history of mild nonobstructive coronary artery disease on remote catheterization 2007, dilated nonischemic cardiomyopathy, hypertension, dyslipidemia, atrial fibrillation with ablation August 2023 who presents to the office for routine follow-up. Patient continues to have persistent atrial fibrillation. He does not notice heart racing or palpitations. He has not had episodes of syncope near syncope or lightheadedness. He denies symptoms concerning for congestive heart failure including PND, orthopnea, or lower extremity edema. PAST MEDICAL HISTORY No date: Alcohol use No date: Anemia, unspecified No date: Anemia, unspecified No date: Anticoagulant long-term use Comment: indication: stroke prevention from atrial fibrillation/flutter No date: Arthritis No date: At risk for stroke Comment: [id number] = 6 (CHF, HTN, age2, DM, CAD) No date: Atherosclerosis No date: Atrial flutter (HCC) No date: Benign neoplasm of colon No date: CAD (coronary artery disease) Comment: nonobstructive CAD by [facility] 2007 No date: Depressive disorder, not elsewhere classified No date: Diabetes (HCC) 08/24/2022: Dilated cardiomyopathy (HCC) No date: Diverticulosis of colon (without mention of hemorrhage) No date: Essential hypertension, malignant No date: Fatty liver No date: Hiatal hernia No date: History of cancer No date: HLD (hyperlipidemia) 06/27/2022: Holter monitor, abnormal Comment: LAKISHA No date: HTN (hypertension) No date: Impaired fasting glucose No date: Internal hemorrhoids without mention of complication No date: Other chest pain No date: Persistent atrial fibrillation (HCC) Comment: asymptomatic; ??? contributing to cardiomyopathy No date: Sleep apnea No date: Snoring No date: Status post catheter ablation of atrial fibrillation Comment: atrial fibrillation catheter ablation/PVAI (RF, Stereotaxis, Carto) 08/28/2023 No date: Syncopal episode 03/13/2024: Thrombus of left atrial appendage No date: Typical atrial flutter (HCC) No date: Ventricular premature depolarization No date: VT (ventricular tachycardia) (HCC) No date: Wide-complex tachycardia Comment: Nonsustained PAST SURGICAL HISTORY 08/28/2023: AFIB ABLATION/PULM VEIN ISOLATION Comment: atrial fibrillation catheter ablation/PVAI (RF, Stereotaxis, Carto); CCAG Dr. Mike 04/2024: CARDIOVERSION 07/26/2022: CARDIOVERSION, ELECTIVE, ELECTRICAL Comment: [facility] 10/25/2013: COLONOSCOPY FLX DX W/COLLJ SPEC WHEN PFRMD Comment: Colonoscopy 10/29/2018: COLONOSCOPY FLX DX W/COLLJ SPEC WHEN PFRMD Comment: repeat 3 years 09/11/2008: COLONOSCOPY W/BIOPSY SINGLE/MULTIPLE 10/10/2022: ECHOCARDIOGRAM Comment: LVEF 45% 08/09/2022: ECHOCARDIOGRAM Comment: LVEF 45% 08/18/2021: ECHOCARDIOGRAM Comment: LVEF 60% 04/19/2023: ECHOCARDIOGRAM Comment: [facility]; see scanned documents; LVEF 45% 1985: INGUINAL HERNIA REPAIR HX; Right 2007: LEFT HEART CATH,PERCUTANEOUS No date: PAST SURGICAL HISTORY OF Comment: pilonidal cyst No date: RPR 1ST INGUN HRNA AGE 7 YRS/> REDUCIBLE Comment: Hernia repair, inguinal 1984: VASECTOMY SOCIAL HISTORY Social History Tobacco Use Smoking status: Former Current packs/day: 0.00 Average packs/day: 2.0 packs/day for 20.0 years (40.0 ttl pk-yrs) Types: Cigarettes Start date: 10/29/1968 Quit date: 10/29/1988 Years since quittin.7 Smokeless tobacco: Never Substance Use Topics Alcohol [...] [Dexametha* Other: See Comments Adverse reaction MEDICATIONS: metoprolol succinate ER (TOPROL XL) 100 mg Take 1 tablet by mouth once daily. multivit with minerals/lutein (MULTIVITAMIN 50 PLUS (more content not included)... Normal [facility] CNOVon 07-01-2024 CNOV Office Visit (AGCARDPOB) DIEGO MCCARTY ([id number]) 1945 M Date Time Provider Department 07/01/24 2:30 PM TORO ROTH AGCARDPOB During your visit today, we recorded the following information about you: Pulse Blood pressure Weight Height 76/minute 126/78 97.5 kg 1.829 m Toro Roth APRN.DIRECTOR BIOLOGICS 07/01/2024 3:[address] [facility] Cardiology Electrophysiology PRIMARY CARE PHYSICIAN: Urban Ledezma ([facility]) [address] [place] [address] CHIEF COMPLAINT: Persistent atrial fibrillation. HISTORY OF PRESENT ILLNESS copied from Dr. Mike's office note on 03/13/2024: Mr. Mccarty presents for follow-up evaluation for atrial fibrillation. The atrial fibrillation has been asymptomatic but was thought to be contributing to his cardiomyopathy and heart failure. He underwent atrial fibrillation catheter ablation 08/28/2023. He had recurrence of the atrial fibrillation about 2 weeks after the ablation procedure. No symptoms, he did not feel any differently in the sinus rhythm. He had routine post ablation CT scan completed 11/28/2023, this showed small thrombus in the BENSON. Aspirin 81 mg daily was added. He denies chest pain, shortness of breath, orthopnea, palpitations, PND, syncope. I have confirmed and edited as necessary, the PFSH and ROS obtained by others. Interval History: Evert is a 79-year-old gentleman who presents today for follow-up regarding history of persistent atrial fibrillation as well as recent cardioversion. Overall Evert reports he has been feeling well. He remains active maintaining his property. He believes he maintained sinus rhythm post cardioversion for roughly 18 days before going back out of rhythm. He reports he is asymptomatic with his atrial fibrillation. He is compliant with his Toprol-XL and Xarelto regimens. Echo from April 2024 revealed normal size left ventricle with mildly decreased EF of 40-45%. Global hypokinesis noted and there were no significant valvular abnormalities. Per attendings prior documentation plan is to abandon any further attempts of sinus rhythm denominational in favor of patient remaining on anticoagulation/rate control strategy. Twelve-lead performed in office today showed atrial fibrillation with a ventricular rate of 72. 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 They are agreeable. I provided central scheduling's number. Will call once results available. Follow-up in 6 months. PAST MEDICAL HISTORY No date: Alcohol use No date: Anemia, unspecified No date: Anemia, unspecified No date: Anticoagulant long-term use Comment: indication: stroke prevention from atrial fibrillation/flutter No date: Arthritis No date: At risk for stroke Comment: [id number] = 6 (CHF, HTN, age2, DM, CAD) No date: Atherosclerosis No date: Atrial flutter (HCC) No date: Benign neoplasm of colon No date: CAD (coronary artery disease) Comment: nonobstructive CAD by [facility] 2007 No date: Depressive disorder, not elsewhere classified No date: Diabetes (HCC) 08/24/2022: Dilated cardiomyopathy (HCC) No date: Diverticulosis of colon (without mention of hemorrhage) No date: Essential hypertension, malignant No date: Fatty liver No date: Hiatal hernia No date: History of cancer No date: HLD (hyperlipidemia) 06/27/2022: Holter monitor, abnormal Comment: LAKISHA No date: HTN (hypertension) No date: Impaired fasting glucose No date: Internal hemorrhoids without mention of complication No date: Other chest pain No date: Persistent atrial fibrillation (HCC) Comment: asymptomatic; ??? contributing to cardiomyopathy No date: Sleep apnea No date: Snoring No date: Status post catheter ablation of atrial fibrillation Comment: atrial fibrillation catheter ablation/PVAI (RF, Stereotaxis, Carto) 08/28/2023 No date: Syncopal episode 03/13/2024: Thrombus of left atrial appendage No date: Typical atrial flutter (HCC) No date: Ventricular premature depolarization No date: VT (ventricular tachycardia) (HCC) No date: Wide-complex tachycardia Comment: Nonsustained PAST SURGICAL HISTORY 08/28/2023: AFIB ABLATION/PULM VEIN ISOLATION Comment: atrial fibrillation catheter ablation/PVAI (RF, Stereotaxis, Carto); CCAG Dr. Mike 07/26/2022: CARDIOVERSION, ELECTIVE, ELECTRICAL Comment: [facility] 10/25/2013: COLONOSCOPY FLX DX W/COLLJ SPEC WHEN PFRMD Comment: Colonoscopy 10/29/2018: COLONOSCOPY FLX DX W/COLLJ SPEC WHEN PFRMD Comment: repeat 3 years 09/11/2008: COLONOSCOPY W/BIOPSY SINGLE/MULTIPLE 10/10/2022: ECHOCARDIOGRAM Comment: LVEF 45% 08/09/2022: ECHOCARDIOGRAM Comment: LVEF 45% 08/18/2021: ECHOCARDIOGRAM Comment: LVEF 60% 04/19/2023: ECHOCARDIOGRAM Comment: [place] (more content not included)... Normal [facility] ECG B/O W INTERP (MED OFFICE )on 07-01-2024 Atrial fibrillation with a ventricular rate of 72. QRS 86. QT/QTc 388/424. [facility] ANES POSTPROC EVALon 024 ANES POSTPROC EVAL HNO ID: [id number] Author: WILEY ESTEVEZ MD Service: Anesthesiology Author Type: Physician Type: Anesthesia Postprocedure Evaluation Filed: 04/22/2024 12:12 Note Text: POST ANESTHESIA EVALUATION NOTE : 1945 Procedure Summary Date: 04/22/24 Room / Location: [facility] / [facility] EP [facility] Anesthesia Start: 813 Anesthesia Stop: 905 Procedures: CARDIOVERSION EXTERNAL ELECTIVE (Cardiac) ECHOCARDIOGRAM TRANSESOPHOGEAL, REAL TIME W/IMAGE DOCUMENT (2D) Diagnosis: Persistent atrial fibrillation (HCC) Status post catheter ablation of atrial fibrillation Anticoagulant long-term use Thrombus of left atrial appendage (Persistent atrial fibrillation (HCC) [I48.19]) (Status post catheter ablation of atrial fibrillation [Z98.890]) (Anticoagulant long-term use [Z79.01]) (Thrombus of left atrial appendage [I51.3]) Surgeons: Tete Marquez MD Responsible Provider: Wiley Estevez MD Anesthesia Type: MAC ASA Status: 3 Anesthesia Type: No value filed. Last Vitals Vitals Value Taken Time BP 131/85 04/22/24 1000 Temp 04/22/24 1211 HR SpO2 52 04/22/24 1002 Resp 12 04/22/24 1004 SpO2 98 % 04/22/24 1002 Vitals shown include unfiled device data. Post Anesthesia Patient Status Anticipated Disposition: phase 2 then home. Neurological Status: aware and responsive. Pulmonary Status: breathing comfortably on room air Airway Control: returned to baseline unsupported. Cardiovascular Status: stable. Pain Management: clinically adequate Postoperative Hydration: acceptable. Intraoperative Events: no significant anesthesia events Post Operative Nausea/Vomiting Status: no significant post operative nausea or vomiting Recommendation: continue current plan of care. 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 as calculated from the following: Height as of 03/13/24: 182.9 cm (6'). Weight as of 03/13/24: 93.4 kg (206 lb). Most recent hematocrit and potassium results: Hematocrit 36.5 04/22/2024 Potassium 4.6 12/13/2023 Relevant Problems ANESTHESIA (+) Obstructive sleep apnea CARDIO (+) Atherosclerosis of coronary artery (+) Atrial flutter (HCC) (+) Internal hemorrhoids without mention of complication (+) Persistent atrial fibrillation (HCC) ENDO (+) Type 2 diabetes mellitus (HCC) GI (+) Gastroesophageal reflux disease PULMONARY (+) Dyspnea (+) Obstructive sleep apnea Cardiovascular (+) Dilated cardiomyopathy (HCC) Atrial fibrillation s/p catheter ablation 08/2023 but recurred 2 weeks later Mild dilated cardiomyopathy with LVEF 45%, thought to be due to AFib History of BENSON thrombus seen on CT 11/28/2023, on xarelto and ASA I - PHYSICAL EVALUATION AIRWAY Patient intubated: No. Tracheostomy tube not present Mallampati: III. TM distance: >3 FB. Neck ROM: full ROM without neurological symptoms. Mouth opening: adequate. Short neck: no. Thick neck: no Cunningham present: no Lip Bite Test: I Microretrognathia/Jason ronagthia/Recessed Chin: No DENTAL Dental findings: missing tooth/teeth. Additional exam findings: no II - ANESTHESIA PLAN ASA Score: 3 Anesthetic Plan: MAC The patient is not a current smoker. NPO Status: adequate Beta Chad Monitoring Plan Monitoring plan: standard ASA. Post Procedure Analgesic Plan Postoperative analgesic plan: parenteral or oral opioids. Informed Consent Anesthetic risks, benefits, alternatives, personnel and consent discussed: yes. Patient / Responsible Libertarian agrees to proceed: yes Patient / Surrogate agrees to blood products: blood products not planned Significant changes in the patient condition since the History and Physical, not otherwise documented in primary service progress note: no. Potential Anesthesia issues that may suggest increased risk of complications or contraindication to planned procedure: none. Vitals Value Taken Time BP 123/89 04/22/24727 Pulse Resp 16 04/22/24727 Temp 36.2 ?C (97.2 ?F) 04/22/24727 SpO2 96 % 04/22/24727 No current facility-administered medications on file as of 04/22/2024. Outpatient Medications as of 04/22/2024 Medication Sig glimepiride (AMARYL) 2 mg tablet Take 2 mg by mouth every morning. losartan (COZAAR) 25 mg tablet Take 0.5 tablets by mouth once daily. aspirin, enteric coated (ADULT LOW DOSE ASPIRIN) 81 mg EC tablet Take 1 tablet by mouth once daily. rivaroxaban (XARELTO) 20 mg tablet Take 20 mg by mouth daily with dinner. simvastatin (ZOCOR) 40 mg tablet Take 40 mg by mouth daily at bedtime. metFORMIN (GLUCOPHAGE) 500 mg tablet Take 500 mg by mouth daily with dinner. multivit with minerals/lutein (MULTIVITAMIN 50 PLUS ORAL) Take 1 tablet by mouth once daily. FLAXSEED OIL ORAL Take 1 capsule by mouth once daily. metoprolol succinate ER (TOPROL XL) 100 mg Take 1 tablet by mouth once daily. potassium chloride 20 mEq TbER Take 1 tablet by mouth daily at bedtime. tamsulosin (FLOMAX) 0.4 mg Take 0.4 mg by mouth daily at bedtime. I have interviewed and examined the patient. I have reviewed the medical record and/or the pre-anesthesia evaluation, pertinent labs, and test results. This contains updated information obtained within 48 hours of Surgery/Procedure. SIGNATURE: Wiley Estevez MD PATIENT NAME: Diego Mccarty DATE: April 22, 2024 TIME: 7:44 AM CSN: [id number] Normal [facility] BRIEF OP NOTon 04-22-2024 BRIEF OP NOT HNO ID: [id number] Author: XUAN SCOTT MD Service: Cardiovascular Medicine Author Type: Physician Type: Brief Op Note Filed: 04/22/2024 09:04 Note Text: TRANSESOPHAGEAL ECHOCARDIOGRAM REASON FOR EXAM: Evaluation for pre-cardioversion PROCEDURES: The procedure was explained to the patient with risks and benefits and informed consent was obtained. The patient was sedated by anesthesia. Esophageal intubation was done with no difficulty. The patient tolerated the procedure well with no immediate postprocedure complications. Blood loss: None INTERPRETATION: Chambers: - Left ventricular systolic function is mildly reduced with LVEF ~40-45% - Right ventricular size and function is normal. Valves: - 1+ TR, 1-2+ MR BENSON: - No left atrial appendage thrombus Shunts: - No evidence of shunt by color Doppler or agitated saline contrast study Aorta: - Mild calcifications noted in the aorta Patient should be NPO for 2 hours post procedure. Please check gag reflex prior to oral intake. Full report of JUVENAL will follow. Normal [facility] Basic metabolic 2000 panelon 04-22-2024 Anion gap [Moles/Vol] 10 mmol/L Normal 8-15 [facility] Comment on above: Order Comment: Barry vazquez Type: BLOOD SPECIMENOrdering Facility: [facility] Address: [address] [place] [address] Performed By: #### 2 4321-2 ####[facility] LABORATORYCLIA [id number] [place] [address] [place] Calcium [Mass/Vol] 8.7 mg/dL Normal 8.5-10.2 [facility] Comment on above: Order Comment: Barry vazquez Type: BLOOD SPECIMENOrdering Facility: [facility] Address: [address] [place] [address] Performed By: #### 2 4321-2 ####[facility] LABORATORYCLIA [id number] [place] [address] [place] Chloride [Moles/Vol] 108 mmol/L High 98-107 [facility] Comment on above: Order Comment: Speci men Type: BLOOD SPECIMENOrdering Facility: [facility] Address: [address] [place] [address] Performed By: #### 2 4321-2 ####[facility] LABORATORYCLIA [id number] [place] [id number] [place] CO2 [Moles/Vol] 23 mmol/L Normal 22-30 [facility] Comment on above: Order Comment: Speci men Type: BLOOD SPECIMENOrdering Facility: [facility] Address: [address] [place] [address] Performed By: #### 2 4321-2 ####[facility] LABORATORYCLIA [id number] [address] STATES OF [facility] Creatinine [Mass/Vol] 0.90 mg/dL Normal 0.73-1.22 [facility] Comment on above: Order Comment: Speci men Type: BLOOD SPECIMENOrdering Facility: [facility] Address: [address] [place] [address] Performed By: #### 2 4321-2 ####[facility] LABORATORYCLIA [id number] [address] Creatinine and Glomerular filtration rate.predicted panel (S/P/Bld) 88 mL/min/1.73m??? Normal >=60 [facility] Comment on above: Order Comment: Speci men Type: BLOOD SPECIMENOrdering Facility: [facility] Address: [address] [place] [address] Result Comment: Neetu mated Glomerular Filtration Rate (eGFR) is calculated using the 2020 CKD-EPI creatinine equation. This equation utilizes serum creatinine, sex, and age as parameters. The creatinine assay has traceable calibration to isotope dilution-mass spectrometry. Refer to KDIGO guidelines for clinical interpretation. In patients with unstable renal function, e.g. those with acute kidney injury, the eGFR may not accurately reflect actual GFR. Performed By: #### 2 4321-2 ####[facility] LABORATORYCLIA [id number] [place] [address] [place] Glucose [Mass/Vol] 121 mg/dL High 74-99 [facility] Comment on above: Order Comment: Barry taylor Type: BLOOD SPECIMENOrdering Facility: [facility] Address: [address] [place] [address] Result Comment: The [place] Diabetes Association (ADA) provides guidance for cutoff values for fasting glucose and random glucose. The ADA defines fasting as no caloric intake for at least 8 hours. Fasting plasma glucose results between 100 to 125 mg/dL indicate increased risk for diabetes (prediabetes). Fasting plasma glucose results greater than or equal to 126 mg/dL meet the criteria for diagnosis of diabetes. In the absence of unequivocal hyperglycemia, results should be confirmed by repeat testing. In a patient with classic symptoms of hyperglycemia or hyperglycemic crisis, random plasma glucose results greater than or equal to 200 mg/dL meet the criteria for diagnosis of diabetes. Reference: Standards of Medical Care in Diabetes 2016, [place] [employer] Association. Diabetes Care. 2016.39(Suppl 1). Performed By: #### 2 4321-2 ####[facility] LABORATORYCLIA [id number] [place] [address] [place] Potassium [Moles/Vol] 3.8 mmol/L Normal 3.7-5.1 [facility] Comment on above: Order Comment: Barry taylor Type: BLOOD SPECIMENOrdering Facility: [facility] Address: [address] [place] [address] Performed By: #### 2 4321-2 ####[facility] LABORATORYCLIA [id number] [place] [id number] [place] Sodium [Moles/Vol] 141 mmol/L Normal 136-144 [facility] Comment on above: Order Comment: Barry taylor Type: BLOOD SPECIMENOrdering Facility: [facility] Address: [address] [place], [place] [id number] Performed By: #### 2 4321-2 ####[facility] LABORATORYCLIA [id number] [place] [address] [place] Urea nitrogen [Mass/Vol] 13 mg/dL Normal 9-24 [facility] Comment on above: Order Comment: Speci men Type: BLOOD SPECIMENOrdering Facility: [facility] Address: [address] [place] [address] Performed By: #### 2 4321-2 ####[facility] LABORATORYCLIA [id number] [place] [address] [place] CBC W Auto Differential pane l (Bld)on 04-22-2024 Basophils (Bld) [#/Vol] 0.05 10*3/uL Normal <0.11 [facility] Comment on above: Order Comment: Speci men Type: BLOOD SPECIMENOrdering Facility: [facility] Address: [address] [place] [address] Performed By: #### 5 7021-8 ####[facility] LABORATORYCLIA [id number] [place] [address] [place] Basophils/100 WBC (Bld) 1.2 % Normal A [facility] Comment on above: Order Comment: Speci men Type: BLOOD SPECIMENOrdering Facility: [facility] Address: [address] [place] [address] Performed By: #### 5 7021-8 ####[facility] LABORATORYCLIA [id number] [address] [place] Differential cell count method Nom (Bld) Auto Normal [facility] Comment on above: Order Comment: Speci men Type: BLOOD SPECIMENOrdering Facility: [facility] Address: [address] [place] [address] Performed By: #### 5 7021-8 ####[facility] LABORATORYCLIA [id number] [place] [address] [place] Eosinophils (Bld) [#/Vol] 0.12 10*3/uL Normal <0.46 [facility] Comment on above: Order Comment: Speci men Type: BLOOD SPECIMENOrdering Facility: [facility] Address: [address] [place] [address] Performed By: #### 5 7021-8 ####[facility] LABORATORYCLIA [id number] [address] STATES [facility] Eosinophils/100 WBC (Bld) 3.0 % Normal [facility] Comment on above: Order Comment: Speci men Type: BLOOD SPECIMENOrdering Facility: [facility] Address: [address] [place] [address] Performed By: #### 5 7021-8 ####[facility] LABORATORYCLIA [id number] [address] Erythrocyte distribution width (RBC) [Ratio] 13.2 % Normal 11.5-15.0 [facility] Comment on above: Order Comment: Speci men Type: BLOOD SPECIMENOrdering Facility: [facility] Address: [address] [place] [address] Performed By: #### 5 7021-8 ####[facility] LABORATORYCLIA [id number] [address] Hematocrit (Bld) [Volume fraction] 36.5 % Low 39.0-51.0 [facility] Comment on above: Order Comment: Speci men Type: BLOOD SPECIMENOrdering Facility: [facility] Address: [address] [place] [address] Performed By: #### 5 7021-8 ####[facility] LABORATORYCLIA [id number] [address] [place] Hemoglobin (Bld) [Mass/Vol] 12.6 g/dL Low 13.0-17.0 [facility] Comment on above: Order Comment: Speci men Type: BLOOD SPECIMENOrdering Facility: [facility] Address: [address] [place] [address] Performed By: #### 5 7021-8 ####[facility] LABORATORYCLIA [id number] [address] Immature granulocytes (Bld) [#/Vol] 10*3/uL Normal <0.10 [facility] Comment on above: Order Comment: Speci men Type: BLOOD SPECIMENOrdering Facility: [facility] Address: [address] [place] [address] Performed By: #### 5 7021-8 ####[facility] LABORATORYCLIA [id number] [address] Immature granulocytes/100 WBC (Bld) 0.2 % Normal [facility] Comment on above: Order Comment: Speci men Type: BLOOD SPECIMENOrdering Facility: [facility] Address: [address] [place] [address] Performed By: #### 5 7021-8 ####[facility]ORATORYCLIA [id number] [address] [place] Lymphocytes (Bld) [#/Vol] 1.41 10*3/uL Normal 1.00-4.00 [facility] Comment on above: Order Comment: Speci men Type: BLOOD SPECIMENOrdering Facility: [facility] Address: [address] [place] [address] Performed By: #### 5 7021-8 ####[facility] LABORATORYCLIA [id number] [address] Lymphocytes/100 WBC (Bld) 34.7 % Normal [facility] Comment on above: Order Comment: Speci men Type: BLOOD SPECIMENOrdering Facility: [facility] Address: [address] [place] [address] Performed By: #### 5 7021-8 ####[facility]ORATORYCLIA [id number] [address] [place] MCH (RBC) [Entitic mass] 30.4 pg Normal 26.0-34.0 [facility] Comment on above: Order Comment: Speci men Type: BLOOD SPECIMENOrdering Facility: [facility] Address: [address] [place] [address] Performed By: #### 5 7021-8 ####[facility] LABORATORYCLIA [id number] [address] MCHC (RBC) [Mass/Vol] 34.5 g/dL Normal 30.5-36.0 [facility] Comment on above: Order Comment: Speci men Type: BLOOD SPECIMENOrdering Facility: [facility] Address: [address] [place] [address] Performed By: #### 5 7021-8 ####[facility] LABORATORYCLIA [id number] [address] [place] MCV (RBC) [Entitic vol] 88.0 fL Normal 80.0-100.[address] [facility] Comment on above: Order Comment: Speci men Type: BLOOD SPECIMENOrdering Facility: [facility] Address: [address] [place] [address] Performed By: #### 5 7021-8 ####[facility] LABORATORYCLIA [id number] [address] [place] Monocytes (Bld) [#/Vol] 0.40 10*3/uL Normal <0.87 [facility] Comment on above: Order Comment: Speci men Type: BLOOD SPECIMENOrdering Facility: [facility] Address: [address] [place] [address] Performed By: #### 5 7021-8 ####[facility] LABORATORYCLIA [id number] [address] [place] Monocytes/100 WBC (Bld) 9.9 % Normal A [facility] Comment on above: Order Comment: Speci men Type: BLOOD SPECIMENOrdering Facility: [facility] Address: [address] [place] [address] Performed By: #### 5 7021-8 ####[facility] LABORATORYCLIA [id number] [place] [address] [place] Neutrophils (Bld) [#/Vol] 2.07 10*3/uL Normal 1.45-7.50 [facility] Comment on above: Order Comment: Speci men Type: BLOOD SPECIMENOrdering Facility: [facility] Address: [address] [place] [address] Performed By: #### 5 7021-8 ####[facility] LABORATORYCLIA [id number] [address] [place] Neutrophils/100 WBC (Bld) 51.0 % Normal [facility] Comment on above: Order Comment: Speci men Type: BLOOD SPECIMENOrdering Facility: [facility] Address: [address] [place] [address] Performed By: #### 5 7021-8 ####[facility] LABORATORYCLIA [id number] [address] [place] Nucleated RBC (Bld) [#/Vol] 10*3/uL Normal <0.01 [facility] Comment on above: Order Comment: Speci men Type: BLOOD SPECIMENOrdering Facility: [facility] Address: [address] [place] [address] Performed By: #### 5 7021-8 ####[facility] LABORATORYCLIA [id number] [address] OF [facility] Nucleated RBC/100 WBC (Bld) [Ratio] 0.0 /100 WBC Normal [facility] Comment on above: Order Comment: Speci men Type: BLOOD SPECIMENOrdering Facility: [facility] Address: [address] [place] [address] Performed By: #### 5 7021-8 ####[facility] LABORATORYCLIA [id number] [address] [place] Platelet mean volume (Bld) [Entitic vol] 9.7 fL Normal 9.0-12.7 [facility] Comment on above: Order Comment: Speci men Type: BLOOD SPECIMENOrdering Facility: [facility] Address: [address] [place] [address] Performed By: #### 5 7021-8 ####[facility] LABORATORYCLIA [id number] [address] [place] Platelets (Bld) [#/Vol] 144 10*3/uL Low 150-400 [facility] Comment on above: Order Comment: Speci men Type: BLOOD SPECIMENOrdering Facility: [facility] Address: [address] [place] [address] Performed By: #### 5 7021-8 ####[facility] LABORATORYCLIA [id number] [place] [address] [place] RBC (Bld) [#/Vol] 4.15 10*6/uL Low 4.20-6.00 [facility] Comment on above: Order Comment: Speci men Type: BLOOD SPECIMENOrdering Facility: [facility] Address: [address] [place] [address] Performed By: #### 5 7021-8 ####[facility] LABORATORYCLIA [id number] [place] [address] [facility] WBC (Bld) [#/Vol] 4.06 10*3/uL Normal 3.70-11.00 [facility] Comment on above: Order Comment: Speci men Type: BLOOD SPECIMENOrdering Facility: [facility] Address: [address] [place] [address] Performed By: #### 5 7021-8 ####[facility] LABORATORYCLIA [id number] [place] [address] [facility] ECHO TRANSESOPHAGEALon 04-22 ECHO TRANSESOPHAGEAL Echocardiography Report: Transesophageal Echo [facility] Date of service: 04/22/2024 8:22:05 AM [facility] Ordering physician: TETE MARQUEZ Indication: Abnormal ECG Technologist: Bang Lino [facility] Interpreting physician: Xuan Scott MD PATIENT: Name: MR. DIEGO MCCARTY : 1945 Age: 79 years Gender: M History of coronary artery disease, arrhythmia, diabetes mellitus, dyslipidemia, DCM, LENIN and syncope. Primary rhythm: atrial fib. Height: 182.90 cm BSA: 2.18 m Weight: 93.44 kg BMI: 27.9 kg/m Pre Heart rate 97 bpm Blood pressure 130/90 mmHg Agitated saline was administered to rule out shunt. Color Doppler was utilized to interrogate the cardiac valves assessed and spectral Doppler was utilized to determine the flow velocities and pressure gradients reported in this exam. Medications Total Dose Agitated Saline 10.00 ml Propofol 180mg Exam performed under moderate sedation with continuous ECG, pulse oximetry and cardiopulmonary monitoring by nursing, overseen by the performing physician(s), for an intraservice time of 11 min. (Stop Time: 8:48AM) No specimens collected. No blood loss. The interpreting physician was present for and actively participated in the JUVENAL procedure. MEASUREMENTS: Value Normal Max aortic dimension 3.8 cm Ao < 3.8 Ejection Fraction 40-45 % (visual est.) EF > 52 FINDINGS: LEFT VENTRICLE The left ventricle is normal in size. Left ventricular systolic function is mildly decreased. Left ventricular diastolic function was not evaluated. Wall Motion: The entire anterior wall, entire lateral wall, entire septum, entire apex, and entire inferior wall are mildly hypokinetic. RIGHT VENTRICLE The right ventricle is normal in size. Right ventricular systolic function is low normal. LEFT ATRIUM The left atrial cavity is dilated. The peak emptying velocity from the left atrial appendage is 26.1 cm/s. There is no left atrial appendage thrombus. RIGHT ATRIUM The right atrial cavity is dilated. MITRAL VALVE There is mild (1+ - 2+) mitral valve regurgitation. There is mild thickening. Regurgitant orifice area (PISA) is 0.15 cm . TRICUSPID VALVE The tricuspid valve leaflets are structurally normal. There is mild (1+) tricuspid valve regurgitation. AORTIC VALVE There is mild aortic valve stenosis caused by calcified valve. There is mild (1+) aortic valve regurgitation. Tricuspid aortic valve. There is mild thickening. There is mild calcification. PULMONIC VALVE The pulmonic valve cusps are structurally normal. There is trace (trace - 1+) pulmonic valve regurgitation. AORTA The visualized aorta is normal in size. Measurements - Sinus: 3.8 cm. Mid ascending aorta 3.7 cm. There is mild calcification in the proximal descending isthmus and mid descending thoracic. PULMONARY ARTERIES The pulmonary arteries are unseen or not interrogated. INTERATRIAL SEPTUM There is no evidence of intracardiac shunting as detected by Doppler and agitated saline contrast. PERICARDIUM There is no pericardial effusion. CONCLUSIONS: - Exam indication: Abnormal ECG - The left ventricle is normal in size. Left ventricular systolic function is mildly decreased. Globally hypokinetic left ventricle with EF = 40-45% (visual est.) Left ventricular diastolic function was not evaluated. - The right ventricle is normal in size. Right ventricular systolic function is low normal. - No significant valve disease: Mild , 1+ AI, 1-2+ MR, 1+ TR, Trivial PI - No evidence of intracardiac thrombus noted. - Exam was compared with the prior CC echocardiographic exam performed on 11/28/2023. No significant change noted when compared to report of prior study. * * * Final * * * [facility] : [id number] micsSISUID [facility] HISTORY PHYSICALon HISTORY PHYSICAL HNO ID: [id number] Author: TETE MARQUEZ MD Service: Electrophysiology Author Type: Physician Type: H&P Filed: 04/22/2024 08:16 Note Text: UPDATED HISTORY AND PHYSICAL EXAMINATION SERVICE DATE: 04/22/2024 SERVICE TIME: 805am PHYSICAL EXAM MUST BE COMPLETED ON ADMISSION The History and Physical (completed in the past 35 days) has been reviewed and the patient has been examined. The contents accurately reflect the patient's condition today He has a h.o PAF detected in 2021, HF with mid range EF 45% s/p RFA of persistent AF with Dr Mike 08/28/23. Maintained on Atenolol and Xarelto. He performed weekly transtelephonic monitoring, and the transmission sent 09/18/[address] of the chest revealed small thrombus in the left atrial appendage, 2.7 cm. No pulmonary vein stenosis. Moderate coronary calcifications and noncardiac findings including 3 mm lung nodule and adenopathy. Aspirin 81 mg daily was added to his regimen for the left atrial appendage thrombus.. He had recurrence of the atrial fibrillation about 2 weeks after the ablation procedure. No symptoms, he did not feel any differently in the sinus rhythm. He FU with Dr Mike 03/13/24 and due to HF mid range EF and persistent AF, decision made to pursue JUVENAL guided DCCV. Patient since then has no new symptoms of chest pain SOB dizziness edema external bleeding Says he takes meds regularly No fever chills nausea vomiting diarrhoea or new neurological symptoms. Is Npo and aware that Dr Mike not available today and his cardioversion would be performed by hi. Examination indicates Alert Oriented x 3 JVP not elevated Carotid variable volume Lungs good air entry CVS AF. 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 Discussed with patient and his about the JUVENAL Guided DCCV procedure, risks benefits expectations. Patient agrees to proceed. Informed consent obtained. SIGNATURE: Tete Marquez MD PATIENT NAME: Diego Mccarty DATE: April 22, 2024 TIME: 8:09 AM [facility] OPERATIVE NOon 04-22-2024 OPERATIVE NO HNO ID: [id number] Author: TETE MARQUEZ MD Service: Electrophysiology Author Type: Physician Type: Operative Report Filed: 04/22/2024 08:54 Note Text: [address] Electrophysiology (EP) [facility] Electrical DC Cardioversion Procedure Report Patient Name: Diego Mccarty Medical Record: [id number] Date of : 1945 Date: 04/22/2024 Procedure Performed: External electrical DC cardioversion Indication: persistent atrial fibrillation 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 He had been taking rivaroxaban as prescribed. Informed consent was obtained. Intravenous access was secured. Self-adhesive defibrillation electrode pads were applied in the anterior/posterior configuration. Deep sedation was achieved, managed by the Anesthesiology service. Dr. Scott performed JUVENAL and reported finding no evidence for left atrial thrombus. Atrial fibrillation was terminated with a 200-J synchronized biphasic external shock. The resulting rhythm was initially a run of AT or atyp Afl followed by sinus at 56 BPM with occ PACs The patient tolerated the procedure well and there were no immediate complications. He was observed in the EP lab area until fully recovered, and then discharged home under the care of his . ORAL ANTICOAGULATION will be continued. Tete Marquez MD April 22, 2024 8:53 AM [facility] CNPNon 03-27-2024 [facility] Telephone ([employer] ) GISELLE MCCARTYE Samson ([id number]) 1945 M Date Time Provider Department 03/27/24 SUZAN MIKE During your visit today, we recorded the following information about you: Huber Perez 03/27/2024 10:57 AM Signed Patient is scheduled for a Cardioversion/JUVENAL on 04/[address] Mike. The hospital will call the day before between 2-5pm with your arrival time. You should not eat or drink after midnight the day before the procedure. 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 You should continue to take medications as prescribed the morning of the procedure with just a sip of water unless otherwise instructed. HANDP morning of Spoke with Evert Mccarty on March 27, 2024. Informed of instructions as stated above. Patient verbalized understanding. Hollie Ponce, MOOKIE 03/27/2024 11:07 AM Signed Pt's name has been added to small procedure board. Hollie Boudreaux RN Allergies As of Date: 03/27/2024 Noted Allergy Reaction STEROIDS (DEXAMETHASONE PHOS-LIDO*10/24/2023 14 - Other: See Comments Comments: Adverse reaction Date Reviewed: 03/13/2024 Reviewed by: Suzan Mike MD - Fully Assessed Reason for Visit: Preparations For Procedures [899] Prescriptions as of 03/27/2024 - multivit with minerals/lutein (MULTIVITAMIN 50 PLUS ORAL) Take 1 tablet by mouth once daily. - FLAXSEED OIL ORAL Take 1 capsule by mouth once daily. - glimepiride (AMARYL) 2 mg tablet Take 2 mg by mouth every morning. - losartan (COZAAR) 25 mg tablet Take 0.5 tablets by mouth once daily. - aspirin, enteric coated (ADULT LOW DOSE ASPIRIN) 81 mg EC tablet Take 1 tablet by mouth once daily. - metoprolol succinate ER (TOPROL XL) 100 mg Take 1 tablet by mouth once daily. - potassium chloride 20 mEq TbER Take 1 tablet by mouth daily at bedtime. - tamsulosin (FLOMAX) 0.4 mg Take 0.4 mg by mouth daily at bedtime. - rivaroxaban (XARELTO) 20 mg tablet Take 20 mg by mouth daily with dinner. - simvastatin (ZOCOR) 40 mg tablet Take 40 mg by mouth daily at bedtime. - metFORMIN (GLUCOPHAGE) 500 mg tablet Take 500 mg by mouth daily with dinner. Problem List As Of Date 03/27/2024 Noted Resolved ANEMIA NOS [D64.9] 09/11/2008 BENIGN NEOPLASM LG BOWEL [D12.6] 09/11/2008 DIVERTICULOSIS OF COLON W/O BLEED [K57.30] 09/11/2008 INT HEMORRHOID W/O COMPL [K64.8] 09/11/2008 Persistent atrial fibrillation (HCC) [I48.19] 08/24/2022 At risk for stroke [Z91.89] 08/24/2022 Anticoagulant long-term use [Z79.01] 08/24/2022 Atrial flutter (HCC) [I48.92] 08/24/2022 Wide-complex tachycardia [R00.0] 08/24/2022 Atherosclerosis of coronary artery [I25.10] 12/14/2021 Type 2 diabetes mellitus (HCC) [E11.9] 10/03/2021 Syncope and collapse [R55] 03/11/2022 Hyperlipidemia [E78.5] 07/15/2022 Gastroesophageal reflux disease [K21.9] 08/24/2022 Dilated cardiomyopathy (HCC) [I42.0] 08/24/2022 Obstructive sleep apnea [G47.33] 02/24/2023 Status post catheter ablation of atrial fibrill*08/28/2023 Dyspnea [R06.00] 11/28/2023 Thrombus of left atrial appendage [I51.3] 03/13/2024 Encounter Status:Closed by HUBER PEREZ on 03/27/24 [facility] CNOVon 03-13-2024 CNOV Office Visit (AGCARDPOB) EVERT MCCARTY ([id number]) 1945 M Date Time Provider Department 03/13/24 1:40 PM SUZAN MIKE AGCARDPOB During your visit today, we recorded the following information about you: Pulse Blood pressure Weight Height 82/minute 138/79 93.4 kg 1.829 m Suzan Mike MD 03/18/2024 6:51 PM Signed PRIMARY CARE PHYSICIAN: Urban Ledezma ([facility]) [address] [place] [address] Patient Care Team: Urban Ledezma MD as PCP - General (Family Medicine) Suzan Mike MD as Specialty Solar Electric Installer (Cardiology) Cordelia Blackwood MD as Specialty Solar Electric Installer (Cardiology) CHIEF COMPLAINT: Follow up for arrhythmia HISTORY OF PRESENT ILLNESS: Mr. Mccarty is a 78 year old male who presents today for a cardiovascular medicine follow-up visit. History copied from previous notes, edited as needed: Summary of previous notes: Mr. 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 Echeverria to Dr. Mike, established care in August/2022. He had apparently been diagnosed a few years prior when he was hospitalized at [facility] with a bladder infection and fever. Following that hospitalization, he reported going in and out of the arrhythmia. He was treated with diltiazem. Cardiac monitoring around that time showed arrhythmia burden of about 14%. Over time, the arrhythmia became more persistent, confirmed either by monitoring or his personal monitoring with his Apple Watch. He reported no symptoms associated with the arrhythmia, he underwent electrical cardioversion 07/26/2022, but the atrial fibrillation recurred about a day later. He did not feel differently in sinus rhythm, was not aware that the arrhythmia recurred except by the Apple Watch notifying him. An echocardiogram at the end of July/2022 showed mild cardiomyopathy, LVEF 45%, stress test 08/09/2022 showed no ischemia or scar, but showed mild cardiomyopathy with LVEF 47%. Rate control versus rhythm control strategy was discussed with Dr. Mike during the appointment August/2022, even though he did not have excessively bothersome symptoms, cardiac monitoring in June/2022 showed suboptimal ventricular rate control with an average ventricular response rate of 114 bpm, likely contributing to the mild cardiomyopathy. He was then treated with atenolol. Repeat echocardiogram September/2022 showed the cardiomyopathy was about the same, LVEF 45%, he remained asymptomatic to the atrial arrhythmia that remained persistent. After further discussion between Dr. Mike and Dr. Echeverria, it was decided patient should move forward with catheter ablation for the atrial fibrillation/flutter. He underwent radiofrequency catheter ablation of persistent atrial fibrillation with Dr. Mike 08/28/2023. He was discharged on atenolol 50 mg twice daily and Xarelto 20 mg daily. He performed weekly transtelephonic monitoring, and the transmission sent 09/18/[address] of the chest revealed small thrombus in the left atrial appendage, 2.7 cm. No pulmonary vein stenosis. Moderate coronary calcifications and noncardiac findings including 3 mm lung nodule and adenopathy. The atrial fibrillation returned about 18 days after the ablation procedure, he was asymptomatic, has some fatigue which is not new. Aspirin 81 mg daily was added to his regimen for the left atrial appendage thrombus. He will follow-up with his PCP regarding the noncardiac findings on the CT. Interim History Dr. Mike 03/13/2024: Mr. Mccarty presents for follow-up evaluation for atrial fibrillation. The atrial fibrillation has been asymptomatic but was thought to be contributing to his cardiomyopathy and heart failure. He underwent atrial fibrillation catheter ablation 08/28/2023. He had recurrence of the atrial fibrillation about 2 weeks after the ablation procedure. No symptoms, he did not feel any differently in the sinus rhythm. He had routine post ablation CT scan completed 11/28/2023, this showed small thrombus in the BENSON. Aspirin 81 mg daily was added. He denies chest pain, shortness of breath, orthopnea, palpitations, PND, syncope. I have confirmed and edited as necessary, the PFSH and ROS obtained by others. PAST MEDICAL HISTORY Diagnosis Date Alcohol use Anemia, unspecified Anemia, unspecified Anticoagulant long-term use indication: stroke prevention from atrial fibrillation/flutter Arthritis At risk for stroke [id number] = 6 (CHF, HTN, age2, DM, CAD) Atherosclerosis Atrial flutter (HCC) Benign neoplasm of colon CAD (coronary artery disease) nonobstructive CAD by [facility] 2007 Depressive disorder, not elsewhere classified Diabetes (HCC) Dilated cardiomyopathy (HCC) 08/24 (more content not included)... [facility] ECG B/O W INTERP (MED OFFICE )on 03-13-2024 Interpretation and review of laboratory results Abnormal [facility] Atrial fibrillation with controlled ventricular response, average 72 bpm; normal QRS duration 86 ms; QTc 422 ms [facility] Basophil percentageOrdered B y: Osbaldo Ledezma on 11-27-2023 Bilirubin [Mass/Vol] 0.50 mg/dL 0.20-1.00 [facility] Comment on above: For patients on eltr ombopag therapy, use of Dimension [place] TBIL is not recommended. Chloride [Moles/Vol] 108 mmol/L 98-107 [facility] Cholesterol [Mass/Vol] 120 mg/dL <200 [facility] Comment on above: <200 mg/dL Desirable 200-240 mg/dL Borderline >240 mg/dL High Risk Glucose [Mass/Vol] 133 mg/dL 74-106 [facility] Comment on above: Fasting Glucose resu lt greater than or equal to 126 mg/dL suggests DIABETES MELLITUS per A.D.A. criteria. Potassium [Moles/Vol] 3.7 mmol/L 3.5-5.1 [facility] Protein [Mass/Vol] 6.7 g/dL 6.4-8.2 [facility] Sodium [Moles/Vol] 141 mmol/L 136-145 [facility] Triglyceride [Mass/Vol] 74 mg/dL <199 [facility] Comment on above: The drugs N-Acetylcy steine and Metamizole may falsely depress this assay.Serum Triglycerides Reference Interval Normal <150 mg/dL Borderline high 150 - 199 mg/dL High 200 - 499 mg/dL Very High > or = 500 mg/dL Laboratory - Chemistry and C hemistry - challengeOrdered By: Osbaldo Ledezma on 11-27-2023 ALP [Catalytic activity/Vol] 69 U/L 45-117 [facility] ALT [Catalytic activity/Vol] 19 U/L 16-61 [facility] CO2 [Moles/Vol] 27.0 mmol/L 21.0-32.0 [facility] Globulin (S) [Mass/Vol] 3.2 g/dL 2.2-4.2 [facility] Urea nitrogen/Creatinine [Mass ratio] 14.6 mg/mg 10-20 [facility] No Panel InformationOrdered By: Osbaldo Ledezma on 11-27-2023 Estimated GFR (MDRD) Amer 98 mL/min >60 [facility] Comment on above: GFR Calc Estimated GFR (MDRD) Non-Af Amer 81 mL/min >60 [facility] Comment on above: Non- GFR Calc Thyroid Stimulating Hormone (TSH) 1.75 uIU/mL 0.358-3.74 [facility] Serum or plasma albumin brenda urement (mass/volume)Ordered By: Osbaldo Ledezma on 11-27-2023 Albumin [Mass/Vol] 3.5 g/dL 3.2-5.0 [facility] Serum or plasma albumin/glob ulin mass ratioOrdered By: Osbaldo Ledezma on 11-27-2023 Albumin/Globulin [Mass ratio] 1.1 {ratio} 0.9-2.4 [facility] Serum or plasma calcium brenda urement (mass/volume)Ordered By: Osbaldo Ledezma on 11-27-2023 Calcium [Mass/Vol] 8.3 mg/dL 8.5-10.1 [facility] Serum or plasma cholesterol in HDL measurement (mass/volume)Ordered By: Osbaldo Ledezma on 11-27-2023 Cholesterol in HDL [Mass/Vol] 41 mg/dL >40 [facility] Comment on above: The drugs N-Acetylcy steine and Metamizole may falsely depress this assay. Reference Range HDL <40 mg/dL Low HDL Cholesterol HDL >or= 60 mg/dL High HDL Cholesterol Serum or plasma cholesterol in VLDL measurement (mass/volume)Ordered By: Osbaldo Ledezma on 11-27-2023 Cholesterol in VLDL [Mass/Vol] 15 mg/dL 5-40 [facility] Serum or plasma creatinine m easurement (mass/volume)Ordered By: Osbaldo Ledezma on 11-27-2023 Creatinine [Mass/Vol] 0.96 mg/dL 0.70-1.30 [facility] Comment on above: The validity of the calculated GFR & GFRAA in patients over 70 years has not been determined. Clinical correlation is essential. Serum or plasma low density lipoprotein (LDL) cholesterol measurement (mass/volume)Ordered By: Osbaldo Ledezma on 11-27-2023 Cholesterol in LDL [Mass/Vol] 64 mg/dL 0-130 [facility] Serum or plasma urea nitroge n measurement (mass/volume)Ordered By: Osbaldo Ledezma on 11-27-2023 Urea nitrogen [Mass/Vol] 14 mg/dL 7-18 [facility] Thin prep Papanicolaou smear with manual screeningOrdered By: Osbaldo Ledezma on 11-27-2023 Thin prep Papanicolaou smear with manual screening 11 U/L 15-37 [facility] Thin prep Papanicolaou smear with manual screening 6 -15 [facility] ARRHYTHMIA TRANS TELE MEASUR Rinku 10-04-2023 [facility] ARRHYTHMIA TRANS TELE MEASUR Rinku 09-27-2023 Arrhyth-Measure RR Interval Min 80 [facility] MEASURE RR INTERVAL MAX 90 [facility] Symptoms none [facility] ARRHYTHMIA TRANS TELE MEASUR Rinku 09-20-2023 Arrhyth-Measure RR Interval Min 90 [facility] MEASURE RR INTERVAL MAX 100 [facility] Symptoms none [facility] ARRHYTHMIA TRANS TELE MEASUR Rinku 09-18-2023 Arrhyth-Measure RR Interval Min 75 [facility] MEASURE RR INTERVAL MAX 100 [facility] Symptoms heart rate feels irregular [facility] Absolute lymphocyte counton 10-12-2022 Lymphocytes Auto (Unsp spec) [#/Vol] 0.16 10*3/uL 0.83-4.51 [facility] Work Phone: Basophil percentageon 2021 Basophil percentage 0-5 SEEN /hpf 0-5 [facility] Work Phone: Basophils/100 WBC (Bld) 0.3 % 0-1 [facility] Work Phone: Chloride [Moles/Vol] 106 mmol/L 98-107 [facility] Work Phone: Eosinophils/100 WBC (Bld) 0.3 % 0-5 [facility] Work Phone: Glucose [Mass/Vol] 211 mg/dL 74-106 [facility] Work Phone: Comment on above: Glucose result great er than or equal to 200 mg/dLsuggests DIABETES MELLITUS per A.D.A. criteria. Neutrophils (Bld) [#/Vol] 5.1 10*3/uL 2.0-7.7 [facility] Work Phone: Neutrophils/100 WBC (Bld) 88.8 % 47-70 [facility] Work Phone: Potassium [Moles/Vol] 5.2 mmol/L 3.5-5.1 [facility] Work Phone: Sodium [Moles/Vol] 138 mmol/L 136-145 [facility] Work Phone: WBC (Bld) [#/Vol] 5.8 10*3/uL 4.4-11.0 [facility] Work Phone: Bilirubin Test strip Ql (U)o n 10-12-2022 Bilirubin Ql (U) Negative Negative [facility] Work Phone: Blood erythrocytes count (nu mber/volume)on 10-12-2022 RBC (Bld) [#/Vol] 5.13 10*6/uL 4.6-6.2 [facility]: Blood hemoglobin measurement (mass/volume)on 10-12-2022 Hemoglobin (Bld) [Mass/Vol] 14.9 g/dL 13.0-16.5 [facility] Work Phone: [phone] Blood lymphocytes/100 leukoc yteson 10-12-2022 Lymphocytes/100 WBC (Bld) 2.8 % 19-41 [facility] Work Phone: Blood monocytes/100 leukocyt eson 10-12-2022 Monocytes/100 WBC (Bld) 7.5 % 0-10 [facility] Work Phone: Blood platelet adequacy dete ction by light microscopyon 10-12-2022 Platelets LM Ql (Bld) ADEQUATE ADEQ [facility] Work Phone: Blood platelet mean volumeon 10-12-2022 Platelet mean volume (Bld) [Entitic vol] 9.6 fL 6.2-12.0 [facility] Work Phone: Determination of erythrocyte mean corpuscular volume (MCV)on 10-12-2022 MCV (RBC) [Entitic vol] 89.7 fL 80-94 [facility] Work Phone: Hematocrit Auto (Bld) [Volum e fraction]on 10-12-2022 Hematocrit (Bld) [Volume fraction] 46.0 % 40-54 [facility] Work Phone: Ketones Test strip Ql (U)on 10-12-2022 Ketones Ql (U) 5 mg/dl Negative [facility] Work Phone: Laboratory - Chemistry and C hemistry - challengeon 10-12-2022 CO2 [Moles/Vol] 27.0 mmol/L 21.0-32.0 [facility] Work Phone: Urea nitrogen/Creatinine [Mass ratio] 19.3 mg/mg 10-20 [facility] Work Phone: Laboratory - Hematology and Cell countson 10-12-2022 Erythrocyte distribution width (RBC) [Entitic vol] 46.1 fL 35.1-43.9 [facility] Work Phone: Erythrocyte distribution width (RBC) [Ratio] 14.0 % 11.6-14.6 [facility] Work Phone: Immature granulocytes/100 WBC (Bld) 0.300 % 0.0-0.9 [facility] Work Phone: Comment on above: IG% - Immature Granu locytes (promyelocytes, myelocytes and metamyelocytes) > 1% indicates that a LEFT SHIFT is Present. MCH (RBC) [Entitic mass] 29.0 pg 27.0-32.0 [facility] Work Phone: Nucleated RBC/100 WBC (Bld) [Ratio] 0 % 0-5 [facility] Work Phone: MCHC Auto (RBC) [Mass/Vol]on 10-12-2022 MCHC (RBC) [Mass/Vol] 32.4 g/dL 32-36 [facility] Work Phone: Mucus LM Ql (Urine sed)on Mucus Ql (Urine sed) 0 SEEN /hpf [facility] Work Phone: Nitrite Test strip Ql (U)on 10-12-2022 Nitrite Ql (U) Negative Negative [facility] Work Phone: No Panel Informationon 10-12 Estimated Creatinine Clearance Calc 61.45 ml/min [facility] Work Phone: Estimated GFR (MDRD) Amer 80 mL/min >60 [facility] Work Phone: Comment on above: GFR Calc Estimated GFR (MDRD) Non-Af Amer 67 mL/min >60 [facility] Work Phone: Comment on above: Non- GFR Calc Platelets bldon 10-12-2022 Platelets (Bld) [#/Vol] 170 10*3/uL 150-450 [facility] Work Phone: Protein Test strip Ql (U)on 10-12-2022 Protein Ql (U) 15 mg/dl Negative [facility] Work Phone: RBC morphologyon 10-12-2022 RBC morphology finding Nom (Bld) NORM C+C NORMAL NORM C&C [facility] Work Phone: Serum or plasma calcium brenda urement (mass/volume)on 10-12-2022 Calcium [Mass/Vol] 9.2 mg/dL 8.5-10.1 [facility] Work Phone: Serum or plasma creatinine m easurement (mass/volume)on 10-12-2022 Creatinine [Mass/Vol] 1.14 mg/dL 0.70-1.30 [facility] Work Phone: Comment on above: The validity of the calculated GFR & GFRAA in patients over 70 years has not been determined. Clinical correlation is essential. Serum or plasma urea nitroge n measurement (mass/volume)on 10-12-2022 Urea nitrogen [Mass/Vol] 22 mg/dL 7-18 [facility] Work Phone: Squamous epithelial cells de tection in urine sediment by light microscopyon 10-12-2022 Epithelial cells.squamous LM Ql (Urine sed) 0 SEEN /hpf 0-5 [facility] Work Phone: Thin prep Papanicolaou smear with manual screeningon 10-12-2022 Thin prep Papanicolaou smear with manual screening 5 5-15 [facility] Work Phone: Urine blood detectionon 09-15 RBC Ql (U) Negative Negative [facility] Work Phone: RBC Ql (U) 0 SEEN /hpf 0-5 [facility] Work Phone: Urine clarityon 10-12-2022 Clarity (U) Clear Clear [facility] Work Phone: Urine color determinationon 10-12-2022 Color (U) Yellow Yellow [facility] Work Phone: Urine glucose detectionon Glucose Ql (U) Normal mg/dl Normal [facility] Work Phone: Urine leukocyte esterase det ection by dipstickon 10-12-2022 Leukocyte esterase Test strip Ql (U) 25 /ul Negative [facility] Work Phone: Urine pHon 10-12-2022 pH (U) 6.0 [pH] 5.0 - 8.0 [facility] Work Phone: Urine sediment bacteria coun t by microscopy (number/high power field)on 10-12-2022 Bacteria LM.HPF (Urine sed) [#/Area] 0 /[HPF] None Seen [facility] Work Phone: Urine specific gravity measu rementon 10-12-2022 Specific gravity (U) [Rel density] 1.020 1.002-1.030 [facility] Work Phone: Urobilinogen Auto test strip Ql (U)on 10-12-2022 Urobilinogen Ql (U) Normal mg/dl Normal [facility] Work Phone: Basophil percentageon 2021 Basophil percentage 0 SEEN /hpf 0-5 [facility] Work Phone: Bilirubin Test strip Ql (U)o n 09-05-2022 Bilirubin Ql (U) Negative Negative [facility] Work Phone: Calcium oxalate crystals det ection in urine sediment by light microscopyon 09-05-2022 Calcium oxalate crystals LM Ql (Urine sed) 1+ /hpf [facility] Work Phone: Ketones Test strip Ql (U)on 09-05-2022 Ketones Ql (U) Negative Negative [facility] Work Phone: Mucus LM Ql (Urine sed)on Mucus Ql (Urine sed) 0 SEEN /hpf [facility] Work Phone: Nitrite Test strip Ql (U)on 09-05-2022 Nitrite Ql (U) Negative Negative [facility] Work Phone: Protein Test strip Ql (U)on 09-05-2022 Protein Ql (U) Negative Negative [facility] Work Phone: Squamous epithelial cells de tection in urine sediment by light microscopyon 09-05-2022 Epithelial cells.squamous LM Ql (Urine sed) 0-5 SEEN /hpf 0-5 [facility] Work Phone: Urine blood detectionon 10-2 4-2022 RBC Ql (U) Negative Negative [facility] Work Phone: RBC Ql (U) 0 SEEN /hpf 0-5 [facility] Work Phone: Urine clarityon 09-05-2022 Clarity (U) Clear Clear [facility] Work Phone: Urine color determinationon 09-05-2022 Color (U) Yellow Yellow [facility] Work Phone: Urine glucose detectionon Glucose Ql (U) 50 mg/dl Normal [facility] Work Phone: Urine leukocyte esterase det ection by dipstickon 09-05-2022 Leukocyte esterase Test strip Ql (U) 25 /ul Negative [facility] Work Phone: Urine pHon 09-05-2022 pH (U) 5.0 [pH] 5.0 - 8.0 [facility] Work Phone: Urine sediment bacteria coun t by microscopy (number/high power field)on 09-05-2022 Bacteria LM.HPF (Urine sed) [#/Area] RARE /hpf None Seen [facility] Work Phone: Urine specific gravity measu rementon 09-05-2022 Specific gravity (U) [Rel density] 1.020 1.002-1.030 [facility] Work Phone: Urobilinogen Auto test strip Ql (U)on 09-05-2022 Urobilinogen Ql (U) Normal mg/dl Normal [facility] Work Phone: Basophil percentageon 2021 Basophil percentage 0-5 SEEN /hpf 0-5 [facility] Work Phone: Bilirubin Test strip Ql (U)o n 08-17-2022 Bilirubin Ql (U) Negative Negative [facility] Work Phone: Ketones Test strip Ql (U)on 08-17-2022 Ketones Ql (U) Negative Negative [facility] Work Phone: Mucus LM Ql (Urine sed)on Mucus Ql (Urine sed) 0 SEEN /hpf [facility] Work Phone: Nitrite Test strip Ql (U)on 08-17-2022 Nitrite Ql (U) Negative Negative [facility] Work Phone: Protein Test strip Ql (U)on 08-17-2022 Protein Ql (U) Negative Negative [facility] Work Phone: Squamous epithelial cells de tection in urine sediment by light microscopyon 08-17-2022 Epithelial cells.squamous LM Ql (Urine sed) 0-5 SEEN /hpf 0-5 [facility] Work Phone: Urine blood detectionon RBC Ql (U) 25 /ul Negative [facility] Work Phone: RBC Ql (U) 5-10 SEEN /hpf 0-5 [facility] Work Phone: Urine clarityon 08-17-2022 Clarity (U) Clear Clear [facility] Work Phone: Urine color determinationon 08-17-2022 Color (U) Yellow Yellow [facility] Work Phone: Urine glucose detectionon Glucose Ql (U) Normal mg/dl Normal [facility] Work Phone: Urine leukocyte esterase det ection by dipstickon 08-17-2022 Leukocyte esterase Test strip Ql (U) 25 /ul Negative [facility] Work Phone: Urine pHon 08-17-2022 pH (U) 7.0 [pH] 5.0 - 8.0 [facility] Work Phone: Urine sediment bacteria coun t by microscopy (number/high power field)on 08-17-2022 Bacteria LM.HPF (Urine sed) [#/Area] RARE /hpf None Seen [facility] Work Phone: Urine specific gravity measu rementon 08-17-2022 Specific gravity (U) [Rel density] 1.010 1.002-1.030 [facility] Work Phone: [phone] Urobilinogen Auto test strip Ql (U)on 08-17-2022 Urobilinogen Ql (U) Normal mg/dl Normal [facility] Work Phone: [phone] Absolute lymphocyte counton 07-23-2022 Lymphocytes Auto (Unsp spec) [#/Vol] 0.88 10*3/uL 0.83-4.51 [facility] Work Phone: Basophil percentageon 2021 Basophil percentage 0 SEEN /hpf 0-5 [facility] Work Phone: Basophils/100 WBC (Bld) 0.3 % 0-1 [facility] Work Phone: Chloride [Moles/Vol] 106 mmol/L 98-107 [facility] Work Phone: [phone] Eosinophils/100 WBC (Bld) 0.2 % 0-5 [facility] Work Phone: [phone] Glucose [Mass/Vol] 104 mg/dL 74-106 [facility] Work Phone: Comment on above: Fasting Glucose resu lt from 100 to 125 mg/dL suggests IMPAIRED HOMEOSTASIS per A.D.A. criteria. Lactate [Moles/Vol] 0.9 mmol/L 0.4-2.0 [facility] Work Phone: [phone] Neutrophils (Bld) [#/Vol] 4.6 10*3/uL 2.0-7.7 [facility] Work Phone: Neutrophils/100 WBC (Bld) 75.8 % 47-70 [facility] Work Phone: [phone] Potassium [Moles/Vol] 3.7 mmol/L 3.5-5.1 [facility] Work Phone: [phone] Sodium [Moles/Vol] 140 mmol/L 136-145 [facility] Work Phone: [phone] WBC (Bld) [#/Vol] 6.1 10*3/uL 4.4-11.0 [facility] Bilirubin Test strip Ql (U)o n 07-23-2022 Bilirubin Ql (U) Negative Negative [facility] Work Phone: Blood erythrocytes count (nu mber/volume)on 07-23-2022 RBC (Bld) [#/Vol] 4.44 10*6/uL 4.6-6.2 [facility] Blood hemoglobin measurement (mass/volume)on 07-23-2022 Hemoglobin (Bld) [Mass/Vol] 13.3 g/dL 13.0-16.5 [facility] Work Phone: Blood lymphocytes/100 leukoc yteson 07-23-2022 Lymphocytes/100 WBC (Bld) 14.5 % 19-41 [facility] Work Phone: Blood monocytes/100 leukocyt eson 07-23-2022 Monocytes/100 WBC (Bld) 8.9 % 0-10 [facility] Work Phone: Blood platelet mean volumeon 07-23-2022 Platelet mean volume (Bld) [Entitic vol] 9.5 fL 6.2-12.0 [facility] Work Phone: Determination of erythrocyte mean corpuscular volume (MCV)on 07-23-2022 MCV (RBC) [Entitic vol] 89.2 fL 80-94 [facility] Work Phone: Hematocrit Auto (Bld) [Volum e fraction]on 07-23-2022 Hematocrit (Bld) [Volume fraction] 39.6 % 40-54 [facility] Work Phone: Ketones Test strip Ql (U)on 07-23-2022 Ketones Ql (U) 50 mg/dl Negative [facility] Work Phone: Laboratory - Chemistry and C hemistry - challengeon 07-23-2022 CO2 [Moles/Vol] 26.0 mmol/L 21.0-32.0 [facility] Work Phone: Urea nitrogen/Creatinine [Mass ratio] 18.3 mg/mg 10-20 [facility] Work Phone: Laboratory - Hematology and Cell countson 07-23-2022 Erythrocyte distribution width (RBC) [Entitic vol] 40.6 fL 35.1-43.9 [facility] Work Phone: Erythrocyte distribution width (RBC) [Ratio] 12.3 % 11.6-14.6 [facility] Work Phone: Immature granulocytes/100 WBC (Bld) 0.300 % 0.0-0.9 [facility] Work Phone: Comment on above: IG% - Immature Granu locytes (promyelocytes, myelocytes and metamyelocytes) > 1% indicates that a LEFT SHIFT is Present. MCH (RBC) [Entitic mass] 30.0 pg 27.0-32.0 [facility] Work Phone: Nucleated RBC/100 WBC (Bld) [Ratio] 0 % 0-5 [facility] Work Phone: MCHC Auto (RBC) [Mass/Vol]on 07-23-2022 MCHC (RBC) [Mass/Vol] 33.6 g/dL 32-36 [facility] Work Phone: Mucus LM Ql (Urine sed)on Mucus Ql (Urine sed) 0 SEEN /hpf [facility] Work Phone: Nitrite Test strip Ql (U)on 07-23-2022 Nitrite Ql (U) Negative Negative [facility] Work Phone: No Panel Informationon 07-23 Estimated Creatinine Clearance Calc 75.33 ml/min [facility] Work Phone: Estimated GFR (MDRD) Amer 102 mL/min >60 [facility] Work Phone: Comment on above: GFR Calc Estimated GFR (MDRD) Non-Af Amer 84 mL/min >60 [facility] Work Phone: Comment on above: Non- GFR Calc Platelets bldon 07-23-2022 Platelets (Bld) [#/Vol] 158 10*3/uL 150-450 [facility] Work Phone: Protein Test strip Ql (U)on 07-23-2022 Protein Ql (U) 15 mg/dl Negative [facility] Work Phone: Serum or plasma calcium brenda urement (mass/volume)on 07-23-2022 Calcium [Mass/Vol] 8.7 mg/dL 8.5-10.1 [facility] Work Phone: Serum or plasma creatinine m easurement (mass/volume)on 07-23-2022 Creatinine [Mass/Vol] 0.93 mg/dL 0.70-1.30 [facility] Work Phone: Comment on above: The validity of the calculated GFR & GFRAA in patients over 70 years has not been determined. Clinical correlation is essential. Serum or plasma urea nitroge n measurement (mass/volume)on 07-23-2022 Urea nitrogen [Mass/Vol] 17 mg/dL 7-18 [facility] Work Phone: Squamous epithelial cells de tection in urine sediment by light microscopyon 07-23-2022 Epithelial cells.squamous LM Ql (Urine sed) 0 SEEN /hpf 0-5 [facility] Work Phone: Thin prep Papanicolaou smear with manual screeningon 07-23-2022 Thin prep Papanicolaou smear with manual screening 8 5-15 [facility] Work Phone: Urine blood detectionon 07-14 0-2021 RBC Ql (U) 10 /ul Negative [facility] Work Phone: RBC Ql (U) 0 SEEN /hpf 0-5 [facility] Work Phone: Urine clarityon 07-23-2022 Clarity (U) Clear Clear [facility] Work Phone: Urine color determinationon 07-23-2022 Color (U) Yellow Yellow [facility] Work Phone: Urine glucose detectionon Glucose Ql (U) Normal mg/dl Normal [facility] Work Phone: Urine leukocyte esterase det ection by dipstickon 07-23-2022 Leukocyte esterase Test strip Ql (U) Negative Negative [facility] Work Phone: Urine pHon 07-23-2022 pH (U) 6.5 [pH] 5.0 - 8.0 [facility] Work Phone: Urine sediment bacteria coun t by microscopy (number/high power field)on 07-23-2022 Bacteria LM.HPF (Urine sed) [#/Area] 0 /[HPF] None Seen [facility] Work Phone: Urine specific gravity measu rementon 07-23-2022 Specific gravity (U) [Rel density] 1.015 1.002-1.030 [facility] Work Phone: Urobilinogen Auto test strip Ql (U)on 07-23-2022 Urobilinogen Ql (U) Normal mg/dl Normal [facility] Work Phone: Basophil percentageon 2021 Chloride [Moles/Vol] 104 mmol/L 98-107 [facility] Work Phone: Glucose [Mass/Vol] 136 mg/dL 74-106 [facility] Work Phone: Comment on above: Fasting Glucose resu lt greater than or equal to 126 mg/dL suggests DIABETES MELLITUS per A.D.A. criteria. Potassium [Moles/Vol] 4.1 mmol/L 3.5-5.1 [facility] Work Phone: Sodium [Moles/Vol] 138 mmol/L 136-145 [facility] Work Phone: WBC (Bld) [#/Vol] 6.0 10*3/uL 4.4-11.0 [facility] Work Phone: Blood erythrocytes count (nu mber/volume)on 06-16-2022 RBC (Bld) [#/Vol] 4.23 10*6/uL 4.6-6.2 [facility] Work Phone: Blood hemoglobin measurement (mass/volume)on 06-16-2022 Hemoglobin (Bld) [Mass/Vol] 12.7 g/dL 13.0-16.5 [facility] Work Phone: Blood platelet mean volumeon 06-16-2022 Platelet mean volume (Bld) [Entitic vol] 10.0 fL 6.2-12.0 [facility] Work Phone: Determination of erythrocyte mean corpuscular volume (MCV)on 06-16-2022 MCV (RBC) [Entitic vol] 90.5 fL 80-94 [facility] Work Phone: Hematocrit Auto (Bld) [Volum e fraction]on 06-16-2022 Hematocrit (Bld) [Volume fraction] 38.3 % 40-54 [facility] Work Phone: Laboratory - Chemistry and C hemistry - challengeon 06-16-2022 CO2 [Moles/Vol] 28.0 mmol/L 21.0-32.0 [facility] Work Phone: Magnesium [Mass/Vol] 2.0 mg/dL 1.6-2.6 [facility] Work Phone: T4 [Mass/Vol] 7.7 ug/dL 4.5-12.1 [facility] Work Phone: Urea nitrogen/Creatinine [Mass ratio] 30.1 mg/mg 10-20 [facility] Work Phone: Laboratory - Hematology and Cell countson 06-16-2022 Erythrocyte distribution width (RBC) [Entitic vol] 43.4 fL 35.1-43.9 [facility] Work Phone: Erythrocyte distribution width (RBC) [Ratio] 13.1 % 11.6-14.6 [facility] Work Phone: MCH (RBC) [Entitic mass] 30.0 pg 27.0-32.0 [facility] Work Phone: MCHC Auto (RBC) [Mass/Vol]on 06-16-2022 MCHC (RBC) [Mass/Vol] 33.2 g/dL 32-36 [facility] Work Phone: No Panel Informationon 06-16 Estimated GFR (MDRD) Amer 111 mL/min >60 [facility] Work Phone: Comment on above: GFR Calc Estimated GFR (MDRD) Non-Af Amer 92 mL/min >60 [facility] Work Phone: Comment on above: Non- GFR Calc Thyroid Stimulating Hormone (TSH) 1.43 uIU/mL 0.358-3.74 [facility] Work Phone: Platelets bldon 06-16-2022 Platelets (Bld) [#/Vol] 207 10*3/uL 150-450 [facility] Work Phone: Serum or plasma calcium brenda urement (mass/volume)on 06-16-2022 Calcium [Mass/Vol] 9.3 mg/dL 8.5-10.1 [facility] Work Phone: Serum or plasma creatinine m easurement (mass/volume)on 06-16-2022 Creatinine [Mass/Vol] 0.86 mg/dL 0.70-1.30 [facility] Work Phone: Comment on above: The validity of the calculated GFR & GFRAA in patients over 70 years has not been determined. Clinical correlation is essential. Serum or plasma urea nitroge n measurement (mass/volume)on 06-16-2022 Urea nitrogen [Mass/Vol] 26 mg/dL 7-18 [facility] Work Phone: Thin prep Papanicolaou smear with manual screeningon 06-16-2022 Thin prep Papanicolaou smear with manual screening 6 5-15 [facility] Work Phone: Culture, urine Bacteria identified Cx Nom (U) Culture exhibits no growth. [facility] Work Phone: Influenza virus A and B and SARS-CoV-2 (COVID-19) Ag panel - Upper respiratory specim SARS-CoV-2 (COVID-19) RNA TOI+probe Ql (Resp) [facility] Work Phone: No Panel Information [facility] Vital Signs Date Time Vital Sign Value Performing Clinician Faci lity 05-05-2025 07:54-0400 Body height 182.[address] Urban Ledezma MD Work Phone: [facility] 05-05-2025 07:54-0400 Body mass index (BMI) [Ratio] 29.1 kg/m2 Dr. Urban Ledezma MD Work Phone: [facility] 05-05-2025 07:54-0400 Body temperature 97.4 [degF] Dr. Urban Ledezma MD Work Phone: [facility] 05-05-2025 07:54-0400 Body weight 97.[address] Urban Ledezma MD Work Phone: [facility] 05-05-2025 07:54-0400 Diastolic blood pressure 93 mm[Hg] Dr. Urban Ledezma MD Work Phone: [facility] 05-05-2025 07:54-0400 Heart rate 93 /min Dr. Urban Ledezma MD Work Phone: [facility] 05-05-2025 07:54-0400 Respiratory rate 16 /min Dr. Urban Ledezma MD Work Phone: [facility] 05-05-2025 07:54-0400 SaO2% (BldA) [Mass fraction] 96 % Dr. Urban Ledezma MD Work Phone: [facility] 05-05-2025 07:54-0400 Systolic blood pressure 130 mm[Hg] Dr. Urban Ledezma MD Work Phone: [facility] 03-17-2025 16:17-0400 Body height 182.9 cm Cordelia Blackwood MD Work Phone: [facility] 03-17-2025 16:17-0400 Body mass index (BMI) [Ratio] 29.78 kg/m2 Cordelia Blackwood MD Work Phone: [facility] 03-17-2025 16:17-0400 Body weight 99.61 kg Cordelia Blackwood MD Work Phone: [facility] 03-17-2025 16:17-0400 Diastolic blood pressure 70 mm[Hg] Cordelia Blackwood MD Work Phone: [facility] 03-17-2025 16:17-0400 Heart rate 73 /min Cordelia Blackwood MD Work Phone: [facility] 03-17-2025 16:17-0400 Respiratory rate 14 /min Cordelia Blackwood MD Work Phone: [facility] 03-17-2025 16:17-0400 SaO2% (BldA) [Mass fraction] 98 % Cordelia Blackwood MD Work Phone: [facility] 03-17-2025 16:17-0400 Systolic blood pressure 134 mm[Hg] Cordelia Blackwood MD Work Phone: [facility] 01-08-2025 09:15-0500 Body height 182.9 cm Suzan Mike MD Work Phone: [facility] 01-08-2025 09:15-0500 Body mass index (BMI) [Ratio] 29.7 kg/m2 Suzan Mike MD Work Phone: [facility] 01-08-2025 09:15-0500 Body weight 99.34 kg Suzan Mike MD Work Phone: [facility] 01-08-2025 09:15-0500 Diastolic blood pressure 79 mm[Hg] Suzan Mike MD Work Phone: [facility] 01-08-2025 09:15-0500 Heart rate 64 /min Suzan Mike MD Work Phone: [facility] 01-08-2025 09:15-0500 SaO2% (BldA) [Mass fraction] 95 % Suzan Mike MD Work Phone: [facility] 01-08-2025 09:15-0500 Systolic blood pressure 119 mm[Hg] Suzan Mike MD Work Phone: [facility] 07-22-2024 13:28-0400 Body mass index (BMI) [Ratio] 29.16 kg/m2 Cordelia Blackwood MD Work Phone: [facility] 07-22-2024 13:28-0400 Body weight 97.52 kg Cordelia Blackwood MD Work Phone: [facility] 07-22-2024 13:28-0400 Diastolic blood pressure 77 mm[Hg] Cordelia Blackwood MD Work Phone: [facility] 07-22-2024 13:28-0400 Heart rate 91 /min Cordelia Blackwood MD Work Phone: [facility] 07-22-2024 13:28-0400 SaO2% (BldA) [Mass fraction] 96 % Cordelia Blackwood MD Work Phone: [facility] 07-22-2024 13:28-0400 Systolic blood pressure 145 mm[Hg] Cordelia Blackwood MD Work Phone: [facility] 07-01-2024 14:32-0400 Body height 182.9 cm Toro Roth APRN.[employer] Work Phone: [facility] 07-01-2024 14:32-0400 Body mass index (BMI) [Ratio] 29.16 kg/m2 Toro Roth APRN.[employer] Work Phone: [facility] 07-01-2024 14:32-0400 Body weight 97.52 kg Toro Roth APRN.[employer] Work Phone: [facility] 07-01-2024 14:32-0400 Diastolic blood pressure 78 mm[Hg] Toro Roth APRN.[employer] Work Phone: [facility] 07-01-2024 14:32-0400 Heart rate 76 /min Toro Roth APRN.[employer] Work Phone: [facility] 07-01-2024 14:32-0400 SaO2% (BldA) [Mass fraction] 96 % Toro Roth APRN.[employer] Work Phone: [facility] 07-01-2024 14:32-0400 Systolic blood pressure 126 mm[Hg] Toro Roth APRN.[employer] Work Phone: [facility] 03-13-2024 13:45-0400 Body height 182.9 cm Suzan Mike MD Work Phone: [facility] 03-13-2024 13:45-0400 Body mass index (BMI) [Ratio] 27.94 kg/m2 Suzan Mike MD Work Phone: [facility] 03-13-2024 13:45-0400 Body weight 93.44 kg Suzan Mike MD Work Phone: [facility] 03-13-2024 13:45-0400 Diastolic blood pressure 79 mm[Hg] Suzan Mike MD Work Phone: [facility] 03-13-2024 13:45-0400 Heart rate 82 /min Suzan Mike MD Work Phone: [facility] 03-13-2024 13:45-0400 SaO2% (BldA) [Mass fraction] 98 % Suzan Mike MD Work Phone: [facility] 03-13-2024 13:45-0400 Systolic blood pressure 138 mm[Hg] Suzan Mike MD Work Phone: [facility] 02-07-2023 10:26-0400 Body height 182.[address] Osbaldo Ledezma Work Phone: [facility] 02-07-2023 10:26-0400 Body mass index (BMI) [Ratio] 27.9 kg/m2 Dr. Osbaldo Ledezma Work Phone: [facility] 02-07-2023 10:26-0400 Body weight 93.[address] Osbaldo Ledezma Work Phone: [facility] 02-07-2023 10:26-0400 Diastolic blood pressure 85 mm[Hg] Dr. Osbaldo Ledezma Work Phone: [facility] 02-07-2023 10:26-0400 Heart rate 60 /min Dr. Osbaldo Ledezma Work Phone: [facility] 02-07-2023 10:26-0400 Respiratory rate 18 /min Dr. Osbaldo Ledezma Work Phone: [facility] 02-07-2023 10:26-0400 Systolic blood pressure 150 mm[Hg] Dr. Osbaldo Ledezma Work Phone: [facility] 02-07-2023 06:36-0400 Body mass index (BMI) [Ratio] 27.6 kg/m2 Dr. Osbaldo Ledezma Work Phone: [facility] 02-07-2023 06:36-0400 Body temperature 98.1 [degF] Dr. Osbaldo Ledezma Work Phone: [facility] 02-07-2023 06:36-0400 Body weight 92.[address] Osbaldo Ledezma Work Phone: [facility] 02-07-2023 06:36-0400 Diastolic blood pressure 96 mm[Hg] Dr. Osbaldo Ledezma Work Phone: [facility] 02-07-2023 06:36-0400 Heart rate 72 /min Dr. Osbaldo Ledezma Work Phone: [facility] 02-07-2023 06:36-0400 Respiratory rate 16 /min Dr. Osbaldo Ledezma Work Phone: [facility] 02-07-2023 06:36-0400 SaO2% (BldA) [Mass fraction] 99 % Dr. Osbaldo Ledezma Work Phone: [facility] 02-07-2023 06:36-0400 Systolic blood pressure 143 mm[Hg] Dr. Osbaldo Ledezma Work Phone: [facility] 12-26-2022 11:27-0500 Body weight 92.53 kg Suzan Mike MD Work Phone: [facility] 12-26-2022 11:27-0500 Diastolic blood pressure 72 mm[Hg] Suzan Mike MD Work Phone: [facility] 12-26-2022 11:27-0500 Heart rate 57 /min Suzan Mike MD Work Phone: [facility] 12-26-2022 11:27-0500 SaO2% (BldA) [Mass fraction] 97 % Suzan Mike MD Work Phone: [facility] 12-26-2022 11:27-0500 Systolic blood pressure 133 mm[Hg] Suzan Mike MD Work Phone: [facility] 11-09-2022 14:14-0500 Body mass index (BMI) [Ratio] 27.6 kg/m2 Dr. Osbaldo Ledezma Work Phone: [facility] 11-09-2022 14:14-0500 Body weight 92.[address] Osbaldo Ledezma Work Phone: [facility] 11-09-2022 14:14-0500 Diastolic blood pressure 64 mm[Hg] Dr. Osbaldo Ledezma Work Phone: [facility] 11-09-2022 14:14-0500 Heart rate 76 /min Dr. Osbaldo Ledezma Work Phone: [facility] 11-09-2022 14:14-0500 Respiratory rate 16 /min Dr. Osbaldo Ledezma Work Phone: [facility] 11-09-2022 14:14-0500 Systolic blood pressure 108 mm[Hg] Dr. Osbaldo Ledezma Work Phone: [facility] 10-12-2022 16:59-0500 Diastolic blood pressure 80 mm[Hg] Dr. Osbaldo Ledezma Work Phone: [facility] Work Phone: 10-12-2022 16:59-0500 Heart rate 110 /min Dr. Osbaldo Ledezma Work Phone: [facility] Work Phone: 10-12-2022 16:59-0500 Respiratory rate 16 /min Dr. Osbaldo Ledezma Work Phone: [facility] Work Phone: 10-12-2022 16:59-0500 SaO2% (BldA) [Mass fraction] 94 % Dr. Osbaldo Ledezma Work Phone: [facility] Work Phone: 10-12-2022 16:59-0500 Systolic blood pressure 120 mm[Hg] Dr. Osbaldo Ledezma Work Phone: [facility] Work Phone: 10-12-2022 12:34-0500 Body height 182.[address] Osbaldo Ledezma Work Phone: [facility] Work Phone: 10-12-2022 12:34-0500 Body mass index (BMI) [Ratio] 26.7 kg/m2 Dr. Osbaldo Ledezma Work Phone: [facility] Work Phone: 10-12-2022 12:34-0500 Body temperature 98.8 [degF] Dr. Osbaldo Ledezma Work Phone: [facility] Work Phone: 10-12-2022 12:34-0500 Body weight 89.[address] Osbaldo Ledezma Work Phone: [facility] Work Phone: 08-24-2022 11:12-0400 Body height 180.3 cm Suzan Mike MD Work Phone: [facility] 08-24-2022 11:12-0400 Body weight 85.28 kg Suzan Mike MD Work Phone: [facility] 08-24-2022 11:12-0400 Diastolic blood pressure 65 mm[Hg] Suzan Mike MD Work Phone: [facility] 08-24-2022 11:12-0400 Heart rate 75 /min Suzan Mike MD Work Phone: [facility] 08-24-2022 11:12-0400 Respiratory rate 18 /min Suzan Mike MD Work Phone: [facility] 08-24-2022 11:12-0400 SaO2% (BldA) [Mass fraction] 97 % Suzan Mike MD Work Phone: [facility] 08-24-2022 11:12-0400 Systolic blood pressure 115 mm[Hg] Suzan Mike MD Work Phone: [facility] 07-26-2022 10:49-0400 Body height 182.[address] Osbaldo Ledezma Work Phone: [facility] Work Phone: 07-26-2022 10:49-0400 Body weight 87.[address] Osbaldo Ledezma Work Phone: [facility] Work Phone: 07-25-2022 07:03-0400 Body mass index (BMI) [Ratio] 26.3 kg/m2 Dr. Osbaldo Ledezma Work Phone: [facility] Work Phone: 07-23-2022 08:17-0400 Body height 182.[address] Osbaldo Ledezma Work Phone: [facility] Work Phone: 07-23-2022 08:17-0400 Body mass index (BMI) [Ratio] 25.7 kg/m2 Dr. Osbaldo Ledezma Work Phone: [facility] Work Phone: 07-23-2022 08:17-0400 Body temperature 98 [degF] Dr. Osbaldo Ledezma Work Phone: [facility] Work Phone: 07-23-2022 08:17-0400 Body weight 86.[address] Osbaldo Ledezma Work Phone: [facility] Work Phone: 07-23-2022 08:17-0400 Diastolic blood pressure 73 mm[Hg] Dr. Osbaldo Ledezma Work Phone: [facility] Work Phone: 07-23-2022 08:17-0400 Heart rate 82 /min Dr. Osbaldo Ledezma Work Phone: [facility] Work Phone: 07-23-2022 08:17-0400 Respiratory rate 18 /min Dr. Osbaldo Ledezma Work Phone: [facility] Work Phone: 07-23-2022 08:17-0400 SaO2% (BldA) [Mass fraction] 97 % Dr. Osbaldo Ledezma Work Phone: [facility] Work Phone: 07-23-2022 08:17-0400 Systolic blood pressure 124 mm[Hg] Dr. Osbaldo Ledezma Work Phone: [facility] Work Phone: 07-14-2022 14:00-0400 Body mass index (BMI) [Ratio] 26.3 kg/m2 Dr. Osbaldo Ledezma Work Phone: [facility] Work Phone: 07-14-2022 14:00-0400 Body weight 88.[address] Osbaldo Ledezma Work Phone: [facility] Work Phone: 07-14-2022 14:00-0400 Diastolic blood pressure 62 mm[Hg] Dr. Osbaldo Ledezma Work Phone: [facility] Work Phone: 07-14-2022 14:00-0400 Heart rate 80 /min Dr. Osbaldo Ledezma Work Phone: [facility] Work Phone: 07-14-2022 14:00-0400 Respiratory rate 16 /min Dr. Osbaldo Ledezma Work Phone: [facility] Work Phone: 07-14-2022 14:00-0400 Systolic blood pressure 116 mm[Hg] Dr. Osbaldo Ledezma Work Phone: [facility] Work Phone: 03-14-2022 09:53-0400 Body height 182.[address] Osbaldo Ledezma Work Phone: [facility] Work Phone: 03-14-2022 09:53-0400 Body mass index (BMI) [Ratio] 25.7 kg/m2 Dr. Osbaldo Ledezma Work Phone: [facility] Work Phone: 03-14-2022 09:53-0400 Body weight 86.[address] Osbaldo Ledezma Work Phone: [facility] Work Phone: 03-14-2022 09:53-0400 Diastolic blood pressure 58 mm[Hg] Dr. Osbaldo Ledezma Work Phone: [facility] Work Phone: 03-14-2022 09:53-0400 Heart rate 56 /min Dr. Osbaldo Ledezma Work Phone: [facility] Work Phone: 03-14-2022 09:53-0400 Respiratory rate 16 /min Dr. Osbaldo Ledezma Work Phone: [facility] Work Phone: 03-14-2022 09:53-0400 Systolic blood pressure 103 mm[Hg] Dr. Osbaldo Ledezma Work Phone: [facility] Work Phone: Encounters Encounter Date Encounter Type Care Provider Facility Start: 05-05-2025 End: 05-05-2025 Patient encounter procedure Danuta Meraz REHAB MANAGER-C -[facility] Work Phone: Start: 05-05-2025 End: 05-05-[address] Urban Ledezma MD Work Phone: [facility] Work Phone: Start: 03-17-2025 End: 03-17-2025 Patient encounter procedure Cordelia Blackwood MD Work Phone: Cardiology Comment on above: Atherosclerosis of n ative coronary artery of [place] heart without angina pectoris (Primary Dx); Dilated cardiomyopathy (HCC); Chronic systolic congestive heart failure (HCC); Permanent atrial fibrillation (HCC); Mixed hyperlipidemia; Syncope and collapse Start: 03-17-2025 End: 03-17-2025 ambulatory CORDELIA BLACKWOOD Facility:[facility] Start: 03-02-2025 End: 03-03-2025 Refill Danitza Kiran GOFF Work Phone: [facility] Comment on above: Refill Request Start: 02-19-2025 End: 02-19-2025 ambulatory Cordelia Blackwood MD Work Phone: Cardiology Comment on above: Anesthetic permissio n Start: 02-06-2025 End: 02-06-2025 Patient encounter procedure [facility] Provider [facility] Start: 01-28-2025 End: 01-28-2025 Telephone encounter Suzan Mike MD Work Phone: [facility] Comment on above: Application Support Engineer - O ther Start: 01-20-2025 End: 01-20-2025 Orders Only Cordelia Blackwood MD Work Phone: Cardiology Comment on above: Primary hypertension (Primary Dx) Start: 01-13-2025 End: 01-13-2025 Refill Cordelia Blackwood MD Work Phone: [facility] Comment on above: Refill Request [place] Start: 01-08-2025 End: 01-08-2025 Office outpatient visit 25 minutes Suzan Mike MD Work Phone: [facility] Comment on above: Permanent atrial fib rillation (HCC) (Primary Dx); Status post catheter ablation of atrial fibrillation; At risk for stroke; Anticoagulant long-term use; Dilated cardiomyopathy (HCC); Chronic systolic congestive heart failure (HCC); Obstructive sleep apnea Start: 01-08-2025 End: 01-08-2025 ambulatory SUZAN MIKE Facility:[facility] Start: 11-28-2024 End: 11-28-2024 Refill Cordelia Blackwood MD Work Phone: [facility] Comment on above: Refill Request Start: 11-26-2024 End: 11-27-2024 ambulatory Danitza Salomon APRN.DIRECTOR BIOLOGICS Work Phone: [facility] Comment on above: Prescription change Start: 10-30-2024 End: 10-30-2024 ambulatory Danitza Salomon APRN.DIRECTOR BIOLOGICS Work Phone: [facility] Comment on above: Xarelto question Start: 09-02-2024 End: 09-02-2024 Telephone encounter Toro Roth APRN.DIRECTOR BIOLOGICS Work Phone: [facility] Comment on above: Results Start: 08-22-2024 End: 08-22-2024 ambulatory [facility] Facility:[facility] Start: 08-09-2024 End: 09-10-2024 Telephone encounter Cordelia Blackwood MD Work Phone: [facility] Comment on above: Application Support Engineer - O ther; Results Start: 07-22-2024 End: 07-22-2024 ambulatory CORDELIA BLACKWOOD Facility:[facility] Start: 07-22-2024 End: 07-22-2024 Patient encounter procedure Cordelia Blackwood MD Work Phone: Cardiology Comment on above: Atherosclerosis of n ative coronary artery of [place] heart without angina pectoris (Primary Dx); Persistent atrial fibrillation (HCC); Dilated cardiomyopathy (HCC); Mixed hyperlipidemia Start: 07-01-2024 End: 07-01-2024 Patient encounter procedure Toro Roth APRN.DIRECTOR BIOLOGICS Work Phone: [facility] Cardiology [place] Comment on above: Persistent atrial fi brillation (HCC) (Primary Dx); Status post catheter ablation of atrial fibrillation; Typical atrial flutter (HCC); Dilated cardiomyopathy (HCC); Wide-complex tachycardia; At risk for stroke Start: 07-01-2024 End: 07-01-2024 ambulatory TORO ROTH Facility:[facility] Start: 04-29-2024 ambulatory Suzan mcfadden MD Work Phone: [facility] Cardiology [place] Comment on above: AFIB return Refill Request Prescription - Xarel to Start: 04-22-2024 End: 09-23-2024 Follow-up status Suzan Mike MD Work Phone: [facility] Work Phone: Start: 04-22-2024 End: 04-22-2024 ambulatory TETE MARQUEZ Facility:[facility] Start: 03-27-2024 Telephone encounter Suzan finch MD Work Phone: [facility] Cardiology [place] Comment on above: Preparations For Pro cedures Start: 03-13-2024 End: 03-13-2024 Patient encounter procedure Suzan Mike MD Work Phone: [facility] Cardiology [place] Comment on above: Persistent atrial fi brillation (HCC) (Primary Dx); Status post catheter ablation of atrial fibrillation; Typical atrial flutter (HCC); Wide-complex tachycardia; Obstructive sleep apnea; At risk for stroke; Anticoagulant long-term use; Thrombus of left atrial appendage Start: 03-13-2024 End: 03-13-2024 ambulatory SUZAN MIKE Facility:[facility] Start: 03-06-2024 ambulatory Danitza Salomon APRN.CNP Work Phone: [facility] Cardiology [place] Start: 03-06-2024 Patient encounter procedure Danitza Salomon APRN.DIRECTOR BIOLOGICS Work Phone: [facility] [place] Comment on above: March 13 appointment Start: 11-27-2023 End: 11-27-2023 ambulatory [facility] Work Phone: Start: 11-27-2023 End: 11-27-2023 Patient encounter procedure [facility] Work Phone: Start: 10-04-2023 Arrhythmia TTM Suzan mcfadden MD Work Phone: [facility] Start: 10-04-2023 Recurring Plan Suzan mcfadden MD Work Phone: [facility] Start: 10-04-2023 End: 10-04-2023 Patient encounter procedure Ttm Phone Check [facility] [facility] Comment on above: PAF (paroxysmal atri al fibrillation) (HCC) (Primary Dx) Start: 09-27-2023 Arrhythmia TTM Suzan mcfadden MD Work Phone: [facility] Start: 09-27-2023 Recurring Plan Suzan mcfadden MD Work Phone: [facility] Start: 09-27-2023 End: 09-27-2023 Patient encounter procedure Ttm Phone Check [facility] Comment on above: Atrial fibrillation, unspecified type (HCC) (Primary Dx) Start: 09-20-2023 Arrhythmia TTM Suzan mcfadden MD Work Phone: [facility] Start: 09-20-2023 Recurring Plan Suzan mcfadden MD Work Phone: [facility] Start: 09-20-2023 End: 09-20-2023 Patient encounter procedure Ttm Phone Check [facility] Comment on above: Atrial fibrillation, unspecified type (HCC) (Primary Dx) Start: 09-18-2023 Arrhythmia TTM Suzan mcfadden MD Work Phone: [facility] Start: 09-18-2023 Recurring Plan Suzan mcfadden MD Work Phone: [facility] Start: 09-06-2023 End: 09-06-2023 Patient encounter procedure Ttm Phone Check [facility] Comment on above: Atrial fibrillation, unspecified type (HCC) (Primary Dx) Start: 08-31-2023 Telephone encounter Suzan finch MD Work Phone: [facility] Cardiology [place] Comment on above: Orders Start: 08-03-2023 Telephone encounter Suzan finch MD Work Phone: [facility] Cardiology [place] Comment on above: Preparations For Pro cedures Start: 03-14-2023 Telephone encounter Suzan finch MD Work Phone: [facility] Cardiology [place] Comment on above: Patient Update (Abla tion reschedule.) Start: 02-20-2023 End: 02-20-[address] Osbaldo Ledezma Work Phone: [facility] Work Phone: Start: 02-20-2023 End: 02-20-[address] Osbaldo Ledezma Work Phone: [facility]-Sleep Lab Start: 02-07-2023 End: 02-07-[address] Osbaldo Ledezma Work Phone: [facility] Start: 01-19-2023 ambulatory Facility:[facility] Start: 01-11-2023 Telephone encounter Suzan finch MD Work Phone: [facility] Cardiology [place] Comment on above: Treatment Planning Start: 12-26-2022 End: 12-26-2022 Patient encounter procedure Suzan Mike MD Work Phone: [facility] Cardiology [place] Comment on above: Persistent atrial fi brillation (HCC) (Primary Dx); Atrial flutter, unspecified type (HCC); Wide-complex tachycardia; Dilated cardiomyopathy (HCC); Syncope and collapse; At risk for stroke; Anticoagulant long-term use Start: 11-23-2022 Telephone encounter Suzan finch MD Work Phone: [facility] [place] Comment on above: Patient Question; Tr eatment Planning Start: 11-09-2022 End: 11-09-[address] Osbaldo Ledezma Work Phone: [facility] Start: 10-12-2022 End: 10-12-2022 Emergency department patient visit Dr. Osbaldo Ledezma Work Phone: [facility]-Emergency Department Start: 10-10-2022 Non-patient / Non-visit Dr. Marcos Ledezma Work Phone: [facility] Start: 10-10-2022 End: 10-10-[address] Osbaldo Ledezma Work Phone: [facility] Work Phone: Start: 10-10-2022 End: 10-10-[address] Osbaldo Ledezma Work Phone: [facility]-Cardiovascul ar Services Start: 09-05-2022 End: 09-05-[address] Osbaldo Ledezma Work Phone: [facility] Work Phone: Start: 09-05-2022 End: 09-05-[address] Osbaldo Ledezma Work Phone: [facility]-Laboratory, Specimen Start: 08-24-2022 End: 08-24-2022 Patient encounter procedure Suzan Mike MD Work Phone: [facility] [place] Comment on above: Persistent atrial fi brillation (HCC) (Primary Dx); Atrial flutter, unspecified type (HCC); At risk for stroke; Anticoagulant long-term use; Wide-complex tachycardia; Dilated cardiomyopathy (HCC) Start: 08-23-2022 End: 08-23-[address] Osbaldo Ledezma Work Phone: [facility] Work Phone: Start: 08-23-2022 End: 08-23-[address] Osbaldo Ledezma Work Phone: [facility]-Laboratory, Specimen Start: 08-17-2022 End: 08-17-[address] Osbaldo Ledezma Work Phone: [facility] Work Phone: Start: 08-17-2022 End: 08-17-[address] Osbaldo Ledezma Work Phone: [facility]-Laboratory, Specimen Start: 08-09-2022 Non-patient / Non-visit Dr. Marcos Ledezma Work Phone: [facility] Start: 08-09-2022 End: 08-09-[address] Osbaldo Ledezma Work Phone: [facility] Work Phone: Start: 08-09-2022 End: 08-09-[address] Osbaldo Ledezma Work Phone: [facility]-Cardiovascul ar Services Start: 07-26-2022 Non-patient / Non-visit Dr. Marcos Ledezma Work Phone: [facility] Start: 07-26-2022 End: 07-26-2022 Admission to same day surgery center Dr. Osbaldo Ledezma Work Phone: [facility]-[place] Technician/Special Procedures Start: 07-26-2022 End: 07-26-[address] Osbaldo Ledezma Work Phone: [facility] Work Phone: Start: 07-25-2022 Non-patient / Non-visit Dr. Marcos Ledezma Work Phone: [facility] Start: 07-23-2022 End: 07-23-2022 Emergency department patient visit Dr. Osbaldo Ledezma Work Phone: [facility]-Emergency Department Start: 07-14-2022 End: 07-14-[address] Osbaldo Ledezma Work Phone: [facility] Start: 07-05-[address] Torsten Ledezma Work Phone: [facility]-Cardiovascul ar Services Start: 07-05-2022 Non-patient / Non-visit Dr. Marcos Ledezma Work Phone: [facility] Start: 06-27-2022 End: 06-27-[address] Osbaldo Ledezma Work Phone: [facility]-Pulmonary Services/Neurology Start: 06-16-2022 End: 06-16-[address] Osbaldo Ledezma Work Phone: [facility]-Laboratory Start: 04-29-2022 End: 04-29-[address] Osbaldo Ledezma Work Phone: [facility]-Radiology, [place] Start: 03-14-2022 End: 03-14-[address] Osbaldo Ledezma Work Phone: [facility] Procedures Date Procedure Procedure Detail Performing Clinician Start: 01-08-2025 Ecg routine ecg w/le ast 12 lds w/i&r Suzan Mike MD Work Phone: Start: 07-01-2024 Ecg routine ecg w/le ast 12 lds w/i&r Toro Roth APRN.CNP Work Phone: Start: 03-13-2024 Ecg routine ecg w/le ast 12 lds w/i&r Suzan Mike MD Work Phone: Start: 10-04-2023 ARRHYTHMIA TRANS TEL E MEASURE Suzan Mike MD Work Phone: Start: 09-27-2023 ARRHYTHMIA TRANS TEL E MEASURE Suzan Mike MD Work Phone: Start: 09-20-2023 ARRHYTHMIA TRANS TEL E MEASURE Suzan Mike MD Work Phone: Start: 09-18-2023 ARRHYTHMIA TRANS TEL E MEASURE Suzan Mike MD Work Phone: Start: 12-26-2022 Ecg routine ecg w/le ast 12 lds w/i&r Suzan Mike MD Work Phone: Start: 08-24-2022 Ecg routine ecg w/le ast 12 lds w/i&r Suzan Mike MD Work Phone: Start: 08-09-2022 Cardiovascular stres s test using pharmacologic stress agent Dr. Osbaldo Ledezma Work Phone: Start: 07-23-2022 CT of abdomen and pe lvis without contrast Dr. Osbaldo Ledezma Work Phone: Start: 04-29-2022 Radiologic examinati on of knee Dr. Osbaldo Ledezma Work Phone: Start: 10-29-2018 Colonoscopy Suzan amaya MD Work Phone: SARS-CoV-2 & FLU Ant igen (Rapid) Dr. Osbaldo Ledezma Work Phone: Urine culture Dr. Osbaldo Ledezma Work Phone: Plan of Treatment Date Care Activity Detail Author Start: 04-07-2029 Urine microalbumin profile DTa P,Tdap,Td Vaccine (2 - Td or Tdap) [facility] Start: 11-10-2025 End: 11-10-2025 Patient encounter procedure 11/10/2025 3:40 PM EST Office Visit Cardiology [address] [place], [place] [id number] Cordelia Blackwood MD [address] [place] [address] 6 month check Cardiology Comment on above: 6 month check Start: 07-14-2025 Influenza vaccination Influenz a Vaccine (Season Ended) [facility] Start: 04-22-2025 Creatinine measurement Serum Creatin ine [facility] Start: 03-17-2025 End: 03-17-2025 Patient encounter procedure 03/17/2025 4:20 PM EDT Office Visit Cardiology [address] [place] [address] Cordelia Blackwood MD [address] [place] [address] [phone] (Fax) 6 month check Cardiology Comment on above: 6 month check Start: 01-20-2025 End: 01-20-2025 Patient encounter procedure 01/20/2025 11:40 AM EDT Office Visit Cardiology [address] [place] [phone] Cordelia Blackwood MD [address] [place] [phone] (Fax) 6 month check Cardiology Comment on above: 6 month check Start: 01-08-2025 End: 01-08-2025 Patient encounter procedure 01/08/2025 9:20 AM EST Office Visit [facility] [address] [place] [address] Suzan Mike MD [address] [place] [address], [place] [phone] (Fax) 6 mth f/u [facility] [place] Comment on above: 6 mth f/u Start: 11-13-2024 Advance Directive Discussion Advance Directive Discussion [facility] Start: 09-25-2024 End: 09-25-2024 Patient encounter procedure 09/25/2024 9:20 AM EST Office Visit [facility] [address] [place] [address] Suzan Mike MD [address] [place] [address], [place] [phone] (Fax) 6 month f/u. dlm [facility] [place] Comment on above: 6 month f/u. dlm Start: 07-22-2024 End: 07-22-2024 Patient encounter procedure 07/22/2024 1:20 PM EDT Office Visit Cardiology [address] [place] [address] Cordelia Blackwood MD [address] [place] [address] [phone] (Fax) 6 month follow up per [address]. Blackwood Cardiology Comment on above: 6 month follow up pe r Dr. Blackwood Start: 07-14-2024 Covid-19 Vaccine () Covid-19 Vaccine () [facility] Start: 07-14-2024 Covid-19 Vaccine () Covid-19 Vaccine () [facility] Start: 07-14-2024 Influenza vaccination C [facility] Start: 06-25-2024 End: 06-25-2024 Patient encounter procedure 06/25/2024 9:30 AM EDT Office Visit [facility] [address] [place] [phone] Danitza Salomon, MARILYN.DIRECTOR BIOLOGICS [address] [place] [address] (Fax) 2-3 month Follow up post cardioversion and JUVENAL with Danitza Salomon NP [facility] Cardiology Comment on above: 2-3 month Follow up post cardioversion and JUVENAL with Danitza Salomon NP Start: 04-22-2024 End: 04-22-2024 Admission to same day surgery center 04/22/2024 9:25 AM EDT - 04/22/2024 10:45 AM EDT [facility] [address] [place] [address] uSzan Mike MD [address] [place] [phone] (Fax) CARDIOVERSION EXTERNAL ELECTIVE [facility] Comment on above: 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 ELECTIVE Start: 04-22-2024 End: 04-22-2024 Cardioversion elective arrhythmia external CARDIOVERSION EXTERNAL ELECTIVE Persistent atrial fibrillation (HCC) Status post catheter ablation of atrial fibrillation Anticoagulant long-term use Thrombus of left atrial appendage 04/22/2024 9:25 AM EDT [facility] Start: 04-22-2024 End: 04-22-2024 Echo transesophag r-t 2d w/prb img acquisj i&r ECHOCARDIOGRAM TRANSESOPHOGEAL, REAL TIME W/IMAGE DOCUMENT (2D) Persistent atrial fibrillation (HCC) Status post catheter ablation of atrial fibrillation Anticoagulant long-term use Thrombus of left atrial appendage 04/22/2024 9:25 AM EDT [facility] Start: 04-22-2024 Subsequent hospital visit by physician 04/22/2024 9:25 AM EDT Hospital Encounter [facility] [address] [place] [address] Suzan Mike MD [address] [place] [address] Persistent atrial fibrillation (HCC) [I48.19] [facility] Comment on above: Persistent atrial fi brillation (HCC) [I48.19] Start: 03-13-2024 End: 03-13-2024 Patient encounter procedure 03/13/2024 1:40 PM EDT Office Visit [facility] [address] [place], [place] [phone] Suzan Mike MD [address] [place] [phone] 3 month f/u. dlmEKG/eo [facility] [place] Comment on above: 3 month f/u. dlmE KG/eo Start: 11-28-2023 End: 09-29-2024 Ct angiography chest w/contrast/noncontrast CTA CHEST (NONGATED) W IVCON Radiology Routine Persistent atrial fibrillation (HCC) Dyspnea, unspecified type Expected: 11/28/2023, Expires: 09/29/2024 [facility] Work Phone: Comment on above: Expected: 11/28/2023 , Expires: 09/29/2024 Start: 11-28-2023 End: 08-31-2024 Echocardiography ECHO Cardiology Routine Persistent atrial fibrillation (HCC) Dyspnea, unspecified type Expected: 11/28/2023, Expires: 08/31/2024 [facility] Work Phone: Comment on above: Expected: 11/28/2023 , Expires: 08/31/2024 Start: 11-28-2023 End: 08-31-2024 HOLTER MONITOR 24 HOUR HOLTER MONITOR 24 HOUR ECG Routine Persistent atrial fibrillation (HCC) Dyspnea, unspecified type Expected: 11/28/2023, Expires: 08/31/2024 [facility] Work Phone: Comment on above: Expected: 11/28/2023 , Expires: 08/31/2024 Start: 11-13-2023 Advance Directive Discussion Advance Directive Discussion [facility] Start: 11-13-2023 Behavioral Health Screening Behavioral Health Screening [facility] Start: 07-14-2023 Covid-19 Vaccine () Covid-19 Vaccine ( season) [facility] Start: 07-14-2023 Influenza vaccination C [facility] Start: 11-13-2022 ADVANCE DIRECTIVE DISCUSSION ADVANCE DIRECTIVE DISCUSSION [facility] Start: 11-13-2022 DEPRESSION ASSESSMENT DEPRESSION ASS ESSMENT [facility] Start: 10-12-2022 [facility] Work Phone: Start: 07-14-2022 Influenza vaccination INFLUENZA (#1) [facility] Start: 2022 RSV Vaccine (1 - 1-d ose 75+ series) RSV Vaccine (1 - 1-dose 75+ series) [facility] Start: 11-13-2021 ADVANCE DIRECTIVE DISCUSSION ADVANCE DIRECTIVE DISCUSSION [facility] Start: 11-13-2021 DEPRESSION ASSESSMENT DEPRESSION ASS ESSMENT [facility] Start: 10-29-2021 Colonoscopy COLONOSCOPY [facility] Start: 10-29-2021 COLORECTAL CANCER SCREENING COLORECTAL CANCER SCREENING [facility] Start: 2007 Hepatitis B Vaccine (1 of 3 - Risk 3-dose series) Hepatitis B Vaccine (1 of 3 - Risk 3-dose series) [facility] Start: 2007 RSV Vaccine (1 - 1-d ose 60+ series) RSV Vaccine (1 - 1-dose 60+ series) [facility] Start: 1997 SHINGRIX VACCINE (1 of 2) MOSER GRIX VACCINE (1 of 2) [facility] Start: 1992 COLOGUARD (FIT-DNA) COLOGUARD (FIT-D NA) [facility] Start: [address] [facility] Start: 1992 FECAL OCCULT BLOOD FECAL OCCULT BLOO D [facility] Start: 1992 SIGMOIDOSCOPY SIGMOIDOSCOPY [facility] Start: 1966 Pneumococcal Vaccine : 50+ (1 of 2 - PCV) Pneumococcal Vaccine: 50+ (1 of 2 - PCV) [facility] Start: 1966 Urine microalbumin profile [facility] Start: 1965 ANNUAL PCP TEAM CTC OPERATOR SHANAE DISEASE VISIT ANNUAL PCP TEAM CHRONIC DISEASE VISIT [facility] Start: 1965 Anxiety Screening Anxiety Screening [facility] Start: 1965 Depression Screening Depression Scre ening [facility] Start: 1965 Hepatitis B surface antibody level LDL CHOLESTEROL [facility] Start: 1965 HEPATITIS C SCREENING HEPATITIS C SC [facility] Start: 1965 Hepatitis C screening Hepatitis C Sc [facility] Start: 1957 3 comp foot exam completed DIABETIC FOOT EXAM [facility] Start: 1957 Diabetic foot examination Diabetic F oot Exam [facility] Start: 1957 Glaucoma screening Dilated Retinal E xam [facility] Start: 1957 Hepatitis B screening URINE ALBUMIN:CREATININE RATIO [facility] Start: 1957 Hepatitis C antibody , confirmatory test DILATED RETINAL EXAM [facility] Start: 1953 Pneumococcal Vaccine : 65+ (1 - PCV) Pneumococcal Vaccine: 65+ (1 - PCV) [facility] Start: 1953 Pneumococcal Vaccine : 65+ (1 of 2 - PCV) Pneumococcal Vaccine: 65+ (1 of 2 - PCV) [facility] Start: 1953 PNEUMOCOCCAL: 65+ (1 - PCV) PNEUMOCOCCAL: 65+ (1 - PCV) [facility] Start: 1952 Hemoglobin A1c measurement HbA1C [facility] Start: 1952 Hemoglobin A1c/Hemoglobin.total in Blood HBA1C [facility] Start: 1947 COVID-19 VACCINE (#1) COVID-19 VACCI NE (#1) [facility] Blood chemistry [facility] Work Phone: Cardioversion [facility] Work Phone: Cardioversion electi ve arrhythmia external CARDIOVERSION EXTERNAL ELECTIVE Persistent atrial fibrillation (HCC) Status post catheter ablation of atrial fibrillation Anticoagulant long-term use Thrombus of left atrial appendage [facility] Continuous pulse oximetry [facility] End: 07-01-2025 EXTENDED WEAR WAREHOUSE SUPERVISOR PATCH EXTENDED WEAR WAREHOUSE SUPERVISOR PATCH ECG Routine Persistent atrial fibrillation (HCC) 1 Occurrences starting 07/01/2024 until 07/01/2025 [facility] Work Phone: Comment on above: 1 Occurrences starti ng 07/01/2024 until 07/01/2025 Microscopic urinalysis [facility] Work Phone: Organism count, microscopic method [facility] Work Phone: OUTSIDE VENDOR CARDI AC OUTPATIENT EXTENDED RHYTHM RECORDING (WITHOUT TELEMETRY) OUTSIDE VENDOR CARDIAC OUTPATIENT EXTENDED RHYTHM RECORDING (WITHOUT TELEMETRY) Holter Routine Persistent atrial fibrillation (HCC) Ordered: 07/22/2024 [facility] Work Phone: Comment on above: Ordered: 07/22/2024 Patient Education [facility] Work Phone: Patient referral [facility] Work Phone: Urinalysis, blood, qualitative [facility] Work Phone: Urine microscopy: epithelial cells [facility] Work Phone: US Heart limited [facility] White blood cell count [facility] Work Phone: [facility] [place] EP LAB [facility] Immunizations Immunization Date Immunization Notes Care Provider Bri jenkins 04-07-2019 tetanus toxoid, redu wili diphtheria toxoid, and acellular pertussis vaccine, adsorbed Danitza Salomon STREAM CONTROL OFFICER.DIRECTOR BIOLOGICS Work Phone: [facility] Payers Date Payer Category Payer Medicare MMO MEDICARE MMO MEDADVANTAGE HMO [id number] 2024-Present [phone] [address] [place] [address] O [id number] 2024 Medicare (Managed Care) MMO DUSTIN DVANTAGE HMO [id number] 2024 Unknown [id number] 2024 Self-pay [id number] 2021 Unknown [id number] 2021 Medicare [id number] 2012 Unknown [id number] 1945 Unknown [id number] Medicare [id number] Private Health Insurance [id number] Unknown [id number] Unknown [id number] Social History Date Type Detail Facility Start: 03-14-2022 End: 04-26-2023 Tobacco smoking status WAIS Unknown if ever smoked [facility] Start: 12-18-2018 Occasional [facility] Start: 12-18-2018 None [facility] Start: 12-18-2018 Spouse/ Signif icant Other [facility] Start: 03-18-2021 Non-smoker [facility] Start: 1945 Sex Assigned At Male W [facility] Start: 10-29-2018 End: 04-26-2023 Tobacco smoking status NHIS Ex-smoker [facility] Start: 10-29-1968 End: 10-29-1988 History of tobacco use Current smoker [facility] Start: 10-29-1968 End: 10-29-1988 History of tobacco use Cigarette Smoker [facility] Start: 10-29-2018 End: 11-21-2023 Cigarettes smoked current (pack per day) - Reported 2 [facility] Start: 10-29-2018 End: 07-01-2024 Tobacco use and exposure Smokeless tobacco non-user [facility] Start: 08-24-2022 End: 03-17-2025 Alcohol intake Current drinker of alcohol (finding) [facility] Start: 10-29-2018 Alcohol Comment occasionally [facility] Start: 1945 Sex Assigned At Not on file C [facility] Start: 08-14-2022 End: 08-24-2022 Exposure to SARS-CoV-2 (event) Not sure [facility] Start: 04-20-2023 End: 11-21-2023 Tobacco use panel [facility] National Score (1-10 0), lower number is lower risk 34 [facility] Goals Date Patient Goal Desired Activity /State Personal health goal Functional Status Date Assessment Result Facility 08-29-2023 Are you deaf, or do you have serious difficulty hearing No 08/29/2023 10:31 AM Sierra Kang RN No [facility] 08-29-2023 Are you blind, or do you have serious difficulty seeing, even when wearing glasses No 08/29/2023 10:31 AM EDT Sierra Gan RN No [facility] 08-29-2023 Do you have serious difficulty walking or climbing stairs No 08/29/2023 10:31 AM EDT Sierra Gan RN No [facility] 08-29-2023 Do you have difficul ty dressing or bathing No 08/29/2023 10:31 AM EDT Sierra Gan RN No [facility] 08-29-2023 Because of a physica l, mental, or emotional condition, do you have difficulty doing errands alone such as visiting a physician's office or shopping No 08/29/2023 10:31 AM EDSierra Funes RN No [facility] Mental Status Date Assessment Result Facility 08-29-2023 Because of a physica l, mental, or emotional condition, do you have serious difficulty concentrating, remembering, or making decisions No 08/29/2023 10:31 AM EDSierra Funes RN No [facility] Clinical Notes 08-24-2022 to 03-17-2025 Cordelia Blackwood MD - 03/17/2025 4:20 PM EDTTelephone Encounter - Cecile Elizondo RN - 03/03/2025 9:06 AM EDTTelephone Encounter - Cecile Elizondo RN - 03/03/2025 9:06 AM EDTPatient Instructions Note Date & Type Note Facility 03-17-2025 History of Presen t illness Narrative Images from the original note were not included. [facility] SECTION OF REGIONAL CARDIOLOGY Cardiology ([facility]) [address] [facility] [id number] OUTPATIENT VISIT DATE 03/17/2025 PRIMARY CARE PHYSICIAN: Urban Ledezma (Susana) [address] [place] [address] CHIEF COMPLAINT: HISTORY OF PRESENT ILLNESS: Mr. Mccarty is a 79 year old gentleman with a history of mild nonobstructive coronary artery disease on remote catheterization 2007, dilated nonischemic cardiomyopathy, hypertension, dyslipidemia, atrial fibrillation with ablation August 2023 who presents to the office for routine follow-up. Patient has been in persistent atrial fibrillation. He denies symptoms of heart racing or palpitations. He is being considered for tooth extraction of all his upper teeth. He has no symptoms concerning for angina at the rest or with exertion. He is completing greater than 4 METS of activity on a daily basis. PAST MEDICAL HISTORY Diagnosis Date Alcohol use Anemia, unspecified Anemia, unspecified Anticoagulant long-term use indication: stroke prevention from atrial fibrillation/flutter Arthritis At risk for stroke [id number] = 6 (CHF, HTN, age2, DM, CAD) Atherosclerosis Atrial flutter (HCC) Benign neoplasm of colon CAD (coronary artery disease) nonobstructive CAD by [facility] 2007 Chronic systolic congestive heart failure (HCC) 01/07/2025 Depressive disorder, not elsewhere classified Diabetes (HCC) Dilated cardiomyopathy (HCC) 08/24/2022 Diverticulosis of colon (without mention of hemorrhage) Essential hypertension, malignant Fatty liver Hiatal hernia History of cancer HLD (hyperlipidemia) Holter monitor, abnormal 06/27/2022 LAKISHA HTN (hypertension) Impaired fasting glucose Internal hemorrhoids without mention of complication Other chest pain Permanent atrial fibrillation (HCC) 01/08/2025 Persistent atrial fibrillation (HCC) asymptomatic; ??? contributing to cardiomyopathy Sleep apnea Snoring Status post catheter ablation of atrial fibrillation atrial fibrillation catheter ablation/PVAI (RF, Stereotaxis, Carto) 08/28/2023 Syncopal episode Thrombus of left atrial appendage 03/13/2024 Typical atrial flutter (HCC) Ventricular premature depolarization VT (ventricular tachycardia) (HCC) Wide-complex tachycardia Nonsustained PAST SURGICAL HISTORY Procedure Laterality Date AFIB ABLATION/PULM VEIN ISOLATION 08/28/2023 atrial fibrillation catheter ablation/PVAI (RF, Stereotaxis, Carto); [facility] Dr. Mike CARDIOVERSION 04/2024 CARDIOVERSION, ELECTIVE, ELECTRICAL 07/26/2022 [facility] COLONOSCOPY FLX DX W/COLLJ SPEC WHEN PFRMD 10/25/2013 Colonoscopy COLONOSCOPY FLX DX W/COLLJ SPEC WHEN PFRMD 10/29/2018 repeat 3 years COLONOSCOPY W/BIOPSY SINGLE/MULTIPLE 09/11/2008 ECHOCARDIOGRAM 10/10/2022 LVEF 45% ECHOCARDIOGRAM 08/09/2022 LVEF 45% ECHOCARDIOGRAM 08/18/2021 LVEF 60% ECHOCARDIOGRAM 04/19/2023 [facility]; see scanned documents; LVEF 45% INGUINAL HERNIA REPAIR HX Right 1984 LEFT HEART CATH,PERCUTANEOUS 2007 PAST SURGICAL HISTORY OF pilonidal cyst RPR 1ST INGUN HRNA AGE 7 YRS/> REDUCIBLE Hernia repair, inguinal VASECTOMY 1984 SOCIAL HISTORY Social History Tobacco Use Smoking status: Former Current packs/day: 0.00 Average packs/day: 2.0 packs/day for 20.0 years (40.0 ttl pk-yrs) Types: Cigarettes Start date: 10/29/1968 Quit date: 10/29/1988 Years since quittin.4 Smokeless tobacco: Never Substance Use Topics Alcohol [...] [Dexametha* Other: See Comments Adverse reaction MEDICATIONS: Taurine 1,000 mg cap Take 3 capsules by mouth. magnesium glycinate 100 mg magnesium capsule Take 2 capsules by mouth once daily. cholecalciferol (VITAMIN D-3) 50 mcg (2,000 unit) tablet Take 1 tablet by mouth once daily. Zinc Acetate, Oral, 50 mg (zinc) cap Take 50 capsules by mouth once daily. Flaxseed Oil 1,000 mg cap Take by mouth. losartan (COZAAR) 25 mg tablet Take 1 tablet by mouth once daily. potassium chloride 20 mEq TbER Take 1 tablet by mouth daily at bedtime. metoprolol succinate ER (TOPROL XL) 100 mg Take 1 tablet by mouth once daily. rivaroxaban (XARELTO) 20 mg tablet Take 1 tablet by mouth daily with dinner. metFORMIN ER (GLUCOPHAGE XR) 500 mg 24 hr tablet Take 500 mg by mouth daily with dinner. multivit with minerals/lutein (MULTIVITAMIN 50 PLUS ORAL) Take 1 tablet by mouth once daily. glimepiride (AMARYL) 2 mg tablet Take 2 mg by mouth every morning. aspirin, enteric coated (ADULT LOW DOSE ASPIRIN) 81 mg EC tablet Take 1 tablet by mouth once daily. tamsulosin (FLOMAX) 0.4 mg Take 0.4 mg by mouth daily at bedtime. simvastatin (ZOCOR) 40 mg tablet Take 40 mg by mouth daily at bedtime. (Patient not taking: Reported on 03/17/2025) REVIEW OF SYSTEMS: Review of Systems Constitutional: Negative for chills, fever, malaise/fatigue and weight loss. HENT: Negative for hearing loss and sore throat. Eyes: Negative for blurred vision and double vision. Respiratory: Negative. Cardiovascular: Negative. Gastrointestinal: Negative. Genitourinary: Negative for dysuria, frequency, hematuria and urgency. Musculoskeletal: Negative. Skin: Negative. Neurological: Negative for dizziness, seizures, loss of consciousness, weakness and headaches. Endo/Heme/Allergies: Negative for environmental allergies. Does not bruise/bleed easily. Psychiatric/Behavioral: Negative for depression. PHYSICAL EXAMINATION: BP 134/70 Pulse 73 Resp 14 Ht 6' 0 (1.83m) Wt 219 lb 9.6 oz (99.6kg) SpO2 98% BMI 29.78 kg/(m^2). General: Pleasant gentleman sitting appears comfortable no apparent distress he is alert and oriented x 3 HEENT: Carotid upstrokes are brisk without bruits no JVD appreciated. Pulmonary: Lungs are clear no rales, wheezes, rhonchi Cardiovascular: Normal S1, S2 with irregularly irregular rhythm and normal rate. Extremities: Warm, well-perfused, no lower extremity edema. 2+ distal pulses CARDIOVASCULAR MEDICINE TESTING: ECG in the office 11/21/2023: Atrial fibrillation with slow ventricular response. Nonspecific ST-T wave changes Transesophageal Echocardiogram 04/22/2024: - The left ventricle is normal in size. Left ventricular systolic function is mildly decreased. Globally hypokinetic left ventricle with EF = 40-45% (visual est.) Left ventricular diastolic function was not evaluated. - The right ventricle is normal in size. Right ventricular systolic function is low normal. - No significant valve disease: Mild , 1+ AI, 1-2+ MR, 1+ TR, Trivial PI - No evidence of intracardiac thrombus noted. Extended Monitoring-[employer] Patch Enrollment Dates: 07/22/2024-08/05/2024 IRHYTHM FINDINGS: 2 Ventricular Tachycardia runs occurred, the run with the fastest interval lasting 14 beats with a max rate of 182 bpm (avg 175 bpm); the run with the fastest interval was also the longest. Atrial Fibrillation occurred continuously (100% burden), ranging from 46-218 bpm (avg of 89 bpm). Some episodes of Atrial Fibrillation conducted with possible aberrancy. Isolated VEs were rare (<1.0%), VE Couplets were rare (<1.0%), and no VE Triplets were present. MD notification criteria for Rapid Atrial Fibrillation met - report posted prior to leaving voicemail per account request (AM). - Exam was compared with the prior echocardiographic exam performed on 11/28/2023. No significant change noted when compared to report of prior study. I have personally reviewed the Electrocardiogram, Laboratory Testing, and Echocardiogram. IMPRESSION: Mr. Mccarty is a 79 year old gentleman with a history of mild nonobstructive coronary disease and remote catheterization 2007, nonischemic cardiomyopathy ejection fraction 45%, hypertension, dyslipidemia, and atrial fibrillation with A-fib ablation August 2023 who presents the office to establish new cardiology follow-up PLAN AND RECOMMENDATIONS: 1. Atherosclerosis of [place] coronary artery of [place] heart without angina pectoris - ICD9: 414.01, ICD10: I25.10 (primary diagnosis) Patient doing well without symptoms concerning for angina. Continue current medical therapy and risk factor modification 2. Dilated cardiomyopathy (HCC) - ICD9: 425.4, ICD10: I42.0 Maintained on losartan and Toprol. Likely repeat an echocardiogram after next office visit 3. Chronic systolic congestive heart failure (HCC) - ICD9: 428.22, 428.0, ICD10: I50.22 Well-controlled on current diuretic therapy and low-sodium diet 4. Permanent atrial fibrillation (HCC) - ICD9: 427.31, ICD10: I48.21 Heart rates adequate controlled on current regimen. He is on Xarelto for stroke risk reduction 5. Mixed hyperlipidemia - ICD9: 272.2, ICD10: E78.2 Patient stopped taking his simvastatin concerns of possible side effects. I discussed the risk of this in detail with him. Encouraged him to go back on his simvastatin. 6. Syncope and collapse - ICD9: 780.2, ICD10: R55 No events Cordelia Blackwood MD documented in this encounter [facility] 03-17-2025 Note HNO ID: [id number] Author: CORDELIA BLACKWOOD MD Service: ? Author Type: Physician Type: Progress Notes Filed: 03/17/2025 17:10 Note Text: [facility] SECTION OF REGIONAL CARDIOLOGY Cardiology ([facility]) [address] [facility] [id number] OUTPATIENT VISIT DATE 03/17/2025 PRIMARY CARE PHYSICIAN: Ubran Ledezma ([facility]) [address] [place] [address] CHIEF COMPLAINT: HISTORY OF PRESENT ILLNESS: Mr. Mccarty is a 79 year old gentleman with a history of mild nonobstructive coronary artery disease on remote catheterization 2007, dilated nonischemic cardiomyopathy, hypertension, dyslipidemia, atrial fibrillation with ablation August 2023 who presents to the office for routine follow-up. Patient has been in persistent atrial fibrillation. He denies symptoms of heart racing or palpitations. He is being considered for tooth extraction of all his upper teeth. He has no symptoms concerning for angina at the rest or with exertion. He is completing greater than 4 METS of activity on a daily basis. PAST MEDICAL HISTORY Diagnosis Date Alcohol use Anemia, unspecified Anemia, unspecified Anticoagulant long-term use indication: stroke prevention from atrial fibrillation/flutter Arthritis At risk for stroke [id number] = 6 (CHF, HTN, age2, DM, CAD) Atherosclerosis Atrial flutter (HCC) Benign neoplasm of colon CAD (coronary artery disease) nonobstructive CAD by [facility] 2007 Chronic systolic congestive heart failure (HCC) 01/07/2025 Depressive disorder, not elsewhere classified Diabetes (HCC) Dilated cardiomyopathy (HCC) 08/24/2022 Diverticulosis of colon (without mention of hemorrhage) Essential hypertension, malignant Fatty liver Hiatal hernia History of cancer HLD (hyperlipidemia) Holter monitor, abnormal 06/27/2022 LAKISHA HTN (hypertension) Impaired fasting glucose Internal hemorrhoids without mention of complication Other chest pain Permanent atrial fibrillation (HCC) 01/08/2025 Persistent atrial fibrillation (HCC) asymptomatic; ??? contributing to cardiomyopathy Sleep apnea Snoring Status post catheter ablation of atrial fibrillation atrial fibrillation catheter ablation/PVAI (RF, Stereotaxis, Carto) 08/28/2023 Syncopal episode Thrombus of left atrial appendage 03/13/2024 Typical atrial flutter (HCC) Ventricular premature depolarization VT (ventricular tachycardia) (HCC) Wide-complex tachycardia Nonsustained PAST SURGICAL HISTORY Procedure Laterality Date AFIB ABLATION/PULM VEIN ISOLATION 08/28/2023 atrial fibrillation catheter ablation/PVAI (RF, Stereotaxis, Carto); [facility] Dr. Mike CARDIOVERSION 04/2024 CARDIOVERSION, ELECTIVE, ELECTRICAL 07/26/2022 [facility] COLONOSCOPY FLX DX W/COLLJ SPEC WHEN PFRMD 10/25/2013 Colonoscopy COLONOSCOPY FLX DX W/COLLJ SPEC WHEN PFRMD 10/29/2018 repeat 3 years COLONOSCOPY W/BIOPSY SINGLE/MULTIPLE 09/11/2008 ECHOCARDIOGRAM 10/10/2022 LVEF 45% ECHOCARDIOGRAM 08/09/2022 LVEF 45% ECHOCARDIOGRAM 08/18/2021 LVEF 60% ECHOCARDIOGRAM 04/19/2023 [facility]; see scanned documents; LVEF 45% INGUINAL HERNIA REPAIR HX Right 1985 LEFT HEART CATH,PERCUTANEOUS 2007 PAST SURGICAL HISTORY OF pilonidal cyst RPR 1ST INGUN HRNA AGE 7 YRS/> REDUCIBLE Hernia repair, inguinal VASECTOMY 1984 SOCIAL HISTORY Social History Tobacco Use Smoking status: Former Current packs/day: 0.00 Average packs/day: 2.0 packs/day for 20.0 years (40.0 ttl pk-yrs) Types: Cigarettes Start date: 10/29/1968 Quit date: 10/29/1988 Years since quittin.4 Smokeless tobacco: Never Substance Use Topics Alcohol [...] [Dexametha* Other: See Comments Adverse reaction MEDICATIONS: Taurine 1,000 mg cap Take 3 capsules by mouth. magnesium glycinate 100 mg magnesium capsule Take 2 capsules by mouth once daily. cholecalciferol (VITAMIN D-3) 50 mcg (2,000 unit) tablet Take 1 tablet by mouth once daily. Zinc Acetate, Oral, 50 mg (zinc) cap Take 50 capsules by mouth once daily. Flaxseed Oil 1,000 mg cap Take by mouth. losartan (COZAAR) 25 mg tablet Take 1 tablet by mouth once daily. potassium chloride 20 mEq TbER Take 1 tablet by mouth daily at bedtime. metoprolol succinate ER (TOPROL XL) 100 mg Take 1 tablet by mouth once daily. rivaroxaban (XARELTO) 20 mg tablet Take 1 tablet by mouth daily with dinner. metFORMIN ER (GLUCOPHAGE XR (more content not included)... [facility] 03-03-2025 Telephone encounter Note Patient requesting refills as follows: Patient asking to change pharmacy to [facility]. Requested Prescriptions Pending Prescriptions Disp Refills losartan (COZAAR) 25 mg tablet 90 tablet 3 Sig: Take 1 tablet by mouth once daily. Please review and advise. Cecile Elizondo RN [facility] 03-03-2025 Miscellaneous Notes Patient requesting refills as follows: Patient asking to change pharmacy to [facility]. Requested Prescriptions Pending Prescriptions Disp Refills losartan (COZAAR) 25 mg tablet 90 tablet 3 Sig: Take 1 tablet by mouth once daily. Please review and advise. Cecile Elizondo RN documented in this encounter [facility] 03-03-2025 Telephone encounter Note Patient's request for medication is as follows: Requested Prescriptions Refused Prescriptions Disp Refills rivaroxaban (XARELTO) 20 mg tablet 90 tablet 3 Sig: Take 1 tablet by mouth daily with dinner. metoprolol succinate ER (TOPROL XL) 100 mg 90 tablet 3 Sig: Take 1 tablet by mouth once daily. Last confirmed receipt by pharmacy on 10/30/2024 for 90 tabs 3 refills for xarelto. Last confirmed receipt by pharmacy on 11/27/2024 for 90 tabs 3 refills for metoprolol. Prescription(s) as above. Please process accordingly. Layla Hopkins LPN [facility] 03-03-2025 Miscellaneous Notes Patient's request for medication is as follows: Requested Prescriptions Refused Prescriptions Disp Refills rivaroxaban (XARELTO) 20 mg tablet 90 tablet 3 Sig: Take 1 tablet by mouth daily with dinner. metoprolol succinate ER (TOPROL XL) 100 mg 90 tablet 3 Sig: Take 1 tablet by mouth once daily. Last confirmed receipt by pharmacy on 10/30/2024 for 90 tabs 3 refills for xarelto. Last confirmed receipt by pharmacy on 11/27/2024 for 90 tabs 3 refills for metoprolol. Prescription(s) as above. Please process accordingly. Layla Hopkins LPN documented in this encounter [facility] 02-19-2025 Telephone encounter Note Telephone encounter regarding clearance was sent to Dr. Blackwood. Merced Montalvo RN [facility] 02-19-2025 Miscellaneous Notes Telephone encounter regarding clearance was sent to Dr. Blackwood. Merced Montalvo RN documented in this encounter [facility] 01-28-2025 Telephone encounter Note Clearance form received from [facility] for request to hold Xarelto. Form placed in Dr. Mike's door box for review; form also scanned into chart. Bambi Escobedo LPN [facility] 01-28-2025 Miscellaneous Notes Clearance form received from [facility] for request to hold Xarelto. Form placed in Dr. Mike's door box for review; form also scanned into chart. Bambi Escobedo LPN documented in this encounter [facility] 01-13-2025 Telephone encounter Note Patient's request for medication is as follows: Requested Prescriptions Refused Prescriptions Disp Refills losartan (COZAAR) 25 mg tablet 45 tablet 3 Sig: Take 0.5 tablets by mouth once daily. Refused By: LYNETTE DORAN Reason for Refusal: Patient has requested refill too soon Refilled 11/28/2024 for 45 tabs and 3 [facility] Prescription(s) as above. Please process accordingly. Lynette Doran LPN [facility] 01-13-2025 Miscellaneous Notes Patient's request for medication is as follows: Requested Prescriptions Refused Prescriptions Disp Refills losartan (COZAAR) 25 mg tablet 45 tablet 3 Sig: Take 0.5 tablets by mouth once daily. Refused By: LYNETTE DORAN Reason for Refusal: Patient has requested refill too soon Refilled 11/28/2024 for 45 tabs and 3 [facility] Prescription(s) as above. Please process accordingly. Lynette Doran LPN documented in this encounter [facility] 01-08-2025 History of Presen t illness Narrative PRIMARY CARE PHYSICIAN: Urban Ledezma ([facility]) [address] [place] [id number] Patient Care Team: Urban Ledezma MD as PCP - General (Family Medicine) Suzan Mike MD as Specialty Solar Electric Installer (Cardiology) Cordelia Blackwood MD as Specialty Solar Electric Installer (Cardiology) Kai Marmolejo MD as Specialty Solar Electric Installer (Pulmonary Disease) CHIEF COMPLAINT: Follow up for arrhythmia HISTORY OF PRESENT ILLNESS: Mr. Mccarty is a 79 year old male who presents today for a cardiovascular medicine follow-up visit. History copied from previous notes, edited as needed: Summary of previous notes: Mr. 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 Echeverria to Dr. Schweikert, established care in August/2022. He had apparently been diagnosed a few years prior when he was hospitalized at [facility] with a bladder infection and fever. Following that hospitalization, he reported going in and out of the arrhythmia. He was treated with diltiazem. Cardiac monitoring around that time showed arrhythmia burden of about 14%. Over time, the arrhythmia became more persistent, confirmed either by monitoring or his personal monitoring with his Apple Watch. He reported no symptoms associated with the arrhythmia, he underwent electrical cardioversion 07/26/2022, but the atrial fibrillation recurred about a day later. He did not feel differently in sinus rhythm, was not aware that the arrhythmia recurred except by the Apple Watch notifying him. An echocardiogram at the end of July/2022 showed mild cardiomyopathy, LVEF 45%, stress test 08/09/2022 showed no ischemia or scar, but showed mild cardiomyopathy with LVEF 47%. Rate control versus rhythm control strategy was discussed with Dr. Mike during the appointment August/2022, even though he did not have excessively bothersome symptoms, cardiac monitoring in June/2022 showed suboptimal ventricular rate control with an average ventricular response rate of 114 bpm, likely contributing to the mild cardiomyopathy. He was then treated with atenolol. Repeat echocardiogram September/2022 showed the cardiomyopathy was about the same, LVEF 45%, he remained asymptomatic to the atrial arrhythmia that remained persistent. After further discussion between Dr. Mike and Dr. Echeverria, it was decided patient should move forward with catheter ablation for the atrial fibrillation/flutter. He underwent radiofrequency catheter ablation of persistent atrial fibrillation with Dr. Mike 08/28/2023. He was discharged on atenolol 50 mg twice daily and Xarelto 20 mg daily. He performed weekly transtelephonic monitoring, and the transmission sent 09/18/[address] of the chest revealed small thrombus in the left atrial appendage, 2.7 cm. No pulmonary vein stenosis. Moderate coronary calcifications and noncardiac findings including 3 mm lung nodule and adenopathy. The atrial fibrillation returned about 18 days after the ablation procedure, he was asymptomatic, has some fatigue which is not new. Aspirin 81 mg daily was added to his regimen for the left atrial appendage thrombus. He will follow-up with his PCP regarding the noncardiac findings on the CT. At March 2024 office visit follow up, Mr. Mccarty was evaluated for the atrial fibrillation. The atrial fibrillation has been asymptomatic but was thought to be contributing to his cardiomyopathy and heart failure. He underwent atrial fibrillation catheter ablation 08/28/2023. He had recurrence of the atrial fibrillation about 2 weeks after the ablation procedure. No symptoms, he did not feel any differently in the sinus rhythm. He had routine post ablation CT scan completed 11/28/2023, this showed small thrombus in the BENSON. Aspirin 81 mg daily was added. He underwent JUVENAL in April 2024, this did not reveal any left atrial appendage thrombus. He underwent electrical cardioversion at that time to restore sinus rhythm. He believes he maintained sinus rhythm post cardioversion for roughly 18 days before going back out of rhythm. He reports he is asymptomatic with his atrial fibrillation. Echo from April 2024 revealed mild cardiomyopathy, LVEF of 40-45%. The plan at that time was to abandon any further attempts of sinus rhythm denominational in favor of patient remaining on anticoagulation/rate control strategy. Interim History Dr. Mike 01/08/2025: Mr. Mccarty presents for follow up evaluation. He has permanent atrial fibrillation, treatment strategy is ventricular rate control and stroke prevention. No awareness of the atrial fibrillation. Occasional sharp pain in the chest, not very often. No radiation. No impact from exertion. He denies shortness of breath, orthopnea, palpitations, PND, syncope. No bleeding issues on the oral anticoagulation therapy for stroke prevention. I have confirmed and edited as necessary, the PFSH and ROS obtained by others. PAST MEDICAL HISTORY Diagnosis Date Alcohol use Anemia, unspecified Anemia, unspecified Anticoagulant long-term use indication: stroke prevention from atrial fibrillation/flutter Arthritis At risk for stroke [id number] = 6 (CHF, HTN, age2, DM, CAD) Atherosclerosis Atrial flutter (HCC) Benign neoplasm of colon CAD (coronary artery disease) nonobstructive CAD by [facility] 2007 Chronic systolic congestive heart failure (HCC) 01/07/2025 Depressive disorder, not elsewhere classified Diabetes (HCC) Dilated cardiomyopathy (HCC) 08/24/2022 Diverticulosis of colon (without mention of hemorrhage) Essential hypertension, malignant Fatty liver Hiatal hernia History of cancer HLD (hyperlipidemia) Holter monitor, abnormal 06/27/2022 LAKISHA HTN (hypertension) Impaired fasting glucose Internal hemorrhoids without mention of complication Other chest pain Permanent atrial fibrillation (HCC) 01/08/2025 Persistent atrial fibrillation (HCC) asymptomatic; ??? contributing to cardiomyopathy Sleep apnea Snoring Status post catheter ablation of atrial fibrillation atrial fibrillation catheter ablation/PVAI (RF, Stereotaxis, Carto) 08/28/2023 Syncopal episode Thrombus of left atrial appendage 03/13/2024 Typical atrial flutter (HCC) Ventricular premature depolarization VT (ventricular tachycardia) (HCC) Wide-complex tachycardia Nonsustained PAST SURGICAL HISTORY Procedure Laterality Date AFIB ABLATION/PULM VEIN ISOLATION 08/28/2023 atrial fibrillation catheter ablation/PVAI (RF, Stereotaxis, Carto); [facility] Dr. Mike CARDIOVERSION 04/2024 CARDIOVERSION, ELECTIVE, ELECTRICAL 07/26/2022 [facility] COLONOSCOPY FLX DX W/COLLJ SPEC WHEN PFRMD 10/25/2013 Colonoscopy COLONOSCOPY FLX DX W/COLLJ SPEC WHEN PFRMD 10/29/2018 repeat 3 years COLONOSCOPY W/BIOPSY SINGLE/MULTIPLE 09/11/2008 ECHOCARDIOGRAM 10/10/2022 LVEF 45% ECHOCARDIOGRAM 08/09/2022 LVEF 45% ECHOCARDIOGRAM 08/18/2021 LVEF 60% ECHOCARDIOGRAM 04/19/2023 [facility]; see scanned documents; LVEF 45% INGUINAL HERNIA REPAIR HX Right 1984 LEFT HEART CATH,PERCUTANEOUS 2007 PAST SURGICAL HISTORY OF pilonidal cyst RPR 1ST INGUN HRNA AGE 7 YRS/> REDUCIBLE Hernia repair, inguinal VASECTOMY 1985 SOCIAL HISTORY Social History Tobacco Use Smoking status: Former Current packs/day: 0.00 Average packs/day: 2.0 packs/day for 20.0 years (40.0 ttl pk-yrs) Types: Cigarettes Start date: 10/29/1968 Quit date: 10/29/1988 Years since quittin.2 Smokeless tobacco: Never Substance Use Topics Alcohol [...] [Dexametha* Other: See Comments Adverse reaction MEDICATIONS: losartan (COZAAR) 25 mg tablet Take 0.5 tablets by mouth once daily. (Patient taking differently: Take 25 mg by mouth once daily.) potassium chloride 20 mEq TbER Take 1 tablet by mouth daily at bedtime. metoprolol succinate ER (TOPROL XL) 100 mg Take 1 tablet by mouth once daily. rivaroxaban (XARELTO) 20 mg tablet Take 1 tablet by mouth daily with dinner. metFORMIN ER (GLUCOPHAGE XR) 500 mg 24 hr tablet Take 500 mg by mouth daily with dinner. multivit with minerals/lutein (MULTIVITAMIN 50 PLUS ORAL) Take 1 tablet by mouth once daily. glimepiride (AMARYL) 2 mg tablet Take 2 mg by mouth every morning. aspirin, enteric coated (ADULT LOW DOSE ASPIRIN) 81 mg EC tablet Take 1 tablet by mouth once daily. tamsulosin (FLOMAX) 0.4 mg Take 0.4 mg by mouth daily at bedtime. simvastatin (ZOCOR) 40 mg tablet Take 40 mg by mouth daily at bedtime. Review of Systems Constitutional: Negative for chills and fever. Respiratory: Negative for cough, hemoptysis, sputum production and shortness of breath. Cardiovascular: Positive for chest pain. Negative for palpitations, orthopnea, claudication, leg swelling and PND. Gastrointestinal: Negative for abdominal pain, blood in stool, melena, nausea and vomiting. Genitourinary: Negative for dysuria, flank pain and hematuria. Musculoskeletal: Negative for falls. Skin: Negative for rash. Neurological: Negative for focal weakness, seizures and loss of consciousness. PHYSICAL EXAMINATION: BP 119/79 Pulse 64 Ht 6' 0 (1.83m) Wt 219 lb (99.3kg) SpO2 95% BMI 29.70 kg/(m^2). Physical Exam Vitals reviewed. Constitutional: General: He is not in acute distress. Appearance: Normal appearance. HENT: Head: Normocephalic and atraumatic. Cardiovascular: Rate and Rhythm: Normal rate. Rhythm irregularly irregular. Heart sounds: S1 normal and S2 normal. Murmur heard. Systolic murmur is present with a grade of 1/6. No friction rub. Pulmonary: Effort: Pulmonary effort is normal. No respiratory distress. Breath sounds: Normal breath sounds. No wheezing, rhonchi or rales. Musculoskeletal: Cervical back: Neck supple. Right lower [...] Atrial fibrillation with controlled ventricular response, average 67 bpm; normal QRS duration 88 ms; QTc 393 ms; nonspecific T wave abnormality I have personally reviewed the Electrocardiogram. I spent a total of 30 minutes on the date of the service which included preparing to see the patient, [id number] patient care, completing clinical documentation, obtaining and/or reviewing separately obtained history, performing a medically appropriate examination, counseling and educating the patient/family/caregiver, ordering medications, tests, or procedures, communicating with other HCPs (not separately reported), independently interpreting results (not separately reported), communicating results to the patient/family/caregiver, and care coordination (not separately reported). 1. Permanent atrial fibrillation (HCC) - ICD9: 427.31, ICD10: I48.21 (primary diagnosis) 2. Status post catheter ablation of atrial fibrillation - ICD9: V45.89, ICD10: Z98.890 3. At risk for stroke - ICD9: V15.89, ICD10: Z91.89 4. Anticoagulant long-term use - ICD9: V58.61, ICD10: Z79.01 5. Dilated cardiomyopathy (HCC) - ICD9: 425.4, ICD10: I42.0 6. Chronic systolic congestive heart failure (HCC) - ICD9: 428.22, 428.0, ICD10: I50.22 7. Obstructive sleep apnea - ICD9: 327.23, ICD10: G47.33 CHADS2-Vasc Score Breakdown 6 Total Score 2 Age >= 75 years old 1 History of CHF 1 History of hypertension 1 History of diabetes mellitus 1 History of vascular disease IMPRESSION: Mr. Mccarty seems to be stable with regards to arrhythmia. He is not aware of the ongoing permanent atrial fibrillation. The treatment strategy is ventricular rate control and stroke prevention. The ventricular rates seem to be under appropriate control. Mr. Mccarty is being treated with oral anticoagulation for stroke prevention, and the risk:benefit of such treatment still seems to be favorable. PLAN AND RECOMMENDATIONS: Continue with current plan of care from EP standpoint. I think at this point he can follow-up with me as needed, continue to follow-up with his cocoa bean roaster helper Dr. Blackwood in [place], as coming to [place] is a distance to travel and Mr. Mccarty does not any longer require advanced arrhythmia expertise. He will just follow up with Dr. Blackwood at the [place] office and with me as needed. Suzan Mike MD 01/08/2025 Medical Decision Making: Problems: Moderate: 2+ stable chronic illnesses Data: Unique source(s) for external note(s) reviewed: 1 Unique test result(s) reviewed: 2 Unique test(s) ordered: 1 Risk: Moderate: Moderate risk from testing/treatment and Drug management Medical Decision Making Level: 4 - Moderate documented in this encounter [facility] 01-08-2025 Note HNO ID: [id number] Author: SUZAN MIKE MD Service: ? Author Type: Physician Type: Progress Notes Filed: 01/08/2025 13:04 Note Text: PRIMARY CARE PHYSICIAN: Urban Ledezma ([facility]) [address] [place] [address] Patient Care Team: Urban Ledezma MD as PCP - General (Family Medicine) Suzan Mike MD as Specialty Solar Electric Installer (Cardiology) Cordelia Blackwood MD as Specialty Solar Electric Installer (Cardiology) Kai Marmolejo MD as Specialty Solar Electric Installer (Pulmonary Disease) CHIEF COMPLAINT: Follow up for arrhythmia HISTORY OF PRESENT ILLNESS: Mr. Mccarty is a 79 year old male who presents today for a cardiovascular medicine follow-up visit. History copied from previous notes, edited as needed: Summary of previous notes: Mr. 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 Echeverria to Dr. Mike, [facility] in August/2022. He had apparently been diagnosed a few years prior when he was hospitalized at [facility] with a bladder infection and fever. Following that hospitalization, he reported going in and out of the arrhythmia. He was treated with diltiazem. Cardiac monitoring around that time showed arrhythmia burden of about 14%. Over time, the arrhythmia became more persistent, confirmed either by monitoring or his personal monitoring with his Apple Watch. He reported no symptoms associated with the arrhythmia, he underwent electrical cardioversion 07/26/2022, but the atrial fibrillation recurred about a day later. He did not feel differently in sinus rhythm, was not aware that the arrhythmia recurred except by the Apple Watch notifying him. An echocardiogram at the end of July/2022 showed mild cardiomyopathy, LVEF 45%, stress test 08/09/2022 showed no ischemia or scar, but showed mild cardiomyopathy with LVEF 47%. Rate control versus rhythm control strategy was discussed with Dr. Mike during the appointment August/2022, even though he did not have excessively bothersome symptoms, cardiac monitoring in June/2022 showed suboptimal ventricular rate control with an average ventricular response rate of 114 bpm, likely contributing to the mild cardiomyopathy. He was then treated with atenolol. Repeat echocardiogram September/2022 showed the cardiomyopathy was about the same, LVEF 45%, he remained asymptomatic to the atrial arrhythmia that remained persistent. After further discussion between Dr. Mike and Dr. Echeverria, it was decided patient should move forward with catheter ablation for the atrial fibrillation/flutter. He underwent radiofrequency catheter ablation of persistent atrial fibrillation with Dr. Mike 08/28/2023. He was discharged on atenolol 50 mg twice daily and Xarelto 20 mg daily. He performed weekly transtelephonic monitoring, and the transmission sent 09/18/[address] of the chest revealed small thrombus in the left atrial appendage, 2.7 cm. No pulmonary vein stenosis. Moderate coronary calcifications and noncardiac findings including 3 mm lung nodule and adenopathy. The atrial fibrillation returned about 18 days after the ablation procedure, he was asymptomatic, has some fatigue which is not new. Aspirin 81 mg daily was added to his regimen for the left atrial appendage thrombus. He will follow-up with his PCP regarding the noncardiac findings on the CT. At March 2024 office visit follow up, Mr. Mccarty was evaluated for the atrial fibrillation. The atrial fibrillation has been asymptomatic but was thought to be contributing to his cardiomyopathy and heart failure. He underwent atrial fibrillation catheter ablation 08/28/2023. He had recurrence of the atrial fibrillation about 2 weeks after the ablation procedure. No symptoms, he did not feel any differently in the sinus rhythm. He had routine post ablation CT scan completed 11/28/2023, this showed small thrombus in the BENSON. Aspirin 81 mg daily was added. He underwent JUVENAL in April 2024, this did not reveal any left atrial appendage thrombus. He underwent electrical cardioversion at that time to restore sinus rhythm. He believes he maintained sinus rhythm post cardioversion for roughly 18 days before going back out of rhythm. He reports he is asymptomatic with his atrial fibrillation. Echo from April 2024 revealed mild cardiomyopathy, LVEF of 40-45%. The plan at that time was to abandon any further attempts of sinus rhythm denominational in favor of patient remaining on anticoagulation/rate control strategy. Interim History Dr. Mike 01/08/2025: Mr. Mccarty presents for follow up evaluation. He has permanent atrial fibrillation, treatment strategy is ventricular rate control and stroke prevention. No awareness of the atrial fibrillation. Occasional sharp pain in the chest, not very often. No radiation. No impact from ex (more content not included)... [facility] 11-28-2024 Telephone encounter Note Patient's request for medication is as follows: Requested Prescriptions Pending Prescriptions Disp Refills losartan (COZAAR) 25 mg tablet 45 tablet 3 Sig: Take 0.5 tablets by mouth once daily. potassium chloride 20 mEq TbER 90 tablet 3 Sig: Take 1 tablet by mouth daily at bedtime. Patient last seen on 07/22/2024. Prescription(s) as above. Please process accordingly. Layla Hopkins LPN [facility] 11-28-2024 Miscellaneous Notes Patient's request for medication is as follows: Requested Prescriptions Pending Prescriptions Disp Refills losartan (COZAAR) 25 mg tablet 45 tablet 3 Sig: Take 0.5 tablets by mouth once daily. potassium chloride 20 mEq TbER 90 tablet 3 Sig: Take 1 tablet by mouth daily at bedtime. Patient last seen on 07/22/2024. Prescription(s) as above. Please process accordingly. Layla Hopkins LPN documented in this encounter [facility] 11-26-2024 Telephone encounter Note Patient's request for medication is as follows: Requested Prescriptions Pending Prescriptions Disp Refills losartan (COZAAR) 25 mg tablet 45 tablet 3 Sig: Take 0.5 tablets by mouth once daily. metoprolol succinate ER (TOPROL XL) 100 mg 90 tablet 3 Sig: Take 1 tablet by mouth once daily. potassium chloride 20 mEq TbER 90 tablet 3 Sig: Take 1 tablet by mouth daily at bedtime. Last appt 07-22-2024 Prescription(s) as above. Please process accordingly. Merced Montalvo RN [facility] 11-26-2024 Miscellaneous Notes Patient's request for medication is as follows: Requested Prescriptions Pending Prescriptions Disp Refills losartan (COZAAR) 25 mg tablet 45 tablet 3 Sig: Take 0.5 tablets by mouth once daily. metoprolol succinate ER (TOPROL XL) 100 mg 90 tablet 3 Sig: Take 1 tablet by mouth once daily. potassium chloride 20 mEq TbER 90 tablet 3 Sig: Take 1 tablet by mouth daily at bedtime. Last appt 07-22-2024 Prescription(s) as above. Please process accordingly. Merced Montalvo RN documented in this encounter [facility] 10-30-2024 Note HNO ID: [id number] Author: DANITZA SALOMON APRN.MARQUISE Service: ? Author Type: Nurse Practitioner Type: Progress Notes Filed: 10/30/2024 14:57 Note Text: Covering for Toro Roth CNP, refills for Xarelto sent to preferred pharmacy. Danitza Salomon APRN.CNP [facility] 10-30-2024 History of Presen t illness Narrative Covering for Toro Roth CNP, refills for Xarelto sent to preferred pharmacy. Danitza Salomon APRN.CNP documented in this encounter [facility] 10-30-2024 Telephone encounter Note Patient's request for medication is as follows: Requested Prescriptions Pending Prescriptions Disp Refills rivaroxaban (XARELTO) 20 mg tablet 90 tablet 3 Sig: Take 1 tablet by mouth daily with dinner. Last appt 07-01-2024 Prescription(s) as above. Please process accordingly. Merced Montalvo RN [facility] 10-30-2024 Miscellaneous Notes Patient's request for medication is as follows: Requested Prescriptions Pending Prescriptions Disp Refills rivaroxaban (XARELTO) 20 mg tablet 90 tablet 3 Sig: Take 1 tablet by mouth daily with dinner. Last appt 07-01-2024 Prescription(s) as above. Please process accordingly. Merced Montalvo RN documented in this encounter [facility] 09-02-2024 Telephone encounter Note I spoke to Diego Mccarty and informed them of Toro's response to monitor results and recommendations. Patient voiced understanding. Lynette Doran LPN [facility] 09-02-2024 Miscellaneous Notes I spoke to Diego Mccarty and informed them of Toro's response to monitor results and recommendations. Patient voiced understanding. Lynette Doran LPN Please let patient know I have reviewed recent 14-day extended EKG results. These revealed 100% AF burden with a controlled average heart rate of 89 bpm. Occasional fast rates. 2 runs of NSVT with the longest lasting 14 beats. No changes to treatment regimen. Patient needs to continue his Xarelto and Toprol XL. Thanks, Toro Roth APRN.CNP September 02, 2024 1:03 PM documented in this encounter [facility] 09-02-2024 Telephone encounter Note Please let patient know I have reviewed recent 14-day extended EKG results. These revealed 100% AF burden with a controlled average heart rate of 89 bpm. Occasional fast rates. 2 runs of NSVT with the longest lasting 14 beats. No changes to treatment regimen. Patient needs to continue his Xarelto and Toprol XL. Thanks, Toro Roth APRN.CNP September 02, 2024 1:03 PM [facility] Work Phone: 08-09-2024 Telephone encounter Note [facility] is calling in on abnormal ECG results from [facility]. They are reporting 171 beats per minute, rapid a-fib lasting 1 min on jul 23 at 10:15 pm. This can be located on page 10 strip 3. [facility] will fax a report over as well at this time as it being posted. Layla Hopkins LPN [facility] 08-09-2024 Miscellaneous Notes [facility] is calling in on abnormal ECG results from [facility]. They are reporting 171 beats per minute, rapid a-fib lasting 1 min on jul 23 at 10:15 pm. This can be located on page 10 strip 3. [facility] will fax a report over as well at this time as it being posted. Layla Hopkins LPN documented in this encounter [facility] 07-22-2024 Note HNO ID: [id number] Author: WYATT LOWERY MA Service: ? Author Type: Ornamental Iron Worker Type: Progress Notes Filed: 07/22/2024 14:04 Note Text: EVENT MONITOR DISPOSABLE PATCH INSTRUCTIONS Patient Name: Diego Mccarty Clinic Number: [id number] Skin prepped and cleansed with alcohol Patch secured to prepped area Monitor Activated Serial #: [id number] Patient Instructed: Prescribed order timeframe Bathing guidelines Usage of event button and diary documentation Return of monitor at the end of prescribed order Call with problems [phone] or [phone]. [phone] Patient expresses a good understanding of instructions Wyatt Lowery MA [facility] 07-22-2024 History of Presen t illness Narrative EVENT MONITOR DISPOSABLE PATCH INSTRUCTIONS Patient Name: Diego Mccarty Clinic Number: [id number] Skin prepped and cleansed with alcohol Patch secured to prepped area Monitor Activated Serial #: [id number] Patient Instructed: Prescribed order timeframe Bathing guidelines Usage of event button and diary documentation Return of monitor at the end of prescribed order Call with problems [phone] or [phone]. [phone] Patient expresses a good understanding of instructions Wyatt Lowery MA Images from the original note were not included. [facility]OLOGY Cardiology ([facility]) [address] [facility] [id number] OUTPATIENT VISIT DATE 07/22/2024 PRIMARY CARE PHYSICIAN: Urban Ledezma ([facility]) [address] [place] [address] CHIEF COMPLAINT: HISTORY OF PRESENT ILLNESS: Mr. Mccarty is a 79 year old gentleman with a history of mild nonobstructive coronary artery disease on remote catheterization 2007, dilated nonischemic cardiomyopathy, hypertension, dyslipidemia, atrial fibrillation with ablation August 2023 who presents to the office for routine follow-up. Patient continues to have persistent atrial fibrillation. He does not notice heart racing or palpitations. He has not had episodes of syncope near syncope or lightheadedness. He denies symptoms concerning for congestive heart failure including PND, orthopnea, or lower extremity edema. PAST MEDICAL HISTORY No date: Alcohol use No date: Anemia, unspecified No date: Anemia, unspecified No date: Anticoagulant long-term use Comment: indication: stroke prevention from atrial fibrillation/flutter No date: Arthritis No date: At risk for stroke Comment: [id number] = 6 (CHF, HTN, age2, DM, CAD) No date: Atherosclerosis No date: Atrial flutter (HCC) No date: Benign neoplasm of colon No date: CAD (coronary artery disease) Comment: nonobstructive CAD by [facility] 2007 No date: Depressive disorder, not elsewhere classified No date: Diabetes (HCC) 08/24/2022: Dilated cardiomyopathy (HCC) No date: Diverticulosis of colon (without mention of hemorrhage) No date: Essential hypertension, malignant No date: Fatty liver No date: Hiatal hernia No date: History of cancer No date: HLD (hyperlipidemia) 06/27/2022: Holter monitor, abnormal Comment: LAKISHA No date: HTN (hypertension) No date: Impaired fasting glucose No date: Internal hemorrhoids without mention of complication No date: Other chest pain No date: Persistent atrial fibrillation (HCC) Comment: asymptomatic; ??? contributing to cardiomyopathy No date: Sleep apnea No date: Snoring No date: Status post catheter ablation of atrial fibrillation Comment: atrial fibrillation catheter ablation/PVAI (RF, Stereotaxis, Carto) 08/28/2023 No date: Syncopal episode 03/13/2024: Thrombus of left atrial appendage No date: Typical atrial flutter (HCC) No date: Ventricular premature depolarization No date: VT (ventricular tachycardia) (HCC) No date: Wide-complex tachycardia Comment: Nonsustained PAST SURGICAL HISTORY 08/28/2023: AFIB ABLATION/PULM VEIN ISOLATION Comment: atrial fibrillation catheter ablation/PVAI (RF, Stereotaxis, Carto); [facility] Dr. Mike 04/2024: CARDIOVERSION 07/26/2022: CARDIOVERSION, ELECTIVE, ELECTRICAL Comment: [facility] 10/25/2013: COLONOSCOPY FLX DX W/COLLJ SPEC WHEN PFRMD Comment: Colonoscopy 10/29/2018: COLONOSCOPY FLX DX W/COLLJ SPEC WHEN PFRMD Comment: repeat 3 years 09/11/2008: COLONOSCOPY W/BIOPSY SINGLE/MULTIPLE 10/10/2022: ECHOCARDIOGRAM Comment: LVEF 45% 08/09/2022: ECHOCARDIOGRAM Comment: LVEF 45% 08/18/2021: ECHOCARDIOGRAM Comment: LVEF 60% 04/19/2023: ECHOCARDIOGRAM Comment: [facility]; see scanned documents; LVEF 45% 1985: INGUINAL HERNIA REPAIR HX; Right 2008: LEFT HEART CATH,PERCUTANEOUS No date: PAST SURGICAL HISTORY OF Comment: pilonidal cyst No date: RPR 1ST INGUN HRNA AGE 7 YRS/> REDUCIBLE Comment: Hernia repair, inguinal 1985: VASECTOMY SOCIAL HISTORY Social History Tobacco Use Smoking status: Former Current packs/day: 0.00 Average packs/day: 2.0 packs/day for 20.0 years (40.0 ttl pk-yrs) Types: Cigarettes Start date: 10/29/1968 Quit date: 10/29/1988 Years since quittin.7 Smokeless tobacco: Never Substance Use Topics Alcohol [...] [Dexametha* Other: See Comments Adverse reaction MEDICATIONS: metoprolol succinate ER (TOPROL XL) 100 mg Take 1 tablet by mouth once daily. multivit with minerals/lutein (MULTIVITAMIN 50 PLUS ORAL) Take 1 tablet by mouth once daily. glimepiride (AMARYL) 2 mg tablet Take 2 mg by mouth every morning. aspirin, enteric coated (ADULT LOW DOSE ASPIRIN) 81 mg EC tablet Take 1 tablet by mouth once daily. potassium chloride 20 mEq TbER Take 1 tablet by mouth daily at bedtime. tamsulosin (FLOMAX) 0.4 mg Take 0.4 mg by mouth daily at bedtime. rivaroxaban (XARELTO) 20 mg tablet Take 20 mg by mouth daily with dinner. simvastatin (ZOCOR) 40 mg tablet Take 40 mg by mouth daily at bedtime. metFORMIN (GLUCOPHAGE) 500 mg tablet Take 500 mg by mouth daily with dinner. losartan (COZAAR) 25 mg tablet Take 0.5 tablets by mouth once daily. (Patient not taking: Reported on 07/22/2024) FLAXSEED OIL ORAL Take 1 capsule by mouth once daily. REVIEW OF SYSTEMS: Review of Systems Constitutional: Negative for chills, fever, malaise/fatigue and weight loss. HENT: Negative for hearing loss and sore throat. Eyes: Negative for blurred vision and double vision. Respiratory: Negative. Cardiovascular: Negative. Gastrointestinal: Negative. Genitourinary: Negative for dysuria, frequency, hematuria and urgency. Musculoskeletal: Negative. Skin: Negative. Neurological: Negative for dizziness, seizures, loss of consciousness, weakness and headaches. Endo/Heme/Allergies: Negative for environmental allergies. Does not bruise/bleed easily. Psychiatric/Behavioral: Negative for depression. PHYSICAL EXAMINATION: BP 145/77 Pulse 91 Wt 215 lb (97.5kg) SpO2 96% General: Pleasant gentleman sitting appears comfortable no apparent distress he is alert and oriented x 3 HEENT: Carotid upstrokes are brisk without bruits no JVD appreciated. Pulmonary: Lungs are clear no rales, wheezes, rhonchi Cardiovascular: Normal S1, S2 with irregularly irregular rhythm and normal rate. Extremities: Warm, well-perfused, no lower extremity edema. 2+ distal pulses CARDIOVASCULAR MEDICINE TESTING: ECG in the office 11/21/2023: Atrial fibrillation with slow ventricular response. Nonspecific ST-T wave changes Transesophageal Echocardiogram 04/22/2024: - The left ventricle is normal in size. Left ventricular systolic function is mildly decreased. Globally hypokinetic left ventricle with EF = 40-45% (visual est.) Left ventricular diastolic function was not evaluated. - The right ventricle is normal in size. Right ventricular systolic function is low normal. - No significant valve disease: Mild , 1+ AI, 1-2+ MR, 1+ TR, Trivial PI - No evidence of intracardiac thrombus noted. - Exam was compared with the prior echocardiographic exam performed on 11/28/2023. No significant change noted when compared to report of prior study. I have personally reviewed the Electrocardiogram, Laboratory Testing, and Echocardiogram. IMPRESSION: Mr. Mccarty is a 79 year old gentleman with a history of mild nonobstructive coronary disease and remote catheterization 2007, nonischemic cardiomyopathy ejection fraction 45%, hypertension, dyslipidemia, and atrial fibrillation with A-fib ablation August 2023 who presents the office to establish new cardiology follow-up PLAN AND RECOMMENDATIONS: 1. Atherosclerosis of [place] coronary artery of [place] heart without angina pectoris - ICD9: 414.01, ICD10: I25.10 (primary diagnosis) No symptoms concerning for angina and good functional capacity. Continue current medical therapy and risk factor modification 2. Persistent atrial fibrillation (HCC) - ICD9: 427.31, ICD10: I48.[address] Mike. He had been scheduled for a monitor in [place]. Will plan on fitting the patient with a Zio patch today. He is maintained on Xarelto for stroke risk reduction. Informed the patient that he can safely be off his Xarelto for 48 hours for planned dental procedure. - OUTSIDE VENDOR CARDIAC OUTPATIENT EXTENDED RHYTHM RECORDING (WITHOUT TELEMETRY) 3. Dilated cardiomyopathy (HCC) - ICD9: 425.4, ICD10: I42.0 Tolerating low-dose losartan and metoprolol succinate. 4. Mixed hyperlipidemia - ICD9: 272.2, ICD10: E78.2 Maintained on simvastatin 40 mg daily. Cordelia Blackwood MD documented in this encounter [facility] 07-22-2024 Instructions Cordelia Blackwood MD - 07/22/2024 1:47 PM EDT We will fit you with a monitor today documented in this encounter [facility] 07-22-2024 Note HNO ID: [id number] Author: CORDELIA BLACKWOOD MD Service: ? Author Type: Physician Type: Progress Notes Filed: 07/22/2024 14:04 Note Text: [facility] Cardiology ([address]) [address] [facility] [id number] OUTPATIENT VISIT DATE 07/22/2024 PRIMARY CARE PHYSICIAN: Urban Ledezma (Susana) [address] [place] [address] CHIEF COMPLAINT: HISTORY OF PRESENT ILLNESS: Mr. Mccarty is a 79 year old gentleman with a history of mild nonobstructive coronary artery disease on remote catheterization 2007, dilated nonischemic cardiomyopathy, hypertension, dyslipidemia, atrial fibrillation with ablation August 2023 who presents to the office for routine follow-up. Patient continues to have persistent atrial fibrillation. He does not notice heart racing or palpitations. He has not had episodes of syncope near syncope or lightheadedness. He denies symptoms concerning for congestive heart failure including PND, orthopnea, or lower extremity edema. PAST MEDICAL HISTORY No date: Alcohol use No date: Anemia, unspecified No date: Anemia, unspecified No date: Anticoagulant long-term use Comment: indication: stroke prevention from atrial fibrillation/flutter No date: Arthritis No date: At risk for stroke Comment: [id number] = 6 (CHF, HTN, age2, DM, CAD) No date: Atherosclerosis No date: Atrial flutter (HCC) No date: Benign neoplasm of colon No date: CAD (coronary artery disease) Comment: nonobstructive CAD by [facility] 2007 No date: Depressive disorder, not elsewhere classified No date: Diabetes (HCC) 08/24/2022: Dilated cardiomyopathy (HCC) No date: Diverticulosis of colon (without mention of hemorrhage) No date: Essential hypertension, malignant No date: Fatty liver No date: Hiatal hernia No date: History of cancer No date: HLD (hyperlipidemia) 06/27/2022: Holter monitor, abnormal Comment: LAKISHA No date: HTN (hypertension) No date: Impaired fasting glucose No date: Internal hemorrhoids without mention of complication No date: Other chest pain No date: Persistent atrial fibrillation (HCC) Comment: asymptomatic; ??? contributing to cardiomyopathy No date: Sleep apnea No date: Snoring No date: Status post catheter ablation of atrial fibrillation Comment: atrial fibrillation catheter ablation/PVAI (RF, Stereotaxis, Carto) 08/28/2023 No date: Syncopal episode 03/13/2024: Thrombus of left atrial appendage No date: Typical atrial flutter (HCC) No date: Ventricular premature depolarization No date: VT (ventricular tachycardia) (HCC) No date: Wide-complex tachycardia Comment: Nonsustained PAST SURGICAL HISTORY 08/28/2023: AFIB ABLATION/PULM VEIN ISOLATION Comment: atrial fibrillation catheter ablation/PVAI (RF, Stereotaxis, Carto[facility]: CARDIOVERSION 07/26/2022: CARDIOVERSION, ELECTIVE, ELECTRICAL Comment: [facility] 10/25/2013: COLONOSCOPY FLX DX W/COLLJ SPEC WHEN PFRMD Comment: Colonoscopy 10/29/2018: COLONOSCOPY FLX DX W/COLLJ SPEC WHEN PFRMD Comment: repeat 3 years 09/11/2008: COLONOSCOPY W/BIOPSY SINGLE/MULTIPLE 10/10/2022: ECHOCARDIOGRAM Comment: LVEF 45% 08/09/2022: ECHOCARDIOGRAM Comment: LVEF 45% 08/18/2021: ECHOCARDIOGRAM Comment: LVEF 60% 04/19/2023: ECHOCARDIOGRAM Comment: [facility]; see scanned documents; LVEF 45% 1985: INGUINAL HERNIA REPAIR HX; Right 2007: LEFT HEART CATH,PERCUTANEOUS No date: PAST SURGICAL HISTORY OF Comment: pilonidal cyst No date: RPR 1ST INGUN HRNA AGE 7 YRS/> REDUCIBLE Comment: Hernia repair, inguinal 1984: VASECTOMY SOCIAL HISTORY Social History Tobacco Use Smoking status: Former Current packs/day: 0.00 Average packs/day: 2.0 packs/day for 20.0 years (40.0 ttl pk-yrs) Types: Cigarettes Start date: 10/29/1968 Quit date: 10/29/1988 Years since quittin.7 Smokeless tobacco: Never Substance Use Topics Alcohol [...] [Dexametha* Other: See Comments Adverse reaction MEDICATIONS: metoprolol succinate ER (TOPROL XL) 100 mg Take 1 tablet by mouth once daily. multivit with minerals/lutein (MULTIVITAMIN 50 PLUS ORAL) Take 1 tablet by mouth once daily. glimepiride (AMARYL) 2 mg tablet Take 2 mg by mouth every morning. aspirin, enteric coated (ADULT LOW DOSE ASPIRIN) 81 mg EC tablet Take 1 tablet by mouth once daily. potassium chloride 20 mEq TbER Take 1 t (more content not included)... [facility] 07-01-2024 Nurse Note Patient has no cardiac complaints today. [facility] 07-01-2024 Nurse Note Patient has no cardiac complaints today. documented in this encounter [facility] 07-01-2024 History of Presen t illness Narrative [facility] General Cardiology Electrophysiology PRIMARY CARE PHYSICIAN: Urban Ledezma ([facility]) [address] [place] [address] CHIEF COMPLAINT: Persistent atrial fibrillation. HISTORY OF PRESENT ILLNESS copied from Dr. Mike's office note on 03/13/2024: Mr. Mccarty presents for follow-up evaluation for atrial fibrillation. The atrial fibrillation has been asymptomatic but was thought to be contributing to his cardiomyopathy and heart failure. He underwent atrial fibrillation catheter ablation 08/28/2023. He had recurrence of the atrial fibrillation about 2 weeks after the ablation procedure. No symptoms, he did not feel any differently in the sinus rhythm. He had routine post ablation CT scan completed 11/28/2023, this showed small thrombus in the BENSON. Aspirin 81 mg daily was added. He denies chest pain, shortness of breath, orthopnea, palpitations, PND, syncope. I have confirmed and edited as necessary, the PFSH and ROS obtained by others. Interval History: Evert is a 79-year-old gentleman who presents today for follow-up regarding history of persistent atrial fibrillation as well as recent cardioversion. Overall Evert reports he has been feeling well. He remains active maintaining his property. He believes he maintained sinus rhythm post cardioversion for roughly 18 days before going back out of rhythm. He reports he is asymptomatic with his atrial fibrillation. He is compliant with his Toprol-XL and Xarelto regimens. Echo from April 2024 revealed normal size left ventricle with mildly decreased EF of 40-45%. Global hypokinesis noted and there were no significant valvular abnormalities. Per attendings prior documentation plan is to abandon any further attempts of sinus rhythm denominational in favor of patient remaining on anticoagulation/rate control strategy. Twelve-lead performed in office today showed atrial fibrillation with a ventricular rate of 72. 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 They are agreeable. I provided central scheduling's number. Will call once results available. Follow-up in 6 months. PAST MEDICAL HISTORY No date: Alcohol use No date: Anemia, unspecified No date: Anemia, unspecified No date: Anticoagulant long-term use Comment: indication: stroke prevention from atrial fibrillation/flutter No date: Arthritis No date: At risk for stroke Comment: [id number] = 6 (CHF, HTN, age2, DM, CAD) No date: Atherosclerosis No date: Atrial flutter (HCC) No date: Benign neoplasm of colon No date: CAD (coronary artery disease) Comment: nonobstructive CAD by [facility] 2007 No date: Depressive disorder, not elsewhere classified No date: Diabetes (HCC) 08/24/2022: Dilated cardiomyopathy (HCC) No date: Diverticulosis of colon (without mention of hemorrhage) No date: Essential hypertension, malignant No date: Fatty liver No date: Hiatal hernia No date: History of cancer No date: HLD (hyperlipidemia) 06/27/2022: Holter monitor, abnormal Comment: LAKISHA No date: HTN (hypertension) No date: Impaired fasting glucose No date: Internal hemorrhoids without mention of complication No date: Other chest pain No date: Persistent atrial fibrillation (HCC) Comment: asymptomatic; ??? contributing to cardiomyopathy No date: Sleep apnea No date: Snoring No date: Status post catheter ablation of atrial fibrillation Comment: atrial fibrillation catheter ablation/PVAI (RF, Stereotaxis, Carto) 08/28/2023 No date: Syncopal episode 03/13/2024: Thrombus of left atrial appendage No date: Typical atrial flutter (HCC) No date: Ventricular premature depolarization No date: VT (ventricular tachycardia) (HCC) No date: Wide-complex tachycardia Comment: Nonsustained PAST SURGICAL HISTORY 08/28/2023: AFIB ABLATION/PULM VEIN ISOLATION Comment: atrial fibrillation catheter ablation/PVAI (RF, Stereotaxis, Carto); [facility] 07/26/2022: CARDIOVERSION, ELECTIVE, ELECTRICAL Comment: [facility] 10/25/2013: COLONOSCOPY FLX DX W/COLLJ SPEC WHEN PFRMD Comment: Colonoscopy 10/29/2018: COLONOSCOPY FLX DX W/COLLJ SPEC WHEN PFRMD Comment: repeat 3 years 09/11/2008: COLONOSCOPY W/BIOPSY SINGLE/MULTIPLE 10/10/2022: ECHOCARDIOGRAM Comment: LVEF 45% 08/09/2022: ECHOCARDIOGRAM Comment: LVEF 45% 08/18/2021: ECHOCARDIOGRAM Comment: LVEF 60% 04/19/2023: ECHOCARDIOGRAM Comment: [facility]; see scanned documents; LVEF 45% 1985: INGUINAL HERNIA REPAIR HX; Right 2008: LEFT HEART CATH,PERCUTANEOUS No date: PAST SURGICAL HISTORY OF Comment: pilonidal cyst No date: RPR 1ST INGUN HRNA AGE 7 YRS/> REDUCIBLE Comment: Hernia repair, inguinal 1985: VASECTOMY Social History Tobacco Use Smoking status: Former Current packs/day: 0.00 Average packs/day: 2.0 packs/day for 20.0 years (40.0 ttl pk-yrs) Types: Cigarettes Start date: 10/29/1968 Quit date: 10/29/1988 Years since quittin.6 Smokeless tobacco: Never Substance Use Topics Alcohol use: Yes Comment: occasionally Drug use: No Family History Problem Relation Age of Onset Stroke Mother Hypertension Mother Hypoglycemia Mother Heart disease Father Heart Attack Father Sudden Cardiac Father autopsy showed heart disease, heart attack Hypertension Father Hypertension Brother Colon Cancer Brother Arrhythmia Brother atrial fibrillation Hypertension Brother ALLERGIES Allergen Reactions Steroids [Dexametha* Other: See Comments Adverse reaction MEDICATIONS: losartan (COZAAR) 25 mg tablet Take 0.5 tablets by mouth once daily. metoprolol succinate ER (TOPROL XL) 100 mg Take 1 tablet by mouth once daily. multivit with minerals/lutein (MULTIVITAMIN 50 PLUS ORAL) Take 1 tablet by mouth once daily. glimepiride (AMARYL) 2 mg tablet Take 2 mg by mouth every morning. aspirin, enteric coated (ADULT LOW DOSE ASPIRIN) 81 mg EC tablet Take 1 tablet by mouth once daily. potassium chloride 20 mEq TbER Take 1 tablet by mouth daily at bedtime. tamsulosin (FLOMAX) 0.4 mg Take 0.4 mg by mouth daily at bedtime. rivaroxaban (XARELTO) 20 mg tablet Take 20 mg by mouth daily with dinner. simvastatin (ZOCOR) 40 mg tablet Take 40 mg by mouth daily at bedtime. metFORMIN (GLUCOPHAGE) 500 mg tablet Take 500 mg by mouth daily with dinner. FLAXSEED OIL ORAL Take 1 capsule by mouth once daily. REVIEW OF SYSTEMS: Review of Systems Constitutional: Negative for chills, fatigue and fever. Respiratory: Negative for apnea, cough, chest tightness, shortness of breath and wheezing. Cardiovascular: Negative for chest pain, palpitations and leg swelling. Gastrointestinal: Negative for abdominal distention, abdominal pain, constipation, diarrhea, nausea and vomiting. Genitourinary: Negative for difficulty urinating, dysuria and hematuria. Musculoskeletal: Negative for arthralgias. Neurological: Negative for dizziness, weakness, light-headedness and headaches. Psychiatric/Behavioral: Negative for agitation, behavioral problems, confusion and suicidal ideas. PHYSICAL EXAMINATION: BP 126/78 Pulse 76 Ht 6' 0 (1.83m) Wt 215 lb (97.5kg) SpO2 96% BMI 29.15 kg/(m^2). Physical Exam Constitutional: Appearance: Normal appearance. Cardiovascular: Rate and Rhythm: Normal rate. Rhythm irregular. Pulses: Normal pulses. Radial pulses are 2+ on the right side and 2+ on the left side. Posterior tibial pulses are 2+ on the right side and 2+ on the left side. Heart sounds: Normal heart sounds. Comments: Atrial fibrillation with a ventricular rate of 72. Pulmonary: Effort: Pulmonary effort is normal. Breath sounds: Normal breath sounds. Abdominal: General: Bowel sounds are normal. Palpations: Abdomen is soft. Musculoskeletal: Right lower leg: No edema. Left lower leg: No edema. Skin: General: Skin is warm and dry. Neurological: Mental Status: He is alert and oriented to person, place, and time. Psychiatric: Mood and Affect: Mood normal. Behavior: Behavior normal. CARDIOVASCULAR MEDICINE TESTING: Echo 04/22/2024 - Exam indication: Abnormal ECG - The left ventricle is normal in size. Left ventricular systolic function is mildly decreased. Globally hypokinetic left ventricle with EF = 40-45% (visual est.) Left ventricular diastolic function was not evaluated. - The right ventricle is normal in size. Right ventricular systolic function is low normal. - No significant valve disease: Mild , 1+ AI, 1-2+ MR, 1+ TR, Trivial PI - No evidence of intracardiac thrombus noted. - Exam was compared with the prior echocardiographic exam performed on 11/28/2023. No significant change noted when compared to report of prior study. JUVENAL guided DCCV 04/22/2024 No evidence of left atrial thrombus. Successful cardioversion out of atypical atrial flutter to sinus bradycardia with a ventricular rate of 56 with occasional PACs. PLAN AND RECOMMENDATIONS: ASSESSMENT/PLAN: 1. Persistent atrial fibrillation (HCC) - ICD9: 427.31, ICD10: I48.19 (primary diagnosis) 79-year-old gentleman who presents for follow-up today regarding history of persistent atrial fibrillation. Recently underwent successful JUVENAL guided DCCV on 04/22/2024. [id number] of at least 6 secondary to CHF, hypertension, age, diabetes, and CAD. Current treatment regimen includes Topol XL 100 mg daily as well as Xarelto 20 mg daily. Previously underwent radiofrequency PVI with Dr. Mike in August 2023. In light of AF recurrence plan is to abandon any further rhythm control interventions and maintain course with anticoagulation and adequate rate control. 14-day extended EKG ordered. 2. Status post catheter ablation of atrial fibrillation - ICD9: V45.89, ICD10: Z98.890 As above. 3. Typical atrial flutter (HCC) - ICD9: 427.32, ICD10: I48.3 As above. 4. Dilated cardiomyopathy (HCC) - ICD9: 425.4, ICD10: I42.0 As above. 5. Wide-complex tachycardia - ICD9: 785.0, ICD10: R00.0 As above. 6. At risk for stroke - ICD9: V15.89, ICD10: Z91.89 As above. Return in about 6 months (around 01/01/2025) for Follow up in [address] Mike. . Toro Roth APRN.MARQUISE documented in this encounter [facility] 07-01-2024 Note HNO ID: [id number] Author: TORO ROTH APRN.CNP Service: ? Author Type: Nurse Practitioner Type: Progress Notes Filed: 07/01/2024 15:45 Note Text: [facility] General Cardiology Electrophysiology PRIMARY CARE PHYSICIAN: Urban Ledezma ([place]) [address] [place] [address] CHIEF COMPLAINT: Persistent atrial fibrillation. HISTORY OF PRESENT ILLNESS copied from Dr. Mike's office note on 03/13/2024: Mr. Mccarty presents for follow-up evaluation for atrial fibrillation. The atrial fibrillation has been asymptomatic but was thought to be contributing to his cardiomyopathy and heart failure. He underwent atrial fibrillation catheter ablation 08/28/2023. He had recurrence of the atrial fibrillation about 2 weeks after the ablation procedure. No symptoms, he did not feel any differently in the sinus rhythm. He had routine post ablation CT scan completed 11/28/2023, this showed small thrombus in the BENSON. Aspirin 81 mg daily was added. He denies chest pain, shortness of breath, orthopnea, palpitations, PND, syncope. I have confirmed and edited as necessary, the PFSH and ROS obtained by others. Interval History: Evert is a 79-year-old gentleman who presents today for follow-up regarding history of persistent atrial fibrillation as well as recent cardioversion. Overall Evert reports he has been feeling well. He remains active maintaining his property. He believes he maintained sinus rhythm post cardioversion for roughly 18 days before going back out of rhythm. He reports he is asymptomatic with his atrial fibrillation. He is compliant with his Toprol-XL and Xarelto regimens. Echo from April 2024 revealed normal size left ventricle with mildly decreased EF of 40-45%. Global hypokinesis noted and there were no significant valvular abnormalities. Per attendings prior documentation plan is to abandon any further attempts of sinus rhythm denominational in favor of patient remaining on anticoagulation/rate control strategy. Twelve-lead performed in office today showed atrial fibrillation with a ventricular rate of 72. 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 They are agreeable. I provided central scheduling's number. Will call once results available. Follow-up in 6 months. PAST MEDICAL HISTORY No date: Alcohol use No date: Anemia, unspecified No date: Anemia, unspecified No date: Anticoagulant long-term use Comment: indication: stroke prevention from atrial fibrillation/flutter No date: Arthritis No date: At risk for stroke Comment: [id number] = 6 (CHF, HTN, age2, DM, CAD) No date: Atherosclerosis No date: Atrial flutter (HCC) No date: Benign neoplasm of colon No date: CAD (coronary artery disease) Comment: nonobstructive CAD by [facility] 2007 No date: Depressive disorder, not elsewhere classified No date: Diabetes (HCC) 08/24/2022: Dilated cardiomyopathy (HCC) No date: Diverticulosis of colon (without mention of hemorrhage) No date: Essential hypertension, malignant No date: Fatty liver No date: Hiatal hernia No date: History of cancer No date: HLD (hyperlipidemia) 06/27/2022: Holter monitor, abnormal Comment: LAKISHA No date: HTN (hypertension) No date: Impaired fasting glucose No date: Internal hemorrhoids without mention of complication No date: Other chest pain No date: Persistent atrial fibrillation (HCC) Comment: asymptomatic; ??? contributing to cardiomyopathy No date: Sleep apnea No date: Snoring No date: Status post catheter ablation of atrial fibrillation Comment: atrial fibrillation catheter ablation/PVAI (RF, Stereotaxis, Carto) 08/28/2023 No date: Syncopal episode 03/13/2024: Thrombus of left atrial appendage No date: Typical atrial flutter ([facility]) No date: Ventricular premature depolarization No date: VT (ventricular tachycardia) ([facility]) No date: Wide-complex tachycardia Comment: Nonsustained PAST SURGICAL HISTORY 08/28/2023: AFIB ABLATION/PULM VEIN ISOLATION Comment: atrial fibrillation catheter ablation/PVAI (RF, Stereotaxis, Carto); [facility] Dr. Mike 07/26/2022: CARDIOVERSION, ELECTIVE, ELECTRICAL Comment: [facility] 10/25/2013: COLONOSCOPY FLX DX W/COLLJ SPEC WHEN PFRMD Comment: Colonoscopy 10/29/2018: COLONOSCOPY FLX DX W/COLLJ SPEC WHEN PFRMD Comment: repeat 3 years 09/11/2008: COLONOSCOPY W/BIOPSY SINGLE/MULTIPLE 10/10/2022: ECHOCARDIOGRAM Comment: LVEF 45% 08/09/2022: ECHOCARDIOGRAM Comment: LVEF 45% 08/18/2021: ECHOCARDIOGRAM Comment: LVEF 60% 04/19/2023: ECHOCARDIOGRAM Comment: [facility]; see scanned documents; LVEF 45% 1985: INGUINAL HERNIA REPAIR HX; Right 2007: LEFT HEART CATH,PERCUTANEOUS No date: PAST SURGICAL HISTORY OF Comment: pilonidal cyst No date: RPR 1ST INGUN HRNA AGE 7 YRS/> REDUCIBLE Comment: Hernia rep (more content not included)... [facility] 04-30-2024 Telephone encounter Note Refills for metoprolol succinate sent to preferred pharmacy. Danitza Salomon APRN.DIRECTOR BIOLOGICS [facility] 04-30-2024 Miscellaneous Notes Refills for metoprolol succinate sent to preferred pharmacy. Danitza Salomon APRN.DIRECTOR BIOLOGICS Patient's request for medication is as follows: Requested Prescriptions Pending Prescriptions Disp Refills metoprolol succinate ER (TOPROL XL) 100 mg 90 tablet 3 Sig: Take 1 tablet by mouth once daily. Patient last seen on 03/13/2024. Prescription(s) as above. Please process accordingly. Layla Hopkins LPN documented in this encounter [facility] 04-30-2024 Telephone encounter Note Patient's request for medication is as follows: Requested Prescriptions Pending Prescriptions Disp Refills metoprolol succinate ER (TOPROL XL) 100 mg 90 tablet 3 Sig: Take 1 tablet by mouth once daily. Patient last seen on 03/13/2024. Prescription(s) as above. Please process accordingly. Layla Hopkins LPN [facility] 04-30-2024 Telephone encounter Note Patient's request for medication is as follows: Requested Prescriptions Pending Prescriptions Disp Refills losartan (COZAAR) 25 mg tablet 45 tablet 3 Sig: Take 0.5 tablets by mouth once daily. Last appt 12-04-2023 Prescription(s) as above. Please process accordingly. Merced Montalvo RN [facility] 04-30-2024 Miscellaneous Notes Patient's request for medication is as follows: Requested Prescriptions Pending Prescriptions Disp Refills losartan (COZAAR) 25 mg tablet 45 tablet 3 Sig: Take 0.5 tablets by mouth once daily. Last appt 12-04-2023 Prescription(s) as above. Please process accordingly. Merced Montalvo RN From: Diego Mccarty To: Office of Lynette Torres APRN.CNP Sent: 04/29/2024 3:11 PM EDT Subject: Medication Renewal Request Refills have been requested for the following medications: losartan (COZAAR) 25 mg tablet [Lynette Torres APRN.CNP] Pref[facility] [phone] Delivery method: Mail Medication renewals requ ested in this message routed separately: metoprolol succinate ER (TOPROL XL) 100 mg [Danitza Singh APRN.CNP] documented in this encounter [facility] 04-30-2024 Telephone encounter Note From: Diego Mccarty To: Office of Lynette Torres APRN.CNP Sent: 04/29/2024 3:11 PM EDT Subject: Medication Renewal Request Refills have been requested for the following medications: losartan (COZAAR) 25 mg tablet [Lynette Torres APRN.CNP] Preferred pharmacy: [facility] [phone] Delivery method: Mail Medication renewals requ ested in this message routed separately: metoprolol succinate ER (TOPROL XL) 100 mg [Danitza Singh APRN.CNP] [facility] 04-22-2024 Note HNO ID: [id number] Author: BALDO CRARERA RN Service: ? Author Type: Registered Nurse Type: Nursing Progress Note Filed: 04/22/2024 09:32 Note Text: [id number] patient return to POD currently NSR. Home instructions initiated. Continue to monitor [facility] 03-27-2024 Telephone encounter Note Pt's name has been added to [place] procedure board. Hollie Boudreaux RN [facility] 03-27-2024 Miscellaneous Notes Pt's name has been added to [place] procedure board. Hollie Boudreaux RN Patient is scheduled for a Cardioversion/JUVENAL on 04/[address] Mike. The hospital will call the day before between 2-5pm with your arrival time. You should not eat or drink after midnight the day before the procedure. 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 You should continue to take medications as prescribed the morning of the procedure with just a sip of water unless otherwise instructed. H&P morning of Spoke with Evert Mccarty on March 27, 2024. Informed of instructions as stated above. Patient verbalized understanding. Huber Perez documented in this encounter [facility] 03-27-2024 Telephone encounter Note Patient is scheduled for a Cardioversion/JUVENAL on 04/[address] Mike. The hospital will call the day before between 2-5pm with your arrival time. You should not eat or drink after midnight the day before the procedure. 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 You should continue to take medications as prescribed the morning of the procedure with just a sip of water unless otherwise instructed. H&P morning of Spoke with Evert Mccarty on March 27, 2024. Informed of instructions as stated above. Patient verbalized understanding. Huber Perez [facility] 03-13-2024 Nurse Note No cardiac complaints today. Julia Azul MA [facility] 03-13-2024 Nurse Note No cardiac complaints today. Julia Azul MA documented in this encounter [facility] 03-13-2024 History of Presen t illness Narrative PRIMARY CARE PHYSICIAN: Urban Ledezma ([facility]) [address] [place] [address] Patient Care Team: Urban Ledezma MD as PCP - General (Family Medicine) Suzan Mike MD as Specialty Solar Electric Installer (Cardiology) Cordelia Blackwood MD as Specialty Solar Electric Installer (Cardiology) CHIEF COMPLAINT: Follow up for arrhythmia HISTORY OF PRESENT ILLNESS: Mr. Mccarty is a 78 year old male who presents today for a cardiovascular medicine follow-up visit. History copied from previous notes, edited as needed: Summary of previous notes: Mr. 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 Echeverria to Dr. Mike, established care in August/2022. He had apparently been diagnosed a few years prior when he was hospitalized at [facility] with a bladder infection and fever. Following that hospitalization, he reported going in and out of the arrhythmia. He was treated with diltiazem. Cardiac monitoring around that time showed arrhythmia burden of about 14%. Over time, the arrhythmia became more persistent, confirmed either by monitoring or his personal monitoring with his Apple Watch. He reported no symptoms associated with the arrhythmia, he underwent electrical cardioversion 07/26/2022, but the atrial fibrillation recurred about a day later. He did not feel differently in sinus rhythm, was not aware that the arrhythmia recurred except by the Apple Watch notifying him. An echocardiogram at the end of July/2022 showed mild cardiomyopathy, LVEF 45%, stress test 08/09/2022 showed no ischemia or scar, but showed mild cardiomyopathy with LVEF 47%. Rate control versus rhythm control strategy was discussed with Dr. Mike during the appointment August/2022, even though he did not have excessively bothersome symptoms, cardiac monitoring in June/2022 showed suboptimal ventricular rate control with an average ventricular response rate of 114 bpm, likely contributing to the mild cardiomyopathy. He was then treated with atenolol. Repeat echocardiogram September/2022 showed the cardiomyopathy was about the same, LVEF 45%, he remained asymptomatic to the atrial arrhythmia that remained persistent. After further discussion between Dr. Mike and Dr. Echeverria, it was decided patient should move forward with catheter ablation for the atrial fibrillation/flutter. He underwent radiofrequency catheter ablation of persistent atrial fibrillation with Dr. Mike 08/28/2023. He was discharged on atenolol 50 mg twice daily and Xarelto 20 mg daily. He performed weekly transtelephonic monitoring, and the transmission sent 09/18/[address] of the chest revealed small thrombus in the left atrial appendage, 2.7 cm. No pulmonary vein stenosis. Moderate coronary calcifications and noncardiac findings including 3 mm lung nodule and adenopathy. The atrial fibrillation returned about 18 days after the ablation procedure, he was asymptomatic, has some fatigue which is not new. Aspirin 81 mg daily was added to his regimen for the left atrial appendage thrombus. He will follow-up with his PCP regarding the noncardiac findings on the CT. Interim History Dr. Mike 03/13/2024: Mr. Mccarty presents for follow-up evaluation for atrial fibrillation. The atrial fibrillation has been asymptomatic but was thought to be contributing to his cardiomyopathy and heart failure. He underwent atrial fibrillation catheter ablation 08/28/2023. He had recurrence of the atrial fibrillation about 2 weeks after the ablation procedure. No symptoms, he did not feel any differently in the sinus rhythm. He had routine post ablation CT scan completed 11/28/2023, this showed small thrombus in the BENSON. Aspirin 81 mg daily was added. He denies chest pain, shortness of breath, orthopnea, palpitations, PND, syncope. I have confirmed and edited as necessary, the PFSH and ROS obtained by others. PAST MEDICAL HISTORY Diagnosis Date Alcohol use Anemia, unspecified Anemia, unspecified Anticoagulant long-term use indication: stroke prevention from atrial fibrillation/flutter Arthritis At risk for stroke [id number] = 6 (CHF, HTN, age2, DM, CAD) Atherosclerosis Atrial flutter (HCC) Benign neoplasm of colon CAD (coronary artery disease) nonobstructive CAD by [facility] 2007 Depressive disorder, not elsewhere classified [...] ablation/PVAI (RF, Stereotaxis, Carto) 08/28/2023 Syncopal episode Thrombus of left atrial appendage 03/13/2024 Typical atrial flutter (HCC) Ventricular premature depolarization VT (ventricular tachycardia) (HCC) Wide-complex tachycardia Nonsustained PAST SURGICAL HISTORY Procedure Laterality Date AFIB ABLATION/PULM VEIN ISOLATION 08/28/2023 atrial fibrillation catheter ablation/PVAI (RF, Stereotaxis, Carto); [facility] Dr. Mike CARDIOVERSION, ELECTIVE, ELECTRICAL 07/26/2022 [facility] COLONOSCOPY FLX DX W/COLLJ SPEC WHEN PFRMD 10/25/2013 Colonoscopy COLONOSCOPY FLX DX W/COLLJ SPEC WHEN PFRMD 10/29/2018 repeat 3 years COLONOSCOPY W/BIOPSY SINGLE/MULTIPLE 09/11/2008 ECHOCARDIOGRAM 10/10/2022 LVEF 45% ECHOCARDIOGRAM 08/09/2022 LVEF 45% ECHOCARDIOGRAM 08/18/2021 LVEF 60% ECHOCARDIOGRAM 04/19/2023 [facility]; see scanned documents; LVEF 45% INGUINAL HERNIA REPAIR HX Right 1984 LEFT HEART CATH,PERCUTANEOUS 2007 PAST SURGICAL HISTORY OF pilonidal cyst RPR 1ST INGUN HRNA AGE 7 YRS/> REDUCIBLE Hernia repair, inguinal VASECTOMY 1985 SOCIAL HISTORY Social History Tobacco Use Smoking status: Former Packs/day: 2.00 Years: 20.00 Additional pack years: 0.00 Total pack years: 40.00 Types: Cigarettes Quit date: 10/29/1988 Years since quittin.3 Smokeless tobacco: Never Substance Use Topics Alcohol [...] [Dexametha* Other: See Comments Adverse reaction MEDICATIONS: multivit with minerals/lutein (MULTIVITAMIN 50 PLUS ORAL) Take 1 tablet by mouth once daily. FLAXSEED OIL ORAL Take 1 capsule by mouth once daily. glimepiride (AMARYL) 2 mg tablet Take 2 mg by mouth every morning. losartan (COZAAR) 25 mg tablet Take 0.5 tablets by mouth once daily. aspirin, enteric coated (ADULT LOW DOSE ASPIRIN) 81 mg EC tablet Take 1 tablet by mouth once daily. metoprolol succinate ER (TOPROL XL) 100 mg Take 1 tablet by mouth once daily. potassium chloride 20 mEq TbER Take 1 tablet by mouth daily at bedtime. tamsulosin (FLOMAX) 0.4 mg Take 0.4 mg by mouth daily at bedtime. rivaroxaban (XARELTO) 20 mg tablet Take 20 mg by mouth daily with dinner. simvastatin (ZOCOR) 40 mg tablet Take 40 mg by mouth daily at bedtime. metFORMIN (GLUCOPHAGE) 500 mg tablet Take 500 mg by mouth daily with dinner. Review of Systems Constitutional: Negative for chills, fever, malaise/fatigue and weight loss. Respiratory: Negative for cough, hemoptysis, sputum production, shortness of breath and wheezing. Cardiovascular: Negative for chest pain, palpitations, orthopnea, claudication, leg swelling and PND. Gastrointestinal: Negative for abdominal pain, blood in stool, melena, nausea and vomiting. Genitourinary: Negative for dysuria, flank pain and hematuria. Musculoskeletal: Negative for falls and myalgias. Skin: Negative for rash. Neurological: Negative for dizziness, focal weakness, seizures and loss of consciousness. PHYSICAL EXAMINATION: BP 138/79 Pulse 82 Ht 6' 0 (1.83m) Wt 206 lb (93.4kg) SpO2 98% BMI 27.93 kg/(m^2). Physical Exam Vitals reviewed. Constitutional: General: [...] or rales. Musculoskeletal: Cervical back: Neck supple. Right lower [...] Atrial fibrillation with controlled ventricular response, average 72 bpm; normal QRS duration 86 ms; QTc 422 ms I have personally reviewed the Electrocardiogram. I spent a total of 35 minutes on the date of the service which included preparing to see the patient, [id number] patient care, completing clinical documentation, obtaining and/or reviewing separately obtained history, performing a medically appropriate examination, counseling and educating the patient/family/caregiver, ordering medications, tests, or procedures, communicating with other HCPs (not separately reported), independently interpreting results (not separately reported), communicating results to the patient/family/caregiver, and care coordination (not separately reported). 1. Persistent atrial fibrillation (HCC) - ICD9: 427.31, ICD10: I48.19 (primary diagnosis) 2. Status post catheter ablation of atrial fibrillation - ICD9: V45.89, ICD10: Z98.890 3. Typical atrial flutter (HCC) - ICD9: 427.32, ICD10: I48.3 4. Wide-complex tachycardia - ICD9: 785.0, ICD10: R00.0 5. Obstructive sleep apnea - ICD9: 327.23, ICD10: G47.33 6. At risk for stroke - ICD9: V15.89, ICD10: Z91.89 7. Anticoagulant long-term use - ICD9: V58.61, ICD10: Z79.01 8. Thrombus of left atrial appendage - ICD9: 429.89, ICD10: I51.3 CHADS2-Vasc Score Breakdown 5 Total Score 2 Age >= 75 years old 1 History of hypertension 1 History of diabetes mellitus 1 History of vascular disease IMPRESSION: Mr. Mccarty has a history of atrial fibrillation, which has been asymptomatic but considered to be contributing to cardiomyopathy and heart failure. Therefore a more aggressive strategy was pursued with atrial fibrillation catheter ablation. This was completed in August 2023. He did have recurrence of the atrial fibrillation about 2 weeks after the procedure. Additionally, he was found to have left atrial appendage thrombus by routine post ablation CT scan at about 3 months time after the procedure. Unclear when this thrombus developed. Aspirin was added to the oral anticoagulation therapy regimen. At this point after several weeks of such therapy we can proceed with transesophageal echo (JUVENAL) to reevaluate for the presence of thrombus. If the thrombus has resolved we can consider electrical cardioversion although with moderate left atrial enlargement and the finding of moderate atrial cardiomyopathy during the ablation procedure, the chance of maintaining sinus rhythm might not be very good. I had a detailed discussion with Mr. Mccarty regarding my evaluation and recommendations. After our discussion, Mr. Mccarty expressed his understanding and I answered all his questions to his apparent satisfaction. He agrees to proceed as outlined. INFORMED CONSENT The risks, benefits and anticipated outcomes of the procedure, the risks and benefits of the alternatives to the procedure and the roles and tasks of the personnel to be involved were discussed with the patient. Consent for the procedure and agreement to proceed has been obtained. I verify that I personally obtained the consent. PLAN AND RECOMMENDATIONS: Continue with current plan of care from EP standpoint. JUVENAL will be scheduled, if no BENSON thrombus will perform electrical cardioversion but I am not optimistic that he will maintain sinus rhythm. Not on any medications that need to be held for the procedures. 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 Suzan Mike MD 03/13/2024 Medical Decision Making: Problems: Moderate: 2+ stable chronic illnesses and New problem with uncertain prognosis Data: Unique source(s) for external note(s) reviewed: 1 Unique test result(s) reviewed: 3+ Unique test(s) ordered: 2 Risk: Moderate: Moderate risk from testing/treatment, Drug management and Decision on minor surgery w/ risk factors Medical Decision Making Level: 4 - Moderate documented in this encounter [facility] 03-13-2024 Note HNO ID: [id number] Author: SUZAN MIKE MD Service: ? Author Type: Physician Type: Progress Notes Filed: 03/18/2024 18:51 Note Text: PRIMARY CARE PHYSICIAN: Urban Ledezma ([facility]) [address] [place] [address] Patient Care Team: Urban Ledezma MD as PCP - General (Family Medicine) Suzan Mike MD as Specialty Solar Electric Installer (Cardiology) Cordelia Blackwood MD as Specialty Solar Electric Installer (Cardiology) CHIEF COMPLAINT: Follow up for arrhythmia HISTORY OF PRESENT ILLNESS: Mr. Mccarty is a 78 year old male who presents today for a cardiovascular medicine follow-up visit. History copied from previous notes, edited as needed: Summary of previous notes: Mr. 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 Echeverria to Dr. Mike, established care in August/2022. He had apparently been diagnosed a few years prior when he was hospitalized at [facility] with a bladder infection and fever. Following that hospitalization, he reported going in and out of the arrhythmia. He was treated with diltiazem. Cardiac monitoring around that time showed arrhythmia burden of about 14%. Over time, the arrhythmia became more persistent, confirmed either by monitoring or his personal monitoring with his Apple Watch. He reported no symptoms associated with the arrhythmia, he underwent electrical cardioversion 07/26/2022, but the atrial fibrillation recurred about a day later. He did not feel differently in sinus rhythm, was not aware that the arrhythmia recurred except by the Apple Watch notifying him. An echocardiogram at the end of July/2022 showed mild cardiomyopathy, LVEF 45%, stress test 08/09/2022 showed no ischemia or scar, but showed mild cardiomyopathy with LVEF 47%. Rate control versus rhythm control strategy was discussed with Dr. Mike during the appointment August/2022, even though he did not have excessively bothersome symptoms, cardiac monitoring in June/2022 showed suboptimal ventricular rate control with an average ventricular response rate of 114 bpm, likely contributing to the mild cardiomyopathy. He was then treated with atenolol. Repeat echocardiogram September/2022 showed the cardiomyopathy was about the same, LVEF 45%, he remained asymptomatic to the atrial arrhythmia that remained persistent. After further discussion between Dr. Mike and Dr. Echeverria, it was decided patient should move forward with catheter ablation for the atrial fibrillation/flutter. He underwent radiofrequency catheter ablation of persistent atrial fibrillation with Dr. Mike 08/28/2023. He was discharged on atenolol 50 mg twice daily and Xarelto 20 mg daily. He performed weekly transtelephonic monitoring, and the transmission sent 09/18/[address] of the chest revealed small thrombus in the left atrial appendage, 2.7 cm. No pulmonary vein stenosis. Moderate coronary calcifications and noncardiac findings including 3 mm lung nodule and adenopathy. The atrial fibrillation returned about 18 days after the ablation procedure, he was asymptomatic, has some fatigue which is not new. Aspirin 81 mg daily was added to his regimen for the left atrial appendage thrombus. He will follow-up with his PCP regarding the noncardiac findings on the CT. Interim History Dr. Mike 03/13/2024: Mr. Mccarty presents for follow-up evaluation for atrial fibrillation. The atrial fibrillation has been asymptomatic but was thought to be contributing to his cardiomyopathy and heart failure. He underwent atrial fibrillation catheter ablation 08/28/2023. He had recurrence of the atrial fibrillation about 2 weeks after the ablation procedure. No symptoms, he did not feel any differently in the sinus rhythm. He had routine post ablation CT scan completed 11/28/2023, this showed small thrombus in the BENSON. Aspirin 81 mg daily was added. He denies chest pain, shortness of breath, orthopnea, palpitations, PND, syncope. I have confirmed and edited as necessary, the PFSH and ROS obtained by others. PAST MEDICAL HISTORY Diagnosis Date Alcohol use Anemia, unspecified Anemia, unspecified Anticoagulant long-term use indication: stroke prevention from atrial fibrillation/flutter Arthritis At risk for stroke [id number] = 6 (CHF, HTN, age2, DM, CAD) Atherosclerosis Atrial flutter (HCC) Benign neoplasm of colon CAD (coronary artery disease) nonobstructive CAD by [facility] 2007 Depressive disorder, not elsewhere classified Diabetes (HCC) Dilated cardiomyopathy (HCC) 08/24/2022 Diverticulosis of colon (without mention of hemorrhage) Essential hypertension, malignant Fatty liver Hiatal hernia History of cancer HLD (hyperlipidemia) Holter monitor, abnormal 06/27/2022 [place] HTN (hypertension) Impaired fasting glucose Internal h (more content not included)... [facility] 08-31-2023 Miscellaneous Notes Post PVAI orders pended for signature documented in this encounter [facility] 08-03-2023 Miscellaneous Notes Pt's name has been added to small procedure board. Salena Milian, RN Patient is scheduled for a PVI Ablation on 08/[address] Mike. The hospital will call the day before between 2-5pm with your arrival time. You should not eat or drink after midnight the day before the procedure. You will need a otr hazmat company driver when released from the hospital and you will stay overnight for observation. You should continue to take medications as prescribed the morning of the procedure with just a sip of water unless otherwise instructed. H&P update on 08/23 at 11am with Asha Salomon [address] [facility] [address] [place] [address] Spoke with Evert Mccarty on August 03, 2023. Informed of instructions as stated above. Patient verbalized understanding. Huber Perez documented in this encounter [facility] 03-14-2023 Miscellaneous Notes Pt called reg his Ablation w/ Dr. Mike on 04/07/23 he stated he is unable to do this artis date for surgery will need to reschedule. I already spoke to EP [place] Huber reg his rs. Office will reach out to the pt with his new artis date and time. Pt verbalized understanding. Onelia Etienne March 14, 2023 2:19 PM documented in this encounter [facility] 01-16-2023 Miscellaneous Notes Procedure request submitted for atrial fibrillation/flutter catheter ablation. Suzan Mike MD January 16, 2023 12:[address] Echeverria's staff calls to report Dr Echeverria reviewed Dr Mike's note with the patient. Pt wishes to proceed with ablation. Hollie Boudreaux RN documented in this encounter [facility] 12-26-2022 Nurse Note No cardiac complaints today. Julia Azul MA documented in this encounter [facility] 12-26-2022 History of Presen t illness Narrative PRIMARY CARE PHYSICIAN: Radha Mcelroy ([facility]) [facility] [place] [address] Patient Care Team: Urban Ledezma MD as PCP - General (Family Medicine) Jalen Echeverria as Specialty Solar Electric Installer (Cardiology) CHIEF COMPLAINT: Follow up for arrhythmia HISTORY OF PRESENT ILLNESS: Mr. Mccarty is a 77 year old male who presents today for a cardiovascular medicine follow-up visit. History copied from previous notes, edited as needed: Dr. Mike's previous notes 08/24/2022: Mr. Mccarty is a 77 year old male who presents today with his for evaluation of arrhythmia, atrial fibrillation and possibly atrial flutter, referral from his cocoa bean roaster helper Dr Echeverria. Mr. Mccarty states that he was first diagnosed with atrial fibrillation a few years ago, he had been hospitalized at [facility] with a bladder infection and fever. [...] states that he had a 30 day gas meter installer in 07/2022, and that this showed a new issue with different arrhythmia (reportedly wide-complex tachycardia although this particular monitoring report is not yet available to me). Cardiac monitoring was also performed in June 2022 --- 24 hour ambulatory Holter. This revealed atrial fibrillation with average ventricular response rate 114 bpm. At that time the atenolol dose was increased, and Mr. Mccarty's states since then his heart rates have [...] PND, lightheadedness or syncope. IMPRESSION (08/24/2022): Mr. Mccarty has a couple of arrhythmia issues. He does have persistent atrial fibrillation/flutter, recurrent despite recent electrical cardioversion. He is completely asymptomatic, one could consider treating him with a rate control treatment strategy per current Practice Guidelines. The benefit of advanced treatment strategies for rhythm control would be indicated for control of excessively bothersome symptoms. I did tell Mr. Mccarty and his that an exception would be [...] not sent with his records from Dr. Echeverria. Evidently there was wide-complex tachycardia, this might [...] I had a detailed discussion with Mr. Mccarty and his regarding my evaluation and recommendations. After our discussion, Mr. Mccarty and his expressed understanding and I answered all questions to their apparent satisfaction. I told them I would obtain the report of the recently performed 30-day cardiac monitoring, and also communicate with Dr. Echeverria regarding 1) documentation of better ventricular rate control and 2) after such rate control has been achieved, repeat assessment of LV systolic function. PLAN AND RECOMMENDATIONS (08/24/2022): See above for my recommendations. I will have my office contact Dr. Echeverria's office to obtain the 30-day cardiac monitoring report (with all the tracings). I would not advocate rhythm control treatment strategy for the atrial fibrillation/flutter unless there is evidence for adverse impact on LV systolic function despite good ventricular response rate control. Interim History Dr. Mike 12/26/2022: Mr. Mccarty presents for follow-up evaluation for atrial fibrillation. I had evaluated him in August 2022 for this problem. He has persistent atrial fibrillation that is asymptomatic. However, there might be contribution from the atrial fibrillation to the mild dilated cardiomyopathy. I had recommended that the ventricular systolic function be reevaluated after a period of time of good ventricular rate control. Mr. Mccarty presents for follow up evaluation, had echocardiogram [...] atrial fibrillation/flutter Arthritis At risk for stroke [id number] = 6 (CHF, HTN, age2, DM, CAD) Atherosclerosis Atrial flutter (HCC) Benign neoplasm of colon CAD (coronary artery disease) nonobstructive CAD by [facility] 2007 Depressive disorder, not elsewhere classified [...] Procedure Laterality Date CARDIOVERSION, ELECTIVE, ELECTRICAL 07/26/2022 [facility] COLONOSCOPY FLX DX W/COLLJ SPEC WHEN PFRMD [...] which included preparing to see the patient, [id number] patient care, completing clinical documentation, obtaining and/or [...] Seems to have favorable risk:benefit IMPRESSION: Mr. Mccarty has persistent atrial fibrillation, and although this is asymptomatic there is concern about whether it is contributing to cardiomyopathy. The cardiomyopathy has been mild and has been stable over the past couple of echocardiogram studies 07/2022 and 09/2022 (LVEF 45%). I had a detailed discussion with Mr. Mccarty and his regarding this situation. He is [...] strategy. I discussed this issue with Mr. Mccarty and his in detail, I tried to get an idea of how aggressive Mr. Mccarty wants to be. He indicated he would be in favor of whatever Dr. Echeverria and I determine is best. I told them I would review in more detail and discuss with Dr. Echeverria directly. I had a detailed discussion with Mr. Mccarty regarding my evaluation and recommendations. After our discussion, Mr. Mccarty expressed his understanding and I answered all his questions to his apparent satisfaction. He agrees to proceed with the plan we determine after additional review. PLAN AND RECOMMENDATIONS: Continue with current plan of care from EP standpoint for now. I will complete additional review of his case and discuss with Dr. Echeverria regarding the treatment options. Suzan Mike MD 12/26/2022 Medical Decision Making: Problems: Moderate: New problem with uncertain prognosis Data: Unique source(s) for external note(s) reviewed: 3+ Unique test result(s) reviewed: 3+ Unique test(s) ordered: 1 Risk: Moderate: Moderate risk from testing/treatment, Drug management and Decision on minor surgery w/ risk factors Medical Decision Making Level: 4 - Moderate documented in this encounter [facility] 11-23-2022 Miscellaneous Notes The monitoring shows atrial [...] he has other questions or concerns. Suzan Mike MD November 23, 2022 4:46 PM Pt wants you to interpret his heart monitor results. They are in the scanned documents dated 09/19/22. Thanks, Sofia Lopez LPN documented in this encounter [facility] 08-24-2022 History of Presen t illness Narrative PRIMARY CARE PHYSICIAN: Radha Mcelroy ([facility]) [address] [place] [address] REFERRING PHYSICIAN: Jalen Echeverria MD ([facility]) [address] [facility] [address] [facility] [id number] Patient Care Team: Radha Mcelroy MD as PCP - General (Internal Medicine) Jalen Echeverria as Specialty Solar Electric Installer (Cardiology) CHIEF COMPLAINT: Evaluation of arrhythmia HISTORY OF PRESENT ILLNESS: Mr. Mccarty is a 77 year old male who presents today with his for evaluation of arrhythmia, atrial fibrillation and possibly atrial flutter, referral from his cocoa bean roaster helper Dr Echeverria. Mr. Mccarty states that he was first diagnosed with atrial fibrillation a few years ago, he had been hospitalized at [facility] with a bladder infection and fever. [...] monitoring or his personal monitoring such as [employer]. He has no awareness of the arrhythmia, no symptoms at all. He states he underwent electrical cardioversion to restore sinus rhythm 07/26/2022, but the atrial fibrillation recurred within about 28 hours. Again, he did not feel differently in sinus rhythm, was not aware that the arrhythmia recurred except by the [employer] Watch notifying him. He states that he had a 30 day gas meter installer in 07/2022, and that this showed a new issue with different arrhythmia (reportedly wide-complex tachycardia although this particular monitoring report is not yet available to me). Cardiac monitoring was also performed in June 2022 --- 24 hour ambulatory Holter. This revealed atrial fibrillation with average ventricular response rate 114 bpm. At that time the atenolol dose was increased, and Mr. Mccarty's states since then his heart rates have [...] Procedure Laterality Date CARDIOVERSION, ELECTIVE, ELECTRICAL 07/26/2022 [facility] COLONOSCOPY FLX DX W/COLLJ SPEC WHEN PFRMD [...] - ICD9: 425.4, ICD10: I42.0 IMPRESSION: Mr. Mccarty has a couple of arrhythmia issues. He does have persistent atrial fibrillation/flutter, recurrent despite recent electrical cardioversion. He is completely asymptomatic, one could consider treating him with a rate control treatment strategy per current Practice Guidelines. The benefit of advanced treatment strategies for rhythm control would be indicated for control of excessively bothersome symptoms. I did tell Mr. Mccarty and his that an exception would be [...] not sent with his records from Dr. Echeverria. Evidently there was wide-complex tachycardia, this might [...] I had a detailed discussion with Mr. Mccarty and his regarding my evaluation and recommendations. After our discussion, Mr. Mccatry and his expressed understanding and I answered all questions to their apparent satisfaction. I told them I would obtain the report of the recently performed 30-day cardiac monitoring, and also communicate with Dr. Echeverria regarding 1) documentation of better ventricular rate control and 2) after such rate control has been achieved, repeat assessment of LV systolic function. PLAN AND RECOMMENDATIONS: See above for my recommendations. I will have my office contact Dr. Echeverria's office to obtain the 30-day cardiac monitoring report (with all the tracings). I would not advocate rhythm control treatment strategy for the atrial fibrillation/flutter unless there is evidence for adverse impact on LV systolic function despite good ventricular response rate control. Return follow up will depend upon plan of care determined. Suzan Mike MD 08/24/2022 Medical Decision Making: Problems: Moderate: New problem with uncertain prognosis Data: Unique source(s) for external note(s) reviewed: 3+ Unique test result(s) reviewed: 3+ Unique test(s) ordered: 1 Risk: Moderate: Moderate risk from testing/treatment, Drug management and Decision on minor surgery w/ risk factors Medical Decision Making Level: 4 - Moderate documented in this encounter [facility] 08-24-2022 Nurse Note Patient denies any cardiac issues or symptoms. documented in this encounter [facility] Evaluation note Diagnosis Onset Date Sinus bradycardia acute Atherosclerosis of coronary artery of [place] heart without angina pectoris chronic Atrial flutter chronic Hyperlipidemia chronic Non-sustained ventricular tachycardia [facility] Work Phone: Evaluation note* Diagnosis Onset Date Resolution Status Essential hypertension acute Atherosclerosis of coronary artery of [place] heart without angina pectoris chronic Atrial flutter chronic Hyperlipidemia chronic Non-sustained ventricular tachycardia [facility] Work Phone: Evaluation note* Diagnosis Persistent atrial fibrillation (HCC)- Primary Atrial fibrillation Atrial flutter, unspecified type (HCC) At risk for stroke Other specified personal history presenting hazards to health Anticoagulant long-term use Long-term (current) use of anticoagulants Wide-complex tachycardia Paroxysmal ventricular tachycardia Dilated cardiomyopathy (HCC) Other primary cardiomyopathies [facility] Diagnosis Persistent atrial fibrillation (HCC)- Primary Atrial fibrillation Atrial flutter, unspecified type (HCC) Wide-complex tachycardia Paroxysmal ventricular tachycardia Dilated cardiomyopathy (HCC) Other primary cardiomyopathies Syncope and collapse At risk for stroke Other specified personal history presenting hazards to health Anticoagulant long-term use Long-term (current) use of anticoagulants [facility] Diagnosis Persistent atrial fibrillation (HCC)- Primary Atrial fibrillation Atrial flutter, unspecified type (HCC) Dilated cardiomyopathy (HCC) Other primary cardiomyopathies Anticoagulant long-term use Long-term (current) use of anticoagulants [facility] Diagnosis Onset Date Resolution Status Essential hypertension acute Atherosclerosis of coronary artery of [place] heart without angina pectoris chronic Atrial flutter chronic Hyperlipidemia chronic Non-sustained ventricular tachycardia chronic Essential hypertension acute Non-ischemic cardiomyopathy acute Atherosclerosis of coronary artery of [place] heart without angina pectoris chronic Atrial flutter chronic Hyperlipidemia chronic Non-sustained ventricular tachycardia [facility] Work Phone: Evaluation note* Diagnosis Persistent atrial fibrillation (HCC)- Primary Atrial fibrillation Dyspnea, unspecified type [facility] Diagnosis Atrial fibrillation, unspecified type (HCC)- Primary documented in this encounter [facility] note* Diagnosis Atrial fibrillation, unspecified type (HCC)- Primary documented in this encounter [facility] note* Diagnosis Atrial fibrillation, unspecified type (HCC)- Primary documented in this encounter [facility] note* Diagnosis PAF (paroxysmal atrial fibrillation) (HCC)- Primary Atrial fibrillation [facility] noteNo assessment information availableWSouthwest [facility] Work Phone: Evaluation note* Diagnosis Persistent atrial fibrillation (HCC)- Primary Atrial fibrillation Status post catheter ablation of atrial fibrillation Typical atrial flutter (HCC) Atrial flutter Wide-complex tachycardia Paroxysmal ventricular tachycardia Obstructive sleep apnea Obstructive sleep apnea (adult) (pediatric) At risk for stroke Other specified personal history presenting hazards to health Anticoagulant long-term use Long-term (current) use of anticoagulants Thrombus of left atrial appendage Other ill-defined heart disease [facility] Diagnosis Persistent atrial fibrillation (HCC) Atrial fibrillation Atrial flutter, unspecified type (HCC) Dilated cardiomyopathy (HCC) Other primary cardiomyopathies [facility] Diagnosis Persistent atrial fibrillation (HCC)- Primary Atrial fibrillation Status post catheter ablation of atrial fibrillation Typical atrial flutter (HCC) Atrial flutter Dilated cardiomyopathy (HCC) Other primary cardiomyopathies Wide-complex tachycardia Paroxysmal ventricular tachycardia At risk for stroke Other specified personal history presenting hazards to health [facility] Diagnosis Atherosclerosis of [place] coronary artery of [place] heart without angina pectoris- Primary Persistent atrial fibrillation (HCC) Atrial fibrillation Dilated cardiomyopathy (HCC) Other primary cardiomyopathies Mixed hyperlipidemia [facility]* Diagnosis Persistent atrial fibrillation (HCC)- Primary Atrial fibrillation At risk for stroke Other specified personal history presenting hazards to health [facility] Diagnosis Persistent atrial fibrillation (HCC) Atrial fibrillation Atrial flutter, unspecified type (HCC) Dilated cardiomyopathy (HCC) Other primary cardiomyopathies [facility]* Diagnosis Permanent atrial fibrillation (HCC)- Primary Atrial fibrillation Status post catheter ablation of atrial fibrillation At risk for stroke Other specified personal history presenting hazards to health Anticoagulant long-term use Long-term (current) use of anticoagulants Dilated cardiomyopathy (HCC) Other primary cardiomyopathies Chronic systolic congestive heart failure (HCC) Chronic systolic heart failure Obstructive sleep apnea Obstructive sleep apnea (adult) (pediatric) [facility]* Diagnosis Primary hypertension- Primary Unspecified essential hypertension [facility] Diagnosis Persistent atrial fibrillation (HCC) Atrial fibrillation At risk for stroke Other specified personal history presenting hazards to health Atrial flutter, unspecified type (HCC) Dilated cardiomyopathy (HCC) Other primary cardiomyopathies [facility]* Diagnosis Primary hypertension Unspecified essential hypertension [facility] Diagnosis Atherosclerosis of [place] coronary artery of [place] heart without angina pectoris- Primary Dilated cardiomyopathy (HCC) Other primary cardiomyopathies Chronic systolic congestive heart failure (HCC) Chronic systolic heart failure Permanent atrial fibrillation (HCC) Atrial fibrillation Mixed hyperlipidemia Syncope and collapse [facility] ([facility])No reason for referral information availableCraigsville Medical Services Work Phone: Chief Complaint and Reason for Visit Chief Complaint 3 M FU KNEE PAIN Reason for Visit Sinus bradycardia Atherosclerosis of coronary artery of [place] heart without angina pectoris Atrial flutter Hyperlipidemia Non-sustained ventricular tachycardia Chief Complaint 3 M FU KNEE PAIN E ORDER Reason for Visit Sinus bradycardia Atherosclerosis of coronary artery of [place] heart without angina pectoris Atrial flutter Hyperlipidemia Non-sustained ventricular tachycardia Chief Complaint 3 M FU KNEE PAIN E ORDER TACHYCARDIA Reason for Visit Sinus bradycardia Atherosclerosis of coronary artery of [place] heart without angina pectoris Atrial flutter Hyperlipidemia Non-sustained ventricular tachycardia Chief Complaint KNEE PAIN E ORDER TACHYCARDIA HOLTER TACHYCARDIA pt needed sooner appt per R ABD PAIN/ Reason for Visit Essential hypertensi on Atherosclerosis of coronary artery of [place] heart without angina pectoris Atrial flutter Hyperlipidemia Non-sustained ventricular tachycardia Chief Complaint KNEE PAIN E ORDER TACHYCARDIA HOLTER TACHYCARDIA pt needed sooner appt per R ABD PAIN/ ATYPICAL FLUTTER ATYPICAL FLUTTER ATYPICAL FLUTTER ATYPICAL FLUTTER Reason for Visit Essential hypertensi on Atherosclerosis of coronary artery of [place] heart without angina pectoris Atrial flutter Hyperlipidemia Non-sustained ventricular tachycardia Chief Complaint KNEE PAIN E ORDER TACHYCARDIA HOLTER TACHYCARDIA pt needed sooner appt per R ABD PAIN/ ATYPICAL FLUTTER ATYPICAL FLUTTER ATYPICAL FLUTTER ATYPICAL FLUTTER NSVT/AFIB NSVT/AFIB Reason for Visit Essential hypertensi on Atherosclerosis of coronary artery of [place] heart without angina pectoris Atrial flutter Hyperlipidemia Non-sustained ventricular tachycardia Chief Complaint E ORDER TACHYCARDIA HOLTER TACHYCARDIA pt needed sooner appt per R ABD PAIN/ ATYPICAL FLUTTER ATYPICAL FLUTTER ATYPICAL FLUTTER ATYPICAL FLUTTER NSVT/AFIB NSVT/AFIB Reason for Visit Essential hypertensi on Atherosclerosis of coronary artery of [place] heart without angina pectoris Atrial flutter Hyperlipidemia Non-sustained ventricular tachycardia Chief Complaint E ORDER TACHYCARDIA HOLTER TACHYCARDIA pt needed sooner appt per [facility] ABD PAIN/ ATYPICAL FLUTTER ATYPICAL FLUTTER ATYPICAL FLUTTER ATYPICAL FLUTTER NSVT/AFIB NSVT/AFIB ARRYHHMIA DIARRHEA Reason for Visit Essential hypertensi on Atherosclerosis of coronary artery of [place] heart without angina pectoris Atrial flutter Hyperlipidemia Non-sustained ventricular tachycardia Chief Complaint TACHYCARDIA HOLTER TACHYCARDIA pt needed sooner appt per [facility] ABD PAIN/ ATYPICAL FLUTTER ATYPICAL FLUTTER ATYPICAL FLUTTER ATYPICAL FLUTTER NSVT/AFIB NSVT/AFIB ARRYHHMIA DIARRHEA Reason for Visit Essential hypertensi on Atherosclerosis of coronary artery of [place] heart without angina pectoris Atrial flutter Hyperlipidemia Non-sustained ventricular tachycardia Chief Complaint 1 YR (DJN/NN PT) Low O2 3 M FU LENIN Reason for Visit Essential hypertensi on Atherosclerosis of coronary artery of [place] heart without angina pectoris Atrial flutter Hyperlipidemia Non-sustained ventricular tachycardia Essential hypertension Non-ischemic cardiomyopathy Atherosclerosis of coronary artery of [place] heart without angina pectoris Atrial flutter Hyperlipidemia Non-sustained ventricular tachycardia Chief Complaint EORDER Chief Complaint Admit Date 1 Y FU May 05, 2025 9:45 am Family History No Family History Records Found Relationship Condition Age at Onset Recorded Date/T sejal father Myocardial infarction Unknown brother Coronary artery disease Unknown Malignant neoplasm Unknown Advance Directives No Advanced Directives Records Found Advance Directive Response Recorded Date/ Time Living Will No December 03 7:03am Power of Machine Operator Transplanter Yes December 03, 2021 7:03am Advance Directive Response Recorded Date/ Time Living Will No July 23, 2022 8:27am Power of Machine Operator Transplanter No July 8:27am Advance Directive Response Recorded Date/ Time Advance Directives on File No [email or web address] 2021 10:49am Advance Directives No July 10:49am Living Will No July 26, 2022 10:49am Power of Machine Operator Transplanter No July 10:49am Advance Directive Response Recorded Date/ Time Advance Directives on File No [email or web address] 2021 9:49am Name of Medical Power of Machine Operator Transplanter October 12, 2022 2:26pm Advance Directives No July 9:49am Living Will No October 12, 2 022 2:26pm Power of Machine Operator Transplanter Yes October 12, 2022 2:26pm Advance Directive Response Recorded Date/ Time Advance Directives No July 10:49am Living Will No October 12 2 022 3:26pm Power of Machine Operator Transplanter Yes October 12, 2022 3:26pm Advance Directive Response Recorded Date/ Time Advance Directives No July 9:49am Living Will No October 12, 2 022 2:26pm Power of Machine Operator Transplanter Yes October 12, 2022 2:26pm Advance Directive Response Recorded Date/ Time Living Will No October 12 2 022 3:26pm Do you have a Healthcare Power of Machine Operator Transplanter? Yes October 12, 2022 3:26pm Advance Directives No July 10:49am Summary Purpose Reason for Referral Specialty Diagnoses / Procedures Referred By Contac t Referred To Contact CT IMAGING Diagnoses Persistent atrial fibrillation (HCC) Dyspnea, unspecified type Procedures CTA CHEST (NONGATED) W IVCON CT ANGIOGRAPHY CHEST W/CONTRAST/NONCONTRAST Suzan Mike MD [address] [place] [id number] [id number] Referral ID Status Reason Start Date Expiration Date Visits Requested Visits Authorized [id number] Authorized Auto-Generat ed Referral 11/28/2023 09/29/2024 1 1 Specialty Diagnoses / Procedures Referred By Contac t [facility] Diagnoses Persistent atrial fibrillation (HCC) Dyspnea, unspecified type Procedures ECHO ECHO TTHRC R-T 2D W/WOM-MODE COMPL SPEC&COLR D Suzan Mike MD [address] [place] [phone] [facility] [address] [place] [address] Referral ID Status Reason Start Date Expiration Date Visits Requested Visits Authorized [id number] Authorized Auto-Generat ed Referral 11/28/2023 08/30/2024 1 1 Additional Source Comments Goals (unrecognized section and content) Goals may be documented in a n alternate sectionGoals may be documented in an alternate sectionGoals may be documented in an alternate sectionGoals may be documented in an alternate sectionGoals may be documented in an alternate sectionGoals may be documented in an alternate sectionGoals may be documented in an alternate sectionGoals may be documented in an alternate sectionGoals may be documented in an alternate sectionGoals may be documented in an alternate sectionGoals may be documented in an alternate sectionGoals may be documented in an alternate sectionGoals may be documented in an alternate sectionGoals may be documented in an alternate section Source Comments (unrecognize d section and content) In the event this informatio n is protected by the Federal Confidentiality of Alcohol and Drug Abuse Patient Records regulations: The Federal rules restrict any use of the information to criminally investigate or prosecute any alcohol or drug abuse patient.[facility] Health[facility] the event this information is protected by the Federal Confidentiality of Alcohol and Drug Abuse Patient Records regulations: The Federal rules restrict any use of the information to criminally investigate or prosecute any alcohol or drug abuse patient.[facility] HealthIn the event this information is protected by the Federal Confidentiality of Alcohol and Drug Abuse Patient Records regulations: The Federal rules restrict any use of the information to criminally investigate or prosecute any alcohol or drug abuse patient.[facility] HealthIn the event this information is protected by the Federal Confidentiality of Alcohol and Drug Abuse Patient Records regulations: The Federal rules restrict any use of the information to criminally investigate or prosecute any alcohol or drug abuse patient.[facility] HealthIn the event this information is protected by the Federal Confidentiality of Alcohol and Drug Abuse Patient Records regulations: The Federal rules restrict any use of the information to criminally investigate or prosecute any alcohol or drug abuse patient.[facility] HealthIn the event this information is protected by the Federal Confidentiality of Alcohol and Drug Abuse Patient Records regulations: The Federal rules restrict any use of the information to criminally investigate or prosecute any alcohol or drug abuse patient.[facility] HealthIn the event this information is protected by the Federal Confidentiality of Alcohol and Drug Abuse Patient Records regulations: The Federal rules restrict any use of the information to criminally investigate or prosecute any alcohol or drug abuse patient.[facility] HealthIn the event this information is protected by the Federal Confidentiality of Alcohol and Drug Abuse Patient Records regulations: The Federal rules restrict any use of the information to criminally investigate or prosecute any alcohol or drug abuse patient.[facility] HealthIn the event this information is protected by the Federal Confidentiality of Alcohol and Drug Abuse Patient Records regulations: The Federal rules restrict any use of the information to criminally investigate or prosecute any alcohol or drug abuse patient.[facility] HealthIn the event this information is protected by the Federal Confidentiality of Alcohol and Drug Abuse Patient Records regulations: The Federal rules restrict any use of the information to criminally investigate or prosecute any alcohol or drug abuse patient.[facility] HealthIn the event this information is protected by the Federal Confidentiality of Alcohol and Drug Abuse Patient Records regulations: The Federal rules restrict any use of the information to criminally investigate or prosecute any alcohol or drug abuse patient.[facility] HealthIn the event this information is protected by the Federal Confidentiality of Alcohol and Drug Abuse Patient Records regulations: The Federal rules restrict any use of the information to criminally investigate or prosecute any alcohol or drug abuse patient.[facility] HealthIn the event this information is protected by the Federal Confidentiality of Alcohol and Drug Abuse Patient Records regulations: The Federal rules restrict any use of the information to criminally investigate or prosecute any alcohol or drug abuse patient.[facility] HealthIn the event this information is protected by the Federal Confidentiality of Alcohol and Drug Abuse Patient Records regulations: The Federal rules restrict any use of the information to criminally investigate or prosecute any alcohol or drug abuse patient.[facility] HealthIn the event this information is protected by the Federal Confidentiality of Alcohol and Drug Abuse Patient Records regulations: The Federal rules restrict any use of the information to criminally investigate or prosecute any alcohol or drug abuse patient.[facility] HealthIn the event this information is protected by the Federal Confidentiality of Alcohol and Drug Abuse Patient Records regulations: The Federal rules restrict any use of the information to criminally investigate or prosecute any alcohol or drug abuse patient.[facility] HealthIn the event this information is protected by the Federal Confidentiality of Alcohol and Drug Abuse Patient Records regulations: The Federal rules restrict any use of the information to criminally investigate or prosecute any alcohol or drug abuse patient.[facility] HealthIn the event this information is protected by the Federal Confidentiality of Alcohol and Drug Abuse Patient Records regulations: The Federal rules restrict any use of the information to criminally investigate or prosecute any alcohol or drug abuse patient.[facility] HealthIn the event this information is protected by the Federal Confidentiality of Alcohol and Drug Abuse Patient Records regulations: The Federal rules restrict any use of the information to criminally investigate or prosecute any alcohol or drug abuse patient.[facility] HealthIn the event this information is protected by the Federal Confidentiality of Alcohol and Drug Abuse Patient Records regulations: The Federal rules restrict any use of the information to criminally investigate or prosecute any alcohol or drug abuse patient.[facility] HealthIn the event this information is protected by the Federal Confidentiality of Alcohol and Drug Abuse Patient Records regulations: The Federal rules restrict any use of the information to criminally investigate or prosecute any alcohol or drug abuse patient.[facility] HealthIn the event this information is protected by the Federal Confidentiality of Alcohol and Drug Abuse Patient Records regulations: The Federal rules restrict any use of the information to criminally investigate or prosecute any alcohol or drug abuse patient.[facility] HealthIn the event this information is protected by the Federal Confidentiality of Alcohol and Drug Abuse Patient Records regulations: The Federal rules restrict any use of the information to criminally investigate or prosecute any alcohol or drug abuse patient.[facility] HealthIn the event this information is protected by the Federal Confidentiality of Alcohol and Drug Abuse Patient Records regulations: The Federal rules restrict any use of the information to criminally investigate or prosecute any alcohol or drug abuse patient.[facility] HealthIn the event this information is protected by the Federal Confidentiality of Alcohol and Drug Abuse Patient Records regulations: The Federal rules restrict any use of the information to criminally investigate or prosecute any alcohol or drug abuse patient.[facility] HealthIn the event this information is protected by the Federal Confidentiality of Alcohol and Drug Abuse Patient Records regulations: The Federal rules restrict any use of the information to criminally investigate or prosecute any alcohol or drug abuse patient.[facility] HealthIn the event this information is protected by the Federal Confidentiality of Alcohol and Drug Abuse Patient Records regulations: The Federal rules restrict any use of the information to criminally investigate or prosecute any alcohol or drug abuse patient.[facility] HealthIn the event this information is protected by the Federal Confidentiality of Alcohol and Drug Abuse Patient Records regulations: The Federal rules restrict any use of the information to criminally investigate or prosecute any alcohol or drug abuse patient.[facility] HealthIn the event this information is protected by the Federal Confidentiality of Alcohol and Drug Abuse Patient Records regulations: The Federal rules restrict any use of the information to criminally investigate or prosecute any alcohol or drug abuse patient.[facility] HealthIn the event this information is protected by the Federal Confidentiality of Alcohol and Drug Abuse Patient Records regulations: The Federal rules restrict any use of the information to criminally investigate or prosecute any alcohol or drug abuse patient.[facility] HealthIn the event this information is protected by the Federal Confidentiality of Alcohol and Drug Abuse Patient Records regulations: The Federal rules restrict any use of the information to criminally investigate or prosecute any alcohol or drug abuse patient.[facility] HealthIn the event this information is protected by the Federal Confidentiality of Alcohol and Drug Abuse Patient Records regulations: The Federal rules restrict any use of the information to criminally investigate or prosecute any alcohol or drug abuse patient.[facility] HealthIn the event this information is protected by the Federal Confidentiality of Alcohol and Drug Abuse Patient Records regulations: The Federal rules restrict any use of the information to criminally investigate or prosecute any alcohol or drug abuse patient.[facility] HealthIn the event this information is protected by the Federal Confidentiality of Alcohol and Drug Abuse Patient Records regulations: The Federal rules restrict any use of the information to criminally investigate or prosecute any alcohol or drug abuse patient.[facility] HealthIn the event this information is protected by the Federal Confidentiality of Alcohol and Drug Abuse Patient Records regulations: The Federal rules restrict any use of the information to criminally investigate or prosecute any alcohol or drug abuse patient.[facility] HealthIn the event this information is protected by the Federal Confidentiality of Alcohol and Drug Abuse Patient Records regulations: The Federal rules restrict any use of the information to criminally investigate or prosecute any alcohol or drug abuse patient.[facility] HealthIn the event this information is protected by the Federal Confidentiality of Alcohol and Drug Abuse Patient Records regulations: The Federal rules restrict any use of the information to criminally investigate or prosecute any alcohol or drug abuse patient.[facility] HealthIn the event this information is protected by the Federal Confidentiality of Alcohol and Drug Abuse Patient Records regulations: The Federal rules restrict any use of the information to criminally investigate or prosecute any alcohol or drug abuse patient.[facility] HealthIn the event this information is protected by the Federal Confidentiality of Alcohol and Drug Abuse Patient Records regulations: The Federal rules restrict any use of the information to criminally investigate or prosecute any alcohol or drug abuse patient.[facility] Reason for Visit (unrecogniz ed section and content) Reason Comments CARD New Patient Consult 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 Vidya finch persistent a-fib Reason Comments Treatment Planning Reason Comments Patient Update Ablation reschedule. Reason Comments Preparations For Procedures Reason Comments Orders Reason Comments Remote Pacemaker Follow Up Reason Comments Arrhythmia Reason Comments CARD Follow Up 3 Month Persistent a-fib Reason Onset Date Comments Refill Request 04/29/2024 Reason Comments Cardiology Follow Up - Generic Persisten t AFIB Reason Comments Follow Up Reason Comments Results Reason Comments Application Support Engineer - Other Results Reason Onset Date Comments Refill Request 11/28/2024 Reason Comments CARD Follow Up 6 Month Persistent atrial fibrillation Reason Onset Date Comments Refill Request 01/13/2025 Reason Comments Application Support Engineer - Other Reason Onset Date Comments Refill Request 03/02/2025 Care Teams (unrecognized sec tion and content) Screen Print Operator Relationship Specialty Start Date End Date Radha Mcelroy MD [address] [facility] [address] [place] [phone] PCP - General Internal Medicine 08/23/22 Jalen Echeverria [address] [place] [phone] Specialty Solar Electric Installer Cardiology 08/23/22 Screen Print Operator Relationship Specialty Start Date End Date Radha Mcelroy MD [address] [facility] [address] [place] [address] PCP - General Internal Medicine 08/23/22 Jalen Echeverria [address] [place] [address] Specialty Solar Electric Installer Cardiology 08/23/22 Screen Print Operator Relationship Specialty Start Date End Date Urban Ledezma MD [address] [facility] [place] [address] PCP - General Family Medicine 12/26/22 Jalen Echeverria [address] [facility] [address] [place] [address] Specialty Solar Electric Installer Cardiology 08/23/22 Screen Print Operator Relationship Specialty Start Date End Date Urban Ledezma MD [address] [facility] [place] [address] PCP - General Family Medicine 12/26/22 Jalen Echeverria [address] [facility] [address] [place] [address] Specialty Solar Electric Installer Cardiology 08/23/22 Team Status: Active Member Role Status Dates Dr. Osbaldo Ledezma MD Family Provider Active Dr. Osbaldo Ledezma MD Primary Care Provider Activ e Team Status: Inactive Member Role Status Dates Dr. Osbaldo Ledezma MD Primary Care Provider, Refe rring Provider Active Dr. Jalen Echeverria MD Attending Provider Active Team Status: Inactive Member Role Status Dates Dr. Osbaldo Ledezma MD Primary Care Provider, Refe rring Provider Active Jeovany Liz NP, REHAB MANAGER-C Attending Provider Active Team Status: Inactive Member Role Status Dates Dr. Osbaldo Ledezma MD Primary Care Provider, Refe rring Provider Active Dr. Stephen Topete DO Attending Provider Active Team Status: Inactive Member Role Status Dates Dr. Osbaldo Ledezma MD Primary Care Provider Activ e Dr. Stephen Topete , DO Attending Provider, Referring Pro vider Active Screen Print Operator Relationship Specialty Start Date End Date Urban Ledezma MD [address] [place] [address] PCP - General Family Medicine 12/26/22 Jalen Echeverria [address] [place] [address] Specialty Solar Electric Installer Cardiology 08/23/22 Suzan Mike MD [address] [place] [address] Specialty Solar Electric Installer Cardiology 03/14/23 Screen Print Operator Relationship Specialty Start Date End Date Urban Ledezma MD [address] [place] [address] PCP - General Family Medicine 12/26/22 Jalen Echeverria [address] [place] [address] Specialty Solar Electric Installer Cardiology 08/23/22 Suzan Mike MD [address] [place] [address] (Fax) Specialty Solar Electric Installer Cardiology 03/14/23 Screen Print Operator Relationship Specialty Start Date End Date Urban Ledezma MD [address] [place] [address] PCP - General Family Medicine 12/26/22 Suzan Mike MD [address] [place] [address] Specialty Solar Electric Installer Cardiology 03/14/23 Jeovany Liz [address] [place] [address] Nurse Practitioner Cardiology 08/28/23 Latrell Hdz MD [address] [place] [address] Specialty Solar Electric Installer Cardiology 08/28/23 Screen Print Operator Relationship Specialty Start Date End Date Urban Ledezma MD [address] [facility] [place] [address] PCP - General Family Medicine 12/26/22 Suzan Mike MD [address] [place] [phone] Specialty Solar Electric Installer Cardiology 03/14/23 Jeovany Liz [address] [place] [address] Nurse Practitioner Cardiology 08/28/23 Latrell Hdz MD [address] [place] [address] Specialty Solar Electric Installer Cardiology 08/28/23 Screen Print Operator Relationship Specialty Start Date End Date Urban Ledezma MD [address] [place] [address], [place] [address] PCP - General Family Medicine 12/26/22 Suzan Mike MD [address] [place] [phone] Specialty Solar Electric Installer Cardiology 03/14/23 Jeovany Liz [address] [place] [address] Nurse Practitioner Cardiology 08/28/23 Latrell Hdz MD [address] [place] [address] Specialty Solar Electric Installer Cardiology 08/28/23 Screen Print Operator Relationship Specialty Start Date End Date Urban Ledezma MD [address] [place] [address] PCP - General Family Medicine 12/26/22 Suzan Mike MD [address] [place] [phone] (Fax) Specialty Solar Electric Installer Cardiology 03/14/23 Jeovany Liz [address] [place] [address] Nurse Practitioner Cardiology 08/28/23 Latrell Hdz MD [address] [place] [address] Specialty Solar Electric Installer Cardiology 08/28/23 Screen Print Operator Relationship Specialty Start Date End Date Urban Ledezma MD [address] [place], [place] [address] [place] [address] PCP - General Family Medicine 12/26/22 Suzan Mike MD [address] [place] [phone] (Fax) Specialty Solar Electric Installer Cardiology 03/14/23 Jeovany Liz [address] [place] [address] Nurse Practitioner Cardiology 08/28/23 Latrell Hdz MD [address] [place] [address] Specialty Solar Electric Installer Cardiology 08/28/23 Team Status: Inactive Member Role Status Dates Dr. Osbaldo Ledezma MD Primary Care Provider, Attending Provider, Referring Provider Active Screen Print Operator Relationship Specialty Start Date End Date Urban Ledezma MD [address] [place] [address] PCP - General Family Medicine 12/26/22 Suzan Mike MD [address] [place] [phone] Specialty Solar Electric Installer Cardiology 03/14/23 Jeovany Liz APRN.[facility] [address] [place] [address] Nurse Practitioner Cardiology 08/28/23 Latrell Hdz MD [address] [place] [id number] Specialty Solar Electric Installer Cardiology 08/28/23 Screen Print Operator Relationship Specialty Start Date End Date Urban Ledezma MD [address] [place] [address] PCP - General Family Medicine 12/26/22 Suzan Mike MD [address] [place] [phone] Specialty Solar Electric Installer Cardiology 03/14/23 Cordelia Blackwood MD [address] [place] [address] Specialty Solar Electric Installer Cardiology 03/12/24 Screen Print Operator Relationship Specialty Start Date End Date Urban Ledezma MD [address] [facility] [place] [address] PCP - General Family Medicine 12/26/22 Suzan Mike MD [address] [place] [address] Specialty Solar Electric Installer Cardiology 03/14/23 Cordelia Blackwood MD [address] [place] [address] Specialty Solar Electric Installer Cardiology 03/12/24 Screen Print Operator Relationship Specialty Start Date End Date Urban Ledezma MD [address] [place] [address] PCP - General Family Medicine 12/26/22 Suzan Mike MD [address] [place] [address] Specialty Solar Electric Installer Cardiology 03/14/23 Cordelia Blackwood MD [address] [place] [address] Specialty Solar Electric Installer Cardiology 03/12/24 Screen Print Operator Relationship Specialty Start Date End Date Urban Ledezma MD [address] [facility] [place] [address] PCP - General Family Medicine 12/26/22 Suzan Mike MD [address] [place] [address] Specialty Solar Electric Installer Cardiology 03/14/23 Cordelia Blackwood MD [address] [place] [address] Specialty Solar Electric Installer Cardiology 03/12/24 Screen Print Operator Relationship Specialty Start Date End Date Urban Ledezma MD [address] [place] [address] PCP - General Family Medicine 12/26/22 Suzan Mike MD [address] [place] [address] Specialty Solar Electric Installer Cardiology 03/14/23 Cordelia Blackwood MD [address] [place] [address] Specialty Solar Electric Installer Cardiology 03/12/24 Screen Print Operator Relationship Specialty Start Date End Date Urban Ledezma MD [address] [place] [address] PCP - General Family Medicine 12/26/22 Suzan Mike MD [address] [place] [address] Specialty Solar Electric Installer Cardiology 03/14/23 Cordelia Blackwood MD [address] [place] [address] Specialty Solar Electric Installer Cardiology 03/12/24 Screen Print Operator Relationship Specialty Start Date End Date Urban Ledezma MD [address] [place] [address] PCP - General Family Medicine 12/26/22 Suzan Mkie MD [address] [place] [address] Specialty Solar Electric Installer Cardiology 03/14/23 Cordelia Blackwood MD [address] [place] [address] Specialty Solar Electric Installer Cardiology 03/12/24 Screen Print Operator Relationship Specialty Start Date End Date Urban Ledezma MD [address] [address] PCP - General Family Medicine 12/26/22 Suzan Mike MD [address] [place] [address] Specialty Solar Electric Installer Cardiology 03/14/23 Cordelia Blackwood MD [address] [place] [address] Specialty Solar Electric Installer Cardiology 03/12/24 Screen Print Operator Relationship Specialty Start Date End Date Urban Ledezma MD [address] [facility] [place] [place] [address] PCP - General Family Medicine 12/26/22 Suzan Mike MD [address] [place] [address] Specialty Solar Electric Installer Cardiology 03/14/23 Cordelia Blackwood MD [address] [place] [address] Specialty Solar Electric Installer Cardiology 03/12/24 Kai Marmolejo MD [address] [place] [address] Specialty Solar Electric Installer Pulmonary Disease 01/08/25 Screen Print Operator Relationship Specialty Start Date End Date Urban Ledezma MD [address] [place] [place] [address] PCP - General Family Medicine 12/26/22 Suzan Mike MD [address] [place] [address] Specialty Solar Electric Installer Cardiology 03/14/23 Cordelia Blackwood MD [address] [place] [address] Specialty Solar Electric Installer Cardiology 03/12/24 Kai Marmolejo MD [address] [place] [address] Specialty Solar Electric Installer Pulmonary Disease 01/08/25 Screen Print Operator Relationship Specialty Start Date End Date Urban Ledezma MD [address] [place] [address] PCP - General Family Medicine 12/26/22 Suzan Mike MD [address] [place] [address], [place] [address] Specialty Solar Electric Installer Cardiology 03/14/23 Cordelia Blackwood MD [address] [place] [address] Specialty Solar Electric Installer Cardiology 03/12/24 Kai Marmolejo MD [address] [place] [address] Specialty Solar Electric Installer Pulmonary Disease 01/08/25 Screen Print Operator Relationship Specialty Start Date End Date Urban Ledezma MD [address] [place] [address] PCP - General Family Medicine 12/26/22 Suzan Mike MD [address] [place] [address] Specialty Solar Electric Installer Cardiology 03/14/23 Cordelia Blackwood MD [address] [place] [address] Specialty Solar Electric Installer Cardiology 03/12/24 Kai Marmolejo MD [address] [address] Specialty Solar Electric Installer Pulmonary Disease 01/08/25 Screen Print Operator Relationship Specialty Start Date End Date Urban Ledezma MD [address] [place] [address] PCP - General Family Medicine 12/26/22 Suzan Mike MD [address] [place] [address] Specialty Solar Electric Installer Cardiology 03/14/23 Cordelia Blackwood MD [address] [place] [address] Specialty Solar Electric Installer Cardiology 03/12/24 Kai Marmolejo MD [address] [place] [address] Specialty Solar Electric Installer Pulmonary Disease 01/08/25 Screen Print Operator Relationship Specialty Start Date End Date Urban Ledezma MD [address] [place] [address] PCP - General Family Medicine 12/26/22 Suzan Mike MD [address] [facility] [address] [place] [address] Specialty Solar Electric Installer Cardiology 03/14/23 Cordelia Blackwood MD [address] [facility] [address] [place] [address] Specialty Solar Electric Installer Cardiology 03/12/24 Kai Marmolejo MD [address] [place] [address] Specialty Solar Electric Installer Pulmonary Disease 01/08/25 Screen Print Operator Relationship Specialty Start Date End Date Urban Ledezma MD [address] [facility] [place] [address] PCP - General Family Medicine 12/26/22 Suzan Mike MD [address] [address] Specialty Solar Electric Installer Cardiology 03/14/23 Cordelia Blackwood MD [address] [address] Specialty Solar Electric Installer Cardiology 03/12/24 Kai Marmolejo MD [address] [place] [address] Specialty Solar Electric Installer Pulmonary Disease 01/08/25 Screen Print Operator Relationship Specialty Start Date End Date Urban Ledezma MD [address] [facility] [place] [address] PCP - General Family Medicine 12/26/22 Suzan Mike MD [address] [id number] Specialty Solar Electric Installer Cardiology 03/14/23 Cordelia Blackwood MD [address] [place] [address] Specialty Solar Electric Installer Cardiology 03/12/24 Kai Marmolejo MD [address] [place] [address] Specialty Solar Electric Installer Pulmonary Disease 01/08/25 Screen Print Operator Relationship Specialty Start Date End Date Urban Ledezma MD [address] [place] [id number] PCP - General Family Medicine 12/26/22 Suzan Mike MD [address] [place] [address] Specialty Solar Electric Installer Cardiology 03/14/23 Cordelia Blackwood MD [address] [place] [address] Specialty Solar Electric Installer Cardiology 03/12/24 Kai Marmolejo MD [address] [place] [address] Specialty Solar Electric Installer Pulmonary Disease 01/08/25 Team Status: Active Member Role Status Dates Dr. Urban Ledezma MD Family Provider Active Dr. Urban Ledezma MD Primary Care Provider Acti ve Team Status: Inactive Member Role Status Dates Dr. Urban Ledezma MD Primary Care Provider Acti ve Start: May 05, 2025 End: May 05, 2025 Dr. Urban Ledezma MD Referring Provider Active Start: May 05, 2025 End: May 05, 2025 Danuta Meraz REHAB MANAGER, REHAB MANAGER-C Attending Provider Active Start: May 05, 2025 End: Machelle 23rd, 2025 (unrecognized sect ion and content) No Status Records FoundNo Status Records FoundNo Status Records FoundNo Status Records Found INFORMATION SOURCE (unrecogn ized section and content) DATE CREATED AUTHOR 01/21/2023 [facility] DATE CREATED AUTHOR AUTHOR'S ORGANIZ ATION 02/28/2025 [facility] DATE CREATED AUTHOR AUTHOR'S ORGANIZ ATION 03/20/2025 [facility] DATE CREATED AUTHOR AUTHOR'S ORGANIZ ATION 05/06/2025 [facility] FOR RECORDS PERTAINING TO PATIENTS WHO ARE [...] BE BASED ON THE PRIMARY CLINICAL RECORDS. [employer] provides no warranty or guarantee of the accuracy or completeness of information in this document.
[2025-05-29 21:10] LABS: Anion Gap 13 (5-15); BUN 15 mg/dL (4-19); BUN/Creat Ratio 16.7 RATIO (10-20); Calcium,Total 9.8 mg/dL (7.6-11.0); Carbon Dioxide 25.1 mmol/L (21.0-32.0); Chloride 102 mmol/L (98-108); Estimated Creatinine Clearance 84.87 ml/min (50-250); Glucose 103 mg/dL (70-99); Potassium 4.2 mmol/L (3.3-5.1); Pro- Brain NATRIURETIC PEPTIDE 1627 pg/mL (<=1800)
[2025-05-29 21:23] LABS: Troponin T High Sensitivity 11 ng/L (<=22)
[2025-05-29 21:52] VITALS: BP 165/100; PULSE 77; RESP 20; TEMP 36.6; O2SAT 98
== END 2025-05-29 22:49 | disposition home or self-care (01) ==
PROVIDERS: Emergency Provider Surgery; PCP Family Medicine; Visit Provider Surgery
DX: I10 Essential (primary) hypertension (principal); I48.91 Unspecified atrial fibrillation; E11.9 Type 2 diabetes mellitus without complications; E78.5 Hyperlipidemia, unspecified; I25.10 Atherosclerotic heart disease of native coronary artery without angina pectoris; Z79.01 Long term (current) use of anticoagulants; Z79.84 Long term (current) use of oral hypoglycemic drugs; Z79.82 Long term (current) use of aspirin; Z79.899 Other long term (current) drug therapy; Z87.891 Personal history of nicotine dependence
CPT/HCPCS: 70450; 71046; 80048; 82962; 83880; 84484; 85025; 93005; 96374; 96375; 99283; A4216; J2405

== ENCOUNTER → 2025-06-16 | Outpatient (CLI) | payer MEDICARE, SELFPAY ==
[2025-06-16 16:09] LABS: Creatinine, Urine (random) 120.00 mg/dL (39.00-259.00); Microalbumin,Random Urine 12.9 mg/L (<20 mg/L)
[2025-06-16 16:28] LABS: Anion Gap 9 (5-15); BUN 17 mg/dL (4-19); BUN/Creat Ratio 17.7 RATIO (10-20); Calcium,Total 9.1 mg/dL (7.6-11.0); Carbon Dioxide 26.0 mmol/L (21.0-32.0); Chloride 104 mmol/L (98-108); Glucose 140 mg/dL (70-99); Potassium 4.6 mmol/L (3.3-5.1)
[2025-06-16 16:45] LABS: Cholesterol 214 mg/dL (<=200); Low Density Lipoprotein Calc. 146 mg/dL; Triglycerides 131 mg/dL; Very Low Density Lipoprotein 26 mg/dL (5-40); cholesterol:hdl ratio screen 5.14
== END | disposition home or self-care (01) ==
LOC: MFPLAB 11:56
PROVIDERS: PCP Family Medicine; Visit Provider Family Medicine
DX: Z00.00 Encounter for general adult medical examination without abnormal findings (principal); E11.22 Type 2 diabetes mellitus with diabetic chronic kidney disease; N18.2 Chronic kidney disease, stage 2 (mild)
CPT/HCPCS: 36415; 80048; 80061; 82043; 82570